=== PATIENT | male | born 1960 | race Caucasian/White ===

== ENCOUNTER 2020-06-12 10:28 | Emergency (ER) | payer OTHER, SELFPAY ==
--- NOTE | ~2020-06-12 | CT_ITS ---
EXAMINATION: CT ABDOMEN AND PELVIS WITH CONTRAST CLINICAL INFORMATION: Left lower quadrant abdominal pain. Evaluate for diverticulitis versus hernia. COMPARISON: None TECHNIQUE: Multidetector volumetric images were obtained from the superior aspect of the liver through the pubic symphysis following administration 75 mL of Omnipaque 350 intravenous contrast. Sagittal and coronal reformatted images were obtained on the technologist's workstation. Oral contrast: No This CT examination was performed using dose optimization techniques as appropriate, variously including the following: *Automated exposure control *Adjustment of mA and/or kV according to patient size (this includes techniques or standardized protocols for targeted exams where dose is matched to indication/reason for exam; i.e. extremities or head) *Use of iterative reconstruction technique DLP: 1265 mGy-cm FINDINGS: LUNG BASES: Platelike atelectasis within the middle lobe. LIVER, GALLBLADDER, AND BILIARY TREE: Liver normal in size, contour and morphology. Diffuse hepatic steatosis. No focal liver lesions. There is a 2.7 cm stone within the gallbladder neck. No pericholecystic fluid. PANCREAS: Unremarkable SPLEEN: Unremarkable. ADRENAL GLANDS: Unremarkable. KIDNEYS AND URETERS: The kidneys are normal in size, shape, and attenuation. There is a 3 mm nonobstructive calculus within the upper pole of the left kidney, a 2 mm calculus within the midpole of the left kidney, and a 2 mm calculus within the upper pole of the right kidney no ureteral calculi or hydronephrosis. There are a few bilateral subcentimeter renal cysts. No perinephric stranding. BLADDER: Unremarkable. GASTROINTESTINAL TRACT: The small and large bowel are unremarkable. The appendix is unremarkable. ABDOMINAL WALL: There is a fat-containing indirect inguinal hernia on the left without associated inflammation. Testicles and scrotum grossly unremarkable from a CT imaging standpoint. LYMPH NODES: Normal. VASCULAR: Aorta mildly atherosclerotic but normal caliber. Patent venous structures. PELVIC VISCERA: Unremarkable. OSSEOUS STRUCTURES: No acute or suspicious osseous abnormalities. CT/CT abdomen pelvis w con IMPRESSION: * There is a fat-containing indirect inguinal hernia on the left without associated inflammation. * No diverticular disease or evidence of diverticulitis. * Hepatic steatosis. * Cholelithiasis. * Bilateral small nonobstructive intrarenal calculi.
[2020-06-12 10:47] VITALS: BP 154/94; PULSE 102; RESP 16; O2SAT 98; BMI 35.2
[2020-06-12 10:51] VITALS: TEMP 36.8
--- NOTE | 2020-06-12 10:53 | ED_ITS ---
HPI - Abdominal Pain General Chief Complaint: Abdominal Pain Stated Complaint: PAIN L LOWER ABD Time Seen by Provider: 06/12/20 10:34 Source: patient Mode of arrival: ambulatory Limitations: no limitations History of Present Illness HPI narrative: 60-year-old male with a past medical history of asthma, BPH status post TURP, POORNIMA, migraines, hypertension, hyperlipidemia here with complaints of left lower abdominal pain x1 week with radiation to the left testicle. Associated with some urinary frequency. No dysuria or hematuria. No fevers or chills or diarrhea. The patient tells me he has had some hard stool b ut his last bowel movement was this morning. He has had some straining and noticed a lump while moving his bowels today at his rectum. No bright blood or black stools. MD elicited complaint: abdominal pain Related Data Allergies Allergy/AdvReac Type Severity Reaction Status Date / Time No Known Allergies Allergy Unverified 11/27/19 15:42 Review of Systems Review of Systems Yes all other systems are reviewed and are negative Constitutional: Reports no additional constitutional complaints, Denies body ache(s), Denies chills, Denies fever(s), Denies headache(s) and Denies weakness Eyes: Reports no additional eye complaints and Denies change in vision Reports system reviewed and no additional complaints, except as documented, Denies dizziness, Denies headache(s), Denies nasal congestion, Denies nasal discharge and Denies neck pain Cardiovascular: Reports no additional cardiovascular complaints, Denies chest pain, Denies leg edema and Denies dyspnea Respiratory: Reports no additional respiratory complaints, Denies cough and Den ies dyspnea Gastrointestinal: Reports no additional gastrointestinal complaints, Reports abdominal pain, Denies hematochezia, Reports constipation, Denies diarrhea, Denies nausea and Denies vomiting Genitourinary: Denies hematuria, Denies oliguria, Denies dysuria, Denies flank pain, Denies testicular mass, Reports testicular pain, Reports urinary frequency and Denies urinary incontinence Musculoskeletal: Reports no additional musculoskeletal complaints, Denies back pain, Denies arthralgias, Denies joint swelling, Denies neck pain, Denies numbness and Denies tingling Skin/Breast: Reports system reviewed and no additional complaints, except as docu and Denies rash Reports system reviewed and no additional complaints, except as documented, Denies Abnormal speech present, Denies dizziness, Denies headache(s), Denies numbness, Denies tingling and Denies weakness Physical Exam Vital Signs: Vital Signs: Last Vital Signs Temp 98.2 F 06/12/20 10:51 Pulse 73 06/12/20 13:25 Resp 18 06/12/20 13:25 BP 152/82 H 06/12/20 13:25 Pulse Ox 98 06/12/20 13:25 Body Mass Index 35.2 Const: General: cooperative, healthy appearing, comfortable and no acute distress Orientation/consciousness: patient oriented x3 Limitations: no limitations HENMT: Head: Yes normal to inspection Ears: hearing grossly normal bilaterally General nose exam: Normal external nose present Face and sinus: Yes normal facial exam Mouth: Normal oral and palatal mucosa present Throat: Yes posterior oropharynx normal Eyes: General: appearance normal, both eyes and all related structures Pupi ls: Equal, round and reactive pupils present Neck: Neck: Yes normal visual inspection Chest: Chest palpation & inspection: normal inspection of the chest Resp: Effort & Inspection: normal respiratory effort Auscultation: clear to auscultation bilaterally Cardio: Rate: regular rate Rhythm: regular rhythm Peripheral pulses: Peripheral pulses 2+ throughout GI: Inspection: Yes normal to inspection Palpation (GI): Soft to palpation, Tenderness to palpation present (GI) (mild llq), no guarding, No hepatosplenomegaly present and no hernias Auscultation: normal bowel sounds Rectal Exam - Male: Yes visual inspection normal, Yes normal sphincter tone and Yes Internal hemorrhoid(s) present (12 o clock-small, nontender ) : 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 General: Yes Bimanual renal exam normal bilaterally Male General Exam: Yes normal external exam Penis: normal penis and circumcised Meatus: meatus normal Scrotum: scrotum normal Testes: Testes normal, no testicular mass, no testicular swelling and no tracie ticular tenderness Back/Spine/Pelvis: Thoracic/Lumbar Spine: thoracic and lumbar spine normal to inspection Skin: General skin exam: no rashes or lesions noted Neuro: General: patient oriented x3, no focal motor deficits and normal sensat ion to monofilament Cranial nerves: Yes Equal, round and reactive pupils present Cognition (Neuro): normal cognition Speech: No Abnormal speech present Gait exam (Neuro): Normal gait present Motor exam (neuro): 5/5 mo tor strength present throughout Extrem: General: Yes normal to inspection Course Course Course Narrative: 60-year-old male here with complaints of left lower abdominal pain with radiation to the left testicle x1 week with associated urinary frequency and constipation. On exam the patient has mild tenderness in the left lower quadrant with no rebound or guarding. He has no testicular pain on exam. He tells me the pain radiates from the abdomen to the testicle. Rectal exam is normal with the exception of a small hemorrhoid noted on exam. Will need labs, UA, CTA/P 1350-labs are unremarkable. UA is negative for infection. CT is consistent with a left inguinal hernia with no evidence of incarceration or obstruction. Incidental findings of renal stones within the kidney and gallstones with no evidence of acute cholecystitis. Reviewed findings with the patient. We will refer him to surgery as follow-up. Reviewed worrisome signs and symptoms such as severe abdominal pain, 2 or more episodes of vomiting, fever and when to seek care in the emergency department. Comfortable discharge home. MDM - Abdominal Pain MDM Narrative Medical decision making narrative: UTI, pyelonephritis, BPH, prostatitis, inguinal hernia, renal colic, diverticulitis Medical Records Attestation: I reviewed the patient's medical records. Lab Data Attestation: I reviewed the patient's lab results. Result diagrams: 06/12/20 11:10 06/12/20 11:48 Labs: Lab Results 06/12/20 06/12/20 06/12/20 Range/Units 11:10 11:10 11:48 WBC 5.5 (4.8-10.8) X10*3/uL RBC 4.79 (4.60-5.80) X10*6/uL Hgb 15.1 (14.0-18.0) g/dl Hct 43.0 (42-52) % MCV 89.8 (80-98) fL MCH 31.5 (27.0-33.0) pg MCHC 35.1 (31.0-36.0) g/dl RDW 12.2 (11.0-16.0) % Plt Count 165 (160-400) X10*3/uL MPV 10.2 (9.4-12.4) fL Immature Gran % (Auto) 0.4 (0.0-0.4) % Neut % (Auto) 61.8 (45-73) % Lymph % (Auto) 27.0 (20-40) % [place] % (Auto) 9.1 (2-11) % Eos % (Auto) 1.3 (0-4) % Baso % (Auto) 0.4 (0-2) % Lymph # (Auto) 1.5 (1.2-4.9) X10*3/uL [place] # (Auto) 0.5 (0.1-1.2) X10*3/uL Eos # (Auto) 0.1 (0.0-0.4) X10*3/uL Baso # (Auto) 0.0 (0.0-0.2) X10*3/uL Abs Immat Gran (auto) 0.02 (0.00-0.03) X10*3/uL Absolute Neuts (auto) 3.4 (2.0-8.3) X10*3/uL Absolute Nucleated RBC 0.000 (0.0-0.012) X10*3/uL Nucleated RBC % (auto) 0.0 (0.0-0.2) /100WBC Hold Blue Top SEE NOTE Sodium 138 (135-145) mmol/L Potassium 3.8 (3.3-5.1) mmol/L Chloride 104 (96-108) mmol/L Carbon Dioxide 26 (22-29) mmol/L Anion Gap 12 (12-20) BUN 15 (9-16) mg/dL Creatinine 0.92 (0.5-1.4) mg/dL Estim Creat Clear Calc 110.3 Estimated GFR > 60 Random Glucose 105 (60-115) mg/dL Calcium 8.6 (8.4-10.2) mg/dL Total Bilirubin 0.9 (0.0-1.0) mg/dL Direct Bilirubin 0.3 (0.0-0.5) mg/dL AST 27 (5-37) U/L ALT 42 H (0-40) U/L Alkaline Phosphatase 45 (39-117) U/L Total Protein 7.0 (6.5-8.0) g/dL Albumin 4.3 (3.5-5.0) g/dL Urine Color Urine Appearance Urine pH (5.0-8.0) Ur Specific [place] (1.005-1.025) Urine Protein (NEG-TRACE) MG/DL Urine Glucose (UA) (NEG) MG/DL Urine Ketones (NEG) MG/DL Urine Blood (NEG) Urine Nitrite (NEG) Ur Leukocyte Esterase (NEG) 06/12/20 Range/Units 13:26 WBC (4.8-10.8) X10*3/uL RBC (4.60-5.80) X10*6/uL Hgb (14.0-18.0) g/dl Hct (42-52) % MCV (80-98) fL MCH (27.0-33.0) pg MCHC (31.0-36.0) g/dl RDW (11.0-16.0) % Plt Count (160-400) X10*3/uL MPV (9.4-12.4) fL Immature Gran % (Auto) (0.0-0.4) % Neut % (Auto) (45-73) % Lymph % (Auto) (20-40) % [place] % (Auto) (2-11) % Eos % (Auto) (0-4) % Baso % (Auto) (0-2) % Lymph # (Auto) (1.2-4.9) X10*3/uL [place] # (Auto) (0.1-1.2) X10*3/uL Eos # (Auto) (0.0-0.4) X10*3/uL Baso # (Auto) (0.0-0.2) X10*3/uL Abs Immat Gran (auto) (0.00-0.03) X10*3/uL Absolute Neuts (auto) (2.0-8.3) X10*3/uL Absolute Nucleated RBC (0.0-0.012) X10*3/uL Nucleated RBC % (auto) (0.0-0.2) /100WBC Hold Blue Top Sodium (135-145) mmol/L Potassium (3.3-5.1) mmol/L Chloride (96-108) mmol/L Carbon Dioxide (22-29) mmol/L Anion Gap (12-20) BUN (9-16) mg/dL Creatinine (0.5-1.4) mg/dL Estim Creat Clear Calc Estimated GFR Random Glucose (60-115) mg/dL Calcium (8.4-10.2) mg/dL Total Bilirubin (0.0-1.0) mg/dL Direct Bilirubin (0.0-0.5) mg/dL AST (5-37) U/L ALT (0-40) U/L Alkaline Phosphatase (39-117) U/L Total Protein (6.5-8.0) g/dL Albumin (3.5-5.0) g/dL Urine Color STRAW Urine Appearance CLEAR Urine pH 6.0 (5.0-8.0) Ur Specific [place] <= 1.005 (1.005-1.025) Urine Protein NEG (NEG-TRACE) MG/DL Urine Glucose (UA) NEG (NEG) MG/DL Urine Ketones NEG (NEG) MG/DL Urine Blood NEG (NEG) Urine Nitrite NEG (NEG) Ur Leukocyte Esterase NEG (NEG) Imaging Data CT scan - abdomen: Attestation: I personally reviewed and interpreted this imaging study as follows: Radiologist's impression: * There is a fat-containing indirect inguinal hernia on the left without associated inflammation. * No diverticular disease or evidence of diverticulitis. * Hepatic steatosis. * Cholelithiasis. * Bilateral small nonobstructive intrarenal calculi. Discharge Plan Discharge Clinical Impression: Inguinal hernia of left side without obstruction or gangrene Hemorrhoids Qualifiers: Hemorrhoid type: unspecified Qualified Code(s): K64.9 - Unspecified hemorrhoids Patient Disposition: Home, Self-Care Instructions: Hemorrhoids (ED), Inguinal Hernia (ED) Additional Instructions: Your CAT scan shows a left inguinal hernia. You have been referred to surgery for elective repair if desired. Avoid any heavy lifting or activities that increase her intra-abdominal pressure. Your CT scan also shows shows several kidney stones which are within the kidneys and are not causing the pain. You also have several gallstones in her gallbladder but no signs an inflamed or infected gallbladder. You do have a internal hemorrhoids. Avoid constipation. Increase fluids and fiber and diet. You can do MiraLax 17 g every day [id number] and a stool softener like Colace 1 pill twice a day. This is also [id number] Referrals: Lani Koroma MD [Physician] - 2 days Interventions: ED Discharge Assessment Last Done: 06/12/20 14:01 Discharge Date/Time: 06/12/20 14:04 [facility] Past Medical History Attestation statement: The following information was validated with the patient. Source: old records reviewed and nursing notes reviewed Medical History (Updated 06/12/20 @ 13:47 by Evelyn Li NP) Asthma BPH (benign prostatic hyperplasia) HLD (hyperlipidemia) HTN (hypertension) Migraines Social History Social History Alcohol intake: never Smoking Status: Never smoker Use of substances other than those prescribed or required for medical reasons: No Advance Directives: No Advance Directives Information Provided: Yes
[2020-06-12 11:17] LABS: MANUAL DIFF FLAG NO
[2020-06-12 11:19] LABS: Basophils Percent Auto 0.4 % (0-2); Eosinophils Absolute Auto 0.1 X10*3/uL (0.0-0.4); Eosinophils Percent Auto 1.3 % (0-4); Hemoglobin 15.1 g/dl (14.0-18.0); Imm Gran Abs Auto 0.02 X10*3/uL (0.00-0.03); Imm Gran Pct Auto 0.4 % (0.0-0.4); Lymphocytes Absolute Auto 1.5 X10*3/uL (1.2-4.9); Mean Corpuscular HGB Conc 35.1 g/dl (31.0-36.0); Mean Corpuscular Hemoglobin 31.5 pg (27.0-33.0); Mean Corpuscular Volume 89.8 fL (80-98); Mean Platelet Volume 10.2 fL (9.4-12.4); Monocytes Absolute Auto 0.5 X10*3/uL (0.1-1.2); Monocytes Percent Auto 9.1 % (2-11); Neutrophils Absolute Auto 3.4 X10*3/uL (2.0-8.3); Neutrophils Percent Auto 61.8 % (45-73); Platelet Count 165 X10*3/uL (160-400); Red Blood Count 4.79 X10*6/uL (4.60-5.80); Red Cell Distribution Width 12.2 % (11.0-16.0); White Blood Count 5.5 X10*3/uL (4.8-10.8)
[2020-06-12 12:28] LABS: Alanine Aminotransferase 42 U/L (0-40); Albumin Level 4.3 g/dL (3.5-5.0); Alkaline Phosphatase 45 U/L (39-117); Anion Gap 12 (12-20); Aspartate Amino Transferase 27 U/L (5-37); Bilirubin Direct 0.3 mg/dL (0.0-0.5); Bilirubin Total 0.9 mg/dL (0.0-1.0); Blood Urea Nitrogen 15 mg/dL (9-16); Calcium 8.6 mg/dL (8.4-10.2); Carbon Dioxide 26 mmol/L (22-29); Chloride 104 mmol/L (96-108); Creatinine Clr Calc Pharmacy 110.3; Estimated Glomerular Filt Rate > 60; Glucose Random 105 mg/dL (60-115); Potassium 3.8 mmol/L (3.3-5.1); Sodium 138 mmol/L (135-145)
[2020-06-12] MEDS: iohexoL 350 MG/ML 75 ML INFUS..BTL IV (13:08)
[2020-06-12 13:25] VITALS: BP 152/82; PULSE 73; RESP 18; O2SAT 98
[2020-06-12 13:31] LABS: Glucose Urine UA NEG (NEG); Leukocyte Esterase Urine NEG (NEG); Nitrite Urine NEG (NEG); Specific Gravity - Urine <= 1.005 (1.005-1.025); Urine Blood NEG (NEG); Urine Ketones NEG (NEG); Urine Protein NEG (NEG-TRACE)
[2020-06-12 13:32] LABS: Appearance Urine CLEAR; Color Urine STRAW
== END 2020-06-12 14:04 | disposition home or self-care (01) ==
PROVIDERS: Nurse Practitioner Family; Emergency Provider Emergency Medicine
DX: K40.90 Unilateral inguinal hernia, without obstruction or gangrene, not specified as recurrent (principal); K64.9 Unspecified hemorrhoids; R10.32 Left lower quadrant pain; J45.909 Unspecified asthma, uncomplicated; I10 Essential (primary) hypertension; E78.5 Hyperlipidemia, unspecified; R93.5 Abnormal findings on diagnostic imaging of other abdominal regions, including retroperitoneum; N20.0 Calculus of kidney; N28.1 Cyst of kidney, acquired; K80.80 Other cholelithiasis without obstruction; K76.0 Fatty (change of) liver, not elsewhere classified
CPT/HCPCS: 36415; 74177; 80048; 80076; 81003; 85025; 99284; Q9967

== ENCOUNTER → 2020-07-01 12:40 | Outpatient (BNVA) | payer OTHER, SELFPAY | PROVIDERS: PCP Family Medicine; Visit Provider Surgery | DX: K40.90 Unilateral inguinal hernia, without obstruction or gangrene, not specified as recurrent (principal); E78.5 Hyperlipidemia, unspecified; I10 Essential (primary) hypertension | CPT/HCPCS: 99202 ==

== ENCOUNTER 2020-07-21 09:20 | Day surgery (SDC) | payer OTHER, SELFPAY ==
[2020-07-16 11:54] VITALS: BMI 34.5
--- NOTE | 2020-07-20 07:48 | HO.ANESPROP2 ---
HPI - Anesthesia Eval Consult details Narrative: 60yo M for Left Inguinal Hernia Repair with mesh *s/p cervical spine surgery with plates PMFSH Active Problems Active Problems: All Active Problems (Updated 07/16/20 @ 11:53 by Ryann Jasso) Left inguinal hernia (Acute) Past Medical History Medical History Anxiety and depression Asthma BPH (benign prostatic hyperplasia) COVID-19 vaccine series completed GERD (gastroesophageal reflux disease) HLD (hyperlipidemia) HTN (hypertension) Hx of traumatic brain injury Low back pain Migraines Neck pain Sleep apnea Family History Family History Maternal Uncle Prostate cancer Surgical History Surgical History H/O neck surgery H/O right inguinal hernia repair Social History Social History Smoking Status: Never smoker Meds Allergies Allergy/AdvReac Type Severity Reaction Status Date / Time No Known Allergies Allergy Verified 07/21/20 09:47 Home Medications Medication Instructions Recorded Confirmed Last Taken Type albuterol sulfate 2 puff INHALATION Q4-6H PRN 07/16/20 07/16/20 Unknown History budesonide-formoterol [Symbicort] 2 puff INHALATION BID 07/16/20 07/16/20 Unknown History buspirone 10 mg PO BID 07/16/20 07/16/20 Unknown History citalopram 10 mg PO DAILY 07/16/20 07/16/20 Unknown History cyclobenzaprine 5 mg PO BID 07/16/20 07/16/20 Unknown History dextran 70-hypromellose 1 drp OPHTHALMIC (EYE) BEDTIME 07/16/20 07/16/20 Unknown History lidocaine 1 patch TOPICAL DAILY 07/16/20 07/16/20 Unknown History melatonin 1 mg PO BEDTIME PRN 07/16/20 07/16/20 Unknown History naproxen 250 mg PO BID PRN 07/16/20 07/16/20 Unknown History omeprazole 20 mg PO DAILY 07/16/20 07/16/20 Unknown History terazosin 1 mg PO BEDTIME 07/16/20 07/16/20 Unknown History Exam Exam Date and Time: July 20, 2020 0748 Height,Weight and Vital Signs: Height 6 ft Weight 115.666 kg Pertinent Lab Results Pertinent Lab Results: Laboratory Tests 06/12/20 06/12/20 11:10 11:48 WBC 5.5 Hgb 15.1 Hct 43.0 Plt Count 165 Sodium 138 Potassium 3.8 Chloride 104 Carbon Dioxide 26 BUN 15 Creatinine 0.92 Assessment and Plan Assessment Anesthesia Assessment: Chart Reviewed
[2020-07-21] VITALS (9 sets, daily range): BP systolic 92–166; BP diastolic 37–77; PULSE 68–90; RESP 16; TEMP 36.4–36.5; O2SAT 93–98
--- NOTE | 2020-07-21 07:26 | MHC.SHP ---
Pre-Procedural Eval Section A The patient is an INPATIENT: No Changes since office visit: No Cold of Flu in the past 2 weeks, No New Medical Problems and No Changes in Medication The History & Physical has been completed within 30 days and I have reviewed it.: Yes Section B Chief Complaint: Left Inguinal hernia Allergies: Allergies Allergy/AdvReac Type Severity Reaction Status Date / Time No Known Allergies Allergy Verified 07/16/20 11:49 Plan Diagnosis/Plan: Unchanged I have reviewed the history and physical and performed a pertinent physical examination on my patient. No changes have occurred unless specified.
--- NOTE | 2020-07-21 09:55 | P.CONAN_ITS ---
[facility] Active Problems Active Problems: All Active Problems (Updated 07/16/20 @ 11:53 by Ryann noe) Left inguinal hernia (Acute) Past Medical History Medical History Anxiety and depression Asthma BPH (benign prostatic hyperplasia) COVID-19 vaccine series completed GERD (gastroesophageal reflux disease) HLD (hyperlipidemia) HTN (hypertension) Hx of traumatic brain injury Low back pain Migraines Neck pain Sleep apnea Family History Family History Maternal Uncle Prostate cancer Surgical History Surgical History H/O neck surgery H/O right inguinal hernia repair Social History Social History Smoking Status: Never smoker Use of substances other than those prescribed or required for medical reasons: No Are you DNR?: No Advance Directives: No Advance Directives Information Provided: No Advance Directives on File: No Meds Allergies Allergy/AdvReac Type Severity Reaction Status Date / Time No Known Allergies Allergy Verified 07/21/20 09:47 Active Medications: Current Medications Generic Name Dose Route Start Last Admin Trade Name Freq PRN Reason Stop Dose Admin Albuterol Sulfate 2.5 mg 07/21/20 09:24 Albuterol Sulfate (0.083%) 2.5 Mg/3 Ml Vial.Neb INHALE ONCE PRN Shortness of Breath/Wheezing Lactated Ringer's 1,000 mls @ 100 mls/hr 07/21/20 09:30 Lr IVCONT .Q10H [facility] Home Medications Medication Instructions Recorded Confirmed Last Taken Type albuterol sulfate 2 puff INHALATION Q4-6H PRN 07/16/20 07/16/20 Unknown History budesonide-formoterol [Symbicort] 2 puff INHALATION BID 07/16/20 07/16/20 Unknown History buspirone 10 mg PO BID 07/16/20 07/16/20 Unknown History citalopram 10 mg PO DAILY 07/16/20 07/16/20 Unknown History cyclobenzaprine 5 mg PO BID 07/16/20 07/16/20 Unknown History dextran 70-hypromellose [Tears 1 drp OPHTHALMIC (EYE) BEDTIME 07/16/20 07/16/20 Unknown History Refreshed] lidocaine 1 patch TOPICAL DAILY 07/16/20 07/16/20 Unknown History melatonin 1 mg PO BEDTIME PRN 07/16/20 07/16/20 Unknown History naproxen 250 mg PO BID PRN 07/16/20 07/16/20 Unknown History omeprazole 20 mg PO DAILY 07/16/20 07/16/20 Unknown History terazosin 1 mg PO BEDTIME 07/16/20 07/16/20 Unknown History Exam Exam Date and Time: July 21, 2020 0955 Height,Weight and Vital Signs: Height 6 ft Weight 115.666 kg Airway Mallampati Class: III TM Dist: >3cm Neck ROM: Limited Heart: RRR Lungs: CTA
[2020-07-21] MEDS: Lactated Ringers 1,000 ML 100 ML IVCONT (10:03)
--- NOTE | 2020-07-21 12:27 | P.OP_ITS ---
Operative Note Operative Note Date of Service: 07/21/20 Narrative: Preoperative diagnosis: Left inguinal hernia Postoperative diagnosis: Same Procedure: Repair of left inguinal hernia Surgeon: Derik Lopez MD Director Housekeeping: JESSE Kumar Anesthesia: General LMA Indications for procedure: 60 year old male patient with a lump in the left groin which increases in size with Valsalva maneuvers. He has prior history of bilateral inguinal hernias as a child and a previous right inguinal hernia as an adult. On examination the patient has a palpable left inguinal hernia which is reducible and nontender. Operative findings:. Recurrent indirect left inguinal hernia with large preperitoneal lipoma. Specimen: None Estimated blood loss: 10 mL Complications: None Procedure details: Patient was brought to the OR and placed in a supine position. After administering general anesthesia the patient's abdomen was prepped with ChloraPrep and draped in a sterile fashion. A surgical time-out was called the consent confirmed. Patient received preoperative antibiotics and Venodyne boots were in place. Local anesthesia consisting of 0.5% Sensorcaine with epinephrine was infiltrated over the left inguinal ligament. Incision was then made in oblique fashion over the inguinal ligament. This carried out through subcutaneous tissue past Cayetano's fashion up to the external oblique aponeurosis. Additional local was infiltrated below the external oblique aponeurosis. This was then incised with a scalpel wide with the Metzenbaum scissors. Spermatic cord was then dissected free from the surrounding inguinal canal and retracted using a Susie drain. The floor of the inguinal canal was examined and no direct hernia was identified. Fibers of the cremasteric muscle were then and an indirect lipoma was identified. This was dissected down to the internal ring. The lipoma was then reduced into the abdominal cavity through the internal ring. A large extended PHS mesh was then obtained. The circular underlay was then placed through the internal ring into the preperitoneal space. The overlay was then secured to the pubic tubercle, conjoined tendon and shelving edge of the inguinal ligament using 0 Polysorb sutures. A slit was made in the mesh and the mesh wrapped around the spermatic cord at the internal ring. This was then secured to the shelving edge of the inguinal ligament using a 0 Polysorb suture. This was felt to be loose enough to allow the tip of an index finger to pass. Wounds were checked for hemostasis. Wounds were irrigated with saline solution and suctioned dry. External oblique aponeurosis was then closed using a running 2 0 Polysorb suture. Cayetano's fascia and dermis reapproximated using interrupted 3-0 Polysorb sutures. Skin was then closed using a running subcuticular 4-0 Polysorb suture. Steri-Strips 2 x 2 gauze and Tegaderm were then applied. The patient tolerated the procedure well. Sponge, instrument, needle counts reported as correct. Patient was transferred to PACU in stable condition.
[2020-07-21] MEDS: ondansetron HCL 4 MG/2 ML VIAL IVPUSH (12:49)
--- NOTE | 2020-07-21 13:44 | PC.NURSE ---
PATIENT STATES HE FEELS THE NEED TO URINATE. PT GIVEN URINAL AND UNABLE TO URINATE. PATIENT ASSISTED UP AND UNABLE TO URINATE. PT ASSISTED TO BATHROOM AND WAS ABLE TO URINATE.
== END 2020-07-21 14:30 | disposition home or self-care (01) ==
PROVIDERS: Visit Provider Surgery
PROC: (CPT 49520; principal; 2020-07-21 10:50)
DX: K40.91 Unilateral inguinal hernia, without obstruction or gangrene, recurrent (principal); D17.79 Benign lipomatous neoplasm of other sites; K21.9 Gastro-esophageal reflux disease without esophagitis; J45.909 Unspecified asthma, uncomplicated; I10 Essential (primary) hypertension; F32.9 Major depressive disorder, single episode, unspecified; Z79.899 Other long term (current) drug therapy; Z87.820 Personal history of traumatic brain injury
CPT/HCPCS: 49520; C1781; J0690; J1100; J1885; J2250; J2405; J3010

== ENCOUNTER → 2020-07-30 09:32 | Outpatient (BNVA) | payer OTHER, SELFPAY | PROVIDERS: Visit Provider Surgery | DX: K40.90 Unilateral inguinal hernia, without obstruction or gangrene, not specified as recurrent (principal) | CPT/HCPCS: 99212 ==

== ENCOUNTER → 2020-08-31 11:15 | Outpatient (BNVA) | payer OTHER, SELFPAY | PROVIDERS: PCP Family Medicine; Visit Provider Surgery | DX: Z48.815 Encounter for surgical aftercare following surgery on the digestive system (principal); Z87.19 Personal history of other diseases of the digestive system | CPT/HCPCS: 99212 ==

== ENCOUNTER 2023-11-29 09:30 | Outpatient (AMB) | payer MEDICARE, OTHER, SELFPAY ==
--- NOTE | 2023-11-29 09:42 | AM.OFFWIN_ITS ---
Intake Vital Signs 11/29/23 09:44 Weight 239 lb BP 110/80 Blood Pressure Location Rt brachial Position Sitting Pulse 80 Pulse Source Pulse Oximeter Pulse Oximetry (%) 98 Oxygen Delivery Method Room Air Intake Visit Reasons: EP Kidney pain Intake Note: Patient here for left lower back pain (kidney area) which has been present for about 2 weeks now. Patient Tobacco Use Status: Never used Tobacco Allergies No Known Allergies Allergy (Verified 11/29/23 09:45) Do you need a note to return to daycare/school/sports/work: No HPI HPI Comments History of Present Illness Details Patient is a 63-year-old male complaining of 2 weeks of left-sided low back pain that radiates around the side. He states he has a history of kidney stones and prostatitis. He states it does not feel exactly like his kidney stones felt when he had them last year any denies any fevers or blood in his urine. He does endorse a little bit of mild nausea but no vomiting. [facility] Medical History (Updated 11/29/23 @ 10:08 by Lani Prince PA-C) Neck pain Low back pain Hx of traumatic brain injury Sleep apnea Anxiety and depression GERD (gastroesophageal reflux disease) COVID-19 vaccine series completed Asthma BPH (benign prostatic hyperplasia) Migraines HLD (hyperlipidemia) HTN (hypertension) Surgical History H/O neck surgery H/O right inguinal hernia repair Family History Maternal Uncle Prostate cancer Social History Patient Tobacco Use Status: Never used Tobacco Physical Exam Vital Signs: Last Vital Signs Pulse 80 11/29/23 09:44 BP 110/80 11/29/23 09:44 Pulse Ox 98 11/29/23 09:44 Oxygen Delivery Method Room Air 11/29/23 09:44 Const General: cooperative, healthy appearing, comfortable, no acute distress and well developed Orientation/consciousness: patient oriented x3 Limitations: no limitations HEENT Head: Yes normal to inspection Eyes General: appearance normal, both eyes and all related structures Neck Neck: Yes normal visual inspection and Yes full ROM Resp Effort & Inspection: normal respiratory effort and able to speak in complete sentences General: Yes no CVA tenderness Back/Spine/Pelvis Back: no CVA tenderness Skin General skin exam: no rashes or lesions noted Neuro General: patient oriented x3 Extrem General: Yes normal to inspection Results AMB Urinalysis, Automated UA Leukoctes 15 Jaydon/uL Last Edit by Perfecto Varghese [facility] on 11/29/23 10:0 7 UA Nitrite Negative Last Edit by Perfecto Varghese [facility] on 11/29/23 10:07 UA Urobilinogen 0.2 mg/dL Last Edit by Perfecto Varghese [facility] on 11/29/23 10:07 UA Protein 15 mg/dL Last Edit by MadhuriLydia Varghese [facility] on 11/29/23 10:07 UA pH 5.5 Last Edit by MadhuriInder Varghese [facility] on 11/29/23 10:07 UA Blood 0 Kristian/uL Last Edit by MadhuriInder Varghese [facility] on 11/29/23 10:07 UA Specific [place] 1.030 Last Edit by Perfecto Varghese [facility] on 11/29/23 10:07 UA Ketone Negative Last Edit by MadhuriInder Varghese [facility] on 11/29/23 10:07 UA Bilirubin 1 mg/dL Last Edit by MadhuriInder Varghese [facility] on 11/29/23 10:07 UA Glucose 0 mg/dL Last Edit by MadhuriInder Varghese [facility] on 11/29/23 10:07 Assessment & Plan Assessment & Plan (1) UTI (urinary tract infection): Code(s): N39.0 - Urinary tract infection, site not specified Qualifiers: Urinary tract infection type: acute cystitis Hematuria presence: without hematuria Qualified Code(s): N30.00 - Acute cystitis without hematuria Plan: UA positive for leukocyte esterase, negative for nitrites, negative for blood. No CVA tenderness. We will treat for UTI but told patient it could be a kidney stone and to use a low threshold to go to the emergency department if his pain gets worse. Plan see above Orders: Orders AMB Urinalysis Automated Today Z13.9 - Encounter for screening, unspecified Coding Level of Care Code New Pt Level 3 (88796) Diagnoses Acute cystitis without hematuria N30.00 Urinary tract infection type: acute cystitis Hematuria presence: without hematuria
[2023-11-29 09:44] VITALS: BP 110/80; PULSE 80; O2SAT 98
== END 2023-11-29 10:52 | disposition home or self-care (01) ==
PROVIDERS: PCP Family Medicine; Visit Provider Physician Assistant
DX: N30.00 Acute cystitis without hematuria (principal); Z13.9 Encounter for screening, unspecified

== ENCOUNTER → 2023-11-29 09:30 | Outpatient (BNVA) | payer MEDICARE, OTHER, SELFPAY | PROVIDERS: PCP Family Medicine | DX: N30.00 Acute cystitis without hematuria (principal) | CPT/HCPCS: 81003; 99202 ==

== ENCOUNTER 2024-02-13 12:38 | Outpatient (AMB) | payer MEDICARE, OTHER, SELFPAY ==
--- NOTE | 2024-02-13 12:49 | MHC.PC.OV ---
Vital Signs 02/13/24 12:51 Height 6 ft Weight 245 lb BMI 33.2 BP 154/70 H Blood Pressure Location Lt brachial Position Sitting Pulse 78 Pulse Source Pulse Oximeter Pulse Oximetry (%) 98 Oxygen Delivery Method Room Air Intake Visit Reasons: HYDRAULIC BLOCKER request referral pulmonology Intake Note: Pt is here today as a New Patient to [facility] care/ request referral for pulmonary Allergies No Known Allergies Allergy (Verified 02/13/24 13:06) Medication List - Last Reconciled 02/13/24 by Millie Whitmore MD albuterol sulfate 90 mcg/actuation 2 puffs inhalation Q4-6H PRN citalopram 20 mg PO DAILY cyclobenzaprine 5 mg PO BID lidocaine 5% 1 patch topical DAILY omeprazole 20 mg PO DAILY Tobacco use date assessed: 02/13/24 Fall risk assessment: No Falls in past year Last assessed Fall Risk: 02/13/24 Dental Screening Dental Screen Date: 02/13/24 Did you have a dental visit in the last 12 months?: Yes Did you have a dental problem in the last 6 months where you did not have access to dental care?: Yes Was dental information given to patient?: Patient has dentist HPI HYDRAULIC BLOCKER request referral pulmonology HPI Details The 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 He is currently being seen at the [facility] . He reports a history of breathing difficulties since his deployment in [place], where he was exposed to burn pits. The [facility] diagnosed him with COPD and asthma following a pulmonary function test, although no data entry email processor referral was arranged previously. The patient uses WIlexa , and albuterol inhaler . He expresses dissatisfaction with the effectiveness of inhalers as they do not significantly alleviate symptoms during exacerbations. In addition to respiratory issues, the patient has chronic low back pain, aggravated recently without clear cause. He mentions a surgical history involving plate and screw placement in his neck, which has been stable; however, his back pain persists. Despite regular consultations with a maintenance helper, there's noted exacerbation in back pain. He is also dealing with TMJ, diagnosed a month ago, which has required several dental appointments for corrective procedures. [facility] Medical History (Updated 02/17/24 @ 18:29 by Millie Whitmore MD) Chronic low back pain COPD (chronic obstructive pulmonary disease) Neck pain Low back pain Hx of traumatic brain injury Sleep apnea Anxiety and depression GERD (gastroesophageal reflux disease) COVID-19 vaccine series completed Asthma BPH (benign prostatic hyperplasia) Migraines HLD (hyperlipidemia) HTN (hypertension) Surgical History H/O neck surgery H/O right inguinal hernia repair Family History Maternal Uncle Prostate cancer Social History Housing: House Patient Tobacco Use Status: Never used Tobacco e-Cigarette/Vaping Use: Never Used service: Yes Current occupational status: retired Cognitive needs: No Hearing needs: No Vision needs: Yes Questionnaire PHQ-9 Over the last 2 weeks, how often have you been bothered by any of the following problems? 1. Little interest or pleasure in doing things: more than half the days 2. Feeling down, depressed, or hopeless: several days 3. Trouble falling or staying asleep, or sleeping too much: more than half the days 4. Feeling tired or having little energy: more than half the days 5. Poor appetite or overeating: more than half the days 6. Feeling bad about yourself - or that you are a failure or have let yourself or your family down: several days 7. Trouble concentrating on things, such as reading the newspaper or watching television: more than half the days 8. Moving or speaking so slowly that other people could have noticed. Or the opposite - being so fidgety or restless that you have been moving around a lot more than usual: not at all 9. Thoughts that you would be better off or of hurting yourself in some way: not at all Total score: 12 Depression Screening Interpretation: Positive Depression Screening Follow-up: Existing condition, In treatment and Community Mental Health Worker F/U Depression Screening Done: Yes 58049 - PHQ-9 Billing: Yes Source: Developed by Drs. Aravind Busby, Klesi Hoang, Grupo Oleary and colleagues, with an educational kristen from [employer]. Thrive Questionnaire I am a: Patient What is your living situation today?: I have a steady place to live Within the past 12 months, did the food you bought not last and you didn't have the money to get more?: Never true Within the past 12 months, did you worry whether your food would run out before you got money to buy more?: Never true Do you have trouble paying for medicines?: No Do you have trouble getting transportation to medical appointments?: No Do you have trouble paying your heating and electricity bill?: No Do you have trouble taking care of your child, family member or friend?: No Do you have trouble with day-to-day activities such as bathing, preparing meals, shopping, managing finances, etc.?: Yes Are you currently unemployed and looking for a job?: No Are you interested in more education?: No Please select the resources that you would like help with: None Currently or been in a relationship where the following occur: No concerns reported THRIVE Score: 0 AUDIT C Alcohol Use Questionnaire (AUDIT-C) 1. How often do you have a drink containing alcohol?: Never Total Score: 0 CHARAN-7 AMB Questionnaire CHARAN-7 Feeling nervous, anxious, or on edge: 2 = More than half the days Not being able to stop or control worryin = Several days Worrying too much about different things: 1 = Several days Trouble relaxin = Several days Being so restless that it is hard to sit still: 1 = Several days Becoming easily annoyed or irritable: 0 = Not at all Feeling afraid as if something awful might happen: 0 = Not at all Total CHARAN-7 score (0-4 normal; 5-9 mild; 10-14 moderate; 15-21 severe): 6 Source: Developed by Drs. Aravind Busby, Kelsi Hoang, Grupo Oleary and colleagues, with an educational kristen from [employer]. CHARAN-7 Assessment Billing CHARAN-7 Assessment Tool: CHARAN-7 Assessment 26185 Review of Systems Const Denies chills, Denies fever(s), Denies headache(s) and Denies poor appetite ENT Denies dizziness and Denies headache(s) Card Denies chest pain, Denies rapid heart rate, Denies palpitations, Denies dyspnea and Denies dyspnea on exertion Resp Denies chest congestion, Denies cough, Denies pain on inspiration, Denies dyspnea, Denies dyspnea on exertion and Reports wheezing (occasional) GI Reports no additional complaints Reports no additional complaints Musc Reports as per HPI, Denies arthralgias, Denies joint swelling, Denies numbness and Reports stiffness Skin/Breast Denies rash Neuro Denies dizziness, Denies headache(s) and Denies numbness Psych Reports as per HPI Endo Denies palpitations Taran/Lymph Denies easy bleeding, Denies easy bruising and Denies lymphadenopathy Aller/Immun Reports wheezing (occasional) Physical exam (Primary Care) Vital Signs: Last Vital Signs Pulse 78 02/13/24 12:51 BP 154/70 H 02/13/24 12:51 Pulse Ox 98 02/13/24 12:51 Oxygen Delivery Method Room Air 02/13/24 12:51 BMI result Body Mass Index 33.2 Tobacco/Smoking Status: Tobacco use Status Tobacco use date assessed 02/13/24 02/13/24 12:54 Patient Tobacco Use Status Never used Tobacco 02/13/24 12:54 e-Cigarette/Vaping Use Never Used 02/13/24 12:57 PHQ-9: PHQ-9 Score PHQ-9: Total score 12 02/17/24 18:25 Depression Screening Interpretation: Positive Depression Screening Follow-up: Existing condition, In treatment and Community Mental Health Worker F/U Currently or been in a relationship where the following occur: No concerns reported Const General: no acute distress and alert Orientation/consciousness: patient oriented x3 HENMT Ears: external ears normal General nose exam: Normal external nose present and No nasal discharge present Mouth: Normal oral and palatal mucosa present, oropharynx normal and moist mucous membranes Eyes General: appearance normal, both eyes and all related structures Conjunctivae: conjunctivae normal Sclerae: sclerae normal Pupils: Equal, round and reactive pupils present EOM: EOMs intact bilaterally Neck Neck: Yes full ROM, Yes no lymphadenopathy and Yes supple Resp Effort & Inspection: normal respiratory effort and able to speak in complete sentences Auscultation: clear to auscultation bilaterally Cardio Rate: regular rate Rhythm: regular rhythm Heart sounds: S1 normal heart sound present and S2 normal heart sound present GI Palpation (GI): Soft to palpation, nontender and no masses Auscultation: normal bowel sounds Back/Spine/Pelvis Thoracic/Lumbar Spine: straight leg raise negative bilaterally and paraspinal muscle tenderness bilaterally in the lower lumbar Skin General skin exam: no rashes or lesions noted Neuro General: patient oriented x3, gait normal, tone normal, moves all extremities, Normal light touch and pain sensation and no focal motor deficits Cranial nerves: Yes CN's II-XII intact bilaterally and Yes Equal, round and reactive pupils present Cognition (Neuro): normal cognition Extrem General: Yes full ROM, Yes no joint enlargement, Yes no clubbing, cyanosis or edema and Yes no calf tenderness Psych Appearance: grossly normal and well kempt Mental Status: mental status grossly normal Speech and movement: Normal speech and movement present Affect: normal affect Attitude: cooperative Thought process: Normal thought process present Thought content: Normal thought content present Coding Level of Care Code New Pt Level 4 (95565) Diagnoses COPD (chronic obstructive pulmonary disease) J44.9 Chronic bilateral low back pain without sciatica M54.50; G89.29 Back pain laterality: bilateral Sciatica presence: without sciatica Additional Codes CHARAN-7 Assessment Billing - CHARAN-7 Assessment Tool: CHARAN-7 Assessment 46425 ([id number]) PHQ-9 - 09400 - PHQ-9 Billing: Yes ([id number]) Assessment & Plan Assessment & Plan (1) COPD (chronic obstructive pulmonary disease): Code(s): J44.9 - Chronic obstructive pulmonary disease, unspecified Category: Medical (2) Chronic low back pain: Code(s): M54.50 - Low back pain, unspecified; G89.29 - Other chronic pain Category: Medical Qualifiers: Back pain laterality: bilateral Sciatica presence: without sciatica Qualified Code(s): M54.50 - Low back pain, unspecified; G89.29 - Other chronic pain Plan During this visit, we discussed the patient's management of COPD, continued on present inhalers . As per patient request, a referral to Dr. Rosanne Brennan, a Pulmoary Specialist with [facility] in [facility] ordered, ensuring that all reports and updates from her will be communicated for cohesive care management. The patient also expressed the need for further evaluation of chronic back pain, for which a referral to Dr. Bishop was arranged. This will be a high-priority referral given the patient's increased pain and swelling in the lower back. We discussed the merit of sequential vaccination timing, advising the high-dose flu vaccine initially, followed by the COVID-19 booster for optimal safety. He was advised to get high-dose flu shot, and to get the COVID booster shortly after. Additionally, the patient was reminded to either provide or have sent any recent blood work results ahead of his physical exam appointment scheduled for March 28. - Attend your appointment with Dr. Rosanne Brennan for pulmonary evaluation. - Keep your appointment with Dr. Bishop on February 17 for back pain management. - Obtain a high-dose flu shot as soon as possible. - Schedule a COVID-19 booster shot after the flu vaccine. - Ensure that all your health providers send the necessary medical reports. - Await results of any recent labs done at the [facility] , to see if any labs need to be ordered prior to your March physical exam. - Report any worsening symptoms or new significant health issues. Patient was informed and verbally consented to the use of an ambient scribe for clinic note documentation during this visit. Orders: Referrals Pulmonology Referral J44.9 - Chronic obstructive pulmonary disease, unspecified Physiatry Referral G89.29 - Other chronic pain, M54.50 - Low back pain, unspecified
[2024-02-13 12:51] VITALS: BP 154/70; PULSE 78; O2SAT 98; BMI 33.2
--- OUTSIDE RECORDS SUMMARY | 2024-02-19 19:00 | XMS_ITS ---
Author Name [facility] [place] [facility] [place] Address [address] [place] [address] Care Team Providers Care Business Process Engineer Name Role Phone MARILIN KAPLAN Primary Care Provide r Unavailable Insurance Providers: All historical and current Section Date Range: From patient's date of to the date document was created. This section includes the names of all active insurance providers for the patient. Insurance Provider Type of Coverage Plan Name Start of Policy Coverage End of Policy Coverage Group Number Member ID Insurance Provider's Telephone Number Policy Valentine's Name Patient's Relationship to Policy Valentine NELIA PRESCRIPT ION [id number] Mar 12, 2019 [id number] [phone] Dina WOODSNIS PATIENT [facility] Jan 23, 2014 [id number] CREAMERDinaNIS PATIENT MEDICARE (WNR) MEDICARE (M) PART A Nov 10, 2014 PART A [id number] CREAMER,Dina KATY PATIENT MEDICARE (WNR) MEDICARE (M) PART B Nov 10, 2014 PART B [id number] [phone] CREAMERDina PATIENT MEDICARE (WNR) MEDICARE (M) PART A Nov 10, 2014 PART A [id number] [phone] CREAMER,D KATY PATIENT MEDICARE (WNR) MEDICARE (M) PART B Nov 10, 2014 PART B [id number] CREAMER,D KATY PATIENT MEDICARE (WNR) MEDICARE (M) PART A Nov 10, 2014 PART A [id number] CREAMER,D KATY PATIENT MEDICARE (WNR) MEDICARE (M) PART B Nov 10, 2014 PART B [id number] [phone] CREAMER,D KATY PATIENT MEDICARE (WNR) MEDICARE (M) PART B Nov 10, 2014 PART B CREAMER,D KATY PATIENT MEDICARE PART D (WNR) MEDICARE (M) PART D Nov 10, 2017 PART D [id number] CREAMER,D KTAY PATIENT MEDICARE PART D (WNR) MEDICARE (M) PART D Nov 10, 2017 PART D [id number] CREAMER,D KATY PATIENT [facility]* Mar 12, 2023 [id number] CREAMER,D KATY PATIENT [facility] H Mar 12, 2021 [id number] [phone] CREAMER,D KATY PATIENT [facility] E Mar 12, 2019 [id number] CREAMER,D KATY [facility]IENT [facility] Mar 12, 2019 [facility] [id number] CREAMER,D KATY PATIENT Selected Encounter This section includes the information on record at [place] for the Encounter. Date/Time Encounter Type Encounter Description Reason Pro vider Source Mar 07, 2023 08:27 AM Outpatient Encounter DENTAL IHE Encounter Template Text not used by [place] Plan of Treatment: Future Appointments (+ 6 months) and Future Tests (+/- 45 days) The Plan of Treatment section includes future care activities for the patient from all [facility] treatmentfacilities. This section includes future appointments and future orders which are active, pending or scheduled. Future Appointments This section includes appointments that were scheduled to occur 6 months from the date of the Encounter, up to a maximum of 20 appointments. The data comes from all [place] treatment facilities. Appointment Date/Time Appointment Type Appointme nt Facility Name Mar 08, 2023 07:15 AM AMBULATORY [facility] NONE [facility] [place] [facility] Apr 10, 2023 02:30 PM AMBULATORY - PSYCHIATRY [facility] Jun 26, 2023 02:30 PM AMBULATORY - PSYCHIATRY [facility] July 16, 2023 10:40 AM [facility] July 24, 2023 02:30 PM AMBULATORY - PSYCHIATRY [facility] Aug 20, 2023 02:00 PM AMBULATORY - MEDICINE [facility] Sep 04, 2023 02:30 PM AMBULATORY - PSYCHIATRY [facility] Social History: Smoking Status (Most current) and Tobacco Use (All prior to encounter date) This section includes the most current, and the historical, smoking and tobacco- related health factors from the [place] facility where the Encounter took place. Current Smoking Status This section includes the most current smoking, or tobacco-related health factor, from the [facility] facility where the Encounter took place. Date/Time Current Smoking Status Comment Facil ity Nov 10, 2022 01:30 PM [facility] Tobacco Use History This section includes a history of the smoking, or tobacco-related health factors, that were collected on or before the date of the Encounter. The data comes from the [place] facility where the Encounter took place. Date/Time Smoking Status/Tobacco Use Comment F acility Oct 14, 2021 10:18 AM VA-TOBACCO NEVER USED [facility] [place] [facility] Feb 11, 2020 04:16 PM VA-TOBACCO NEVER USED [facility] [place] [facility] Jan 15, 2018 02:24 PM LIFETIME NON-SMOKER [place] [facility] Advance Directives: All historical and current Section Date Range: From patient's date of to the date document was created. This section includes ALL of a patient's completed or amended VA Advance and Rescinded Directives. The entries below indicate that a directive exists for the patient, but an actual copy is not included with this document. The data comes from all [place] facilities. Date Advance Directives Provider Source Dec 14, 2020 ADVANCE DIRECTIVE [facility] Encounter Notes: All associated encounter notes This section contains the clinical notes associated to the Encounter. Date/Time Encounter Note(s) Provider Source Mar 07, 2023 08:28 AM TELEHEALTH NOTE: LOCAL TITLE: TELEPHONE NOTE/DENTAL STANDARD TITLE: TELEHEALTH NOTE DATE OF NOTE: MAR 07, 2023@08:28 ENTRY DATE: MAR 07, 2023@08:28:05 AUTHOR: PIERRE MENDEZ EXP COSIGNER: URGENCY: STATUS: COMPLETED Spoke with pt to confirm dental appointment on 03/08/2023 at 7:15 am. /ho/ PIERRE MENDEZ ADVANCED MANAGER STERILE PROCESSING Signed: 03/07/2023 08:28 [facility]EN[facility]Z [facility]
--- OUTSIDE RECORDS SUMMARY | 2024-02-19 19:00 | XMS_ITS | Encounter Summary ---
Author Name [facility] [place] [facility] [place] Address [address] [place] [address] Care Team Providers Care Digital Performance Analyst Name Role Phone MARILIN KAPLAN Primary Care [...] PRESCRIPT ION [id number] 1 Mar 12, 2019 [id number] [phone] Dina WOODSNIS PATIENT [facility] Jan 23, 2014 [id number] [phone] CREAMERDinaNIS PATIENT MEDICARE (WNR) MEDICARE (M) PART A Nov 10, 2014 PART A [id number] CREAMER,Dina KATY PATIENT MEDICARE (WNR) MEDICARE (M) PART B Nov 10, 2014 PART B [id number] CREAMERDina PATIENT MEDICARE (WNR) MEDICARE (M) PART A Nov 10, 2014 PART A [id number] [phone] CREAMER,D KATY PATIENT MEDICARE (WNR) MEDICARE (M) PART B Nov 10, 2014 PART B [id number] CREAMER,D KATY PATIENT MEDICARE (WNR) MEDICARE (M) PART A Nov 10, 2014 PART A [id number] [phone] CREAMER,D KATY PATIENT MEDICARE (WNR) MEDICARE (M) PART B Nov 10, 2014 PART B CREAMER,D KATY PATIENT MEDICARE (WNR) MEDICARE (M) PART B Nov 10, 2014 PART B [id number] [id number] CREAMER,D KATY PATIENT MEDICARE PART D (WNR) MEDICARE (M) PART D Nov 10, 2017 PART D [id number] CREAMER,D KATY PATIENT MEDICARE PART D (WNR) MEDICARE (M) PART D Nov 10, 2017 PART D [id number] [phone] CREAMER,D KATY PATIENT FOR LIFE TFL* Mar 12, 2023 [id number] CREAMER,D KATY PATIENT [facility] POINT OF SERVICE US FAMIL Y HEALT H Mar 12, 2021 [id number] [phone] CREAMER,D KATY PATIENT [facility] RADHA REYES E Mar 12, 2019 [id number] CREAMER,D KATY PATIENT [facility] Mar 12, 2019 [facility] [id number] CREAMER,D KATY PATIENT Selected Encounter This section includes the information on record at [place] for the Encounter. Date/Time Encounter Type Encounter Description Reason Pro vider Source Feb 27, 2023 11:25 AM Outpatient Encounter DENTAL IHE Encounter Template Text not used by [facility] Plan of Treatment: Future Appointments (+ 6 [...] 20 appointments. The data comes from all [place] treatment facilities. Appointment Date/Time Appointment Type Appointme nt Facility Name Mar 08, 2023 07:15 AM AMBULATORY - NONE [place] [facility] [place] [facility] Apr 10, 2023 02:30 PM AMBULATORY - PSYCHIATRY [facility] Jun 26, 2023 02:30 PM AMBULATORY - PSYCHIATRY [facility] July 16, 2023 10:40 AM [place] [place] [place] [facility] July 24, 2023 02:30 PM AMBULATORY - PSYCHIATRY [facility] Aug 20, 2023 02:00 PM AMBULATORY - MEDICINE [facility] Social History: Smoking Status (Most current) and Tobacco Use (All prior to encounter date) This section includes the most current, and the historical, smoking and tobacco- related health factors from the [place] facility where the Encounter took place. Current Smoking Status This section includes the most current smoking, or tobacco-related health factor, from the [place] facility where the Encounter took place. Date/Time Current Smoking Status Comment Laury ity Nov 10, 2022 01:30 PM [facility] Tobacco Use History This section includes a history of the smoking, or tobacco-related health factors, that were collected on or before the date of the Encounter. The data comes from the [place] facility where the Encounter took place. Date/Time Smoking Status/Tobacco Use Comment F acility Oct 14, 2021 10:18 AM VA-TOBACCO [facility] [place] [facility] Feb 11, 2020 04:16 PM VA-TOBACCO NEVER USED [facility] Jan 15, 2018 02:24 PM LIFETIME NON-SMOKER [place] [facility] Advance Directives: All historical and current Section Date Range: From patient's date of to the date document was created. This section includes ALL of a patient's completed or amended [place] Advance and Rescinded Directives. The entries below indicate that a directive exists for the patient, but an actual copy is not included with this document. The data comes from all [place] facilities. Date Advance Directives Provider Source Dec 14, 2020 ADVANCE DIRECTIVE MARISOL [facility] Encounter Notes: All associated encounter notes This section contains the clinical notes associated to the Encounter. Date/Time Encounter Note(s) Provider Source Feb 27, 2023 11:25 AM TELEHEALTH NOTE: LOCAL TITLE: TELEPHONE NOTE/DENTAL STANDARD TITLE: TELEHEALTH NOTE DATE OF NOTE: FEB 27, 2023@11:25 ENTRY DATE: FEB 27, 2023@11:25:58 AUTHOR: PIERRE MENDEZ EXP COSIGNER: URGENCY: STATUS: COMPLETED Called and spoke with pt, appointment with dental on 03/02/2023 has been cancelled and rescheduled to 03/08/2023 /ho/ PIERRE MENDEZ [employer]VANCED [employer] GARAGE ATTENDANT Signed: 02/27/2023 11:26 PIERRE MENDEZ [facility]
--- OUTSIDE RECORDS SUMMARY | 2024-02-19 19:00 | XMS_ITS | Encounter Summary ---
Author Name [facility] [place] [facility] [place] [facility] [place] Address [address] [place] [address] Care Team Providers Care Screen Printing Cloth Spreader Name Role Phone MARILIN KAPLAN Primary Care [...] PRESCRIPT ION [id number] 1 Mar 12, 2019 [id number] [phone] CREAMDina KOHLER PATIENT [facility] Jan 23, 2014 [id number] [phone] CREAMER,Dina KATY PATIENT MEDICARE (WNR) MEDICARE () PART A Nov 10, 2014 PART A [id number] CREAMER,D KATY PATIENT MEDICARE (WNR) MEDICARE () PART B Nov 10, 2014 PART B [id number] CREAMER,Dina KATY PATIENT MEDICARE (WNR) MEDICARE () PART A Nov 10, 2014 PART A [id number] CREAMER,D KATY PATIENT MEDICARE (WNR) MEDICARE (M) PART B Nov 10, 2014 PART B [id number] CREAMER,D KATY PATIENT MEDICARE (WNR) MEDICARE (M) PART A Nov 10, 2014 PART A [id number] CREAMER,D KATY PATIENT MEDICARE (WNR) MEDICARE (M) PART B Nov 10, 2014 PART B [id number] CREAMER,D KATY PATIENT MEDICARE (WNR) MEDICARE (M) PART B Nov 10, 2014 PART B [id number] CREAMER,D KATY PATIENT MEDICARE PART D (WNR) MEDICARE (M) PART D Nov 10, 2017 PART D [id number] [phone] CREAMER,D KATY PATIENT MEDICARE PART D (WNR) MEDICARE (M) PART D Nov 10, 2017 PART D [id number] CREAMER,D KATY PATIENT FOR LIFE TFL* Mar 12, 2023 [id number] CREAMER,D KATY PATIENT [facility] POINT OF SERVICE US FAMIL Y HEALT H Mar 12, 2021 [id number] [phone] CREAMER,D KATY PATIENT [facility] BRARIELLE REYES E Mar 12, 2019 [id number] CREAMER,D KATY PATIENT [facility] Mar 12, 2019 [facility] [id number] [phone] CREAMER,D KATY PATIENT Selected Encounter This section includes the information on record at [place] for the Encounter. Date/Time Encounter Type Encounter Description Reason Pro vider Source Feb 19, 2023 01:20 PM Outpatient Encounter ADMIN PAT ACTIVTIES (MASNONCT) IHE Encounter Template Text not used by [...] 20 appointments. The data comes from all [place] treatment facilities. Appointment Date/Time Appointment Type Appointme nt Facility Name Feb 27, 2023 02:30 PM AMBULATORY - PS[facility]CH[facility]ATRY [facility] Mar 08, 2023 07:15 AM AM[place]ULATORY - NONE [place] [facility] [place] [facility] Apr 10, 2023 02:30 PM AMBULATORY - PSYCHIATRY [facility] Jun 26, 2023 02:30 PM AMBULATORY - PSYCHIATRY [facility] July 16, 2023 10:40 AM [place]ORY - [place]IC[place] [facility] [place] [place] [facility] July 24, 2023 02:30 PM AMBULATORY - PS[facility]CHIATRY [facility] Aug 20, 2023 02:00 PM AMBULATORY - MEDICINE [facility] Social History: Smoking Status (Most current) and Tobacco Use (All prior to encounter date) This section includes the most current, and the historical, smoking and tobacco- related health factors from the [place] facility where the Encounter took place. Current Smoking Status This section includes the most current smoking, or tobacco-related health factor, from the [place] facility where the Encounter took place. Date/Time Current Smoking Status Comment Facil ity Nov 10, 2022 01:30 PM [facility]CO [facility] Tobacco Use History This section includes a history of the smoking, or tobacco-related health factors, that were collected on or before the date of the Encounter. The data comes from the [place] facility where the Encounter took place. Date/Time Smoking Status/Tobacco Use Comment F acility Oct 14, 2021 10:18 AM VA-TOBACCO NEVER USED [place] [facility] [place] [facility] Feb 11, 2020 04:16 PM VA-TOBACCO NEVER USED [place] [facility] [place] [facility] Jan 15, 2018 02:24 PM LIFETIME NON-SMOKER [facility] Advance Directives: All historical and current Section Date Range: From patient's date of to the date document was created. This section includes ALL of a patient's completed or amended [place] Advance and Rescinded Directives. The entries below indicate that a directive exists for the patient, but an actual copy is not included with this document. The data comes from all [place] facilities. Date Advance Directives Provider Source Dec 14, 2020 ADVANCE DIRECTIVE MARISOL [facility] Encounter Notes: All associated encounter notes This section contains the clinical notes associated to the Encounter. Date/Time Encounter Note(s) Provider Source Feb 19, 2023 01:20 PM PHARMACY NOTE: LOCAL TITLE: V1 PHARMACY CUSTOMER CARE MEDICATION RENEWAL STANDARD TITLE: PHARMACY NOTE DATE OF NOTE: FEB 19, 2023@13:20 ENTRY DATE: FEB 19, 2023@13:20:55 AUTHOR: HARI LEO EXP COSIGNER: URGENCY: STATUS: COMPLETED Date: Feb Division: [facility] referred by Pharmacy Call Center for medication renewal: Non-controlled/maintenanc e medication Medications requested: [id number] LIDOCAINE 5% PATCH Defer to primary care provider To be mailed . Please review and renew if appropriate. *This note was generated by [facility] [facility] Customer [facility]. If you have any questions or need assistance, do not contact this author. Please refer all questions to your local, on-site pharmacy departments. /ho/ HARI LEO CPhT Flight Engineer Performance Qualified, [place]/Pharmacy Customer Care Signed: 02/19/2023 13:21 Receipt Acknowledged By: 02/20/2023 15:52 /ho/ Mable Cuevas M.D. STAFF PHYSICIAN 02/21/2023 13:38 /ho/ LAWANDA FUNES, RN REGISTERED NURSE HARI LEO [facility]
--- OUTSIDE RECORDS SUMMARY | 2024-02-19 19:00 | XMS_ITS | Encounter Summary ---
Author Name [facility] [place] [facility] [place] Address [address] [place] [id number] Care Team Providers Care Will Call Clerk Name Role Phone MARILIN KAPLAN Primary Care [...] Valentine's Name Patient's Relationship to Policy Valentine CAREKIKA PRESCRIPT ION [id number] 1 Mar 12, 2019 [id number] [phone] CREAMDina KOHLERNIS PATIENT [facility] STATE [facility]ENC Y Jan 23, 2014 [id number] [phone] CREAMERDina KATY PATIENT MEDICARE (WNR) MEDICARE (M) PART A Nov 10, 2014 PART A [id number] CREAMER,Dina KATY PATIENT MEDICARE (WNR) MEDICARE (M) PART B Nov 10, 2014 PART B [id number] CREAMER,Dina KATY PATIENT MEDICARE (WNR) MEDICARE (M) PART A Nov 10, 2014 PART A [id number] CREAMER,D KATY PATIENT MEDICARE (WNR) MEDICARE (M) PART B Nov 10, 2014 PART B [id number] [phone] CREAMER,D KATY PATIENT MEDICARE (WNR) MEDICARE (M) PART A Nov 10, 2014 PART A [id number] CREAMER,D KATY PATIENT MEDICARE (WNR) MEDICARE (M) PART B Nov 10, 2014 PART B [id number] CREAMER,D KATY PATIENT MEDICARE (WNR) MEDICARE (M) PART B Nov 10, 2014 PART B CREAMER,D KATY PATIENT MEDICARE PART D (WNR) MEDICARE (M) PART D Nov 10, 2017 PART D [id number] CREAMER,D KATY PATIENT MEDICARE PART D (WNR) MEDICARE (M) PART D Nov 10, 2017 PART D [id number] [phone] CREAMER,D KATY PATIENT FOR LIFE TFL* Mar 12, 2023 [id number] CREAMER,D KAYT PATIENT [facility] Mar 12, 2021 [id number] [phone] CREAMER,D KATY PATIENT [facility] RADHA REYES E Mar 12, 2019 [id number] CREAMER,D KATY PATIENT [facility] Mar 12, 2019 [facility] [id number] CREAMER,D KATY PATIENT Selected Encounter This section includes the information on record at [place] for the Encounter. Date/Time Encounter Type Encounter Description Reason Provider Source Feb 27, 2023 02:30 PM OFFICE O/P EST MOD 30-39 MIN [facility] - IND ICD-10-CM F32.9 Major depressive disorder, single episode, unspecified LANA CELAYA Encounter Template Text not used by [facility] Assessments - Encounter Diagnoses This section includes the primary and secondary diagnoses documented for the Encounter. Date/Time Primary/Secondary Diagnosis Diagnosis Name Provider Source Feb 28, 2023 08:19 PM PRIMARY Major depressive disorder, single episode, unspecified RADHA WEBBER Feb 28, 2023 08:19 PM SECONDARY Generalized anxiety disorder RADHA WEBBER Plan of Treatment: Future Appointments (+ 6 months) and Future Tests (+/- 45 days) The Plan of Treatment section includes future care activities for the [facility] [place] [facility] This section includes future appointments and future orders which are active, pending or scheduled. Future Appointments This section includes appointments that were scheduled to occur 6 months from the date of the Encounter, up to a maximum of 20 appointments. The data comes from all [place] treatment facilities. Appointment Date/Time Appointment Type Appointme nt Facility Name Mar 08, 2023 07:15 AM AMBULATORY - NONE [facility] Apr 10, 2023 02:30 PM AMBULATORY - PSYCHIATRY [facility] Jun 26, 2023 02:30 PM AMBULATORY - PSYCHIATRY [facility] July 16, 2023 10:40 AM [facility] July 24, 2023 02:30 PM AMBULATORY - PSYCHIATRY [facility] Aug 20, 2023 02:00 PM AMBULATORY - MEDICINE [facility] Social History: Smoking Status (Most current) and Tobacco Use (All prior to encounter date) This section includes the most current, and the historical, smoking and tobacco- related health factors from the [place] facility where the Encounter took place. Current Smoking Status This section includes the most current smoking, or tobacco-related health factor, from the [place] facility where the Encounter took place. Date/Time Current Smoking Status Comment Laury viveros Dec 20, 2018 08:14 AM [place]-TOBACCO NEVER USED [facility] Tobacco Use History This section includes a history of the smoking, or tobacco-related health factors, that were collected on or before the date of the Encounter. The data comes from the [place] facility where the Encounter took place. Date/Time Smoking Status/Tobacco Use Comment Kerline lama Jan 18, 2018 02:01 PM [place]-TOBACCO NEVER USED [facility] Apr 10, 2016 10:51 AM LIFETIME NON-TOBACCO USER [facility] May 23, 2004 10:12 AM LIFETIME NON-SMOKER [facility] May 23, 2004 10:12 AM LIFETIME NON-TOBACCO USER [facility] Advance Directives: All historical and current Section Date Range: From patient's date of to the date document was created. This section includes ALL of a patient's completed or amended [place] Advance and Rescinded Directives. The entries below indicate that a directive exists for the patient, but an actual copy is not included with this document. The data comes from all [place] facilities. Date Advance Directives Provider Source Dec 14, 2020 ADVANCE DIRECTIVE MARISOL HAMPTON [place] [facility] Encounter Notes: All associated encounter notes This section contains the clinical notes associated to the Encounter. Date/Time Encounter Note(s) Provider Source Feb 28, 2023 08:12 PM PSYCHIATRY NOTE: LOCAL TITLE: PSYCHIATRY NOTE STANDARD TITLE: PSYCHIATRY NOTE DATE OF NOTE: FEB 28, 2023@20:12 ENTRY DATE: FEB 28, 2023@20:12:56 AUTHOR: RADHA WEBBER COSIGNER: ANA CRISTINA CELAYA URGENCY: STATUS: COMPLETED PSYCHIATRY NOTE Has ADDENDA Last seen 01/23/2023 Time spent: 21-30 minutes The presents today for follow-up. IDENTIFYING INFORMATION: Epifanio Woods is a 62-year-old male with a history of MDD, CHARAN, gambling disorder in remission, multiple TBIs, past episode of ischemic colitis, HLD, ED, POORNIMA not on CPAP, COPD,and multiple other medical conditions, who presents for psychopharmacologic follow-up. . Last seen Jul 25 2022 HISTORY OF PRESENT ILLNESS (patient report): Has CT scan tomorrow. 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 This week has been stressful as he met his daughter's fiancee's parents. That went alright, but is concerned about whether they liked him. Denies any worries of depression or anxiety. Has been trying to walk more after eating. Had some cravings to return to gambling, but regained perspective after talking to his daughter. Denies increase in depression with lower dose of Buspar. Leaves for [place] Mar 21 until July 03. Mental Status Exam: male who appears his stated age. Concentration and memory grossly intact. Speech is clear and spontaneous. Mood is euthymic. Affect is mood congruent. Thought process is linear and goal directed. Thought content is devoid of SI/HI/hallucinations. Inisght and judgement are fair to good. SUICIDE RISK ASSESSMENT: SUICIDE INQUIRY: IDEATION: Denies ideation. Do you currently have any homicidal ideation? No SUBSTANCE USE: Working on cutting down on highly processed foods. Alcohol use: denies excessive use Marijuana: tried it for medical purposes, did not like it and is not using it. Denies all other substance use PSYCH MEDICATION HISTORY: SOCIAL HISTORY: SERVICE CONNECTED % - 88 w/2children a/w. his is from the [facility] [employer]. he retired from [employer] 05/23. lifelong nonsmoker. 1drink alcohol per month. Deployed in [place]. Had neck surgery and was med evac'ed for his injuries. Suffered 3+ concussions and has had cognitive deficits since. PATIENT ACTIVE PROBLEM LIST: Active problems - Computerized Problem List is the source for the followin. Urolithiasis 2. Chronic neck pain 3. Indirect inguinal hernia 4. Generalized anxiety disorder 5. Essential hypertension 6. Colonoscopy normal 7. Ischemic colitis 8. Long-term current use of cannabis 9. Asthma 10. Shoulder region pain 11. Magnetic resonance imaging scan abnormal 12. Hyperlipidemia 13. Erectile dysfunction (SNOMED CT [id number]) 14. Neck pain 15. Elevated blood pressure reading without diagnosis of hypertension 16. Colorectal Cancer Screening Results Documented and Reviewed (PV) 17. Anisocoria * 18. Anisometropia 19. Concussion 20. Brief Loss of Consciousness with Loss of Consciousness less than 30 Minutes 21. Corneal scar 22. 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 Major depressive disorder 25. Dermatitis or Eczema 26. Hemorrhoid (SNOMED CT [id number]) 27. Cervical radiculopathy 28. Pain in joint involving shoulder region 29. Migraine, unspecified, without mention of Intractable Migraine 30. Low back pain 31. Hypercholesterolemia 32. Elevated Liver Function Tests 33. Impaired FASTING Glucose 34. Hemorrhoids 35. 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 Benign prostatic hypertrophy with outflow obstruction 38. HEARING LOSS 39. OBESITY ACTIVE OUTPATIENT MEDICATIONS (including Supplies): Active Outpatient Medications (including Supplies): ACYCLOVIR 5% OINT APPLY THIN LAYER TOPICALLY TWICE DAILY ACTIVE NEEDED FOR INFECTION ALBUTEROL 100/IPRATRO 20MCG 120D PO INHL INHALE 1 PUFF BY ACTIVE MOUTH FOUR TIMES A DAY AMLODIPINE BESYLATE 5MG TAB TAKE ONE TABLET BY MOUTH ONCE ACTIVE DAILY FOR BLOOD PRESSURE/HEART, DO NOT TAKE WITH GRAPEFRUIT JUICE BUSPIRONE HCL 10MG TAB TAKE ONE TABLET BY MOUTH TWICE ACTIVE DAILY CARBOXYMETHYLCELLULOSE NA 0.5% OPH SOLN INSTILL 1 DROP ACTIVE INTO EACH EYE FOUR TIMES A DAY CETIRIZINE HCL 10MG TAB TAKE ONE TABLET BY MOUTH ONCE ACTIVE DAILY NEEDED FOR ALLERGIES CITALOPRAM HYDROBROMIDE 10MG TAB TAKE ONE TABLET BY MOUTH ACTIVE AT BEDTIME FOR MAJOR DEPRESSIVE DISORDER FOR DEPRESSION AND ANXIETY CYCLOBENZAPRINE HCL 5MG TAB TAKE 1 TO 2 TABLETS BY MOUTH ACTIVE TWICE DAILY NEEDED [MUSCLE RELAXANT] DOCUSATE NA 100MG CAP TAKE ONE CAPSULE BY MOUTH ONCE DAILY ACTIVE FOR CONSTIPATION TO SOFTEN STOOL EZETIMIBE 10MG TAB TAKE ONE TABLET BY MOUTH ONCE DAILY TO ACTIVE LOWER CHOLESTEROL FLUTICAS 250/SALMETEROL 50 INHL DISK 60 INHALE 1 PUFF BY ACTIVE MOUTH TWICE DAILY - RINSE MOUTH AFTER USE HEMORRHOIDAL RTL OINT APPLY SMALL AMOUNT TO TOPICALLY ACTIVE NEEDED FOR HEMORRHOIDS LIDOCAINE 5% PATCH APPLY 3 PATCHES 5% TOPICALLY ONCE DAILY ACTIVE (LEAVE PATCH ON FOR 12 HOURS, THEN REMOVE PATCH) OMEPRAZOLE 20MG EC CAP TAKE TWO CAPSULES BY MOUTH ONCE PENDING DAILY ONDANSETRON 4MG ORAL DISINTEGRATING TAB PLACE ONE TABLET ACTIVE ON THE TONGUE EVERY 8 HOURS NEEDED FOR NAUSEA AND VOMITING (ALLOW TABLET TO DISSOLVE ON TONGUE, AND SWALLOW WITH SALIVA) SILDENAFIL CITRATE 100MG TAB TAKE ONE TABLET BY MOUTH ONCE ACTIVE DAILY NEEDED TAKE 1 HOUR PRIOR TO SEXUAL ACTIVITY TAMSULOSIN HCL 0.4MG CAP TAKE ONE CAPSULE BY MOUTH AT ACTIVE BEDTIME FOR ENLARGED PROSTATE Non-VA OTHER CAP/TAB MEDICAL MARIJUANA BY MOUTH ACTIVE ALLERGIES: DUST FORMULATION:Epifanio Woods is a 61-year-old male with a history of MDD, CHARAN, gambling disorder in remission, multiple TBIs, past episode of ischemic colitis, HLD, ED, POORNIMA not on CPAP, COPD,and multiple other medical conditions, who presents for psychopharmacologic follow-up. continues to present psychiatrically stable with no acute symptoms of depression, anxiety, psychosis, or acute safety issues. His anxiety is manageable despite having not been able to take Buspar for 5 days. He has been able to maintain euthymia on citalopram 10 mg daily. Reports of occasional episodes resembling anxiety attacks seem attributable to decreased frustration tolerance in setting of TBI and he does not find these to be disruptive or problematic. He has been diagnosed with Baret's Esophagitis and is undergoing further imaging since our last visit, but the anxiety related to these has been proportional and not detrimental to level of function. Mr. Woods does have a lot of medical issues and is on many medications. Since he has been stable for many years on his current medication regimen, we will try to gradually decrease medication dosages. IMPRESSION (DSM-5): MDD, mild, recurrent CHARAN gamling disorder in sustained remission PLAN: - Continue citalopram 10 mg PO daily for MDD and anxiety - Continue buspirone 5mg BID for anxiety. Decrease to 5mg daily after 2 weeks if comfortable, or wait until our next appointment - Continue melatonin to 3 mg PO qHS for insomnia - Continue therapy at [facility] I discussed the findings and plan with the patient. I educated the patient about their mental health condition. Montezuma repeated back the plan and education. The patient denied suicidal and violent ideation, but the suicide prevention information and hotline were reviewed with the patient. The patient also understands to call 911 or to go to ER in the event of an emergency. I completed a thorough risk assessment today, taking into consideration both the patient's risk factors and protective factors. After careful consideration, it is my clinical opinion that the is probably at low- risk for harm to self and others. The rationale for the psychiatric medications and the alternatives to treatment were discussed with the patient. The side effect profile of the psychiatric medications was reviewed with the patient. This also included discussion of potential drug interactions with the psychiatric medication. Patient demonstrated reasonable understanding of the medication side effects and the above issues. The benefits of psychiatric medications outweigh risks for this patient. I asked the patient to call the clinic or to come to open access if the patient does not like the effect of psychiatric medication or if has side effects with psychiatric medication. Follow-up with PCP for regular health maintenance. The patient's primary care physician follows blood pressure, weights, lipids, glucose. FOLLOW-UP:Return to clinic in ~6 weeks /ho/ RADHA WEBBER MD LASER OPERATOR Signed: 02/28/2023 20:20 /ho/ ANA CRISTINA CELAYA MD STAFF PSYCHIATRIST Cosigned: 03/02/2023 00:30 Receipt Acknowledged By: 03/02/2023 07:24 /ho/ Lorna Dodge ADVANCED RAILWAY TRACTION LINE WORKER 03/06/2023 09:52 /es/ LIV PRINGLE ADVANCED RAILWAY TRACTION LINE WORKER 03/02/2023 ADDENDUM STATUS: COMPLETED case discussed w Dr Webber, and I interviewed pt for part of Dr Webber's session w pt; agree w assessment and plan /ho/ ANA CRISTINA CELAYA MD STAFF PSYCHIATRIST Signed: 03/02/2023 00:32 RADHA WEBBER
--- OUTSIDE RECORDS SUMMARY | 2024-02-19 19:01 | XMS_ITS | Encounter Summary ---
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 Name Role Phone MARILIN KAPLAN Primary Care [...] PRESCRIPT ION [id number] 1 Mar 12, 2019 [id number] [phone] CREAMDina KOHLER PATIENT [facility] STATE [facility]ENC Y Jan 23, 2014 [id number] [phone] CREAMER,Dina KATY PATIENT MEDICARE (WNR) MEDICARE () PART A Nov 10, 2014 PART A [id number] CREAMER,D KATY PATIENT MEDICARE (WNR) MEDICARE () PART B Nov 10, 2014 PART B [id number] CREAMER,Dina KATY PATIENT MEDICARE (WNR) MEDICARE () PART A Nov 10, 2014 PART A [id number] CREAMER,D KATY PATIENT MEDICARE (WNR) MEDICARE (M) PART B Nov 10, 2014 PART B [id number] [phone] CREAMER,D KATY PATIENT MEDICARE (WNR) MEDICARE (M) PART A Nov 10, 2014 PART A [id number] CREAMER,D KATY PATIENT MEDICARE (WNR) MEDICARE (M) PART B Nov 10, 2014 PART B CREAMER,D KATY PATIENT MEDICARE (WNR) MEDICARE (M) PART B Nov 10, 2014 PART B [id number] CREAMER,D KATY PATIENT MEDICARE PART D (WNR) MEDICARE (M) PART D Nov 10, 2017 PART D [id number] CREAMER,D KATY PATIENT MEDICARE PART D (WNR) MEDICARE (M) PART D Nov 10, 2017 PART D [id number] CREAMER,D KATY PATIENT FOR LIFE TFL* Mar 12, 2023 [id number] CREAMER,D KATY PATIENT [facility] POINT OF SERVICE US [facility] HEALT H Mar 12, 2021 [id number] [phone] CREAMER,D KATY PATIENT [facility] BRARIELLE REYES E Mar 12, 2019 [id number] CREAMER,D KATY PATIENT [facility] Mar 12, 2019 [facility] [id number] CREAMER,D KATY PATIENT Selected Encounter This section includes the information on record at [place] for the Encounter. Date/Time Encounter Type Encounter Description Reason Pro vider Source May 11, 2023 02:14 PM Outpatient Encounter ADMIN PAT ACTIVTIES (MASNONCT) [...] 20 appointments. The data comes from all [place] treatment facilities. Appointment Date/Time Appointment Type Appointme nt Facility Name Jun 26, 2023 02:30 PM AMBULATORY - PSYCHIATRY [facility] July 16, 2023 10:40 AM [facility] July 24, 2023 02:30 PM AMBULATORY - PSYCHIATRY [facility] Aug 20, 2023 02:00 PM [facility] Sep 04, 2023 02:30 PM AMBULATORY - PSYCHIATRY [facility] Sep 07, 2023 07:15 AM AMBULATORY - NONE [facility] Oct 19, 2023 08:00 AM [place] [facility] Social History: Smoking Status (Most current) and Tobacco Use (All prior to encounter date) This section includes the most current, and the historical, smoking and tobacco- related health factors from the [place] facility where the Encounter took place. Current Smoking Status This section includes the most current smoking, or tobacco-related health factor, from the [place] facility where the Encounter took place. Date/Time Current Smoking Status Comment Facil ity Nov 10, 2022 01:30 PM VA-TOBACCO NEVER USED [place] [facility] Tobacco Use History This section includes a history of the smoking, or tobacco-related health factors, that were collected on or before the date of the Encounter. The data comes from the [place] facility where the Encounter took place. Date/Time Smoking Status/Tobacco Use Comment F acility Oct 14, 2021 10:18 AM VA-TOBACCO NEVER USED [facility] Feb 11, 2020 04:16 PM VA-TOBACCO NEVER USED [facility] [place] Jan 15, 2018 02:24 PM LIFETIME NON-SMOKER [facility] Advance Directives: All historical and current Section Date Range: From patient's date of to the date document was created. This section includes ALL of a patient's completed or amended [place] Advance and Rescinded Directives. The entries below indicate that a directive exists for the patient, but an actual copy is not included with this document. The data comes from all [place] facilities. Date Advance Directives Provider Source Dec 14, 2020 ADVANCE DIRECTIVE MARISOL [place]PTON [place] [facility] Encounter Notes: All associated encounter notes This section contains the clinical notes associated to the Encounter. Date/Time Encounter Note(s) Provider Source May 11, 2023 02:14 PM ADMINISTRATIVE NOT E: LOCAL TITLE: CCC: SCHEDULING ADMINISTRATION STANDARD TITLE: ADMINISTRATIVE NOTE DATE OF NOTE: MAY 11, 2023@14:14:14 ENTRY DATE: MAY 11, 2023@14:14:14 AUTHOR: MADALYN OBRIEN EXP COSIGNER: URGENCY: STATUS: COMPLETED CCC: SCHEDULING ADMINISTRATION Has ADDENDA Patient Demographics Patient Name: EPIFANIO WOODS Patient Primary Phone: [phone] Patient Primary Address: [address] [place] [address] Patient : 1960 Patient Age: 63 Caller/Recipient Relation to Patient: Self Administrative Administrative Note Reason: Other Administrative Note Comments: Patient called and stated he had a heart attack while in [place]. The patient stated he will be back in June and will need a cardiology consult placed. Patient stated he has his surgery at [place]. Please assist /es/ MADALYN OBRIEN Signed: 05/11/2023 14:14 Receipt Acknowledged By: 05/11/2023 14:46 /es/ KATEY AKBAR LPN LICENSED PRACTICAL NURSE 05/21/2023 09:19 /es/ CHINA CANDELARIA RN REGISTERED NURSE for LAWANDA FUNES 05/11/2023 ADDENDUM STATUS: COMPLETED Records can be found in [facility]: Service Request Patient: Epifanio Woods Code: Referral Request 2.0 Occurrence: May 10, 2023 1:26 P.M. TECHNICAL COMMUNICATOR Priority: Routine Reason: NSTEMI (non-ST elevated myocardial infarction) Patient mated to [facility] for NSTEMI. Post hospital follow-up. Status: Completed Intent: Order Requester: MYA PHAM DO Order Detail: 05/10/2023 09:26:00 HST, Medical Service Cardiology, Patient mated to [facility] for NSTEMI. Post hospital follow-up., Evaluate and Treat, NSTEMI (non-ST elevated myocardial infarction) /es/ KATEY AKBAR LPN LICENSED PRACTICAL NURSE Signed: 05/11/2023 14:47 05/21/2023 ADDENDUM STATUS: COMPLETED Consult placed and held for provider signature. /ho/ CHINA CANDELARIA RN REGISTERED NURSE Signed: 05/21/2023 09:20 MADALYN OBRIEN [facility]
--- OUTSIDE RECORDS SUMMARY | 2024-02-19 19:01 | XMS_ITS | Encounter Summary ---
Author Name [facility] [place] [facility] [place] Address [address] [place] [address] Care Team Providers Care Cabinet And Trim Installer Name Role Phone MARILIN KAPLAN Primary Care [...] PRESCRIPT ION [id number] 1 Mar 12, 2019 [id number] [phone] CREAMDina KOHLER PATIENT [facility] Jan 23, 2014 [id number] [phone] CREAMER,Dina KATY PATIENT MEDICARE (WNR) MEDICARE () PART A Nov 10, 2014 PART A [id number] CREAMER,D KATY PATIENT MEDICARE (WNR) MEDICARE () PART B Nov 10, 2014 PART B [id number] CREAMER,Dina KATY PATIENT MEDICARE (WNR) MEDICARE () PART A Nov 10, 2014 PART A [id number] [phone] CREAMER,D KATY PATIENT MEDICARE (WNR) MEDICARE (M) PART B Nov 10, 2014 PART B [id number] CREAMER,D KATY PATIENT MEDICARE (WNR) MEDICARE (M) PART A Nov 10, 2014 PART A [id number] CREAMER,D KATY PATIENT MEDICARE (WNR) MEDICARE (M) PART B Nov 10, 2014 PART B [id number] CREAMER,D KATY PATIENT MEDICARE (WNR) MEDICARE (M) PART B Nov 10, 2014 PART B CREAMER,D KATY PATIENT MEDICARE PART D (WNR) MEDICARE (M) PART D Nov 10, 2017 PART D [id number] CREAMER,D KATY PATIENT MEDICARE PART D (WNR) MEDICARE (M) PART D Nov 10, 2017 PART D [id number] [phone] CREAMER,D KATY PATIENT FOR LIFE TFL* Mar 12, 2023 [id number] CREAMER,D KATY PATIENT [facility] POINT OF SERVICE US FAMIL Y HEALT H Mar 12, 2021 [id number] [phone] CREAMER,D KATY PATIENT [facility] BRARIELLE REYES E Mar 12, 2019 [id number] CREAMER,D KATY PATIENT [facility] Mar [facility], 2019 [facility] [id number] CREAMER,D KATY PATIENT Selected Encounter This section includes the information on record at [place] for the Encounter. Date/Time Encounter Type Encounter Description Reason Pro vider Source Apr 23, 2023 09:06 PM Outpatient Encounter ADMIN PAT ACTIVTIES (MASNONCT) [...] - MEDICINE [place] [facility] [place] [facility] July 24, 2023 02:30 PM AMBULATORY - PSYCHIATRY [facility] Aug 20, 2023 02:00 PM [facility] Sep 04, 2023 02:30 PM AMBULATORY - PS[facility]CHIATRY [facility] Sep 07, 2023 07:15 AM AMBULATORY - NONE [facility] [place] [facility] Oct 19, 2023 08:00 AM AMBULATORY - MEDICINE [place] [facility] [place] [facility] Social History: Smoking Status (Most current) and Tobacco Use (All prior to encounter date) This section includes the most current, and the historical, smoking and tobacco- related health factors from the [place] facility where the Encounter took place. Current Smoking Status This section includes the most current smoking, or tobacco-related health factor, from the [place] facility where the Encounter took place. Date/Time Current Smoking Status Comment Facil ity Nov 10, 2022 01:30 PM VA-TOBACCO NEVER USED [place] [facility] [place] [facility] Tobacco Use History This section includes a history of the smoking, or tobacco-related health factors, that were collected on or before the date of the Encounter. The data comes from the [place] facility where the Encounter took place. Date/Time Smoking Status/Tobacco Use Comment F acility Oct 14, 2021 10:18 AM VA-TOBACCO NEVER USED [place] [facility] [place] [facility] Feb 11, 2020 04:16 PM VA-TOBACCO NEVER USED [place] [facility] [place] [facility] Jan 15, 2018 02:24 PM LIFETIME NON-SMOKER [place] [facility] [place] [facility] Advance Directives: All historical and current [...] Dec 14, 2020 ADVANCE DIRECTIVE MARISOL HAMPTON [facility] Encounter Notes: All associated encounter notes This section contains the clinical notes associated to the Encounter. Date/Time Encounter Note(s) Provider Source Apr 23, 2023 09:06 PM PHARMACY NOTE: LOCAL TITLE: PHARMACY CUSTOMER CARE MEDICATION RENEWAL STANDARD TITLE: PHARMACY NOTE DATE OF NOTE: APR 23, 2023@21:06 ENTRY DATE: APR 23, 2023@21:06:25 AUTHOR: HARI LEO EXP COSIGNER: URGENCY: STATUS: COMPLETED Date: Apr Division: [facility] referred by Pharmacy Call Center for medication renewal: Non-controlled/maintenanc e medication Medications requested: [id number] ACYCLOVIR 5% OINT Defer to primary care provider To be mailed . Please review and renew if appropriate. *This note was generated by [facility]/[place] Pharmacy Customer Care. If you have any questions or need assistance, do not contact this author. Please refer all questions to your local, on-site pharmacy departments. /ho/ HARI LEO CPhT Cutter Operator [employer], [place]/Pharmacy Customer Care Signed: 04/23/2023 21:06 Receipt Acknowledged By: 04/24/2023 19:10 /ho/ Mable Cuevas M.D. STAFF PHYSICIAN 04/23/2023 21:18 /es/ REINA RANKINN RN-BC REGISTERED NURSE for HARI ALBERTS [facility]
--- OUTSIDE RECORDS SUMMARY | 2024-02-19 19:01 | XMS_ITS ---
Author Name [facility] [place] [facility] [place] [facility] [place] Address [address] [place] [id number] Care Team Providers Care 2Nd Pressman Name Role Phone MARILIN KAPLAN Primary Care [...] Valentine's Name Patient's Relationship to Policy Valentine KARISSAKIKA PORRAST ION [id number] 1 Mar 12, 2019 [id number] [phone] Dina WOODS PATIENT [facility] Jan 23, 2014 [id number] [phone] CREAMERDina PATIENT MEDICARE (WNR) MEDICARE (M) PART A Nov 10, 2014 PART A [id number] CREAMER,Dina KATY PATIENT MEDICARE (WNR) MEDICARE (M) PART B Nov 10, 2014 PART B [id number] CREAMDina KOHLER PATIENT MEDICARE (WNR) MEDICARE (M) PART A Nov 10, 2014 PART A [id number] CREAMER,D KATY PATIENT MEDICARE (WNR) MEDICARE (M) PART B Nov 10, 2014 PART B [id number] CREAMER,D KATY PATIENT MEDICARE (WNR) MEDICARE (M) PART B Nov 10, 2014 PART B CREAMER,D KATY PATIENT MEDICARE (WNR) MEDICARE (M) PART A Nov 10, 2014 PART A [id number] CREAMER,D KATY PATIENT MEDICARE (WNR) MEDICARE (M) PART B Nov 10, 2014 PART B [id number] CREAMER,D KATY PATIENT MEDICARE PART D (WNR) MEDICARE (M) PART D Nov 10, 2017 PART D [id number] [phone] CREAMER,D KATY PATIENT MEDICARE PART D (WNR) MEDICARE (M) PART D Nov 10, 2017 PART D [id number] CREAMER,D KATY PATIENT FOR LIFE TFL* Mar 12, 2023 [id number] [id number] CREAMER,D KATY PATIENT [facility] POINT OF SERVICE US FAMIL Y HEALT H Mar 12, 2021 [id number] [phone] CREAMER,D KATY PATIENT [facility] RADHA REYES E Mar 12, 2019 [id number] CREAMER,D KATY PATIENT [facility] Mar 12, 2019 [facility] [id number] [phone] CREAMER,D KATY PATIENT Selected Encounter This section includes the information on record at [place] for the Encounter. Date/Time Encounter Type Encounter Description Reason Provider Source Mar 08, 2023 07:15 AM CASE MGMT-ORAL HEALTH LIT DENTAL ICD-10-CM K03.6 Deposits [accretions] on teeth MADALYN WILLIS IHMouna Encounter Template Text not used by [facility] Assessments - Encounter Diagnoses This section includes the primary and secondary diagnoses documented for the Encounter. Date/Time Primary/Secondary Diagnosis Diagnosis Name Provider Source Mar 08, 2023 08:12 AM PRIMARY Deposits [accretions] on teeth MADALYN WILLIS [place] [facility] [place] [facility] Plan of Treatment: Future Appointments (+ 6 months) and Future Tests (+/- 45 days) The Plan of Treatment section includes future care activities for the patient from [facility] [place] [facility]. This section includes future appointments and future orders which are active, pending or scheduled. Future Appointments This section includes appointments that were scheduled to occur 6 months from the date of the Encounter, up to a maximum of 20 appointments. The data comes from all [place] treatment facilities. Appointment Date/Time Appointment Type Appointme nt Facility Name Apr 10, 2023 02:30 PM AMBULATORY - PSYCHIATRY [facility] Jun 26, 2023 02:30 PM AMBULATORY - PSYCHIATRY [facility] July 16, 2023 10:40 AM [facility] July 24, 2023 02:30 PM AMBULATORY - PSYCHIATRY [facility] Aug 20, 2023 02:00 PM AMBULATORY - MEDICINE [facility] Sep 04, 2023 02:30 PM AMBULATORY - PSYCHIATRY [facility] Sep 07, 2023 07:15 AM [facility] Social History: Smoking Status (Most current) and Tobacco Use (All prior to encounter date) This section includes the most current, and the historical, smoking and tobacco- related health factors from the [place] facility where the Encounter took place. Current Smoking Status This section includes the most current smoking, or tobacco-related health factor, from the [place] facility where the Encounter took place. Date/Time Current Smoking Status Comment Laury viveros Nov 10, 2022 01:30 PM VA-TOBACCO [facility] Tobacco Use History This section includes a history of the smoking, or tobacco-related health factors, that were collected on or before the date of the Encounter. The data comes from the [place] facility where the Encounter took place. Date/Time Smoking Status/Tobacco Use Comment Kerline acberonica Oct 14, 2021 10:18 AM VA-TOBACCO NEVER USED [place] [facility] [place] [facility] Feb 11, 2020 04:16 PM VA-TOBACCO NEVER USED [place] [facility] [facility] Jan 15, 2018 02:24 PM LIFETIME NON-SMOKER [facility] Advance Directives: All historical and current Section Date Range: From patient's date of to the date document was created. This section includes ALL of a patient's completed or amended [place] Advance and Rescinded Directives. The entries below indicate that a directive exists for the patient, but an actual copy is not included with this document. The data comes from all [place] facilities. Date Advance Directives Provider Source Dec 14, 2020 ADVANCE DIRECTIVE MARISOL HAMPTON [facility] Encounter Notes: All associated encounter notes This section contains the clinical notes associated to the Encounter. Date/Time Encounter Note(s) Provider Source Mar 08, 2023 08:06 AM DENTISTRY NOTE: LOCAL TITLE: DENTAL NOTE STANDARD TITLE: DENTISTRY NOTE DATE OF NOTE: MAR 08, 2023@08:06 ENTRY DATE: MAR 08, 2023@08:12:31 AUTHOR: MADALYN WILLIS COSIGNER: URGENCY: STATUS: COMPLETED Patient Name: YESENIA WOODS, : 1960, Age: 62 Visit: S: Mar 08, 2023@07:15 CWM/NO/DENTAL/RDH1 AM. Primary PCE Diagnosis: K03.6 (Deposits [accretions] on teeth). Dental Category: 15-OPC, Class IV. Treatment Status: Maintenance. Completed Care: (D1110) DENTAL PROPHYLAXIS ADULT. DX: K03.6 Deposits [Accretions] on Teeth (D1206) TOPICAL FLUORIDE VARNISH. DX: K03.6 Deposits [Accretions] on Teeth (D1330) ORAL HYGIENE INSTRUCTION. DX: K03.6 Deposits [Accretions] on Teeth (D9994) CASE MGMT-ORAL HEALTH LIT. DX: K03.6 Deposits [Accretions] on Teeth Oral Health Assessment Findings: Plaque Index: 1 - Slight Xerostomia: 0 - None Caries Risk: 1 - Low ??-- SRINIVAS Oral Hygiene: 1 - Good - - - - - - - - - - - - - - - - - - - - - - - - - - - - - - TIME OUT/Safety goals were verified immediately prior to the procedure. (Correct patient, procedure, site, position) Full name and date used. STERILIZATION MONITOR IN INSTRUMENT PACK CHECKED AND CONFIRMED CC: no concerns PREMEDICATION: Not indicated PAST MEDICAL HISTORY: Reviewed, no contraindications for treatment. LAST RADIOGRAPHS: BWX: 10/27/22 PANO: 01/16/20 NEW RADIOGRAPHS: Not due SOFT TISSUE SCREENING: no abnormalities noted EXAMINATION: Not due ORAL HYGIENE ASSESSMENT: generalized light plaque generalized light stain PERIODONTAL ASSESSMENT: localized light calculus on mandibular anteriors no inflammation localized light bleeding generalized recession REVIEWED ORAL HEALTH REPORT: CARIES RISK: low GUM DISEASE: high ORAL CANCER RISK: n/a DENTAL TREATMENT PROVIDED: PROPHYLAXIS - hand scaling, piezo, bahamian, floss TOPICAL FLUORIDE APPLICATION - Varnish PRE-RINSE WITH CREST RINSE ORAL HYGIENE INSTRUCTIONS GIVEN TO PATIENT: Patient uses a manual toothbrush 2 or more times a day. Discussed brushing 2 times a day for 2 minutes each and flossing daily. Discussed angling bristles into gumlines to remove plaque and bacteria. DISPOSITION: 6 MONTHS RECARE, patient goes to [place] for 6 months so next appt is scheduled a little earlier to fit 2 in 1 year. Daughter is getting . NEXT VISIT: paige /ho/ MADALYN WILLIS [facility], DENTAL SERVICE Signed: 03/08/2023 08:12 MADALYN WILLIS [place] [facility] [place] [facility]
--- OUTSIDE RECORDS SUMMARY | 2024-02-19 19:01 | XMS_ITS | Encounter Summary ---
Author Name [facility] [place] Address [address] [place] [id number] Care Team Providers Care Mill Dresser Name Role Phone MARILIN KAPLAN Primary Care [...] Valentine's Name Patient's Relationship to Policy Valentine CAREMARK PRESCRIPT ION [id number] 1 Mar 12, 2019 [id number] CREAMERDina KATY PATIENT [facility] Jan 23, 2014 [id number] [id number] CREAMER,D KATY PATIENT MEDICARE (WNR) MEDICARE (M) PART A Nov 10, 2014 PART A [id number] CREAMER,D KATY PATIENT MEDICARE (WNR) MEDICARE (M) PART B Nov 10, 2014 PART B [id number] CREAMER,D KATY PATIENT MEDICARE (WNR) MEDICARE (M) PART A Nov 10, 2014 PART A [id number] CREAMER,D KATY PATIENT MEDICARE (WNR) MEDICARE (M) PART B Nov 10, 2014 PART B [id number] CREAMER,D KATY PATIENT MEDICARE (WNR) MEDICARE (M) PART A Nov 10, 2014 PART A [id number] CREAMER,D KATY PATIENT MEDICARE (WNR) MEDICARE (M) PART B Nov 10, 2014 PART B [id number] CREAMER,D KATY PATIENT MEDICARE (WNR) MEDICARE (M) PART B Nov 10, 2014 PART B CREAMER,D KATY PATIENT MEDICARE PART D (WNR) MEDICARE (M) PART D Nov 10, 2017 PART D [id number] CREAMER,D KATY PATIENT MEDICARE PART D (WNR) MEDICARE (M) PART D Nov 10, 2017 PART D [id number] CREAMER,D KATY PATIENT FOR LIFE TFL* Mar 12, 2023 [id number] CREAMER,D KATY PATIENT [facility] POINT OF SERVICE US [facility]ALT H Mar 12, 2021 [id number] [phone] CREAMER,D KATY PATIENT [facility] RADHA REYES E Mar 12, 2019 [id number] CREAMER,D KATY PATIENT [facility] Mar 12, 2019 [facility] [id number] CREAMER,D KATY PATIENT Selected Encounter This section includes the information on record at [place] for the Encounter. Date/Time Encounter Type Encounter Description Reason Provider Source Jun 26, 2023 02:30 PM OFFICE O/P EST MOD 30 MIN [facility] - IND ICD-10-CM F32.9 Major depressive disorder, single episode, unspecified LANA CELAYA IHMouna Encounter Template Text not used by [facility] Assessments - Encounter Diagnoses This section includes the primary and secondary diagnoses documented for the Encounter. Date/Time Primary/Secondary Diagnosis Diagnosis Name Provider Source Jun 28, 2023 05:14 PM PRIMARY Major depressive disorder, single episode, unspecified RADHA WEBBER Jun 28, 2023 05:14 PM SECONDARY Generalized anxiety disorder RADHA WEBBER Plan of Treatment: Future Appointments (+ 6 months) and Future Tests (+/- 45 days) The Plan of Treatment section includes [facility] [place] [facility] This section includes future appointments and future orders which are active, pending or scheduled. Future Appointments This section includes appointments that were scheduled to occur 6 months from the date of the Encounter, up to a maximum of 20 appointments. The data comes from all [place] treatment facilities. Appointment Date/Time Appointment Type Appointme nt Facility Name July 16, 2023 10:40 AM AM[place]ULATORY [place] [facility] [place] [facility] July 24, 2023 02:30 PM AMBULATORY - PSYCHIATRY [facility] Aug 20, 2023 02:00 PM AMBULATORY - MEDICINE [facility] Sep 04, 2023 02:30 PM AMBULATORY - PSYCHIATRY [facility] Sep 07, 2023 07:15 AM AMBUL[place]ORY - NONE [place] [facility] [place] [facility] Oct 19, 2023 08:00 AM [place] [facility] [place] [facility] Dec 04, 2023 02:30 PM [place] [facility] [place] [facility] Dec 18, 2023 01:30 PM AMBULATORY - PSYCHIATRY [facility] Dec 19, 2023 11:30 AM [place] [facility] [place] [facility] Social History: Smoking Status (Most current) and Tobacco Use (All prior to encounter date) This section includes the most current, and the historical, smoking and tobacco- related health factors from the [place] facility where the Encounter took place. Current Smoking Status This section includes the most current smoking, or tobacco-related health factor, from the [place] facility where the Encounter took place. Date/Time Current Smoking Status Comment Laury viveros Dec 20, 2018 08:14 AM [place]-TOBACCO NEVER USED [place] Tobacco Use History This section includes a history of the smoking, or tobacco-related health factors, that were collected on or before the date of the Encounter. The data comes from the [place] facility where the Encounter took place. Date/Time Smoking Status/Tobacco Use Comment Kerline lama Jan 18, 2018 02:01 PM [place]-TOBACCO NEVER USED [place] Apr 10, 2016 10:51 AM LIFETIME NON-TOBACCO USER [facility] May 23, 2004 10:12 AM LIFETIME NON-SMOKER [facility] May 23, 2004 10:12 AM LIFETIME NON-TOBACCO USER [facility] Advance Directives: All historical and current Section Date Range: From patient's date of to the date document was created. This section includes ALL of a patient's completed or amended [place] Advance and Rescinded Directives. The entries below indicate that a directive exists for the patient, but an actual copy is not included with this document. The data comes from all [place] facilities. Date Advance Directives Provider Source Dec 14, 2020 ADVANCE DIRECTIVE EVGENYMARQUISEOTONIELCARLOSEvangelinaSPENCER [place] [facility] Encounter Notes: All associated encounter notes This section contains the clinical notes associated to the Encounter. Date/Time Encounter Note(s) Provider Source Jun 26, 2023 12:07 PM PSYCHIATRY NOTE: LOCAL TITLE: PSYCHIATRY NOTE STANDARD TITLE: PSYCHIATRY NOTE DATE OF NOTE: JUN 26, 2023@12:07 ENTRY DATE: JUN 26, 2023@12:07:18 AUTHOR: RADHA WEBBER COSIGNER: ANA CRISTINA CELAYA URGENCY: STATUS: COMPLETED PSYCHIATRY NOTE Has ADDENDA Time spent: 21-30 minutes The presents today for follow-up. IDENTIFYING INFORMATION: Epifanio Woods is a 62-year-old male with a history of MDD, CHARAN, gambling disorder in remission, multiple TBIs, past episode of ischemic colitis, HLD, ED, POORNIMA not on CPAP, COPD,and multiple other medical conditions, who presents for psychopharmacologic follow-up. . Last seen Apr 10 2023 HISTORY OF PRESENT ILLNESS (patient report): Had a heart attack while in [place]. He was getting chest pain that he initially attributed to GERD. When his jaw started hurting, he saught medical help and was found to have an NSTEMI roughly 1mo ago. He had cardiac catherization and stenting a few days later (the heart attack was initially missed due to normal EKG done by ambulance). He has been told to walk around the house for exercise, which he has been doing. He will be establishing care with a hide dyer soon. Anxiety has been better. Has been feeling somewhat more depressed and fatigued since the heart attack. Sleep has improved. Reports being able to experience jyothi still. Poorer appetite in the setting of being treated for NSTEMI (was not allowed to eat in the hospital). When increasing the dose of citalopram from 10mg to 20mg, he had some nausea and vomiting for 1 day, which has since resolved. He does feel that the increase in dose has been helping somewhat, which was noted by his also. Mental Status Exam: male who appears his [...] 88 w/2children a/w. his is from the [facility]. 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 lifelong nonsmoker. 1drink alcohol per [...] 12. Hyperlipidemia 13. Erectile dysfunction (SNOMED CT [id number]) 14. Neck pain 15. Elevated blood pressure reading without diagnosis of hypertension 16. Colorectal Cancer Screening Results Documented and Reviewed (PV) 17. Anisocoria * 18. Anisometropia 19. Concussion 20. Brief Loss of Consciousness with Loss of Consciousness less than 30 Minutes 21. Corneal scar 22. 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 Major depressive disorder 25. Dermatitis or Eczema 26. Hemorrhoid (SNOMED CT [id number]) 27. Cervical radiculopathy 28. Pain in joint involving shoulder region 29. Migraine, unspecified, without mention of Intractable Migraine 30. Low back pain 31. Hypercholesterolemia 32. Elevated Liver Function Tests 33. Impaired FASTING Glucose 34. Hemorrhoids 35. 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 Benign prostatic hypertrophy with outflow obstruction 38. HEARING LOSS 39. OBESITY Active Outpatient Medications (including Supplies): ACYCLOVIR 5% OINT APPLY THIN LAYER TOPICALLY TWICE DAILY ACTIVE NEEDED FOR INFECTION ALBUTEROL 100/IPRATRO 20MCG 120D PO INHL INHALE 1 PUFF BY ACTIVE MOUTH FOUR TIMES A DAY AMLODIPINE BESYLATE 5MG TAB TAKE ONE TABLET BY MOUTH ONCE ACTIVE DAILY FOR BLOOD PRESSURE/HEART, DO NOT TAKE WITH GRAPEFRUIT JUICE CARBOXYMETHYLCELLULOSE NA 0.5% OPH SOLN INSTILL 1 DROP ACTIVE INTO EACH EYE FOUR TIMES A DAY CITALOPRAM HYDROBROMIDE 20MG TAB TAKE ONE TABLET BY MOUTH ACTIVE AT BEDTIME FOR DEPRESSION AND ANXIETY CYCLOBENZAPRINE HCL 5MG TAB TAKE 1 TO 2 TABLETS BY MOUTH ACTIVE TWICE DAILY NEEDED [MUSCLE RELAXANT] EZETIMIBE 10MG TAB TAKE ONE TABLET BY MOUTH ONCE DAILY TO ACTIVE LOWER CHOLESTEROL FLUTICAS 250/SALMETEROL 50 INHL DISK 60 INHALE 1 PUFF BY ACTIVE MOUTH TWICE DAILY - RINSE MOUTH AFTER USE HEMORRHOIDAL RTL OINT APPLY SMALL AMOUNT TO TOPICALLY ACTIVE NEEDED FOR HEMORRHOIDS LIDOCAINE 5% PATCH APPLY 3 PATCHES 5% TOPICALLY ONCE DAILY ACTIVE FOR NERVE PAIN (LEAVE PATCH ON FOR 12 HOURS, THEN REMOVE PATCH) OMEPRAZOLE 20MG EC CAP TAKE TWO CAPSULES BY MOUTH ONCE ACTIVE DAILY ONDANSETRON 4MG ORAL DISINTEGRATING TAB PLACE ONE TABLET ACTIVE ON THE TONGUE EVERY 8 HOURS NEEDED FOR NAUSEA AND VOMITING (ALLOW TABLET TO DISSOLVE ON TONGUE, AND SWALLOW WITH SALIVA) POLYETHYLENE GLYCOL 3350 ORAL PWDR TAKE 17 GRAMS(FILL CAP ACTIVE TO 17GM LINE) BY MOUTH ONCE DAILY FOR CONSTIPATION [MIX WITH 4 TO 8OZ. OF BEVERAGE] SILDENAFIL CITRATE 100MG TAB TAKE ONE TABLET BY MOUTH ONCE ACTIVE DAILY NEEDED TAKE 1 HOUR PRIOR TO SEXUAL ACTIVITY TAMSULOSIN HCL 0.4MG CAP TAKE ONE CAPSULE BY MOUTH AT ACTIVE BEDTIME FOR ENLARGED PROSTATE Non-VA ASPIRIN 81MG CHEW TAB 81MG BY MOUTH ACTIVE Non-VA METOPROLOL TARTRATE 25MG TAB 25MG BY MOUTH TWICE ACTIVE DAILY Non-VA OTHER CAP/TAB MEDICAL MARIJUANA BY MOUTH ACTIVE Non-VA ROSUVASTATIN CA 40MG TAB 40MG BY MOUTH ONCE DAILY ACTIVE Non-VA TICAGRELOR 90MG TAB 90MG BY MOUTH TWICE DAILY ACTIVE ALLERGIES: DUST FORMULATION:Epifanio Woods is a 63-year-old male with a history of MDD, CHARAN, gambling disorder in remission, multiple TBIs, past episode of ischemic colitis, HLD, ED, POORNIMA not on CPAP, COPD,NSTEMI s/p stent, and multiple other medical conditions, who presents for psychopharmacologic follow-up. continues to present psychiatrically stable with no acute symptoms of depression, anxiety, psychosis, or acute safety issues. Mr. Woods suffered an NSTEMI since we last spoke and has started new medications including blood thinners which I have updated in his chart. His anxiety was high while undergoing treatment, but this appears to have been proportional to the acute stressors. His generalized anxiety has not been significantly worse since discontinuing Buspar and the increase in citalopram appears to have improved depressive symptoms somewhat. We will follow up in 3-4 weeks to reassess symptoms given the recent heart attack and medication changes. IMPRESSION (DSM-5):PTSD MDD, mild, recurrent CHARAN gamling disorder in sustained remission PLAN: - Continue citalopram 20mg PO daily for MDD and PTSD - Continue melatonin to 3 mg PO qHS for insomnia - Continue therapy at [facility] - has successfully discontinued Buspar I discussed the findings and plan with the patient. I educated the patient about their mental health condition. [place] repeated back the plan and education. The [...] weights, lipids, glucose. FOLLOW-UP:Return to clinic in 3-4 weeks Medication Reconciliation: Outpatient: Has the patient been taking medications as documented in the EMLR? YES: The patient has been taking medications as documented in the EMLR. Essential Medication List for Review used to complete this medication reconciliation. INCLUDED IN THIS LIST: Alphabetical list of active outpatient prescriptions dispensed from this VA (local) and dispensed from another [facility] or [facility] facility (remote) as well as inpatient orders (local, pending and active), local clinic medications, locally documented non-VA medications, and local prescriptions that have or been discontinued in the past 90 days. - All changes in medications, including all non-VA/Herbal/OTC medications were entered into CPRS. - If there were any medications the patient should no longer take, they were discontinued. - The patient/caregiver was instructed to update this list, discard old lists, and take this list to the next appointment, whether with a VA or non-VA provider. /ho/ RADHA WEBBER MD IDENTIFICATION TECHNICIAN Signed: 06/28/2023 17:14 /ho/ ANA CRISTINA CELAYA MD STAFF PSYCHIATRIST Cosigned: 06/28/2023 19:10 06/28/2023 ADDENDUM STATUS: COMPLETED case discussed w Dr Webber, and I interviewed pt for part of Dr Webber's session w pt on 06/25; agree w assessment and plan /ho/ ANA CRISTINA CELAYA MD STAFF PSYCHIATRIST Signed: 06/28/2023 19:11 RADHA WEBBER
--- OUTSIDE RECORDS SUMMARY | 2024-02-19 19:02 | XMS_ITS | Encounter Summary ---
Author Name [facility] [place] Address [address] [place] [id number] Care Team Providers Care Customer Quality Engineer Name Role Phone MARILIN KAPLAN Primary [...] Name Patient's Relationship to Policy Valentine NELIA PORRAST ION [id number] 1 Mar 12, 2019 [id number] Dina WOODS PATIENT [facility] Jan 23, 2014 [id number] CREAMERDina PATIENT MEDICARE (WNR) MEDICARE (M) PART A Nov 10, 2014 PART A [id number] CREAMER,Dina KATY PATIENT MEDICARE (WNR) MEDICARE (M) PART B Nov 10, 2014 PART B [id number] [phone] CREAMDina KOHLER PATIENT MEDICARE (WNR) MEDICARE (M) PART A Nov 10, 2014 PART A [id number] CREAMER,D KATY PATIENT MEDICARE (WNR) MEDICARE (M) PART B Nov 10, 2014 PART B [id number] CREAMER,D KATY PATIENT MEDICARE (WNR) MEDICARE (M) PART B Nov 10, 2014 PART B CREAMER,D KATY PATIENT MEDICARE (WNR) MEDICARE (M) PART A Nov 10, 2014 PART A [id number] CREAMER,D KATY PATIENT MEDICARE (WNR) MEDICARE (M) PART B Nov 10, 2014 PART B [id number] CREAMER,D KATY PATIENT MEDICARE PART D (WNR) MEDICARE (M) PART D Nov 10, 2017 PART D [id number] CREAMER,D KATY PATIENT MEDICARE PART D (WNR) MEDICARE (M) PART D Nov 10, 2017 PART D [id number] CREAMER,D KATY PATIENT FOR LIFE TFL* Mar 12, 2023 [id number] CREAMER,D KATY PATIENT [facility] POINT OF SERVICE US FAMIL Y HEALT H Mar 12, 2021 [id number] [phone] CREAMER,D KATY PATIENT [facility] RADHA ARTUR TEJEDAN E Mar 12, 2019 [id number] CREAMERD KATY PATIENT [facility] Mar 12, 2019 [facility] [id number] CREAMER,D KATY PATIENT Selected Encounter This section includes the information on [place] at [place] for the Encounter. Date/Time Encounter Type Encounter Description Reason Pro vider Source Jul 03, 2023 03:14 PM Outpatient Encounter PRIMARY CARE/MEDICINE IHE Encounter Template Text not used by [place] Plan of Treatment: Future Appointments (+ 6 [...] 20 appointments. The data comes from all [place] treatment facilities. Appointment Date/Time Appointment Type Appointme nt Facility Name July 16, 2023 10:40 AM [place]ATORY [place] [facility] [place] [place] [facility] July 24, 2023 02:30 PM AMBULATORY - PS[facility]CHIATRY [facility] Aug 20, 2023 02:00 PM AMBULATORY - MEDICINE [facility] Sep 04, 2023 02:30 PM AMBULATORY - PS[facility]CHIATRY [facility] Sep 07, 2023 07:15 AM AMBULATORY - NONE [place] [facility] [place] [facility] Oct 19, 2023 08:00 AM AMBULATORY - MEDICINE [place] [facility] [place] [facility] Dec 04, 2023 02:30 PM AMBULATORY - MEDICINE [place] [facility] [place] [facility] Dec 18, 2023 01:30 PM AMBULATORY - PSYCHIATRY [facility] Dec 19, 2023 11:30 AM [place] [facility] [place] [place] [facility] Social History: Smoking Status (Most current) and Tobacco Use (All prior to encounter date) This section includes the most current, and the historical, smoking and tobacco- related health factors from the [place] facility where the Encounter took place. Current Smoking Status This section includes the most current smoking, or tobacco-related health factor, from the [place] facility where the Encounter took place. Date/Time Current Smoking Status Comment Facil ity Nov 10, 2022 01:30 PM [place]-TOBACCO NEVER USED [facility] Tobacco Use History This section includes a history of the smoking, or tobacco-related health factors, that were collected on or before the date of the Encounter. The data comes from the [place] facility where the Encounter took place. Date/Time Smoking Status/Tobacco Use Comment F acility Oct 14, 2021 10:18 AM VA-TOBACCO NEVER USED [place] [facility] [facility] Feb 11, 2020 04:16 PM VA-TOBACCO NEVER USED [facility] [place] [facility] Jan 15, 2018 02:24 PM LIFETIME NON-SMOKER [facility] [place] [facility] Advance Directives: All historical and current Section Date Range: From patient's date of to the date document was created. This section includes ALL of a patient's completed or amended [place] Advance and Rescinded Directives. The entries below indicate that a directive exists for the patient, but an actual copy is not included with this document. The data comes from all [place] facilities. Date Advance Directives Provider Source Dec 14, 2020 ADVANCE DIRECTIVE MARISOL HAMPTON [place] [facility] Encounter Notes: All associated encounter notes This section contains the clinical notes associated to the Encounter. Date/Time Encounter Note(s) Provider Source Jul 03, 2023 03:14 PM MEDICATION MGT NOT E: LOCAL TITLE: OUTPATIENT MEDICATION REQUEST STANDARD TITLE: MEDICATION MGT NOTE DATE OF NOTE: JUL 03, 2023@15:14 ENTRY DATE: JUL 03, 2023@15:14:12 AUTHOR: FIOR CHAUDHRY COSIGNER: URGENCY: STATUS: COMPLETED Medication Request Date of Request: Jun TAMSULOSIN (1ST LINE ALPHA KAVEH) CAP,ORAL 0.4MG TAKE 1 CAPSULE BY MOUTH AT BEDTIME Quantity: 90 Refills: 2 Indication: FOR ENLARGED PROSTATE Requests for MAIL /oh/ FIOR CHAUDHRY RN REGISTERED NURSE Signed: 07/03/2023 15:14 Receipt Acknowledged By: 07/04/2023 16:11 /es/ MARILIN KAPLAN MD PHYSICIAN FIOR CHAUDHRY
--- OUTSIDE RECORDS SUMMARY | 2024-02-19 19:02 | XMS_ITS | Encounter Summary ---
Author Name [facility] [place] [facility] [place] Address [address] [place] [address] Care Team Providers Care Quality Process Engineer Name Role Phone MARILIN KAPLAN [...] PRESCRIPT ION [id number] 1 Mar 12, 2019 [id number] CREAMDina KOHLER PATIENT [facility] Jan 23, 2014 [id number] [phone] CREAMER,Dina KATY PATIENT MEDICARE (WNR) MEDICARE () PART A Nov 10, 2014 PART A [id number] CREAMER,D KATY PATIENT MEDICARE (WNR) MEDICARE () PART B Nov 10, 2014 PART B [id number] CREAMER,Dina KATY PATIENT MEDICARE (WNR) MEDICARE () PART A Nov 10, 2014 PART A [id number] CREAMER,D KATY PATIENT MEDICARE (WNR) MEDICARE (M) PART B Nov 10, 2014 PART B [id number] CREAMER,D KATY PATIENT MEDICARE (WNR) MEDICARE (M) PART A Nov 10, 2014 PART A [id number] CREAMER,D KATY PATIENT MEDICARE (WNR) MEDICARE (M) PART B Nov 10, 2014 PART B CREAMER,D KATY PATIENT MEDICARE (WNR) MEDICARE (M) PART B Nov 10, 2014 PART B [id number] CREAMER,D KATY PATIENT MEDICARE PART D (WNR) MEDICARE (M) PART D Nov 10, 2017 PART D [id number] [phone] CREAMER,D KATY PATIENT MEDICARE PART D (WNR) MEDICARE (M) PART D Nov 10, 2017 PART D [id number] CREAMER,D KATY PATIENT FOR LIFE TFL* Mar 12, 2023 [id number] [phone] CREAMER,D KATY PATIENT [facility] POINT OF SERVICE US FAMIL Y HEALT H Mar 12, 2021 [id number] [phone] CREAMER,D KATY PATIENT [facility] BRARIELLE REYES E Mar 12, 2019 [id number] CREAMER,D KATY PATIENT [facility] Mar 12, 2019 [facility] [id number] CREAMER,D KATY PATIENT Selected Encounter This section includes the information on record at [place] for the Encounter. Date/Time Encounter Type Encounter Description Reason Pro vider Source Jul 03, 2023 02:16 PM Outpatient Encounter ADMIN PAT ACTIVTIES (MASNONCT) [...] 20 appointments. The data comes from all [place] treatment facilities. Appointment Date/Time Appointment Type Appointme nt Facility Name July 16, 2023 10:40 AM AMBULATORY - MEDICINE [place] [facility] [facility] July 24, 2023 02:30 PM AMBULATORY - PSYCHIATRY [facility] Aug 20, 2023 02:00 PM AMBULATORY - MEDICINE [facility] Sep 04, 2023 02:30 PM AMBULATORY - PSYCHIATRY [facility] Sep 07, 2023 07:15 AM AMBULATORY - NONE [facility] [place] [facility] Oct 19, 2023 08:00 AM AMBULATORY - MEDICINE [place] [facility] [place] [facility] Dec 04, 2023 02:30 PM AMBULATORY - MEDICINE [facility] [facility] Dec 18, 2023 01:30 PM AMBULATORY - PSYCHIATRY [facility] Dec 19, 2023 11:30 AM AM[place]ULATORY [place]ICINE [place] [facility] Social History: Smoking Status (Most current) and Tobacco Use (All prior to encounter date) This section includes the most current, and the historical, smoking and tobacco- related health factors from the [place] facility where the Encounter took place. Current Smoking Status This section includes the most current smoking, or tobacco-related health factor, from the [place] facility where the Encounter took place. Date/Time Current Smoking Status Comment Facil ity Nov 10, 2022 01:30 PM VA-TOBACCO [facility] [place] [facility] Tobacco Use History This section includes a history of the smoking, or tobacco-related health factors, that were collected on or before the date of the Encounter. The data comes from the [place] facility where the Encounter took place. Date/Time Smoking Status/Tobacco Use Comment F acility Oct 14, 2021 10:18 AM VA-TOBACCO NEVER USED [facility] [facility] Feb 11, 2020 04:16 PM VA-TOBACCO NEVER USED [facility] [facility] Jan 15, 2018 02:24 PM LIFETIME NON-SMOKER [facility] [facility] Advance Directives: All historical and current Section Date Range: From patient's date of to the date document was created. This section includes ALL of a patient's completed or amended [place] Advance and Rescinded Directives. The entries below indicate that a directive exists for the patient, but an actual copy is not included with this document. The data comes from all [place] facilities. Date Advance Directives Provider Source Dec 14, 2020 ADVANCE DIRECTIVE MARISOL HAMPTON [facility] Encounter Notes: All associated encounter notes This section contains the clinical notes associated to the Encounter. Date/Time Encounter Note(s) Provider Source Jul 03, 2023 02:16 PM PHARMACY NOTE: LOCAL TITLE: PHARMACY CUSTOMER CARE MEDICATION RENEWAL STANDARD TITLE: PHARMACY NOTE DATE OF NOTE: JUL 03, 2023@14:16 ENTRY DATE: JUL 03, 2023@14:16:31 AUTHOR: CATIE JETT EXP COSIGNER: URGENCY: STATUS: COMPLETED Date: Jun Division: [facility] referred by Pharmacy Call Center for medication renewal: Non-controlled/maintenanc e medication Medications requested: [id number] TAMSULOSIN HCL 0.4MG CAP Defer to primary care provider. To be mailed . Please review and renew if appropriate. *This note was generated by [facility] [facility] Customer [facility]. If you have any questions or need assistance, do not contact this author. Please refer all questions to your local, on-site pharmacy departments. /ho/ CATIE JETT [place], [place]/Pharmacy Customer Care Signed: 07/03/2023 14:17 Receipt Acknowledged By: 07/03/2023 15:14 /ho/ FIOR CHAUDHRY RN REGISTERED NURSE 07/04/2023 16:11 /es/ MARILIN KAPLAN MD PHYSICIAN CATIE JETT [facility]
--- OUTSIDE RECORDS SUMMARY | 2024-02-19 19:02 | XMS_ITS | Encounter Summary ---
Author Name [facility] [place] [facility] [place] Address [address] [place] [address] Care Team Providers Care Hat Conditioner Name Role Phone MARILIN KAPLAN Primary Care [...] PRESCRIPT ION [id number] 1 Mar 12, 2019 [id number] CREAMDina KOHLER PATIENT [facility] Jan 23, 2014 [id number] [phone] CREAMER,Dina KATY PATIENT MEDICARE (WNR) MEDICARE () PART A Nov 10, 2014 PART A [id number] CREAMER,D KATY PATIENT MEDICARE (WNR) MEDICARE () PART B Nov 10, 2014 PART B [id number] CREAMER,Dina KATY PATIENT MEDICARE (WNR) MEDICARE () PART A Nov 10, 2014 PART A [id number] [phone] CREAMER,D KATY PATIENT MEDICARE (WNR) MEDICARE (M) PART B Nov 10, 2014 PART B [id number] CREAMER,D KATY PATIENT MEDICARE (WNR) MEDICARE (M) PART A Nov 10, 2014 PART A [id number] CREAMER,D KATY PATIENT MEDICARE (WNR) MEDICARE (M) PART B Nov 10, 2014 PART B [id number] [phone] CREAMER,D KATY PATIENT MEDICARE (WNR) MEDICARE (M) PART B Nov 10, 2014 PART B [id number] CREAMER,D KATY PATIENT MEDICARE PART D (WNR) MEDICARE (M) PART D Nov 10, 2017 PART D [id number] CREAMER,D KATY PATIENT MEDICARE PART D (WNR) MEDICARE (M) PART D Nov 10, 2017 PART D [id number] [phone] CREAMER,D KATY PATIENT FOR LIFE TFL* Mar 12, 2023 [id number] CREAMER,D KATY PATIENT [facility] POINT OF SERVICE US FAMIL Y HEALT H Mar 12, 2021 [id number] [phone] CREAMER,D KATY PATIENT [facility] BRARIELLE REYES E Mar 12, 2019 [id number] CREAMER,D KATY PATIENT [facility] Mar 12, 2019 [facility] [id number] CREAMER,D KATY PATIENT Selected Encounter This section includes the information on record at [place] for the Encounter. Date/Time Encounter Type Encounter Description Reason Pro vider Source Jun 26, 2023 03:18 PM Outpatient Encounter ADMIN PAT ACTIVTIES (MASNONCT) [...] 20 appointments. The data comes from all [place] treatment facilities. Appointment Date/Time Appointment Type Appointme nt Facility Name July 16, 2023 10:40 AM AMBULATORY - MEDICINE [facility] [place] [facility] July 24, 2023 02:30 PM AMBULATORY - PSYCHIATRY [facility] Aug 20, 2023 02:00 PM AMBULATORY - MEDICINE [facility] Sep 04, 2023 02:30 PM AMBULATORY - PSYCHIATRY [facility] Sep 07, 2023 07:15 AM AMBULATORY - NONE [facility] [place] [facility] Oct 19, 2023 08:00 AM AMBULATORY - MEDICINE [place] [facility] [place] [facility] Dec 04, 2023 02:30 PM AMBULATORY - MEDICINE [facility] [place] [place] [facility] Dec 18, 2023 01:30 PM AMBULATORY - PSYCHIATRY [facility] Dec 19, 2023 11:30 AM AMBULATORY - MEDICINE [place] [facility] [place] [facility] Social History: Smoking Status (Most current) and Tobacco Use (All prior to encounter date) This section includes the most current, and the historical, smoking and tobacco- related health factors from the [place] facility where the Encounter took place. Current Smoking Status This section includes the most current smoking, or tobacco-related health factor, from the [place] facility where the Encounter took place. Date/Time Current Smoking Status Comment Facil ity Nov 10, 2022 01:30 PM [facility]CO [facility] Tobacco Use History This section includes a history of the smoking, or tobacco-related health factors, that were collected on or before the date of the Encounter. The data comes from the [place] facility where the Encounter took place. Date/Time Smoking Status/Tobacco Use Comment F acility Oct 14, 2021 10:18 AM VA-TOBACCO NEVER USED [facility] [place] [facility] Feb 11, 2020 04:16 PM VA-TOBACCO NEVER USED [facility] [place] [facility] Jan 15, 2018 02:24 PM LIFETIME NON-SMOKER [facility] [place] [facility] Advance Directives: All historical and current Section Date Range: From patient's date of to the date document was created. This section includes ALL of a patient's completed or amended [place] Advance and Rescinded Directives. The entries below indicate that a directive exists for the patient, but an actual copy is not included with this document. The data comes from all [place] facilities. Date Advance Directives Provider Source Dec 14, 2020 ADVANCE DIRECTIVE MARISOL HAMPTON [facility] Encounter Notes: All associated encounter notes This section contains the clinical notes associated to the Encounter. Date/Time Encounter Note(s) Provider Source July 18, 2023 10:32 AM ADDENDUM: LOCAL TITLE: Addendum STANDARD TITLE: ADDENDUM DATE OF NOTE: JULY 18, 2023@10:32:54 ENTRY DATE: JULY 18, 2023@10:32:54 AUTHOR: MALOU WRIGHT COSIGNER: URGENCY: STATUS: COMPLETED Sharepoint Architect spoke with to confirm appointment in August with new PCP. saw gamer yesterday Dr Morocho. [facility] states they will send information for new scripts. asked to have them filled and mailed when we get the information from the gamer. /ho/ MALOU HARO Signed: 07/18/2023 10:35 Receipt Acknowledged By: 07/18/2023 10:46 /es/ Sydnee Corrales RN Registered Nurse (RN) for FIOR CHAUDHRY 07/18/2023 14:19 /es/ ALEXEI GUTIERREZ LPN LPN === --- Original Document --- 06/26/23 CCC: SCHEDULING ADMINISTRATION: Patient Demographics Patient Name: YESENIA WOODS Patient Primary Phone: [phone] Patient Primary Address: [address] [place] [id number] Patient : 1960 Patient Age: 63 Caller/Recipient Relation to Patient: Self Scheduling Cannot Complete Scheduling Action Reason: No Appointment Available Requested Service(s): Primary Care Patient Expects Callback: Yes Scheduling Note Reason: Cannot Complete Appointment Request Scheduling Note Comments: called to schedule an appointment with his provider due to a heart attack he had about a month ago. This ad writer could not find any soon openings. He states he was not currently having any symptoms. He can be reached at the number on file. Open Request: None of the above /ho/ STEVIE CHENKELBilly SAMANIEGO [facility] Signed: 06/26/2023 15:18 Receipt Acknowledged By: 06/28/2023 11:13 /gunnar CHAUDHRY RN REGISTERED NURSE 06/29/2023 10:53 /gunnar GUTIERREZ LPN LPN 06/28/2023 ADDENDUM STATUS: COMPLETED Forwarding to [facility]- Please attempt to contact to assist with scheduling PCP follow-up. /gunnar CHAUDHRY RN REGISTERED NURSE Signed: 06/28/2023 11:13 Receipt Acknowledged By: 06/29/2023 09:43 /gunnar HARO 06/29/2023 ADDENDUM STATUS: COMPLETED Sharepoint Architect spoke with vetera to make appointment with new PCP. Mckenna has heart surgery done in [facility] in Apr 2023 stayed May 07- at [facility]. [facility] are [facility] and records should be available in the system. Mckenna has a carololigist in [place]. /gunnar HARO Signed: 06/29/2023 09:47 Receipt Acknowledged By: 06/29/2023 16:02 /gunnar CHAUDHRY RN REGISTERED NURSE 06/29/2023 10:53 /gunnar GUTIERREZ LPN LPN 07/18/2023 ADDENDUM STATUS: COMPLETED [facility] has active Cardiology Consult on file, any prescriptions that are needed can be sent directly to the [place] Pharmacy. /ho/ Sydnee Corrales RN Registered Nurse (RN) Signed: 07/18/2023 10:48 MALOU WRIGHT [facility] [place] [facility] Jun 29, 2023 09:44 AM ADDENDUM: LOCAL TITLE: Addendum STANDARD TITLE: ADDENDUM DATE OF NOTE: JUN 29, 2023@09:44:56 ENTRY DATE: JUN 29, 2023@09:44:56 AUTHOR: MALOU WRIGHT EXP COSIGNER: URGENCY: STATUS: COMPLETED Sharepoint Architect spoke with vetera to make appointment with new PCP. has heart surgery done in [facility] in Apr 2023 stayed May 07 at [facility]. [facility] are together and records should be available in the system. Mckenna has a carololigist in [place]. /gunnar HARO Signed: 06/29/2023 09:47 Receipt Acknowledged By: 06/29/2023 16:02 /gunnar CHAUDHRY RN REGISTERED NURSE 06/29/2023 10:53 /ho/ ALEXEI GUTIERREZ LPN LPN === --- Original Document --- 06/26/23 CCC: SCHEDULING ADMINISTRATION: Patient Demographics Patient Name: YESENIA WOODS Patient Primary Phone: [phone] Patient Primary Address: [address] [place] [address] Patient : 1960 Patient Age: 63 Caller/Recipient Relation to Patient: Self Scheduling Cannot Complete Scheduling Action Reason: No Appointment Available Requested Service(s): Primary Care Patient Expects Callback: Yes Scheduling Note Reason: Cannot Complete Appointment Request Scheduling Note Comments: [facility] called to schedule an appointment with his provider due to a heart attack he had about a month ago. This ad writer could not find any soon openings. He states he was not currently having any symptoms. He can be reached at the number on file. Open Request: None of the above /ho/ STEVIE OTOOLEN1 JESSE HARO Signed: 06/26/2023 15:18 Receipt Acknowledged By: 06/28/2023 11:13 /gunnar CHAUDHRY RN REGISTERED NURSE 06/29/2023 10:53 /gunnar GUTIERREZ LPN LPN 06/28/2023 ADDENDUM STATUS: COMPLETED Forwarding to [facility]- Please attempt to contact to assist with scheduling PCP follow-up. /ho/ FIOR CHAUDHRY RN REGISTERED NURSE Signed: 06/28/2023 11:13 Receipt Acknowledged By: 06/29/2023 09:43 /ho/ MALOU SOLIS [facility] Jun 28, 2023 11:12 AM ADDENDUM: LOCAL TITLE: Addendum STANDARD TITLE: ADDENDUM DATE OF NOTE: JUN 28, 2023@11:12:57 ENTRY DATE: JUN 28, 2023@11:12:57 AUTHOR: FIOR CHAUDHRY COSIGNER: URGENCY: STATUS: COMPLETED Forwarding to [facility]- Please attempt to contact to assist with scheduling PCP follow-up. /ho/ FIOR CHAUDHRY RN REGISTERED NURSE Signed: 06/28/2023 11:13 Receipt Acknowledged By: 06/29/2023 09:43 /ho/ MALOU HARO === --- Original Document --- 06/26/23 CCC: SCHEDULING ADMINISTRATION: Patient Demographics Patient Name: YESENIA WOODS Patient Primary Phone: [phone] Patient Primary Address: [address] [place], [place] [id number] Patient : 1960 Patient Age: 63 Caller/Recipient Relation to Patient: Self Scheduling Cannot Complete Scheduling Action Reason: No Appointment Available Requested Service(s): Primary Care Patient Expects Callback: Yes Scheduling Note Reason: Cannot Complete Appointment Request Scheduling Note Comments: [facility] called to schedule an appointment with his provider due to a heart attack he had about a month ago. This ad writer could not find any soon openings. He states he was not currently having any symptoms. He can be reached at the number on file. Open Request: None of the above /ho/ STEVIE SAMANIEGO [facility] Signed: 06/26/2023 15:18 Receipt Acknowledged By: 06/28/2023 11:13 /gunnar CHAUDHRY RN REGISTERED NURSE * AWAITING SIGNATURE * ALEXEI GUTIERREZ [facility] Jun 26, 2023 03:18 PM ADMINISTRATIVE NOT E: LOCAL TITLE: CCC: SCHEDULING ADMINISTRATION STANDARD TITLE: ADMINISTRATIVE NOTE DATE OF NOTE: JUN 26, 2023@15:18:09 ENTRY DATE: JUN 26, 2023@15:18:09 AUTHOR: STEVIE RUIZ COSIGNER: URGENCY: STATUS: COMPLETED CCC: SCHEDULING ADMINISTRATION Has ADDENDA Patient Demographics Patient Name: YESENIA WOODS Patient Primary Phone: [phone] Patient Primary Address: [address] [place] [address] Patient : 1960 Patient Age: 63 Caller/Recipient Relation to Patient: Self Scheduling Cannot Complete Scheduling Action Reason: No Appointment Available Requested Service(s): Primary Care Patient Expects Callback: Yes Scheduling Note Reason: Cannot Complete Appointment Request Scheduling Note Comments: called to schedule an appointment with his provider due to a heart attack he had about a month ago. This ad writer could not find any soon openings. He states he was not currently having any symptoms. He can be reached at the number on file. Open Request: None of the above /ho/ STEVIE RUIZ VISN1 [facility] Signed: 06/26/2023 15:18 Receipt Acknowledged By: 06/28/2023 11:13 /ho/ FIOR CHAUDHRY RN REGISTERED NURSE 06/29/2023 10:53 /es/ ALEXEI GUTIERREZ LPN LPN 06/28/2023 ADDENDUM STATUS: COMPLETED Forwarding to [facility]- Please attempt to contact to assist with scheduling PCP follow-up. /gunnar CHAUDHRY RN REGISTERED NURSE Signed: 06/28/2023 11:13 Receipt Acknowledged By: 06/29/2023 09:43 /ho/ MALOU HARO 06/29/2023 ADDENDUM STATUS: COMPLETED Sharepoint Architect spoke with vetera to make appointment with new PCP. has heart surgery done in [facility] in Apr 2023 stayed May 07- at [facility]. [facility] are [facility] and records should be available in the system. Mckenna has a carololigist in [place]. /ho/ MALOU HARO Signed: 06/29/2023 09:47 Receipt Acknowledged By: 06/29/2023 16:02 /gunnar CHAUDHRY RN REGISTERED NURSE 06/29/2023 10:53 /es/ ALEXEI GUTIERREZ LPN LPN 07/18/2023 ADDENDUM STATUS: COMPLETED Sharepoint Architect spoke with to confirm appointment in August with new PCP. [facility] saw gamer yesterday Dr Morocho. [facility] states they will send information for new scripts. asked to have them filled and mailed when we get the information from the gamer. /es/ MALOU HARO Signed: 07/18/2023 10:35 Receipt Acknowledged By: 07/18/2023 10:46 /es/ Sydnee Corrales RN Registered Nurse (RN) for FIOR CHAUDHRY * AWAITING SIGNATURE * ALEXEI GUTIERREZ 07/18/2023 ADDENDUM STATUS: COMPLETED [facility] has active Cardiology Consult on file, any prescriptions that are needed can be sent directly to the [place] Pharmacy. /ho/ Sydnee Corrales RN Registered Nurse (RN) Signed: 07/18/2023 10:48 [facility]
--- OUTSIDE RECORDS SUMMARY | 2024-02-19 19:03 | XMS_ITS | Encounter Summary ---
Author Name [facility] [facility] [place] [facility] [place] Address [address] [place] [id number] Care Team Providers Care Hand Riveter Name Role Phone MARILIN KAPLAN Primary Care [...] PRESCRIPT ION [id number] Mar 12, 2019 [id number] [phone] CREAMERDina KATY PATIENT [facility] Jan 23, 2014 [id number] [id number] CREAMER,D KATY PATIENT MEDICARE (WNR) MEDICARE (M) PART A Nov 10, 2014 PART A [id number] CREAMER,D KATY PATIENT MEDICARE (WNR) MEDICARE (M) PART B Nov 10, 2014 PART B [id number] CREAMER,D KATY PATIENT MEDICARE (WNR) MEDICARE (M) PART A Nov 10, 2014 PART A [id number] CREAMER,D KATY PATIENT MEDICARE (WNR) MEDICARE (M) PART B Nov 10, 2014 PART B [id number] [phone] CREAMER,D KATY PATIENT MEDICARE (WNR) MEDICARE (M) PART B Nov 10, 2014 PART B CREAMER,D KATY PATIENT MEDICARE (WNR) MEDICARE (M) PART A Nov 10, 2014 PART A [id number] CREAMER,D KATY PATIENT MEDICARE (WNR) MEDICARE (M) PART B Nov 10, 2014 PART B [id number] CREAMER,D KATY PATIENT MEDICARE PART D (WNR) MEDICARE (M) PART D Nov 10, 2017 PART D [id number] CREAMER,D KATY PATIENT MEDICARE PART D (WNR) MEDICARE (M) PART D Nov 10, 2017 PART D [id number] CREAMER,D KATY PATIENT FOR LIFE TFL* Mar 12, 2023 [id number] CREAMER,D KATY PATIENT [facility] POINT OF SERVICE US FAM[facility] Y HEALT H Mar 12, 2021 [id number] [phone] CREAMER,D KATY PATIENT [facility] RADHA TEJEDAN E Mar 12, 2019 [id number] CREAMER,D KATY PATIENT [facility] Mar [facility], 2019 [facility] [id number] CREAMER,D KATY PATIENT Selected Encounter This section includes the information on record at [place] for the Encounter. Date/Time Encounter Type Encounter Description Reason Provider Source July 24, 2023 02:30 PM OFFICE O/P EST LOW 20 [facility] - IND ICD-10-CM F32.9 Major depressive disorder, single episode, unspecified JARED GARNICA Encounter Template Text not used by [facility] Assessments - Encounter Diagnoses This section includes the primary and secondary diagnoses documented for the Encounter. Date/Time Primary/Secondary Diagnosis Diagnosis Name Provider Source July 25, 2023 05:45 PM PRIMARY Major depressive disorder, single episode, unspecified CATHERINE WEBBERN GUME July 25, 2023 05:45 PM SECONDARY Generalized anxiety disorder CATHERINE WEBBERN GUME Plan of Treatment: Future Appointments (+ 6 months) and Future Tests (+/- 45 days) The Plan of Treatment section includes future care activities for the patient [facility] [place] [facility] This section includes future appointments and future orders which are active, pending or scheduled. Future Appointments This section includes appointments that were scheduled to occur 6 months from the date of the Encounter, up to a maximum of 20 appointments. The data comes from all [place] treatment facilities. Appointment Date/Time Appointment Type Appointme nt Facility Name Aug 20, 2023 02:00 PM AMBULATORY - MEDICINE [facility] Sep 04, 2023 02:30 PM AMBULATORY - PSYCHIATRY [facility] Sep 07, 2023 07:15 AM AMBULATORY - NONE [place] [facility] [place] [facility] Oct 19, 2023 08:00 AM AMBULATORY [place] MEDICINE [place] [facility] [place] [facility] Dec 04, 2023 02:30 PM AMBULATORY [place]ICINE [place] [facility] [place] [facility] Dec 18, 2023 01:30 PM AMBULATORY - PSYCHIATRY [facility] Dec 19, 2023 11:30 AM AMBULATORY [place]ICINE [place] [facility] [place] [facility] Jan 14, 2024 09:30 AM AMBULATORY [place]ICINE [place] [facility] [place] [facility] Lab Results: +/- 30 days of the encounter This section includes the Chemistry and Hematology Lab Results on record with [place] for the patient. Radiology Reports and Pathology Reports are provided separately, in subsequent sections. Lab Results This section contains the Chemistry/Hematology Results that were resulted 30 days before or 30 daysafter the date of the Encounter. Date/Time Source Result Type Result - Unit Interpretation Reference Range Comment August 10, 2023 09:14 AM [facility] HEMOGLOBIN A1C PANEL Specimen Type: BLOOD Comment: Values obtained from A1C measurements can vary. For atypical A1C assays, a reported value of 7.0 could actually be between 6.72 and 7.28 if measured by a reference method. A reported value of 9.0 could actually be between 8.73 and 9.27. Ref: http://www.ngs p.org/CAPdata. asp Ordering Provider: MARILIN APONTE M Report Released Date/Time: August 10, 2023 08:57 AM Reporting Lab: [facility] [address] [address] Performing Lab: [place] [facility] [address] [address] HEMOGLOBIN A1C 5.3 4.0-5.6 August 10, 2023 09:14 AM [facility] LIPID PANEL FASTING Specimen Type: SERUM No comment entered. Ordering Provider: MARILIN APONTE Report Released Date/Time: August 10, 2023 08:57 AM Reporting Lab: [facility] [address] Performing Lab: [facility]ITALN [facility]USE[address] [address] CHOLESTEROL 96 mg/dL TRIGLYCERIDE 129 mg/dL 0-150 LDL calculated 37 mg/dL 0-129 CHOL/HDL 2.9 HDL CHOLESTEROL 33 mg/dL L 40-60 August 10, 2023 09:14 AM [facility] TSH Specimen Type: SERUM No comment entered. Ordering Provider: MARILIN APONTE Report Released Date/Time: August 10, 2023 08:57 AM Reporting Lab: [facility] [address] [address] Performing Lab: [facility] [address] [address] TSH 1.24 u[IU]/mL 0.35-5.00 August 10, 2023 09:14 AM [facility] LIVER FUNCTION Specimen Type: SERUM No comment entered. Ordering Provider: MARILIN APONTE Report Released Date/Time: August 10, 2023 08:57 AM Reporting Lab: [facility] [address] [address] Performing Lab: [place] [facility] [address] PROTEIN,TOTAL 7.1 g/dL 6.0-8.3 ALBUMIN 4.2 g/dL 3.5-5.0 ALKALINE PHOSPHATASE 44 U/L 40-150 AST 34 U/L 5-34 ALT 37 U/L BILIRUBIN, TOTAL 1.0 mg/dL 0.2-1.2 August 10, 2023 09:14 AM [facility] BASIC METABOLIC PANEL (fasting) Specime n Type: SERUM No comment entered. Ordering Provider: MARILIN APONTE Report Released Date/Time: August 10, 2023 08:57 AM Reporting Lab: [address] [address] Performing Lab: [address] [address] UREA NITROGEN 10 mg/dL 7-25 GLUCOSE 109 mg/dL H 65-100 SODIUM 137 mmol/L 135-145 POTASSIUM 4.4 mmol/L 3.5-5.0 CHLORIDE 105 mmol/L 100-110 CO2 24 meq/L 20-30 CREATININE, Serum 0.87 mg/dL 0.50-1.40 eGFR(CKD-EPI 2020) >90 mL/min >60 August 10, 2023 09:14 AM [facility] PSA Specimen Type: SERUM No comment entered. Ordering Provider: MARILIN APONTE Report Released Date/Time: August 10, 2023 08:57 AM Reporting Lab: [address] [address] Performing Lab: [address] [address] PSA 1.00 ng/mL 0.00-4.00 August 10, 2023 09:14 AM [facility] MICROSCOPIC AUTOMATED, URINE Specimen T ype: URINE Comment: If Glucose = >500 and Ketones are positive, please alert the Physician. Ordering Provider: MARILIN APONTE Report Released Date/Time: August 10, 2023 08:57 AM Reporting Lab: [address] [address] Performing Lab: [address] [address] UA WBC 0-5 /[HPF] 0-5 UA MUCUS FEW /[LPF] Trace UA RBC 0-2 /[HPF] 0-3 August 10, 2023 09:14 AM [facility] URINALYSIS Specimen Type: URINE Comment: If Glucose = >500 and Ketones are positive, please alert the Physician. Ordering Provider: MARILIN APONTE Report Released Date/Time: August 10, 2023 08:57 AM Reporting Lab: [address] [address] Performing Lab: [address] [address] UA COLOR Yellow Yellow UA APPEARANCE Turbid Clear UA GLUCOSE NEGATIVE mg/dL Negative UA KETONES NEGATIVE mg/dL Negative UA BLOOD NEGATIVE mg/dL Negative UA PROTEIN 20 mg/dL Negative UA NITRITE NEGATIVE mg/dL Negative UA BILIRUBIN NEGATIVE mg/dL Negative UA SPECIFIC GRAVITY 1.025 H 1.016-1.022 UA pH 5.5 5.0-9.0 UA UROBILINOGEN <2.0 mg/dL <2.0 UA LEUKOCYTE NEGATIVE Negative August 10, 2023 09:14 AM [facility] CBC AND DIFF (AUTO) Specimen Type: BLOOD No comment entered. Ordering Provider: MARILIN APONTE Report Released Date/Time: August 10, 2023 08:57 AM Reporting Lab: [address] [address] Performing Lab: [address] [address] WBC 5.62 10*3/uL 4.50-11.00 RBC 4.69 10*6/uL 4.23-5.66 HGB 14.7 g/dL 12.8-17 HCT 43.0 39.2-50.4 MCV 91.7 fL 82-99 MCHC 34.2 g/dL 30.8-35.1 PLT 168 10*3/uL 140-360 RDW-CV 13.0 12.0-16.0 [place], Abs 0.58 10*3/uL 0.30-1.10 MCH 31.3 pg 26.2-32.6 Neut % 67.2 43.7-75.8 Lymph % 20.3 14.0-42.3 [place] % 10.3 5.1-13.7 Eos % 1.4 0.4-6.8 Baso % 0.4 0.1-2.0 Neut, Abs 3.78 10*3/uL 2.20-7.60 Lymph, Abs 1.14 10*3/uL 1.00-3.20 Eos, Abs 0.08 10*3/uL 0.03-0.44 Baso, Abs 0.02 10*3/uL 0.01-0.13 Immature Gran % 0.4 0.0-0.7 Immature Gran, Abs 0.02 10*3/uL 0.00-0.06 Social History: Smoking Status (Most current) and Tobacco Use (All prior to encounter date) This section includes the most current, and the historical, smoking and tobacco- related health factors from the [place] facility where the Encounter took place. Current Smoking Status This section includes the most current smoking, or tobacco-related health factor, from the [place] facility where the Encounter took place. Date/Time Current Smoking Status Comment Laury viveros Dec 20, 2018 08:14 AM [place]-TOBACCO NEVER USED [facility] Tobacco Use History This section includes a history of the smoking, or tobacco-related health factors, that were collected on or before the date of the Encounter. The data comes from the [place] facility where the Encounter took place. Date/Time Smoking Status/Tobacco Use Comment Kerline lama Jan 18, 2018 02:01 PM [place]-TOBACCO NEVER USED [facility] Apr 10, 2016 10:51 AM LIFETIME NON-TOBACCO USER [facility] May 23, 2004 10:12 AM LIFETIME NON-SMOKER [facility] May 23, 2004 10:12 AM LIFETIME NON-TOBACCO USER [facility] Advance Directives: All historical and current Section Date Range: From patient's date of to the date document was created. This section includes ALL of a patient's completed or amended [place] Advance and Rescinded Directives. The entries below indicate that a directive exists for the patient, but an actual copy is not included with this document. The data comes from all [place] facilities. Date Advance Directives Provider Source Dec 14, 2020 ADVANCE DIRECTIVE MARISOL H[place]ON [place] [facility] Radiology Reports: +/- 30 days of the encounter Radiology Reports For cases when an order for radiology services may have been completed prior to the date of the Encounter, the report list includes the Radiology Reports that were completed up to 30 days before dateof the Encounter. For cases when an order for radiology services may have been completed after the date of the Encounter, the report list also includes the Radiology Reports that were completed up to30 days after date of the Encounter. The data comes from all [place] treatment facilities. 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 Comparison: None. Findings: The bony mineralization is normal. There are mild to moderate degenerative osteoarthritic changes present to the right hip joint space. The right proximal femur appears intact and unremarkable. The pelvic bones appear intact. No acute bony abnormality is seen. Impression: Mild to moderate degenerative osteoarthritic changes present to the right hip joint space. Primary Diagnostic Code: No immediate attention required Primary Interpreting Staff: BRITTANY LEDESMA JR, Radiologist ([employer]) /BRITTANY GONZALES JR [facility] Encounter Notes: All associated encounter notes This section contains the clinical notes associated to the Encounter. Date/Time Encounter Note(s) Provider Source July 24, 2023 12:00 PM PSYCHIATRY NOTE: LOCAL TITLE: PSYCHIATRY NOTE STANDARD TITLE: PSYCHIATRY NOTE DATE OF NOTE: JULY 24, 2023@12:00 ENTRY DATE: JULY 24, 2023@12:00:52 AUTHOR: RADHA WEBBER EXP COSIGNER: JARED GARNICA URGENCY: STATUS: COMPLETED PSYCHIATRY NOTE Has ADDENDA Time spent: 21-30 minutes The presents today for follow-up. IDENTIFYING INFORMATION: Epifanio Woods is a 62-year-old male with a history of MDD, CHARAN, gambling disorder in remission, multiple TBIs, past episode of ischemic colitis, HLD, ED, POORNIMA not on CPAP, COPD,and multiple other medical conditions, who presents for psychopharmacologic follow-up. HISTORY OF PRESENT ILLNESS (patient report): Back and neck have been bothering him. Mood has been not bad. Daughter just got this past week in [place]. His valdemar proactively offered him a ride. Sleeping has been stable, maybe getting a little better. Appetite still feels a bit. Continues to be experience jyothi. Focus has been stable. Denies anxiety. Walks in the hosue for 10 minutes after each meal for exercise. This makes him feel more confident. Going outside at the encouragment of his . Feels like depression is at 4-5/10 intensity. Still feels nervous about future heart attacks. It's not always on his mind, but it does make him nervous. Denies any gambling behaviors. Needs to see ENT; hopes to be able to use CPAP after that. Mental Status Exam: male who appears his stated age. Concentration and memory grossly intact. Speech is clear and spontaneous. Mood is euthymic. Affect is mood congruent, full range, appropriately reactive. Thought process is linear and goal directed. Thought content is devoid of SI/HI/hallucinations. Inisght and judgement are fair to good. SUICIDE RISK ASSESSMENT: SUICIDE INQUIRY: IDEATION: Denies ideation. Do you currently have any homicidal ideation? No SUBSTANCE USE: Working on cutting down on highly processed foods. Alcohol use: <1 drink weekly Marijuana: tried it for medical purposes, did not like it and is not using it. Denies all other substance use PSYCH MEDICATION HISTORY: Buspar 10mg BID-> successfully tapered off of it in 2023. 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 his is from the [facility]. he retired from [employer] 05/23. lifelong nonsmoker. 1drink alcohol per [...] 12. Hyperlipidemia 13. Erectile dysfunction (SNOMED CT 392583543) 14. Neck pain 15. Elevated blood pressure reading without diagnosis of hypertension 16. Colorectal Cancer Screening Results Documented and Reviewed (PV) 17. Anisocoria * 18. Anisometropia 19. Concussion 20. Brief Loss of Consciousness with Loss of Consciousness less than 30 Minutes 21. Corneal scar 22. 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 Major depressive disorder 25. Dermatitis or Eczema 26. Hemorrhoid (SNOMED CT [id number]) 27. Cervical radiculopathy 28. Pain in joint [...] TAB TAKE ONE TABLET BY MOUTH ACTIVE (S) AT BEDTIME FOR DEPRESSION AND ANXIETY CYCLOBENZAPRINE [...] ON FOR 12 HOURS, THEN REMOVE PATCH) METOPROLOL SUCCINATE 25MG SA TAB TAKE ONE TABLET BY MOUTH ACTIVE ONCE DAILY FOR BLOOD PRESSURE/HEART OMEPRAZOLE 20MG EC CAP TAKE TWO CAPSULES [...] TAB 90MG BY MOUTH TWICE DAILY ACTIVE FORMULATION:Epifanio Woods is a 63-year-old male with a history of MDD, CHARAN, gambling disorder in remission, multiple TBIs, past episode of ischemic colitis, HLD, ED, POORNIMA not on CPAP, COPD, NSTEMI s/p stent, and multiple other medical conditions, who presents for psychopharmacologic follow-up. Mr. Woods reports some fatigue and anxiety related to his recent NSTEMI, but notes that things are gradually improving. We discussed the potential cardiac risks of citalopram and offered to transition to another agenet (e.g. sertraline) in the future should like to do so. We would expect further improvement in anxiety the more time passess since his heart attack and as his doctor appointments start to slow down. IMPRESSION (DSM-5):PTSD MDD, mild, recurrent CHARAN gamling disorder in sustained remission PLAN: - Continue citalopram 20mg PO daily for MDD and PTSD - Continue melatonin to 3 mg PO qHS for insomnia - Continue therapy at [facility] - has successfully discontinued Buspar I discussed the findings and plan with the patient. I educated the patient about their mental health condition. Canby repeated back the plan and education. The [...] weights, lipids, glucose. FOLLOW-UP:Return to clinic in 6-7 weeks Medication Reconciliation: Outpatient: Has the patient been taking medications as documented in the EMLR? YES: The patient has been taking medications as documented in the EMLR. Essential Medication List for Review used to complete this medication reconciliation. INCLUDED IN THIS LIST: Alphabetical list of active outpatient prescriptions dispensed from this [facility] (local) and dispensed from another [place] or [facility] facility (remote) as well as inpatient orders [...] whether with a VA or non-VA provider. /gunnar WEBBER MD HOME RESTORATION SERVICE CLEANER Signed: 07/25/2023 17:45 /ho/ JARED GARNICA DO Psychiatrist Cosigned: 07/26/2023 16:33 07/26/2023 ADDENDUM STATUS: COMPLETED Case discussed with resident and I was present for a portion of the interview. I reviewed the note and agree with the findings, assessment, and plan as documented above. As noted by Dr. Webber, we explained potential risks of citalopram, including risk of prolonged QTc interval. We offered to switch to another antidepressant. very strongly feels that citalopram is of benefit, and he is opposed at this time to changing medication. He demonstrates capacity to make medical decisions. In his opnion, the benefits of medication outweigh the risks. /ho/ JARED GARNICA DO Psychiatrist Signed: 07/26/2023 16:35 RADHA WEBBER
--- OUTSIDE RECORDS SUMMARY | 2024-02-19 19:03 | XMS_ITS | Encounter Summary ---
Author Name [facility] [facility] [place] [facility] [facility] [place] Address [address] [place] [id number] Care Team Providers Care Electronic Specialist Name Role Phone MARILIN KAPLAN Primary Care [...] PRESCRIPT ION [id number] Mar 12, 2019 [id number] [phone] Dina WOODS PATIENT [facility] STATE AGENC Y Jan 23, 2014 [id number] [phone] Dina WOODS PATIENT MEDICARE (WNR) MEDICARE (M) PART A Nov 10, 2014 PART A [id number] CREAMDina KOHLER PATIENT MEDICARE (WNR) MEDICARE (M) PART B Nov 10, 2014 PART B [id number] Dina WOODS PATIENT MEDICARE (WNR) MEDICARE (M) PART A Nov 10, 2014 PART A [id number] CREAMER,D KATY PATIENT MEDICARE (WNR) MEDICARE (M) PART B Nov 10, 2014 PART B [id number] CREAMER,D KATY PATIENT MEDICARE (WNR) MEDICARE (M) PART B Nov 10, 2014 PART B CREAMER,D KATY PATIENT MEDICARE (WNR) MEDICARE (M) PART A Nov 10, 2014 PART A [id number] CREAMER,D KATY PATIENT MEDICARE (WNR) MEDICARE (M) PART B Nov 10, 2014 PART B [id number] CREAMER,D KATY PATIENT MEDICARE PART D (WNR) MEDICARE (M) PART D Nov 10, 2017 PART D [id number] CREAMER,D KATY PATIENT MEDICARE PART D (WNR) MEDICARE (M) PART D Nov 10, 2017 PART D [id number] CREAMER,D KATY PATIENT FOR LIFE TFL* Mar 12, 2023 [id number] CREAMER,D KATY PATIENT [facility] POINT OF SERVICE US FAMIL Y HEALT H Mar 12, 2021 [id number] [phone] CREAMER,D KATY PATIENT [facility] REYES E Mar 12, 2019 [id number] CREAMER,D KATY PATIENT [facility] Mar 12, 2019 [facility] [id number] CREAMER,D KATY PATIENT Selected Encounter This section includes the information on record at [place] for the Encounter. Date/Time Encounter Type Encounter Description Reason Provider Source July 25, 2023 02:34 PM QNHP OL DIG ASSMT&MGMT 5-10 CLINICAL PHARMACY ICD-10-CM Z51.81 Encounter for therapeutic drug level monitoring MARLO GUILLEN [facility] Encounter Template Text not used by [facility] Assessments - Encounter Diagnoses This section includes the primary and secondary diagnoses documented for the Encounter. Date/Time Primary/Secondary Diagnosis Diagnosis Name Provider Source July 25, 2023 03:04 PM PRIMARY Encounter for therapeutic drug level monitoring MARLO GUILLEN [facility] Plan of Treatment: Future Appointments (+ 6 months) and Future Tests (+/- 45 days) The Plan of Treatment section includes future care activities for the patient from [facility] [place] [facility] This section includes future appointments and future orders which are active, pending or scheduled. Future Appointments This section includes appointments that were scheduled to occur 6 months from the date of the Encounter, up to a maximum of 20 appointments. The data comes from all [place] treatment [facility]. Appointment Date/Time Appointment Type Appointme nt Facility Name Aug 20, 2023 02:00 PM AMBULATORY - MEDICINE [facility] Sep 04, 2023 02:30 PM AMBULATORY - PSYCHIATRY [facility] Sep 07, 2023 07:15 AM AMBULATORY - [facility] Oct 19, 2023 08:00 AM [facility] Dec 04, 2023 02:30 PM [facility] Dec 18, 2023 01:30 PM AMBULATORY - PSYCHIATRY [facility] Dec 19, 2023 11:30 AM [facility] Jan 14, 2024 09:30 AM AMBULATORY - MEDICINE [facility] Lab Results: +/- 30 days of the encounter This section includes the Chemistry and Hematology Lab Results on record with [place] for the patient. Radiology Reports and Pathology Reports are provided separately, in subsequent sections. Lab Results This section contains the Chemistry/Hematology Results that were resulted 30 days before or 30 daysafter the date of the Encounter. Date/Time Source Result Type Result - Unit Interpretation Reference Range Comment August 10, 2023 09:14 AM [facility] HEMOGLOBIN A1C PANEL Specimen Type: BLOOD Comment: Values obtained from A1C measurements can vary. For atypical A1C assays, a reported value of 7.0 could actually be between 6.72 and 7.28 if measured by a reference method. A reported value of 9.0 could actually be between 8.73 and 9.27. Ref: http://www.ngs p.org/CAPdata. asp Ordering Provider: MARILIN APONTE Report Released Date/Time: August 10, 2023 08:57 AM Reporting [facility] [address] [address] Performing Lab: [place] [facility] [address] [address] HEMOGLOBIN A1C 5.3 4.0-5.6 August 10, 2023 09:14 AM [facility] LIPID PANEL FASTING Specimen Type: SERUM No comment entered. Ordering Provider: MARILIN APONTE Report Released Date/Time: August 10, 2023 08:57 AM Reporting [facility]: [facility] [address] [address] Performing Lab: [facility] [address] [address] CHOLESTEROL 96 mg/dL TRIGLYCERIDE 129 mg/dL 0-150 LDL calculated 37 mg/dL 0-129 CHOL/HDL 2.9 HDL CHOLESTEROL 33 mg/dL L 40-60 August 10, 2023 09:14 AM [facility] TSH Specimen Type: SERUM No comment entered. Ordering Provider: MARILIN APONTE Report Released Date/Time: August 10, 2023 08:57 AM Reporting [facility]: [facility] [address] [address] Performing [facility]: [facility] [address] [address] TSH 1.24 u[IU]/mL 0.35-5.00 August 10, 2023 09:14 AM [facility] LIVER FUNCTION Specimen Type: SERUM No comment entered. Ordering Provider: MARILIN APONTE Report Released Date/Time: August 10, 2023 08:57 AM Reporting [facility]: [facility] [address] [address] Performing Lab: [place] [facility] [address] PROTEIN,TOTAL 7.1 g/dL 6.0-8.3 ALBUMIN 4.2 g/dL 3.5-5.0 ALKALINE PHOSPHATASE 44 U/L 40-150 AST 34 U/L 5-34 ALT 37 U/L BILIRUBIN, TOTAL 1.0 mg/dL 0.2-1.2 August 10, 2023 09:14 AM [facility] BASIC METABOLIC PANEL (fasting) Specime n Type: SERUM No comment entered. Ordering Provider: MARILIN APONTE Report Released Date/Time: August 10, 2023 08:57 AM Reporting Lab: [address] [address] Performing Lab: [address] [address] UREA NITROGEN 10 mg/dL 7-25 GLUCOSE 109 mg/dL H 65-100 SODIUM 137 mmol/L 135-145 POTASSIUM 4.4 mmol/L 3.5-5.0 CHLORIDE 105 mmol/L 100-110 CO2 24 meq/L 20-30 CREATININE, Serum 0.87 mg/dL 0.50-1.40 eGFR(CKD-EPI 2020) >90 mL/min >60 August 10, 2023 09:14 AM [facility] PSA Specimen Type: SERUM No comment entered. Ordering Provider: MARILIN APONTE Report Released Date/Time: August 10, 2023 08:57 AM Reporting Lab: [address] [address] Performing Lab: [address] [address] PSA 1.00 ng/mL 0.00-4.00 August 10, 2023 09:14 AM [facility] MICROSCOPIC AUTOMATED, URINE Specimen T ype: URINE Comment: If Glucose = >500 and Ketones are positive, please alert the Physician. Ordering Provider: MARILIN APONTE Report Released Date/Time: August 10, 2023 08:57 AM Reporting Lab: [address] [address] Performing Lab: [address] [address] UA WBC 0-5 /[HPF] 0-5 UA MUCUS FEW /[LPF] Trace UA RBC 0-2 /[HPF] 0-3 August 10, 2023 09:14 AM [facility] URINALYSIS Specimen Type: URINE Comment: If Glucose = >500 and Ketones are positive, please alert the Physician. Ordering Provider: MARILIN APONTE Report Released Date/Time: August 10, 2023 08:57 AM Reporting Lab: [address] [address] Performing Lab: [address] [address] UA COLOR Yellow Yellow UA APPEARANCE Turbid Clear UA GLUCOSE NEGATIVE mg/dL Negative UA KETONES NEGATIVE mg/dL Negative UA BLOOD NEGATIVE mg/dL Negative UA PROTEIN 20 mg/dL Negative UA NITRITE NEGATIVE mg/dL Negative UA BILIRUBIN NEGATIVE mg/dL Negative UA SPECIFIC GRAVITY 1.025 H 1.016-1.022 UA pH 5.5 5.0-9.0 UA UROBILINOGEN <2.0 mg/dL <2.0 UA LEUKOCYTE NEGATIVE Negative August 10, 2023 09:14 AM [facility] CBC AND DIFF (AUTO) Specimen Type: BLOOD No comment entered. Ordering Provider: MARILIN APONTE Report Released Date/Time: August 10, 2023 08:57 AM Reporting Lab: [address] [address] Performing Lab: [address] [address] WBC 5.62 10*3/uL 4.50-11.00 RBC 4.69 10*6/uL 4.23-5.66 HGB 14.7 g/dL 12.8-17 HCT 43.0 39.2-50.4 MCV 91.7 fL 82-99 MCHC 34.2 g/dL 30.8-35.1 PLT 168 10*3/uL 140-360 RDW-CV 13.0 12.0-16.0 Hawkins, Abs 0.58 10*3/uL 0.30-1.10 MCH 31.3 pg 26.2-32.6 Neut % 67.2 43.7-75.8 Lymph % 20.3 14.0-42.3 Hawkins % 10.3 5.1-13.7 Eos % 1.4 0.4-6.8 [...] and tobacco- related health factors from the [place] facility where the Encounter took place. Current Smoking Status This section includes the most current smoking, or tobacco-related health factor, from the [place] facility where the Encounter took place. Date/Time Current Smoking Status Comment Facil ity Nov 10, 2022 01:30 PM VA-TOBACCO NEVER USED [facility] Tobacco Use History This section includes a history of the smoking, or tobacco-related health factors, that were collected on or before the date of the Encounter. The data comes from the [place] facility where the Encounter took place. Date/Time Smoking Status/Tobacco Use Comment F acility Oct 14, 2021 10:18 AM VA-TOBACCO NEVER USED [facility] Feb 11, 2020 04:16 PM VA-TOBACCO NEVER USED [facility] Jan 15, 2018 02:24 PM LIFETIME NON-SMOKER [facility] Advance Directives: All historical and current Section Date Range: From patient's date of to the date document was created. This section includes ALL of a patient's completed or amended [place] Advance and Rescinded Directives. The entries below indicate that a directive exists for the patient, but an actual copy is not included with this document. The data comes from all [place] facilities. Date Advance Directives Provider Source Dec 14, 2020 ADVANCE DIRECTIVE MARISOL HAMPTON [facility] Radiology Reports: +/- 30 days of [...] the Encounter. The data comes from all [place] treatment facilities. 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 Date/Time Encounter Note(s) Provider Source July 25, 2023 02:35 PM PHARMACY OUTPATIENT NOTE: LOCAL TITLE: PHARMACY CLINIC NOTE STANDARD TITLE: PHARMACY OUTPATIENT NOTE DATE OF NOTE: JULY 25, 2023@14:35 ENTRY DATE: JULY 25, 2023@14:36:30 AUTHOR: NISHA GUILLEN COSIGNER: URGENCY: STATUS: COMPLETED Chirag Godfrey is approved for community care [facility] Clinically Indicated Date: Jun Received prescription for the following: TICAGRELOR 90 MG BID FROM [facility] DR[facility] COLVIN Medical history relevant to this request: CCRX received from [facility] dr. Dalila Ye MD office Per Ticagrelor (Brilinta ) CFU Pt does not meet any of the exclusion criteria; Pt meets one of the inclusion criteria: Inclusion Criteria The answer to one of the following must be fulfilled in order to meet criteria. [ ] ST-elevation myocardial infarction acute coonary syndrome (STEMI-ACS) undergoing percutaneous coronary intervention(PCI)2 or receiving no reperfusion [x ] Non-ST elevation acute coronary syndrome (NSTE-ACS) with at least 2 of the following: ST-segment changes on electrocardiogram indicating ischemia, positive cardiac biomarkers, and/or other high risk feature2,3 [ ] Definite or probable acute stent thrombosis ([employer] definition) in patients compliant with aspirin and clopidogrel [ ] Extended duration dual antiplatelet therapy (DAPT=aspirin plus P2Y12 inhibitor) beyond 12 months following an ACS event as per Cardiology re- evaluation; reduce dose to 60 mg twice daily [ ] Reduced clopidogrel response (e.g., any documented [id number] intermediate or poor metabolizer phenotypes or high ontreatment platelet reactivity by P2Y12 reaction units [PRU] testing) and continued indication for P2Y12 inhibitor therapy [ ] Confirmed coronary artery disease (CAD) and type 2 diabetes without prior myocardial infarction (AR), at particularly high ischemic risk AND low bleed risk given neutral net clinical benefit ? restricted to Cardiology [ ] Non-cardioembolic acute ischemic stroke (NIH Stroke Scale score =5) or high-risk transient ischemic attack when no other recommended antiplatelet agents are appropriate for use ? restricted to Neurology4 [ ] xUndergoing percutaneous coronary intervention (PCI) with or without ACS in patients with clopidogrel or true aspirin allergy Per pharmacy review, non-formulary/prior authorization is: [ x ] Approved [ ] Denied Comments: Pt meets the inclusion criteral /ho/ NISHA GUILLEN CLINICAL BRONZER Signed: 07/25/2023 15:04 Receipt Acknowledged By: 07/30/2023 13:16 /ho/ CHANTAL HAGER Aircrewman N[facility]HA GUI[facility]EN [facility]
--- OUTSIDE RECORDS SUMMARY | 2024-02-19 19:03 | XMS_ITS | Encounter Summary ---
Author Name [facility] [place] Address [address] [place] [address] Care Team Providers Care Designer And Patternmaker Name Role Phone MARILIN KAPLAN Primary Care [...] PRESCRIPT ION [id number] 1 Mar 12, 2019 [id number] CREAMDina KOHLER PATIENT [facility] STATE AGENC Y Jan 23, 2014 [id number] [id number] CREAMER,Dina KATY PATIENT MEDICARE (WNR) MEDICARE () PART A Nov 10, 2014 PART A [id number] CREAMER,D KATY PATIENT MEDICARE (WNR) MEDICARE () PART B Nov 10, 2014 PART B [id number] CREAMER,Dina KATY PATIENT MEDICARE (WNR) MEDICARE () PART A Nov 10, 2014 PART A [id number] CREAMER,D KATY PATIENT MEDICARE (WNR) MEDICARE (M) PART B Nov 10, 2014 PART B [id number] CREAMER,D KATY PATIENT MEDICARE (WNR) MEDICARE (M) PART A Nov 10, 2014 PART A [id number] CREAMER,D KATY PATIENT MEDICARE (WNR) MEDICARE (M) PART B Nov 10, 2014 PART B CREAMER,D KATY PATIENT MEDICARE (WNR) MEDICARE (M) PART B Nov 10, 2014 PART B [id number] CREAMER,D KATY PATIENT MEDICARE PART D (WNR) MEDICARE (M) PART D Nov 10, 2017 PART D [id number] CREAMER,D KATY PATIENT MEDICARE PART D (WNR) MEDICARE (M) PART D Nov 10, 2017 PART D [id number] CREAMER,D KATY PATIENT FOR LIFE TFL* Mar 12, 2023 [id number] CREAMER,D KATY PATIENT [facility] POINT OF SERVICE US FAMIL Y HEALT H Mar 12, 2021 [id number] [phone] CREAMER,D KATY PATIENT [facility] BRARI[facility]LE REYES E Mar 12, 2019 [id number] CREAMER,D KATY PATIENT [facility] Mar 12, 2019 [facility] [id number] [phone] CREAMER,D KATY PATIENT Selected Encounter This section includes the information on record at [place] for the Encounter. Date/Time Encounter Type Encounter Description Reason Pro vider Source Aug 11, 2023 12:13 PM Outpatient Encounter ADMIN PAT ACTIVTIES (MASNONCT) [...] 20 appointments. The data comes from all [place] treatment facilities. Appointment Date/Time Appointment Type Appointme nt Facility Name Aug 20, 2023 02:00 PM AMBULATORY - MEDICINE [facility] Sep 04, 2023 02:30 PM AMBULATORY - PSYCHIATRY [facility] Sep 07, 2023 07:15 AM AMBULATORY - NONE [facility] [place] [facility] Oct 19, 2023 08:00 AM AMBULATORY - MEDICINE [place] [facility] [place] [facility] Dec 04, 2023 02:30 PM AMBULATORY - MEDICINE [place] [facility] [place] [facility] Dec 18, 2023 01:30 PM AMBULATORY - PSYCHIATRY [facility] Dec 19, 2023 11:30 AM AMBULATORY - MEDICINE [place] [facility] [place] [facility] Jan 14, 2024 09:30 AM AMBULATORY - MEDICINE [place] [facility] [place] [facility] Lab Results: +/- 30 days of the encounter This section includes the Chemistry and Hematology Lab Results on record with [place] for the patient. Radiology Reports and Pathology Reports are provided separately, in subsequent sections. Lab Results This section contains the Chemistry/Hematology Results that were resulted 30 days before or 30 daysafter the date of the Encounter. Date/Time Source Result Type Result - Unit Interpretation Reference Range Comment August 10, 2023 09:14 AM [place] HEMOGLOBIN A1C PANEL Specimen Type: BLOOD Comment: [...] August 10, 2023 08:57 AM Reporting Lab: [facility] [address] [facility] [address] Performing Lab: [address] [address] HEMOGLOBIN A1C 5.3 4.0-5.6 August 10, 2023 09:14 AM [place] LIPID PANEL FASTING Specimen Type: SERUM No comment entered. Ordering Provider: MARILIN APONTE Report Released Date/Time: August 10, 2023 08:57 AM Reporting Lab: [facility] [address] [facility] [facility] [address] Performing Lab: [address] [address] CHOLESTEROL 96 mg/dL TRIGLYCERIDE 129 mg/dL 0-150 LDL calculated 37 mg/dL 0-129 CHOL/HDL 2.9 HDL CHOLESTEROL 33 mg/dL L 40-60 August 10, 2023 09:14 AM [place] LIVER FUNCTION Specimen Type: SERUM No comment entered. Ordering Provider: MARILIN APONTE Report Released Date/Time: August 10, 2023 08:57 AM Reporting Lab: [address] [address] Performing Lab: [address] [address] PROTEIN,TOTAL 7.1 g/dL 6.0-8.3 ALBUMIN 4.2 g/dL 3.5-5.0 ALKALINE PHOSPHATASE 44 U/L 40-150 AST 34 U/L 5-34 ALT 37 U/L BILIRUBIN, TOTAL 1.0 mg/dL 0.2-1.2 August 10, 2023 09:14 AM [place] TSH Specimen Type: SERUM No comment entered. Ordering Provider: MARILIN APONTE Report Released Date/Time: August 10, 2023 08:57 AM Reporting Lab: [address] [address] Performing Lab: [address] [address] TSH 1.24 u[IU]/mL 0.35-5.00 August 10, 2023 09:14 AM [place] BASIC METABOLIC PANEL (fasting) Specime n Type: SERUM No comment entered. Ordering Provider: MARILIN APONTE Report Released Date/Time: August 10, 2023 08:57 AM Reporting Lab: [address] [address] Performing Lab: [place] [address] UREA NITROGEN 10 mg/dL 7-25 GLUCOSE 109 mg/dL H 65-100 SODIUM 137 mmol/L 135-145 POTASSIUM 4.4 mmol/L 3.5-5.0 CHLORIDE 105 mmol/L 100-110 CO2 24 meq/L 20-30 CREATININE, Serum 0.87 mg/dL 0.50-1.40 eGFR(CKD-EPI 2020) >90 mL/min >60 August 10, 2023 09:14 AM [place] PSA Specimen Type: SERUM No comment entered. Ordering Provider: MARILIN APONTE Report Released Date/Time: August 10, 2023 08:57 AM Reporting Lab: [address] [address] Performing Lab: [address] [address] PSA 1.00 ng/mL 0.00-4.00 August 10, 2023 09:14 AM [place] MICROSCOPIC AUTOMATED, URINE Specimen T ype: URINE Comment: If Glucose = >500 and Ketones are positive, please alert the Physician. Ordering Provider: MARILIN APONTE Report Released Date/Time: August 10, 2023 08:57 AM Reporting Lab: [address] [address] Performing Lab: [address] [address] UA WBC 0-5 /[HPF] 0-5 UA MUCUS FEW /[LPF] Trace UA RBC 0-2 /[HPF] 0-3 August 10, 2023 09:14 AM [place] URINALYSIS Specimen Type: URINE Comment: If Glucose = >500 and Ketones are positive, please alert the Physician. Ordering Provider: MARILIN APONTE Report Released Date/Time: August 10, 2023 08:57 AM Reporting Lab: [facility] [address] [address] Performing Lab: [address] [address] UA COLOR Yellow Yellow UA APPEARANCE Turbid Clear UA GLUCOSE NEGATIVE mg/dL Negative UA KETONES NEGATIVE mg/dL Negative UA BLOOD NEGATIVE mg/dL Negative UA PROTEIN 20 mg/dL Negative UA NITRITE NEGATIVE mg/dL Negative UA BILIRUBIN NEGATIVE mg/dL Negative UA SPECIFIC GRAVITY 1.025 H 1.016-1.022 UA pH 5.5 5.0-9.0 UA UROBILINOGEN <2.0 mg/dL <2.0 UA LEUKOCYTE NEGATIVE Negative August 10, 2023 09:14 AM [place] CBC AND DIFF (AUTO) Specimen Type: BLOOD No comment entered. Ordering Provider: MARILIN APONTE Report Released Date/Time: August 10, 2023 08:57 AM Reporting Lab: [address] [address] Performing Lab: [address] [address] WBC 5.62 10*3/uL 4.50-11.00 RBC 4.69 10*6/uL 4.23-5.66 HGB 14.7 g/dL 12.8-17 HCT 43.0 39.2-50.4 MCV 91.7 fL 82-99 MCHC 34.2 g/dL 30.8-35.1 PLT 168 10*3/uL 140-360 RDW-CV 13.0 12.0-16.0 [place], Abs 0.58 10*3/uL 0.30-1.10 MCH 31.3 pg 26.2-32.6 Neut % 67.2 43.7-75.8 Lymph % 20.3 14.0-42.3 [place] % 10.3 5.1-13.7 Eos % 1.4 0.4-6.8 [...] and tobacco- related health factors from the [place] facility where the Encounter took place. Current Smoking Status This section includes the most current smoking, or tobacco-related health factor, from the [place] facility where the Encounter took place. Date/Time Current Smoking Status Comment Facil ity Nov 10, 2022 01:30 PM VA-TOBACCO [facility] USED [facility] Tobacco Use History This section includes a history of the smoking, or tobacco-related health factors, that were collected on or before the date of the Encounter. The data comes from the [place] facility where the Encounter took place. Date/Time Smoking Status/Tobacco Use Comment F acility Oct 14, 2021 10:18 AM [place] Feb 11, 2020 04:16 PM [facility]ACCO [facility] Jan 15, 2018 02:24 PM LIFETIME NON-SMOKER [facility] Advance Directives: All historical and current Section Date Range: From patient's date of to the date document was created. This section includes ALL of a patient's completed or amended [place] Advance and Rescinded Directives. The entries below indicate that a directive exists for the patient, but an actual copy is not included with this document. The data comes from all [place] facilities. Date Advance Directives Provider Source Dec 14, 2020 ADVANCE DIRECTIVE MARISOL HAMPTON [facility] Radiology Reports: +/- 30 days of [...] the Encounter. The data comes from all [place] treatment facilities. 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 Date/Time Encounter Note(s) Provider Source Aug 11, 2023 12:13 PM ADMINISTRATIVE NOT E: LOCAL TITLE: CCC: SCHEDULING ADMINISTRATION STANDARD TITLE: ADMINISTRATIVE NOTE DATE OF NOTE: AUG 11, 2023@12:13 ENTRY DATE: AUG 11, 2023@12:13:50 AUTHOR: LORIN SANTOS COSIGNER: URGENCY: STATUS: COMPLETED Verify Patient Demographics Successfully verified patient demographics warm transferred to [address] Pharmacy call center Jomar. /es/ LORIN REYNOSO 2 [facility] Signed: 08/11/2023 12:14 LORIN SANTOS [facility]
--- OUTSIDE RECORDS SUMMARY | 2024-02-19 19:04 | XMS_ITS | Encounter Summary ---
Author Name [place] Address [address] [place] [address] Care Team Providers Care Power Digger Operator Name Role Phone MARILIN KAPLAN Primary Care [...] PRESCRIPT ION [id number] 1 Mar 12, 2019 [id number] [phone] CREAMDina KOHLER PATIENT [facility] STATE AGENC Y Jan 23, 2014 [id number] [id number] CREAMER,Dina KATY PATIENT MEDICARE (WNR) MEDICARE () PART A Nov 10, 2014 PART A [id number] CREAMER,D KATY PATIENT MEDICARE (WNR) MEDICARE () PART B Nov 10, 2014 PART B [id number] CREAMER,Dina KATY PATIENT MEDICARE (WNR) MEDICARE () PART A Nov 10, 2014 PART A [id number] CREAMER,D KATY PATIENT MEDICARE (WNR) MEDICARE (M) PART B Nov 10, 2014 PART B [id number] CREAMER,D KATY PATIENT MEDICARE (WNR) MEDICARE (M) PART B Nov 10, 2014 PART B CREAMER,D KATY PATIENT MEDICARE (WNR) MEDICARE (M) PART A Nov 10, 2014 PART A [id number] CREAMER,D KATY PATIENT MEDICARE (WNR) MEDICARE (M) PART B Nov 10, 2014 PART B [id number] CREAMER,D KATY PATIENT MEDICARE PART D (WNR) MEDICARE (M) PART D Nov 10, 2017 PART D [id number] CREAMER,D KATY PATIENT MEDICARE PART D (WNR) MEDICARE (M) PART D Nov 10, 2017 PART D [id number] CREAMER,D KATY PATIENT FOR LIFE TFL* Mar 12, 2023 [id number] CREAMER,D KATY PATIENT [facility] POINT OF SERVICE US FAMIL Y HEALT H Mar 12, 2021 [id number] [phone] CREAMER,D KATY PATIENT [facility] BRARIELLE REYES E Mar 12, 2019 [id number] CREAMER,D KATY PATIENT [facility] Mar 12, 2019 [facility] [id number] CREAMER,D KATY PATIENT Selected Encounter This section includes the information on record at [place] for the Encounter. Date/Time Encounter Type Encounter Description Reason Pro vider Source Aug 24, 2023 04:04 PM Outpatient Encounter ADMIN PAT ACTIVTIES (MASNONCT) [...] 20 appointments. The data comes from all [place] treatment facilities. Appointment Date/Time Appointment Type Appointme nt Facility Name Sep 04, 2023 02:30 PM AMBULATORY - PSYCHIATRY [facility] Sep 07, 2023 07:15 AM AMBULATORY - NONE [place] [facility] [place] [facility] Oct 19, 2023 08:00 AM AMBULATORY - MEDICINE [place] [facility] [place] [facility] Dec 04, 2023 02:30 PM AMBULATORY - MEDICINE [place] [facility] [place] [facility] Dec 18, 2023 01:30 PM AMBULATORY - PSYCHIATRY [facility] Dec 19, 2023 11:30 AM AMBULATORY - MEDICINE [place] [facility] [place] [facility] Jan 14, 2024 09:30 AM AMBULATORY - MEDICINE [place] [facility] [place] [facility] Feb 12, 2024 01:00 PM AMBULATORY - PSYCHIATRY [facility] Lab Results: +/- 30 days of the encounter This section includes the Chemistry and Hematology Lab Results on record with [place] for the patient. Radiology Reports and Pathology Reports are provided separately, in subsequent sections. Lab Results This section contains the Chemistry/Hematology Results that were resulted 30 days before or 30 daysafter the date of the Encounter. Date/Time Source Result Type Result - Unit Interpretation Reference Range Comment August 10, 2023 09:14 AM [place] HEMOGLOBIN A1C PANEL Specimen Type: BLOOD Comment: [...] August 10, 2023 08:57 AM Reporting Lab: [facility] [address] [facility] [address] Performing Lab: [address] [address] HEMOGLOBIN A1C 5.3 4.0-5.6 August 10, 2023 09:14 AM [place] LIPID PANEL FASTING Specimen Type: SERUM No comment entered. Ordering Provider: MARILIN APONTE Report Released Date/Time: August 10, 2023 08:57 AM Reporting Lab: [address] [address] Performing Lab: [address] [address] CHOLESTEROL 96 mg/dL TRIGLYCERIDE 129 mg/dL 0-150 LDL calculated 37 mg/dL 0-129 CHOL/HDL 2.9 HDL CHOLESTEROL 33 mg/dL L 40-60 August 10, 2023 09:14 AM [place] TSH Specimen Type: SERUM No comment entered. Ordering Provider: MARILIN APONTE Report Released Date/Time: August 10, 2023 08:57 AM Reporting Lab: [address] [address] Performing Lab: [address] [address] TSH 1.24 u[IU]/mL 0.35-5.00 August 10, 2023 09:14 AM [place] LIVER FUNCTION Specimen Type: SERUM No comment entered. Ordering Provider: MARILIN APONTE Report Released Date/Time: August 10, 2023 08:57 AM Reporting Lab: [address] [address] Performing Lab: [address] [address] PROTEIN,TOTAL 7.1 g/dL 6.0-8.3 ALBUMIN 4.2 g/dL 3.5-5.0 ALKALINE PHOSPHATASE 44 U/L 40-150 AST 34 U/L 5-34 ALT 37 U/L BILIRUBIN, TOTAL 1.0 mg/dL 0.2-1.2 August 10, 2023 09:14 AM [place] BASIC METABOLIC PANEL (fasting) Specime n Type: SERUM No comment entered. Ordering Provider: MARILIN APONTE Report Released Date/Time: August 10, 2023 08:57 AM Reporting Lab: [address] [address] Performing Lab: [address] [address] UREA NITROGEN 10 mg/dL 7-25 GLUCOSE 109 mg/dL H 65-100 SODIUM 137 mmol/L 135-145 POTASSIUM 4.4 mmol/L 3.5-5.0 CHLORIDE 105 mmol/L 100-110 CO2 24 meq/L 20-30 CREATININE, Serum 0.87 mg/dL 0.50-1.40 eGFR(CKD-EPI 2020) >90 mL/min >60 August 10, 2023 09:14 AM [place] PSA Specimen Type: SERUM No comment entered. Ordering Provider: MARILIN APONTE Report Released Date/Time: August 10, 2023 08:57 AM Reporting Lab: [address] [address] Performing Lab: [address] [address] PSA 1.00 ng/mL 0.00-4.00 August 10, 2023 09:14 AM [place] MICROSCOPIC AUTOMATED, URINE Specimen T ype: URINE Comment: If Glucose = >500 and Ketones are positive, please alert the Physician. Ordering Provider: MARILIN APONTE Report Released Date/Time: August 10, 2023 08:57 AM Reporting Lab: [address] [address] Performing Lab: [address] [address] UA WBC 0-5 /[HPF] 0-5 UA MUCUS FEW /[LPF] Trace UA RBC 0-2 /[HPF] 0-3 August 10, 2023 09:14 AM [place] URINALYSIS Specimen Type: URINE Comment: If Glucose = >500 and Ketones are positive, please alert the Physician. Ordering Provider: MARILIN APONTE Report Released Date/Time: August 10, 2023 08:57 AM Reporting Lab: [facility] [address] [address] Performing Lab: [address] [address] UA COLOR Yellow Yellow UA APPEARANCE Turbid Clear UA GLUCOSE NEGATIVE mg/dL Negative UA KETONES NEGATIVE mg/dL Negative UA BLOOD NEGATIVE mg/dL Negative UA PROTEIN 20 mg/dL Negative UA NITRITE NEGATIVE mg/dL Negative UA BILIRUBIN NEGATIVE mg/dL Negative UA SPECIFIC GRAVITY 1.025 H 1.016-1.022 UA pH 5.5 5.0-9.0 UA UROBILINOGEN <2.0 mg/dL <2.0 UA LEUKOCYTE NEGATIVE Negative August 10, 2023 09:14 AM [place] CBC AND DIFF (AUTO) Specimen Type: BLOOD No comment entered. Ordering Provider: MARILIN APONTE Report Released Date/Time: August 10, 2023 08:57 AM Reporting Lab: [address] [address] Performing Lab: [address] [address] WBC 5.62 10*3/uL 4.50-11.00 RBC 4.69 10*6/uL 4.23-5.66 HGB 14.7 g/dL 12.8-17 HCT 43.0 39.2-50.4 MCV 91.7 fL 82-99 MCHC 34.2 g/dL 30.8-35.1 PLT 168 10*3/uL 140-360 RDW-CV 13.0 12.0-16.0 [place], Abs 0.58 10*3/uL 0.30-1.10 MCH 31.3 pg 26.2-32.6 Neut % 67.2 43.7-75.8 Lymph % 20.3 14.0-42.3 [place] % 10.3 5.1-13.7 Eos % 1.4 0.4-6.8 [...] and tobacco- related health factors from the [place] facility where the Encounter took place. Current Smoking Status This section includes the most current smoking, or tobacco-related health factor, from the [place] facility where the Encounter took place. Date/Time Current Smoking Status Comment Facil ity Nov 10, 2022 01:30 PM [facility]TOBACCO [facility] Tobacco Use History This section includes a history of the smoking, or tobacco-related health factors, that were collected on or before the date of the Encounter. The data comes from the [place] facility where the Encounter took place. Date/Time Smoking Status/Tobacco Use Comment F acility Oct 14, 2021 10:18 AM [facility]ACCO [facility] Feb 11, 2020 04:16 PM [facility]ACCO [facility] [place] [facility] Jan 15, 2018 02:24 PM LIFETIME NON-SMOKER [facility] Advance Directives: All historical and current Section Date Range: From patient's date of to the date document was created. This section includes ALL of a patient's completed or amended [place] Advance and Rescinded Directives. The entries below indicate that a directive exists for the patient, but an actual copy is not included with this document. The data comes from all [place] facilities. Date Advance Directives Provider Source Dec 14, 2020 ADVANCE DIRECTIVE MARISOL HAMPTON [facility] [place] [facility] Radiology Reports: +/- 30 days of [...] the Encounter. The data comes from all [place] treatment facilities. 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 Date/Time Encounter Note(s) Provider Source Aug 24, 2023 04:04 PM PHARMACY NOTE: LOCAL TITLE: V1 PHARMACY CUSTOMER CARE MEDICATION RENEWAL STANDARD TITLE: PHARMACY NOTE DATE OF NOTE: AUG 24, 2023@16:04 ENTRY DATE: AUG 24, 2023@16:04:58 AUTHOR: DONELL DELVALLE COSIGNER: URGENCY: STATUS: COMPLETED Date: Aug Division: [facility] referred by Pharmacy Call Center for medication renewal: Non-controlled/maintenanc e medication Medications requested: [id number] CETIRIZINE HCL 10MG TAB Defer to primary care provider To be mailed . Please review and renew if appropriate. *This note was generated by [facility] Pharmacy Customer Care. If you have any questions or need assistance, do not contact this author. Please refer all questions to your local, on-site pharmacy departments. /ho/ DONELL DELVALLE Signed: 08/24/2023 16:05 Receipt Acknowledged By: 08/24/2023 16:24 /es/ MARILIN KAPLAN MD PHYSICIAN 08/28/2023 13:14 /ho/ GAURANG VILLALBA RN REGISTERED NURSE DONELL DELVALLE [place] [facility]
--- OUTSIDE RECORDS SUMMARY | 2024-02-19 19:05 | XMS_ITS ---
Author Name [facility] [place] Address [address] [place] [id number] Care Team Providers Care Lung Splitter Name Role Phone MARILIN KAPLAN Primary Care [...] PORRAST ION [id number] 1 Mar 12, 2019 [id number] [id number] Dina WOODS PATIENT [facility] Jan 23, 2014 [id number] [phone] CREAMERDina PATIENT MEDICARE (WNR) MEDICARE (M) PART A Nov 10, 2014 PART A [id number] CREAMER,Dina KATY PATIENT MEDICARE (WNR) MEDICARE (M) PART B Nov 10, 2014 PART B [id number] CREAMDina KOHLER PATIENT MEDICARE (WNR) MEDICARE (M) PART A Nov 10, 2014 PART A [id number] CREAMER,D KATY PATIENT MEDICARE (WNR) MEDICARE (M) PART B Nov 10, 2014 PART B [id number] CREAMER,D KATY PATIENT MEDICARE (WNR) MEDICARE (M) PART B Nov 10, 2014 PART B CREAMER,D KATY PATIENT MEDICARE (WNR) MEDICARE (M) PART A Nov 10, 2014 PART A [id number] CREAMER,D KATY PATIENT MEDICARE (WNR) MEDICARE (M) PART B Nov 10, 2014 PART B [id number] CREAMER,D KATY PATIENT MEDICARE PART D (WNR) MEDICARE (M) PART D Nov 10, 2017 PART D [id number] [phone] CREAMER,D KATY PATIENT MEDICARE PART D (WNR) MEDICARE (M) PART D Nov 10, 2017 PART D [id number] [phone] CREAMER,D KATY PATIENT FOR LIFE TFL* Mar 12, 2023 [id number] CREAMER,D KATY PATIENT [facility] POINT OF SERVICE US FAMIL Y HEALT H Mar 12, 2021 [id number] [phone] CREAMER,D KATY PATIENT [facility] RADHA REYES E Mar 12, 2019 [id number] CREAMER,D KATY PATIENT [facility] Mar 12, 2019 [facility] [id number] CREAMER,D KATY PATIENT Selected Encounter This section includes the information on record at NH for the Encounter. Date/Time Encounter Type Encounter Description Reason Provider Source Sep 07, 2023 07:15 AM CASE MGMT-ORAL HEALTH LIT DENTAL ICD-10-CM K03.6 Deposits [accretions] on teeth ASTON STEPHENSON IHMouna Encounter Template Text not used by [facility] Assessments - Encounter Diagnoses This section includes the primary and secondary diagnoses documented for the Encounter. Date/Time Primary/Secondary Diagnosis Diagnosis Name Provider Source Sep 07, 2023 07:34 AM PRIMARY Deposits [accretions] on teeth ASTON STEPHENSON [facility] Plan of Treatment: Future Appointments (+ 6 months) and Future Tests (+/- 45 days) The Plan of Treatment section includes future care activities for the patient from all [place] treatmentfacilities. This section includes future appointments and future orders which are active, pending or scheduled. Future Appointments This section includes appointments that were scheduled to occur 6 months from the date of the Encounter, up to a maximum of 20 appointments. The data comes from all [place] treatment facilities. Appointment Date/Time Appointment Type Appointme nt Facility Name Oct 19, 2023 08:00 AM AMBULATORY - MEDICINE [facility] Dec 04, 2023 02:30 PM AMBULATORY [facility] Dec 18, 2023 01:30 PM AMBULATORY [facility]RY [facility] Dec 19, 2023 11:30 AM AMBULATORY MEDICINE [facility] Jan 14, 2024 09:30 AM AMBULATORY MEDICINE [facility] Feb 12, 2024 01:00 PM AMBULATORY - PS[facility]CHIATRY [facility] Lab Results: +/- 30 days of the encounter This section includes the Chemistry and Hematology Lab Results on record with NH for the patient. Radiology Reports and Pathology Reports are provided separately, in subsequent sections. Lab Results This section contains the Chemistry/Hematology Results that were resulted 30 days before or 30 daysafter the date of the Encounter. Date/Time Source Result Type Result - Unit Interpretation Reference Range Comment August 10, 2023 09:14 AM [place] HEMOGLOBIN A1C PANEL Specimen Type: BLOOD Comment: [...] August 10, 2023 08:57 AM Reporting Lab: [facility] [address] [facility] [address] Performing Lab: [facility] [address] [facility] [address] HEMOGLOBIN A1C 5.3 4.0-5.6 August 10, 2023 09:14 AM [place] LIPID PANEL FASTING Specimen Type: SERUM No comment entered. Ordering Provider: MARILIN APONTE Report Released Date/Time: August 10, 2023 08:57 AM Reporting Lab: [facility] [address] [facility] [address] Performing Lab: [facility]ITAL[facility] [address] CHOLESTEROL 96 mg/dL TRIGLYCERIDE 129 mg/dL 0-150 LDL calculated 37 mg/dL 0-129 CHOL/HDL 2.9 HDL CHOLESTEROL 33 mg/dL L 40-60 August 10, 2023 09:14 AM [place] LIVER FUNCTION Specimen Type: SERUM No comment entered. Ordering Provider: MARILIN APONTE Report Released Date/Time: August 10, 2023 08:57 AM Reporting Lab: [facility] [address] Performing Lab: [facility] [address] PROTEIN,TOTAL 7.1 g/dL 6.0-8.3 ALBUMIN 4.2 g/dL 3.5-5.0 ALKALINE PHOSPHATASE 44 U/L 40-150 AST 34 U/L 5-34 ALT 37 U/L BILIRUBIN, TOTAL 1.0 mg/dL 0.2-1.2 August 10, 2023 09:14 AM [place] TSH Specimen Type: SERUM No comment entered. Ordering Provider: MARILIN APONTE Report Released Date/Time: August 10, 2023 08:57 AM Reporting Lab: [facility] [address] Performing Lab: [facility] [address] [address] TSH 1.24 u[IU]/mL 0.35-5.00 August 10, 2023 09:14 AM [place] BASIC METABOLIC PANEL (fasting) Specime n Type: SERUM No comment entered. Ordering Provider: MARILIN APONTE Report Released Date/Time: August 10, 2023 08:57 AM Reporting Lab: [address] [address] Performing Lab: [address] [address] UREA NITROGEN 10 mg/dL 7-25 GLUCOSE 109 mg/dL H 65-100 SODIUM 137 mmol/L 135-145 POTASSIUM 4.4 mmol/L 3.5-5.0 CHLORIDE 105 mmol/L 100-110 CO2 24 meq/L 20-30 CREATININE, Serum 0.87 mg/dL 0.50-1.40 eGFR(CKD-EPI 2020) >90 mL/min >60 August 10, 2023 09:14 AM [place] PSA Specimen Type: SERUM No comment entered. Ordering Provider: MARILIN APONTE Report Released Date/Time: August 10, 2023 08:57 AM Reporting Lab: [address] [address] Performing Lab: [address] [address] PSA 1.00 ng/mL 0.00-4.00 August 10, 2023 09:14 AM [place] MICROSCOPIC AUTOMATED, URINE Specimen T ype: URINE Comment: If Glucose = >500 and Ketones are positive, please alert the Physician. Ordering Provider: MARILIN APONTE Report Released Date/Time: August 10, 2023 08:57 AM Reporting Lab: [address] [address] Performing Lab: [address] [address] UA WBC 0-5 /[HPF] 0-5 UA MUCUS FEW /[LPF] Trace UA RBC 0-2 /[HPF] 0-3 August 10, 2023 09:14 AM [place] URINALYSIS Specimen Type: URINE Comment: If Glucose = >500 and Ketones are positive, please alert the Physician. Ordering Provider: MARILIN APONTE Report Released Date/Time: August 10, 2023 08:57 AM Reporting Lab: [address] [address] Performing Lab: [address] [address] UA COLOR Yellow Yellow UA APPEARANCE Turbid Clear UA GLUCOSE NEGATIVE mg/dL Negative UA KETONES NEGATIVE mg/dL Negative UA BLOOD NEGATIVE mg/dL Negative UA PROTEIN 20 mg/dL Negative UA NITRITE NEGATIVE mg/dL Negative UA BILIRUBIN NEGATIVE mg/dL Negative UA SPECIFIC GRAVITY 1.025 H 1.016-1.022 UA pH 5.5 5.0-9.0 UA UROBILINOGEN <2.0 mg/dL <2.0 UA LEUKOCYTE NEGATIVE Negative August 10, 2023 09:14 AM [place] CBC AND DIFF (AUTO) Specimen Type: BLOOD No comment entered. Ordering Provider: MARILIN APONTE Report Released Date/Time: August 10, 2023 08:57 AM Reporting Lab: [address] [address] Performing Lab: [address] [address] WBC 5.62 10*3/uL 4.50-11.00 RBC 4.69 10*6/uL 4.23-5.66 HGB 14.7 g/dL 12.8-17 HCT 43.0 39.2-50.4 MCV 91.7 fL 82-99 MCHC 34.2 g/dL 30.8-35.1 PLT 168 10*3/uL 140-360 RDW-CV 13.0 12.0-16.0 [place], Abs 0.58 10*3/uL 0.30-1.10 MCH 31.3 pg 26.2-32.6 Neut % 67.2 43.7-75.8 Lymph % 20.3 14.0-42.3 [place] % 10.3 5.1-13.7 Eos % 1.4 0.4-6.8 [...] and tobacco- related health factors from the NH facility where the Encounter took place. Current Smoking Status This section includes the most current smoking, or tobacco-related health factor, from the NH facility where the Encounter took place. Date/Time Current Smoking Status Comment Facil ity Nov 10, 2022 01:30 PM NH-TOBACCO NEVER USED [facility] Tobacco Use History This section includes a history of the smoking, or tobacco-related health factors, that were collected on or before the date of the Encounter. The data comes from the NH facility where the Encounter took place. Date/Time Smoking Status/Tobacco Use Comment F acility Oct 14, 2021 10:18 AM NH-TOBACCO NEVER USED [facility] Feb 11, 2020 04:16 PM VA-TOBACCO NEVER USED [facility] Jan 15, 2018 02:24 PM LIFETIME NON-SMOKER [facility] Advance Directives: All historical and current Section Date Range: From patient's date of to the date document was created. This section includes ALL of a patient's completed or amended [place] Advance and Rescinded Directives. The entries below indicate that a directive exists for the patient, but an actual copy is not included with this document. The data comes from all NH facilities. Date Advance Directives Provider Source Dec 14, 2020 ADVANCE DIRECTIVE MARISOL HAMPTON [facility] Radiology Reports: +/- 30 days of the [...] the Encounter. The data comes from all [place] treatment facilities. 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 Date/Time Encounter Note(s) Provider Source Sep 07, 2023 07:30 AM DENTISTRY NOTE: LOCAL TITLE: DENTAL NOTE STANDARD TITLE: DENTISTRY NOTE DATE OF NOTE: SEP 07, 2023@07:30 ENTRY DATE: SEP 07, 2023@07:34:21 AUTHOR: JOSE RAUL STEPHENSON EXP COSIGNER: URGENCY: STATUS: COMPLETED Patient Name: YESENIA WOODS, : 1960, Age: 63 Visit: S: Sep 07, 2023@07:15 [facility] DENTAL [address] 2 AM. Primary PCE Diagnosis: K03.6 (Deposits [accretions] on teeth). Dental Category: 15-OPC, Class IV. Treatment Status: Maintenance. Completed Care: (D1206) TOPICAL FLUORIDE VARNISH. DX: K03.6 Deposits [Accretions] on Teeth (D1330) ORAL HYGIENE INSTRUCTION. DX: K03.6 Deposits [Accretions] on Teeth (D9994) CASE MGMT-ORAL HEALTH LIT. DX: K03.6 Deposits [Accretions] on Teeth Periodontal Screening/Recording (PSR): 3-2-3 - - - 3-2-3 Dental Alerts: pt had heart attack at 2023 Oral Health Assessment Findings: Plaque Index: 1 - Slight Xerostomia: 0 - None Caries Risk: 3 - High Oral Hygiene: 3 - Poor - - - - - - - [...] concerns PREMEDICATION: Not indicated PAST MEDICAL HISTORY: pt had heart attack at 2023 LAST RADIOGRAPHS: BWX: 10/27/22 PANO: 11/01 NEW RADIOGRAPHS: Not due SOFT TISSUE SCREENING: no abnormalities noted EXAMINATION: Not due ORAL HYGIENE ASSESSMENT: generalized light plaque generalized light stain REVIEWED ORAL HEALTH REPORT: CARIES RISK: low GUM DISEASE: high ORAL CANCER RISK: n/a DENTAL TREATMENT PROVIDED: reschedule prophy due to heart attack at 2023 TOPICAL FLUORIDE APPLICATION - Varnish PRE-RINSE WITH CREST RINSE ORAL HYGIENE INSTRUCTIONS GIVEN TO PATIENT: Patient uses a manual toothbrush 2 or more times a day. Discussed brushing 2 times a day for 2 minutes each and flossing daily. Discussed angling bristles into gumlines to remove plaque and bacteria. DISPOSITION:prophy NEXT VISIT: paige /ho/ JOSE RAUL STEPHENSON RD RD, DENTAL SERVICE Signed: 09/07/2023 07:34 JOSE RAUL STEPHENSON [facility]
--- OUTSIDE RECORDS SUMMARY | 2024-02-19 19:05 | XMS_ITS | Encounter Summary ---
Author Name [place] Address [address] [place] [address] Care Team Providers Care Console Assembler Name Role Phone MARILIN KAPLAN Primary Care [...] PRESCRIPT ION [id number] 1 Mar 12, 2019 [id number] CREAMDina KOHLER PATIENT [facility] Jan 23, 2014 [id number] [phone] CREAMER,Dina KATY PATIENT MEDICARE (WNR) MEDICARE () PART A Nov 10, 2014 PART A [id number] CREAMER,D KATY PATIENT MEDICARE (WNR) MEDICARE () PART B Nov 10, 2014 PART B [id number] CREAMER,Dina KATY PATIENT MEDICARE (WNR) MEDICARE () PART A Nov 10, 2014 PART A [id number] CREAMER,D KATY PATIENT MEDICARE (WNR) MEDICARE (M) PART B Nov 10, 2014 PART B [id number] CREAMER,D KATY PATIENT MEDICARE (WNR) MEDICARE (M) PART B Nov 10, 2014 PART B CREAMER,D KATY PATIENT MEDICARE (WNR) MEDICARE (M) PART A Nov 10, 2014 PART A [id number] CREAMER,D KATY PATIENT MEDICARE (WNR) MEDICARE (M) PART B Nov 10, 2014 PART B [id number] CREAMER,D KATY PATIENT MEDICARE PART D (WNR) MEDICARE (M) PART D Nov 10, 2017 PART D [id number] CREAMER,D KATY PATIENT MEDICARE PART D (WNR) MEDICARE (M) PART D Nov 10, 2017 PART D [id number] CREAMER,D KATY PATIENT FOR LIFE TFL* Mar 12, 2023 [id number] CREAMER,D KATY PATIENT [facility] POINT OF SERVICE US FAMIL Y HEALT H Mar 12, 2021 [id number] [phone] CREAMER,D KATY PATIENT [facility] BRARIELLE REYES E Mar 12, 2019 [id number] CREAMER,D KATY PATIENT [facility] Mar 12, 2019 [facility] [id number] [phone] CREAMER,D KATY PATIENT Selected Encounter This section includes the information on record at [place] for the Encounter. Date/Time Encounter Type Encounter Description Reason Pro vider Source Oct 09, 2023 11:59 AM Outpatient Encounter ADMIN PAT ACTIVTIES (MASNONCT) IHE [...] 20 appointments. The data comes from all [facility]. Appointment Date/Time Appointment Type Appointme nt Facility Name Oct 19, 2023 08:00 AM AMBULATORY - MEDICINE [facility] NTRL [facility] Dec 04, 2023 02:30 PM AMBULATORY - MEDICINE [facility] NTR [facility] Dec 18, 2023 01:30 PM AMBULATORY - PSYCHIATRY [facility] Dec 19, 2023 11:30 AM AMBULATORY - MEDICINE [facility] Jan 14, 2024 09:30 AM [facility]UL[facility] Feb 12, 2024 01:00 PM AMBULATORY - PSYCHIATRY [facility] Mar 11, 2024 08:00 AM [facility] Active, Pending, and Scheduled Orders This section includes a listing of several types of active, pending, and scheduled orders, including clinic medications orders, diagnostic test orders, procedure orders and consult orders; where the start date of the order is 45 days before the date of the Encounter or 45 days after the date of theEncounter. The data comes from all [facility]. Test Date/Time Test Type Test Details Facility Name Nov 11, 2023 12:00 AM Laboratory - Chemi stry Order LIPID PANEL FASTING BLOOD (SST-SERUM) [facility] Nov 19, 2023 09:45 AM Consult Order COMMUNITY CARE-CARDIOLOGY Cons Physical Science Technician's Choice [place] Social History: Smoking Status (Most current) and Tobacco Use (All prior to encounter date) This section includes the most current, and the historical, smoking and tobacco- related health factors from the [place] facility where the Encounter took place. Current Smoking Status This section includes the most current smoking, or tobacco-related health factor, from the [place] facility where the Encounter took place. Date/Time Current Smoking Status Comment Laury viveros Nov 10, 2022 01:30 PM VA-TOBACCO NEVER USED [facility] Tobacco Use History This section includes a history of the smoking, or tobacco-related health factors, that were collected on or before the date of the Encounter. The data comes from the [place] facility where the Encounter took place. Date/Time Smoking Status/Tobacco Use Comment F acility Oct 14, 2021 10:18 AM VA-TOBACCO NEVER USED [place] [facility] [place] [facility] Feb 11, 2020 04:16 PM VA-TOBACCO NEVER USED [place] [facility] [place] [facility] Jan 15, 2018 02:24 PM LIFETIME NON-SMOKER [place] [facility] Advance Directives: All historical and current Section Date Range: From patient's date of to the date document was created. This section includes ALL of a patient's completed or amended [place] Advance and Rescinded Directives. The entries below indicate that a directive exists for the patient, but an actual copy is not included with this document. The data comes from all [place] facilities. Date Advance Directives Provider Source Dec 14, 2020 ADVANCE DIRECTIVE [facility]ISOL HAMPTON [facility] Encounter Notes: All associated encounter notes This section contains the clinical notes associated to the Encounter. Date/Time Encounter Note(s) Provider Source Oct 09, 2023 01:49 PM ADDENDUM: LOCAL TITLE: Addendum STANDARD TITLE: ADDENDUM DATE OF NOTE: OCT 09, 2023@13:49:03 ENTRY DATE: OCT 09, 2023@13:49:04 AUTHOR: GUY ENGLISH COSIGNER: URGENCY: STATUS: COMPLETED Order entered for pill splitter- Held for signature /ho/ GUY ENGLISH Registered Nurse Signed: 10/09/2023 13:49 Receipt Acknowledged By: 10/10/2023 12:43 /ho/ ANA CRISTINA CELAYA MD STAFF PSYCHIATRIST ====== --- Original Document --- 10/09/23 V1 PHARMACY CUSTOMER CARE MEDICATION RENEWAL: Date: Sep Division: [facility] referred by Pharmacy Call Center for medication request: Medications requested: [facility] is requesting a tablet splitter, is having issues cutting medication as directed. Defer to specialty clinic To be mailed. Please review and order if appropriate. *This note was generated by [facility]/ME Pharmacy Customer Care. If you have any questions or need assistance, do not contact this author. Please refer all questions to your local, on-site pharmacy departments. /gunnar Byrne CPhT Heat Treat Operator, [place]/Pharmacy Customer Care Signed: 10/09/2023 12:01 Receipt Acknowledged By: 10/09/2023 13:50 /gunnar ENGLISH Registered Nurse for GUY GIFFORD [facility] Oct 09, 2023 11:59 AM PHARMACY NOTE: LOCAL TITLE: V1 PHARMACY CUSTOMER CARE MEDICATION RENEWAL STANDARD TITLE: PHARMACY NOTE DATE OF NOTE: OCT 09, 2023@11:59 ENTRY DATE: OCT 09, 2023@11:59:41 AUTHOR: AKBAR BYRNE EXP COSIGNER: URGENCY: STATUS: COMPLETED V1 PHARMACY CUSTOMER CARE MEDICATION RENEWAL Has ADDENDA Date: Sep Division: [facility] referred by Pharmacy Call Center for medication request: Medications requested: [facility] is requesting a tablet splitter, is having issues cutting medication as directed. Defer to specialty clinic To be mailed. Please review and order if appropriate. *This note was generated by [facility] Pharmacy Customer Care. If you have any questions or need assistance, do not contact this author. Please refer all questions to your local, on-site pharmacy departments. /gunnar Byrne CPhT Heat Treat Operator, [place]/Pharmacy Customer Care Signed: 10/09/2023 12:01 Receipt Acknowledged By: 10/09/2023 13:50 /gunnar ENGLISH Registered Nurse for ANA CRISTINA CELAYA 10/09/2023 ADDENDUM STATUS: COMPLETED Order entered for pill splitter- Held for signature /gunnar ENGLISH Registered Nurse Signed: 10/09/2023 13:49 Receipt Acknowledged By: * AWAITING SIGNATURE * ANA CRISTINA CELAYA LINDSEY M [facility]
--- OUTSIDE RECORDS SUMMARY | 2024-02-19 19:05 | XMS_ITS | Encounter Summary ---
Author Name [facility] [place] Address [address] [place] [id number] Care Team Providers Care Associate Director Qa Name Role Phone MARILIN KAPLAN Primary Care [...] PRESCRIPT ION [id number] 1 Mar 12, 2019 [id number] CREAMERDina KATY PATIENT [facility] Jan 23, 2014 [id number] [phone] CREAMER,D KATY PATIENT MEDICARE (WNR) MEDICARE (M) PART A Nov 10, 2014 PART A [id number] CREAMER,D KATY PATIENT MEDICARE (WNR) MEDICARE (M) PART B Nov 10, 2014 PART B [id number] CREAMER,D KATY PATIENT MEDICARE (WNR) MEDICARE (M) PART A Nov 10, 2014 PART A [id number] CREAMER,D KATY PATIENT MEDICARE (WNR) MEDICARE (M) PART B Nov 10, 2014 PART B [id number] CREAMER,D KATY PATIENT MEDICARE (WNR) MEDICARE (M) PART B Nov 10, 2014 PART B CREAMER,D KATY PATIENT MEDICARE (WNR) MEDICARE (M) PART A Nov 10, 2014 PART A [id number] CREAMER,D KATY PATIENT MEDICARE (WNR) MEDICARE (M) PART B Nov 10, 2014 PART B [id number] [phone] CREAMER,D KATY PATIENT MEDICARE PART D (WNR) MEDICARE (M) PART D Nov 10, 2017 PART D [id number] CREAMER,D KATY PATIENT MEDICARE PART D (WNR) MEDICARE (M) PART D Nov 10, 2017 PART D [id number] CREAMER,D KATY PATIENT [facility] T[facility]* Mar 12, 2023 [id number] CREAMER,D KATY PATIENT [facility] POINT OF SERVICE US FAMIL Y HEALT H Mar 12, 2021 [id number] [phone] CREAMER,D KATY PATIENT [facility] RADHA REYES E Mar 12, 2019 [id number] CREAMER,D KATY PATIENT [facility] Mar 12, 2019 [facility] [id number] CREAMER,D KATY PATIENT Selected Encounter This section includes the information on record at [place] for the Encounter. Date/Time Encounter Type Encounter Description Reason Provider Source Sep 04, 2023 02:30 PM OFFICE O/P EST MOD 30 MIN [facility] - IND ICD-10-CM F32.A Depression, unspecified LANA CELAYA IHMouna Encounter Template Text not used by [facility] Assessments - Encounter Diagnoses This section includes the primary and secondary diagnoses documented for the Encounter. Date/Time Primary/Secondary Diagnosis Diagnosis Name Provider Source Sep 06, 2023 03:15 PM PRIMARY Depression, unspecified RADHA WEBBER GUME Sep 06, 2023 03:15 PM SECONDARY Generalized anxiety disorder RADHA WEBBER [place] Plan of Treatment: Future Appointments (+ 6 months) and Future Tests (+/- 45 days) The Plan of Treatment section includes future care activities for the patient [facility] [place] [facility] This section includes future appointments and future orders which are active, pending or scheduled. Future Appointments This section includes appointments that were scheduled to occur 6 months from the date of the Encounter, up to a maximum of 20 appointments. The data comes from all [place] treatment facilities. Appointment Date/Time Appointment Type Appointme nt Facility Name Sep 07, 2023 07:15 AM AMBULATORY - NONE [place] [facility] [place] [facility] Oct 19, 2023 08:00 AM AMBULATORY [place]ICINE [place] [facility] [facility] [facility] Dec 04, 2023 02:30 PM [facility] [place] [facility] [place] [facility] Dec 18, 2023 01:30 PM AMBULATORY PSYCHIATRY [facility] Dec 19, 2023 11:30 AM AMBULATORY - MEDICINE [place] [facility] [facility] Jan 14, 2024 09:30 AM AM[place]ULATORY [place]ICINE [place] [facility] Feb 12, 2024 01:00 PM AMBULATORY PSYCHIATRY [facility] Lab Results: +/- 30 days of the encounter This section includes the Chemistry and Hematology Lab Results on record with [place] for the patient. Radiology Reports and Pathology Reports are provided separately, in subsequent sections. Lab Results This section contains the Chemistry/Hematology Results that were resulted 30 days before or 30 daysafter the date of the Encounter. Date/Time Source Result Type Result - Unit Interpretation Reference Range Comment August 10, 2023 09:14 AM [place] HEMOGLOBIN A1C PANEL Specimen Type: BLOOD Comment: [...] August 10, 2023 08:57 AM Reporting Lab[facility] [address] [facility] [address] Performing Lab: [facility] [address] [address] HEMOGLOBIN A1C 5.3 4.0-5.6 August 10, 2023 09:14 AM [place] LIPID PANEL FASTING Specimen Type: SERUM No comment entered. Ordering Provider: MARILIN APONTE Report Released Date/Time: August 10, 2023 08:57 AM Reporting Lab: [facility] [address] [facility] [address] Performing Lab: [facility] [address] CHOLESTEROL 96 mg/dL TRIGLYCERIDE 129 mg/dL 0-150 LDL calculated 37 mg/dL 0-129 CHOL/HDL 2.9 HDL CHOLESTEROL 33 mg/dL L 40-60 August 10, 2023 09:14 AM [place] TSH Specimen Type: SERUM No comment entered. Ordering Provider: MARILIN APONTE Report Released Date/Time: August 10, 2023 08:57 AM Reporting Lab: [facility] [address] [address] Performing Lab: [facility] [address] [address] TSH 1.24 u[IU]/mL 0.35-5.00 August 10, 2023 09:14 AM [place] LIVER FUNCTION Specimen Type: SERUM No comment entered. Ordering Provider: MARILIN APONTE Report Released Date/Time: August 10, 2023 08:57 AM Reporting Lab: [facility] [address] [facility] [address] Performing Lab: [facility] [address] PROTEIN,TOTAL 7.1 g/dL 6.0-8.3 ALBUMIN 4.2 g/dL 3.5-5.0 ALKALINE PHOSPHATASE 44 U/L 40-150 AST 34 U/L 5-34 ALT 37 U/L BILIRUBIN, TOTAL 1.0 mg/dL 0.2-1.2 August 10, 2023 09:14 AM [place] BASIC METABOLIC PANEL (fasting) Specime n Type: SERUM No comment entered. Ordering Provider: MARILIN APONTE Report Released Date/Time: August 10, 2023 08:57 AM Reporting Lab: [address] [address] Performing Lab: [address] [address] UREA NITROGEN 10 mg/dL 7-25 GLUCOSE 109 mg/dL H 65-100 SODIUM 137 mmol/L 135-145 POTASSIUM 4.4 mmol/L 3.5-5.0 CHLORIDE 105 mmol/L 100-110 CO2 24 meq/L 20-30 CREATININE, Serum 0.87 mg/dL 0.50-1.40 eGFR(CKD-EPI 2020) >90 mL/min >60 August 10, 2023 09:14 AM [place] PSA Specimen Type: SERUM No comment entered. Ordering Provider: MARILIN APONTE Report Released Date/Time: August 10, 2023 08:57 AM Reporting Lab: [address] [address] Performing Lab: [address] [address] PSA 1.00 ng/mL 0.00-4.00 August 10, 2023 09:14 AM [place] MICROSCOPIC AUTOMATED, URINE Specimen T ype: URINE Comment: If Glucose = >500 and Ketones are positive, please alert the Physician. Ordering Provider: MARILIN APONTE Report Released Date/Time: August 10, 2023 08:57 AM Reporting Lab: [address] [address] Performing Lab: [address] [address] UA WBC 0-5 /[HPF] 0-5 UA MUCUS FEW /[LPF] Trace UA RBC 0-2 /[HPF] 0-3 August 10, 2023 09:14 AM [place] URINALYSIS Specimen Type: URINE Comment: If Glucose = >500 and Ketones are positive, please alert the Physician. Ordering Provider: MARILIN APONTE Report Released Date/Time: August 10, 2023 08:57 AM Reporting Lab: [address] [address] Performing Lab: [address] [address] UA COLOR Yellow Yellow UA APPEARANCE Turbid Clear UA GLUCOSE NEGATIVE mg/dL Negative UA KETONES NEGATIVE mg/dL Negative UA BLOOD NEGATIVE mg/dL Negative UA PROTEIN 20 mg/dL Negative UA NITRITE NEGATIVE mg/dL Negative UA BILIRUBIN NEGATIVE mg/dL Negative UA SPECIFIC GRAVITY 1.025 H 1.016-1.022 UA pH 5.5 5.0-9.0 UA UROBILINOGEN <2.0 mg/dL <2.0 UA LEUKOCYTE NEGATIVE Negative August 10, 2023 09:14 AM [place] CBC AND DIFF (AUTO) Specimen Type: BLOOD No comment entered. Ordering Provider: MARILIN APONTE Report Released Date/Time: August 10, 2023 08:57 AM Reporting Lab: [address] [address] Performing Lab: [address] [address] WBC 5.62 10*3/uL 4.50-11.00 RBC 4.69 10*6/uL 4.23-5.66 HGB 14.7 g/dL 12.8-17 HCT 43.0 39.2-50.4 MCV 91.7 fL 82-99 MCHC 34.2 g/dL 30.8-35.1 PLT 168 10*3/uL 140-360 RDW-CV 13.0 12.0-16.0 [place], Abs 0.58 10*3/uL 0.30-1.10 MCH 31.3 pg 26.2-32.6 Neut % 67.2 43.7-75.8 Lymph % 20.3 14.0-42.3 [place] % 10.3 5.1-13.7 Eos % 1.4 0.4-6.8 [...] and tobacco- related health factors from the [place] facility where the Encounter took place. Current Smoking Status This section includes the most current smoking, or tobacco-related health factor, from the [place] facility where the Encounter took place. Date/Time Current Smoking Status Comment Laury ity Dec 20, 2018 08:14 AM [place]-TOBAC[place] NEVER USED [facility] Tobacco Use History This section includes a history of the smoking, or tobacco-related health factors, that were collected on or before the date of the Encounter. The data comes from the [place] facility where the Encounter took place. Date/Time Smoking Status/Tobacco Use Comment F acility Jan 18, 2018 02:01 PM [place]-TOBACCO [place] USED [place] [facility] Apr 10, 2016 10:51 AM LIFETIME NON-TOBACCO USER [place] [facility] May 23, 2004 10:12 AM LIFETIME NON-SMOKER [place] [facility] May 23, 2004 10:12 AM LIFETIME NON-TOBACCO USER [facility] Advance Directives: All historical and current Section Date Range: From patient's date of to the date document was created. This section includes ALL of a patient's completed or amended [place] Advance and Rescinded Directives. The entries below indicate that a directive exists for the patient, but an actual copy is not included with this document. The data comes from all [place] facilities. Date Advance Directives Provider Source Dec 14, 2020 ADVANCE DIRECTIVE MARISOL HAMPTON [place] CNTRB[place] [facility] [place] [facility] Radiology Reports: +/- 30 days [...] the Encounter. The data comes from all [place] treatment facilities. Date/Time Radiology Report Provider Source Aug 22, 2023 02:44 PM HIP 2-3 VIEWS (RIG HT) WITH OR WITHOUT PELVIS: EPIFANIO WOODS [id number] -[id number] M Exm Date: AUG 22, 2023@14:44 Req Phys: CHERISE KAPLAN Pat Loc: CWM/SO/PACT 5 (Req'g Loc) Img Loc: [facility]/BUILDING 1 Service: Unknown [facility] , (Case [id number] COMPLETE) HIP 2-3 VIEWS (RIGHT) WITH OR WIT(RAD Detailed) CPT:25696 Proc Modifiers : RIGHT CPT Modifiers : RT RIGHT SIDE Reason for Study: R hip ant pain - chronic Clinical History: Covering resident, fellow, ENROLLMENT MANAGER or attending: [place] Pager: [phone] Backup pager: History: R hip ant pain Report Status: Verified Date Reported: AUG 22, 2023 Date Verified: AUG 22, 2023 Ict Development Manager E-Sig:/ES/BRITTANY LEDESMA JR Report: Study: AP [...] Primary Interpreting Staff: BRITTANY LEDESMA JR, Radiologist (Ict Development Manager) /BRITTANY GONZALES JR [facility] Encounter Notes: All associated encounter notes This section contains the clinical notes associated to the Encounter. Date/Time Encounter Note(s) Provider Source Sep 04, 2023 02:32 PM PSYCHIATRY NOTE: LOCAL TITLE: PSYCHIATRY NOTE STANDARD TITLE: PSYCHIATRY NOTE DATE OF NOTE: SEP 04, 2023@14:32 ENTRY DATE: SEP 04, 2023@14:32:40 AUTHOR: RADHA WEBBERER: ANA CRISTINA CELAYA URGENCY: STATUS: COMPLETED PSYCHIATRY [...] follow-up. HISTORY OF PRESENT ILLNESS (patient report): Has been feeling lousy due to back and neck pain. Still having a hard time breathing someimtes, but feeling like he can handle it. ~30min at most, brings on anxiety, but dissipates quickly thereafter. Energy is maybe a little better. Continues to walk every day to prevent havng another heart attack. His worry of having another AL is slowly subsiding. Does notice some sexual dysfunction with the citalopram, but has learned that if he skips a couple of doses, he is able to be sexually active. Denies any gambling behaviors. Needs to see ENT; hopes to be able to use CPAP after that. He is less likely to undergo a procedure currently given the need for blood thinners. Mental Status Exam: male who appears his [...] 88 w/2children a/w. his is from the [employer]. he retired from [employer] [...] 12. Hyperlipidemia 13. Erectile dysfunction (SNOMED CT 915778663) 14. Neck pain 15. Elevated blood pressure reading without diagnosis of hypertension 16. Colorectal Cancer Screening Results Documented and Reviewed (PV) 17. Anisocoria * 18. Anisometropia 19. Concussion 20. Brief Loss of Consciousness with Loss of Consciousness less than 30 Minutes 21. Corneal scar 22. 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 Major depressive disorder 25. Dermatitis or Eczema 26. Hemorrhoid (SNOMED CT 66758819) 27. Cervical radiculopathy 28. Pain in joint [...] PRESSURE/HEART, DO NOT TAKE WITH GRAPEFRUIT JUICE ASPIRIN 81MG EC TAB TAKE ONE TABLET BY MOUTH ONCE DAILY TO ACTIVE PREVENT STROKE/HEART ATTACK CARBOXYMETHYLCELLULOSE NA 0.5% OPH SOLN INSTILL 1 DROP ACTIVE INTO EACH EYE FOUR TIMES A DAY CETIRIZINE HCL 10MG TAB TAKE ONE TABLET BY MOUTH ONCE ACTIVE DAILY NEEDED FOR ALLERGIES CITALOPRAM HYDROBROMIDE 40MG TAB TAKE ONE-HALF TABLET BY ACTIVE MOUTH AT BEDTIME FOR DEPRESSION AND ANXIETY CYCLOBENZAPRINE [...] [MIX WITH 4 TO 8OZ. OF BEVERAGE] ROSUVASTATIN CA 40MG TAB TAKE ONE TABLET BY MOUTH ONCE ACTIVE DAILY FOR CHOLESTEROL SILDENAFIL CITRATE 100MG TAB TAKE ONE TABLET BY MOUTH ONCE ACTIVE DAILY NEEDED TAKE 1 HOUR PRIOR TO SEXUAL ACTIVITY TAMSULOSIN HCL 0.4MG CAP TAKE ONE CAPSULE BY MOUTH AT ACTIVE BEDTIME FOR ENLARGED PROSTATE TICAGRELOR 90MG TAB TAKE ONE TABLET BY MOUTH TWICE DAILY ACTIVE Non-VA ASPIRIN 81MG CHEW TAB 81MG BY MOUTH ACTIVE Non-VA METOPROLOL TARTRATE 25MG TAB 25MG BY MOUTH TWICE ACTIVE DAILY Non-VA OTHER CAP/TAB MEDICAL MARIJUANA BY MOUTH ACTIVE Non-VA ROSUVASTATIN CA 40MG TAB 40MG BY MOUTH ONCE DAILY ACTIVE Non-VA TICAGRELOR 90MG TAB 90MG BY MOUTH TWICE DAILY ACTIVE FORMULATION: Epifanio Woods is a 63-year-old male with a history of MDD, CHARAN, gambling disorder in remission, multiple TBIs, past episode of ischemic colitis, HLD, ED, POORNIMA not on CPAP, COPD, NSTEMI s/p stent, and multiple other medical conditions, who presents for psychopharmacologic follow-up. Mr. Woods's depression is currently under good control. His anxiety slowly continues to improve also as time passess since his heart attack in March 2023. He denies any acute concerns at this time. No medication changes today. 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 I educated the patient about their mental health condition. [place] repeated back the plan and eduction. The patient denied suicidal and violent ideation, [...] glucose. FOLLOW-UP:Return to clinic in 6-7 weeks /ho/ RADHA WEBBER MD SET AND EXHIBIT DESIGNER Signed: 09/06/2023 15:17 /ho/ ANA CRISTINA CELAYA MD STAFF PSYCHIATRIST Cosigned: 09/06/2023 17:39 09/06/2023 ADDENDUM STATUS: COMPLETED case discussed w Dr Webber, and I interviewed pt for part of Dr Webber's session w pt; agree w assessment and plan /ho/ ANA CRISTINA CELAYA MD STAFF PSYCHIATRIST Signed: 09/06/2023 17:40 RADHA WEBBER
--- OUTSIDE RECORDS SUMMARY | 2024-02-19 19:05 | XMS_ITS | Encounter Summary ---
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 Phone MARILIN KAPLAN Primary Care [...] PRESCRIPT ION [id number] 1 Mar 12, 2019 [id number] [phone] CREAMDina KOHLER PATIENT [facility] Jan 23, 2014 [id number] [phone] CREAMER,Dina KATY PATIENT MEDICARE (WNR) MEDICARE () PART A Nov 10, 2014 PART A [id number] CREAMER,D KATY PATIENT MEDICARE (WNR) MEDICARE () PART B Nov 10, 2014 PART B [id number] CREAMER,Dina KATY PATIENT MEDICARE (WNR) MEDICARE () PART A Nov 10, 2014 PART A [id number] CREAMER,D KATY PATIENT MEDICARE (WNR) MEDICARE (M) PART B Nov 10, 2014 PART B [id number] CREAMER,D KATY PATIENT MEDICARE (WNR) MEDICARE (M) PART A Nov 10, 2014 PART A [id number] CREAMER,D KATY PATIENT MEDICARE (WNR) MEDICARE (M) PART B Nov 10, 2014 PART B [id number] CREAMER,D KATY PATIENT MEDICARE (WNR) MEDICARE (M) PART B Nov 10, 2014 PART B CREAMER,D KATY PATIENT MEDICARE PART D (WNR) MEDICARE (M) PART D Nov 10, 2017 PART D [id number] CREAMER,D KATY PATIENT MEDICARE PART D (WNR) MEDICARE (M) PART D Nov 10, 2017 PART D [id number] CREAMER,D KATY PATIENT [facility] TFL* Mar 12, 2023 [id number] CREAMER,D KATY PATIENT [facility] POINT OF SERVICE US FAMIL Y HEALT H Mar 12, 2021 [id number] [phone] CREAMER,D KATY PATIENT [facility] RE[facility] E Mar 12, 2019 [id number] CREAMER,D KATY [facility]IENT [facility] Mar 12, 2019 [facility] [id number] [phone] CREAMER,D KATY PATIENT Selected Encounter This section includes the information on record at [place] for the Encounter. Date/Time Encounter Type Encounter Description Reason Pro vider Source Oct 04, 2023 05:11 PM Outpatient Encounter ADMIN PAT ACTIVTIES (MASNONCT) [...] 20 appointments. The data comes from all [facility]. Appointment Date/Time Appointment Type Appointme nt Facility Name Oct 19, 2023 08:00 AM AMBULATORY - MEDICINE [facility] N[facility] Dec 04, 2023 02:30 PM AMBULATORY - MEDICINE [facility] Dec 18, 2023 01:30 PM AMBULATORY - PSYCHIATRY [facility] Dec 19, 2023 11:30 AM AMBULATORY - MEDICINE [facility] N[facility] Jan 14, 2024 09:30 AM [facility] Feb 12, 2024 01:00 PM AMBULATORY - PSYCHIATRY [facility] Mar 11, 2024 08:00 AM AMBULATORY - MEDICINE [facility] Active, Pending, and Scheduled Orders This section includes a listing of several types of active, pending, and scheduled orders, including clinic medications orders, diagnostic test orders, procedure orders and consult orders; where the start date of the order is 45 days before the date of the Encounter or 45 days after the date of theEncounter. The data comes from all [facility]. Test Date/Time Test Type Test Details Facility Name Nov 11, 2023 12:00 AM Laboratory - Chemi stry Order LIPID PANEL FASTING BLOOD (SST-SERUM) [facility] Social History: Smoking Status (Most current) and Tobacco Use (All prior to encounter date) This section includes the most current, and the historical, smoking and tobacco- related health factors from the [place] facility where the Encounter took place. Current Smoking Status This section includes the most current smoking, or tobacco-related health factor, from the [place] facility where the Encounter took place. Date/Time Current Smoking Status Comment Facil ity Nov 10, 2022 01:30 PM [place]-TOBACCO NEVER USED [facility] Tobacco Use History This section includes a history of the smoking, or tobacco-related health factors, that were collected on or before the date of the Encounter. The data comes from the [place] facility where the Encounter took place. Date/Time Smoking Status/Tobacco Use Comment F acility Oct 14, 2021 10:18 AM [place] [facility] Feb 11, 2020 04:16 PM VA-TOBACCO NEVER USED [facility] Jan 15, 2018 02:24 PM LIFETIME NON-SMOKER [facility] Advance Directives: All historical and current Section Date Range: From patient's date of to the date document was created. This section includes ALL of a patient's completed or amended [place] Advance and Rescinded Directives. The entries below indicate that a directive exists for the patient, but an actual copy is not included with this document. The data comes from all [place] facilities. Date Advance Directives Provider Source Dec 14, 2020 ADVANCE DIRECTIVE MARISOL HAMPTON [facility] Encounter Notes: All associated encounter notes This section contains the clinical notes associated to the Encounter. Date/Time Encounter Note(s) Provider Source Oct 04, 2023 05:11 PM PHARMACY NOTE: LOCAL TITLE: PHARMACY CUSTOMER CARE MEDICATION RENEWAL STANDARD TITLE: PHARMACY NOTE DATE OF NOTE: OCT 04, 2023@17:11 ENTRY DATE: OCT 04, 2023@17:11:12 AUTHOR: KATEY MONTEMAYOR EXP COSIGNER: URGENCY: STATUS: COMPLETED Date: Sep Division: [facility] referred by Pharmacy Call Center for medication renewal: Medications requested: [id number] LIDOCAINE 5% PATCH To be mailed . Please review and renew if appropriate. *This note was generated by [facility]/[place] Pharmacy Customer Care. If you have any questions or need assistance, do not contact this author. Please refer all questions to your local, on-site pharmacy departments. /ho/ Rachel MONTEMAYOR CPhT Food Safety Coordinator, [place]/Pharmacy Customer Care Signed: 10/04/2023 17:12 Receipt Acknowledged By: 10/05/2023 14:57 /es/ MARILIN KAPLAN MD PHYSICIAN 10/06/2023 19:56 /es/ Becki Dixon, RN Registered Nurse for KATEY BUSTOS [facility]
--- OUTSIDE RECORDS SUMMARY | 2024-02-19 19:05 | XMS_ITS ---
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 Phone MARILIN KAPLAN Primary Care [...] Name Patient's Relationship to Policy Valentine NELIA PORRASIjeoma ION [id number] 1 Mar 12, 2019 [id number] Dina WOODS PATIENT [facility] STATE AGENC Y Jan 23, 2014 [id number] [phone] CREAMDina KOHLER PATIENT MEDICARE (WNR) MEDICARE (M) PART A Nov 10, 2014 PART A [id number] CREAMJOSE F,Dina KATY PATIENT MEDICARE (WNR) MEDICARE (M) PART B Nov 10, 2014 PART B [id number] CREAMDina KOHLER PATIENT MEDICARE (WNR) MEDICARE (M) PART A Nov 10, 2014 PART A [id number] CREAMER,D KATY PATIENT MEDICARE (WNR) MEDICARE (M) PART B Nov 10, 2014 PART B [id number] [phone] CREAMER,D KATY PATIENT MEDICARE (WNR) MEDICARE (M) PART A Nov 10, 2014 PART A [id number] CREAMER,D KATY PATIENT MEDICARE (WNR) MEDICARE (M) PART B Nov 10, 2014 PART B [id number] CREAMER,D KATY PATIENT MEDICARE (WNR) MEDICARE (M) PART B Nov 10, 2014 PART B [id number] CREAMER,D KATY PATIENT MEDICARE PART D (WNR) MEDICARE (M) PART D Nov 10, 2017 PART D [id number] CREAMER,D KATY PATIENT MEDICARE PART D (WNR) MEDICARE (M) PART D Nov 10, 2017 PART D [id number] [phone] CREAMER,D KATY PATIENT FOR LIFE TFL* Mar 12, 2023 [id number] CREAMER,D KATY PATIENT [facility] OF SERVICE US FAMIL Y HEALT H Mar 12, 2021 [id number] [phone] CREAMER,D KATY [facility]IENT [facility] E Mar 12, 2019 [id number] CREAMER,D KAT[facility] Mar 12, 2019 [facility] [id number] CREAMER,D KATY PATIENT Selected Encounter This section includes the information on record at [place] for the Encounter. Date/Time Encounter Type Encounter Description Reason Pro vider Source July 16, 2023 12:00 PM Outpatient Encounter COMMUNITY CARE CONSULT IHE Encounter Template Text not used by [...] 20 appointments. The data comes from all [place] treatment facilities. Appointment Date/Time Appointment Type Appointme nt Facility Name July 24, 2023 02:30 PM AMBULATORY - PSYCHIATRY [facility] Aug 20, 2023 02:00 PM AMBULATORY - MEDICINE [facility] Sep 04, 2023 02:30 PM AMBULATORY - PSYCHIATRY [facility] Sep 07, 2023 07:15 AM AMBULATORY - NONE [facility] [place] [facility] Oct 19, 2023 08:00 AM AM[place]UL[place]ORY [place]ICINE [place] [facility] [place] [facility] Dec 04, 2023 02:30 PM [place] [facility] [place] [facility] Dec 18, 2023 01:30 PM AMBULATORY - PSYCHIATRY [facility] Dec 19, 2023 11:30 AM AM[place]UL[place]ORY [place]IC[place] [facility] [place] [facility] Jan 14, 2024 09:30 AM AM[place]UL[place]ORY - [place]ICINE [place] [facility] [place] [facility] Lab Results: +/- 30 days of the encounter This section includes the Chemistry and Hematology Lab Results on record with [place] for the patient. Radiology Reports and Pathology Reports are provided separately, in subsequent sections. Lab Results This section contains the Chemistry/Hematology Results that were resulted 30 days before or 30 daysafter the date of the Encounter. Date/Time Source Result Type Result - Unit Interpretation Reference Range Comment August 10, 2023 09:14 AM [place] HEMOGLOBIN A1C PANEL Specimen Type: BLOOD Comment: [...] August 10, 2023 08:57 AM Reporting Lab: [facility] [address] [address] Performing Lab: [address] [address] HEMOGLOBIN A1C 5.3 4.0-5.6 August 10, 2023 09:14 AM [place] LIPID PANEL FASTING Specimen Type: SERUM No comment entered. Ordering Provider: MARILIN APONTE Report Released Date/Time: August 10, 2023 08:57 AM Reporting Lab: [facility] [address] [facility] [address] Performing Lab: [address] [address] CHOLESTEROL 96 mg/dL TRIGLYCERIDE 129 mg/dL 0-150 LDL calculated 37 mg/dL 0-129 CHOL/HDL 2.9 HDL CHOLESTEROL 33 mg/dL L 40-60 August 10, 2023 09:14 AM [place] TSH Specimen Type: SERUM No comment entered. Ordering Provider: MARILIN APONTE Report Released Date/Time: August 10, 2023 08:57 AM Reporting Lab: [address] [address] Performing Lab: [facility] [address] [address] TSH 1.24 u[IU]/mL 0.35-5.00 August 10, 2023 09:14 AM [place] LIVER FUNCTION Specimen Type: SERUM No comment entered. Ordering Provider: MARILIN APONTE Report Released Date/Time: August 10, 2023 08:57 AM Reporting Lab: [address] [address] Performing Lab: [address] [address] PROTEIN,TOTAL 7.1 g/dL 6.0-8.3 ALBUMIN 4.2 g/dL 3.5-5.0 ALKALINE PHOSPHATASE 44 U/L 40-150 AST 34 U/L 5-34 ALT 37 U/L BILIRUBIN, TOTAL 1.0 mg/dL 0.2-1.2 August 10, 2023 09:14 AM [place] BASIC METABOLIC PANEL (fasting) Specime n Type: SERUM No comment entered. Ordering Provider: MARILIN APONTE Report Released Date/Time: August 10, 2023 08:57 AM Reporting Lab: [address] [address] Performing Lab: [address] [address] UREA NITROGEN 10 mg/dL 7-25 GLUCOSE 109 mg/dL H 65-100 SODIUM 137 mmol/L 135-145 POTASSIUM 4.4 mmol/L 3.5-5.0 CHLORIDE 105 mmol/L 100-110 CO2 24 meq/L 20-30 CREATININE, Serum 0.87 mg/dL 0.50-1.40 eGFR(CKD-EPI 2020) >90 mL/min >60 August 10, 2023 09:14 AM [place] PSA Specimen Type: SERUM No comment entered. Ordering Provider: MARILIN APONTE Report Released Date/Time: August 10, 2023 08:57 AM Reporting Lab: [address] [address] Performing Lab: [address] [address] PSA 1.00 ng/mL 0.00-4.00 August 10, 2023 09:14 AM [place] MICROSCOPIC AUTOMATED, URINE Specimen T ype: URINE Comment: If Glucose = >500 and Ketones are positive, please alert the Physician. Ordering Provider: MARILIN APONTE Report Released Date/Time: August 10, 2023 08:57 AM Reporting Lab: [address] [address] Performing Lab: [address] [address] UA WBC 0-5 /[HPF] 0-5 UA MUCUS FEW /[LPF] Trace UA RBC 0-2 /[HPF] 0-3 August 10, 2023 09:14 AM [place] URINALYSIS Specimen Type: URINE Comment: If Glucose = >500 and Ketones are positive, please alert the Physician. Ordering Provider: MARILIN APONTE Report Released Date/Time: August 10, 2023 08:57 AM Reporting Lab: [address] [address] Performing Lab: [address] [address] UA COLOR Yellow Yellow UA APPEARANCE Turbid Clear UA GLUCOSE NEGATIVE mg/dL Negative UA KETONES NEGATIVE mg/dL Negative UA BLOOD NEGATIVE mg/dL Negative UA PROTEIN 20 mg/dL Negative UA NITRITE NEGATIVE mg/dL Negative UA BILIRUBIN NEGATIVE mg/dL Negative UA SPECIFIC GRAVITY 1.025 H 1.016-1.022 UA pH 5.5 5.0-9.0 UA UROBILINOGEN <2.0 mg/dL <2.0 UA LEUKOCYTE NEGATIVE Negative August 10, 2023 09:14 AM [place] CBC AND DIFF (AUTO) Specimen Type: BLOOD No comment entered. Ordering Provider: MARILIN APONTE Report Released Date/Time: August 10, 2023 08:57 AM Reporting Lab: [address] [address] Performing Lab: [address] [address] WBC 5.62 10*3/uL 4.50-11.00 RBC 4.69 10*6/uL 4.23-5.66 HGB 14.7 g/dL 12.8-17 HCT 43.0 39.2-50.4 MCV 91.7 fL 82-99 MCHC 34.2 g/dL 30.8-35.1 PLT 168 10*3/uL 140-360 RDW-CV 13.0 12.0-16.0 [place], Abs 0.58 10*3/uL 0.30-1.10 MCH 31.3 pg 26.2-32.6 Neut % 67.2 43.7-75.8 Lymph % 20.3 14.0-42.3 Spencer % 10.3 5.1-13.7 Eos % 1.4 0.4-6.8 [...] and tobacco- related health factors from the [place] facility where the Encounter took place. Current Smoking Status This section includes the most current smoking, or tobacco-related health factor, from the [place] facility where the Encounter took place. Date/Time Current Smoking Status Comment Facil ity Nov 10, 2022 01:30 PM [place]-TOBACCO NEVER USED [facility] Tobacco Use History This section includes a history of the smoking, or tobacco-related health factors, that were collected on or before the date of the Encounter. The data comes from the [place] facility where the Encounter took place. Date/Time Smoking Status/Tobacco Use Comment F acility Oct 14, 2021 10:18 AM [place] [facility] Feb 11, 2020 04:16 PM [place] [facility] Jan 15, 2018 02:24 PM LIFETIME NON-SMOKER [facility] Advance Directives: All historical and current Section Date Range: From patient's date of to the date document was created. This section includes ALL of a patient's completed or amended [place] Advance and Rescinded Directives. The entries below indicate that a directive exists for the patient, but an actual copy is not included with this document. The data comes from all [place] facilities. Date Advance Directives Provider Source Dec 14, 2020 ADVANCE DIRECTIVE [facility]HEMISPENCER [facility] Encounter Notes: All associated encounter notes This section contains the clinical notes associated to the Encounter. Date/Time Encounter Note(s) Provider Source July 16, 2023 12:00 PM NONVA CONSULT: LOCAL TITLE: COMMUNITY CARE-CONSULT RESULT NOTE STANDARD TITLE: NONVA CONSULT DATE OF NOTE: JULY 16, 2023@12:00 ENTRY DATE: SEP 07, 2023@08:37:44 AUTHOR: CLOUKEY,ELSY A EXP COSIGNER: URGENCY: STATUS: COMPLETED VistA Imaging - Scanned Document SCANNED DOCUMENT SIGNATURE NOT REQUIRED Electronically Filed: 09/07/2023 by: ELSY SZYMANSKI [facility]
--- OUTSIDE RECORDS SUMMARY | 2024-02-19 19:05 | XMS_ITS | Encounter Summary ---
Author Name [facility] [place] Address [address] [place] [address] Care Team Providers Care Field Assembly Supervisor Name Role Phone MARILIN KAPLAN Primary Care [...] PRESCRIPT ION [id number] Mar 12, 2019 [id number] [phone] Dina WOODSNIS PATIENT [facility] STATE AGENC Y Jan 23, 2014 [id number] [id number] CREAMERDinaNIS PATIENT MEDICARE (WNR) MEDICARE (M) PART A Nov 10, 2014 PART A [id number] [phone] CREAMER,Dina KATY PATIENT MEDICARE (WNR) MEDICARE (M) PART B Nov 10, 2014 PART B [id number] CREAMERDina PATIENT MEDICARE (WNR) MEDICARE (M) PART A Nov 10, 2014 PART A [id number] CREAMER,D KATY PATIENT MEDICARE (WNR) MEDICARE (M) PART B Nov 10, 2014 PART B [id number] [phone] CREAMER,D KATY PATIENT MEDICARE (WNR) MEDICARE (M) PART A Nov 10, 2014 PART A [id number] [phone] CREAMER,D KATY PATIENT MEDICARE (WNR) MEDICARE (M) PART B Nov 10, 2014 PART B [id number] CREAMER,D KATY PATIENT MEDICARE (WNR) MEDICARE (M) PART B Nov 10, 2014 PART B CREAMER,D KATY PATIENT MEDICARE PART D (WNR) MEDICARE (M) PART D Nov 10, 2017 PART D [id number] CREAMER,D KATY PATIENT MEDICARE PART D (WNR) MEDICARE (M) PART D Nov 10, 2017 PART D [id number] CREAMER,D KATY PATIENT FOR LIFE TFL* Mar 12, 2023 [id number] CREAMER,D KATY PATIENT [facility] POINT OF SERVICE US FAMIL Y HEALT H Mar 12, 2021 [id number] [phone] CREAMER,D KATY PATIENT [facility] RADHA REYES E Mar 12, 2019 [id number] CREAMER,D KATY PATIENT [facility] Mar 12, 2019 [facility] [id number] CREAMER,D KATY PATIENT Selected Encounter This section includes the information on record at [place] for the Encounter. Date/Time Encounter Type Encounter Description Reason Pro vider Source Sep 07, 2023 10:01 AM Outpatient Encounter DENTAL IHE Encounter Template [...] 20 appointments. The data comes from all [place] treatment facilities. Appointment Date/Time Appointment Type Appointme nt Facility Name Oct 19, 2023 08:00 AM AM[place]ULATORY [place]ICINE [place] [facility] [place] [facility] Dec 04, 2023 02:30 PM AMBULATORY [place]ICINE [place] [facility] [place] [facility] Dec 18, 2023 01:30 PM AMBULATORY - PSYCHIATRY [facility] Dec 19, 2023 11:30 AM [place] [facility] [place] [facility] Jan 14, 2024 09:30 AM AMBULATORY - MEDICINE [place] [facility] [place] [facility] Feb 12, 2024 01:00 PM AMBULATORY - PSYCHIATRY [facility] Lab Results: +/- 30 days of the encounter This section includes the Chemistry and Hematology Lab Results on record with [place] for the patient. Radiology Reports and Pathology Reports are provided separately, in subsequent sections. Lab Results This section contains the Chemistry/Hematology Results that were resulted 30 days before or 30 daysafter the date of the Encounter. Date/Time Source Result Type Result - Unit Interpretation Reference Range Comment August 10, 2023 09:14 AM [facility] HEMOGLOBIN A1C PANEL Specimen Type: BLOOD Comment: [...] August 10, 2023 08:57 AM Reporting Lab: [address] [address] Performing Lab: [address] [address] HEMOGLOBIN A1C 5.3 4.0-5.6 August 10, 2023 09:14 AM [place] LIPID PANEL FASTING Specimen Type: SERUM No comment entered. Ordering Provider: MARILIN APONTE Report Released Date/Time: August 10, 2023 08:57 AM Reporting Lab: [facility] [address] Performing Lab: [facility] [address] CHOLESTEROL 96 mg/dL TRIGLYCERIDE 129 mg/dL 0-150 LDL calculated 37 mg/dL 0-129 CHOL/HDL 2.9 HDL CHOLESTEROL 33 mg/dL L 40-60 August 10, 2023 09:14 AM [place] TSH Specimen Type: SERUM No comment entered. Ordering Provider: MARILIN AOPNTE Report Released Date/Time: August 10, 2023 08:57 AM Reporting Lab: [facility] [address] [address] Performing Lab: [facility] [address] [address] TSH 1.24 u[IU]/mL 0.35-5.00 August 10, 2023 09:14 AM [place] LIVER FUNCTION Specimen Type: SERUM No comment entered. Ordering Provider: MARILIN APONTE Report Released Date/Time: August 10, 2023 08:57 AM Reporting Lab: [facility] [address] [address] Performing Lab: [facility] [address] [address] PROTEIN,TOTAL 7.1 g/dL 6.0-8.3 ALBUMIN 4.2 g/dL 3.5-5.0 ALKALINE PHOSPHATASE 44 U/L 40-150 AST 34 U/L 5-34 ALT 37 U/L BILIRUBIN, TOTAL 1.0 mg/dL 0.2-1.2 August 10, 2023 09:14 AM [place] BASIC METABOLIC PANEL (fasting) Specime n Type: SERUM No comment entered. Ordering Provider: MARILIN APONTE Report Released Date/Time: August 10, 2023 08:57 AM Reporting Lab: [facility] [address] [address] Performing Lab: [facility] [address] [address] UREA NITROGEN 10 mg/dL 7-25 GLUCOSE 109 mg/dL H 65-100 SODIUM 137 mmol/L 135-145 POTASSIUM 4.4 mmol/L 3.5-5.0 CHLORIDE 105 mmol/L 100-110 CO2 24 meq/L 20-30 CREATININE, Serum 0.87 mg/dL 0.50-1.40 eGFR(CKD-EPI 2020) >90 mL/min >60 August 10, 2023 09:14 AM [place] PSA Specimen Type: SERUM No comment entered. Ordering Provider: MARILIN APONTE Report Released Date/Time: August 10, 2023 08:57 AM Reporting Lab: [address] [address] Performing Lab: [address] PSA 1.00 ng/mL 0.00-4.00 August 10, 2023 09:14 AM [place] MICROSCOPIC AUTOMATED, URINE Specimen T ype: URINE Comment: If Glucose = >500 and Ketones are positive, please alert the Physician. Ordering Provider: MARILIN APONTE Report Released Date/Time: August 10, 2023 08:57 AM Reporting Lab: [address] [address] Performing Lab: [address] [address] UA WBC 0-5 /[HPF] 0-5 UA MUCUS FEW /[LPF] Trace UA RBC 0-2 /[HPF] 0-3 August 10, 2023 09:14 AM [facility] URINALYSIS Specimen Type: URINE Comment: If Glucose = >500 and Ketones are positive, please alert the Physician. Ordering Provider: MARILIN APONTE Report Released Date/Time: August 10, 2023 08:57 AM Reporting Lab: [address] [address] Performing Lab: [address] [address] UA COLOR Yellow Yellow UA APPEARANCE Turbid Clear UA GLUCOSE NEGATIVE mg/dL Negative UA KETONES NEGATIVE mg/dL Negative UA BLOOD NEGATIVE mg/dL Negative UA PROTEIN 20 mg/dL Negative UA NITRITE NEGATIVE mg/dL Negative UA BILIRUBIN NEGATIVE mg/dL Negative UA SPECIFIC GRAVITY 1.025 H 1.016-1.022 UA pH 5.5 5.0-9.0 UA UROBILINOGEN <2.0 mg/dL <2.0 UA LEUKOCYTE NEGATIVE Negative August 10, 2023 09:14 AM [facility] CBC AND DIFF (AUTO) Specimen Type: BLOOD No comment entered. Ordering Provider: MARILIN APONTE Report Released Date/Time: August 10, 2023 08:57 AM Reporting Lab: [facility] [address] [facility] [address] Performing Lab: [address] [address] WBC 5.62 10*3/uL 4.50-11.00 RBC 4.69 10*6/uL 4.23-5.66 HGB 14.7 g/dL 12.8-17 HCT 43.0 39.2-50.4 MCV 91.7 fL 82-99 MCHC 34.2 g/dL 30.8-35.1 PLT 168 10*3/uL 140-360 RDW-CV 13.0 12.0-16.0 [place], Abs 0.58 10*3/uL 0.30-1.10 MCH 31.3 pg 26.2-32.6 Neut % 67.2 43.7-75.8 Lymph % 20.3 14.0-42.3 [place] % 10.3 5.1-13.7 Eos % 1.4 0.4-6.8 [...] and tobacco- related health factors from the [place] facility where the Encounter took place. Current Smoking Status This section includes the most current smoking, or tobacco-related health factor, from the [place] facility where the Encounter took place. Date/Time Current Smoking Status Comment Facil ity Nov 10, 2022 01:30 PM [place]-TOBACCO NEVER USED [facility] Tobacco Use History This section includes a history of the smoking, or tobacco-related health factors, that were collected on or before the date of the Encounter. The data comes from the [place] facility where the Encounter took place. Date/Time Smoking Status/Tobacco Use Comment F acility Oct 14, 2021 10:18 AM [place]-TOBACCO NEVER USED [facility] Feb 11, 2020 04:16 PM [place]-TOBACCO NEVER USED [facility] Jan 15, 2018 02:24 PM LIFETIME NON-SMOKER [facility] Advance Directives: All historical and current Section Date Range: From patient's date of to the date document was created. This section includes ALL of a patient's completed or amended [place] Advance and Rescinded Directives. The entries below indicate that a directive exists for the patient, but an actual copy is not included with this document. The data comes from all [place] facilities. Date Advance Directives Provider Source Dec 14, 2020 ADVANCE DIRECTIVE MARISOL HAMPTON [facility] Radiology Reports: +/- 30 days of [...] the Encounter. The data comes from all [place] treatment facilities. Date/Time Radiology Report Provider Source Aug 22, 2023 02:44 PM HIP 2-3 VIEWS (RIG HT) WITH OR WITHOUT PELVIS: YESENIA WOODS [id number] [id number] M Exm Date: AUG 22, 2023@14:44 Req Phys: CHERISE KAPLAN Pat Loc: CWM/SO/PACT 5 (Req'g Loc) Img Loc: NHM/BUILDING 1 Service: Unknown [facility] , (Case [id number] COMPLETE) HIP 2-3 VIEWS (RIGHT) WITH OR WIT(RAD Detailed) CPT:71338 Proc Modifiers : RIGHT CPT Modifiers : RT RIGHT SIDE Reason for Study: R hip ant pain - chronic Clinical History: Covering resident, fellow, CHANGE ATTENDANT or attending: piper [place] Pager: [phone] Backup pager: History: R hip ant pain Report Status: Verified Date Reported: AUG 22, 2023 Date Verified: AUG 22, 2023 Grain Unloader E-Sig:/ES/BRITTANY LEDESMA JR Report: Study: AP view [...] Primary Interpreting Staff: BRITTANY LEDESMA JR, Radiologist (Grain Unloader) /BRITTANY GONZALES JR [facility] Encounter Notes: All associated encounter notes This section contains the clinical notes associated to the Encounter. Date/Time Encounter Note(s) Provider Source Sep 07, 2023 10:01 AM DENTISTRY TELEPHON E ENCOUNTER NOTE: LOCAL TITLE: TELEPHONE NOTE/DENTAL STANDARD TITLE: DENTISTRY TELEPHONE ENCOUNTER NOTE DATE OF NOTE: SEP 07, 2023@10:01 ENTRY DATE: SEP 07, 2023@10:01:14 AUTHOR: PIERRE MENDEZ EXP COSIGNER: URGENCY: STATUS: COMPLETED TELEPHONE NOTE/DENTAL Has ADDENDA [facility] Toll Free Number Primary Care Telephone Assistance can be reached at ext. [phone] option 2 [facility] scheduling can be reached at ext. [phone] option 2 [facility] scheduling can be reached at ext. [phone] option 3 SEP 07, 2023 YESENIA WOODS [address], [place] [address] Dear YESENIA WOODS We have been attempting to contact you by phone to schedule a dental appointment that was requested for you. If you are interested in scheduling this appointment, please call us back at [phone] or Toll Free and follow the prompts for our Telephone Call Center. Our clinic hours are Sunday through Sunday 8:00 am to 4:30 pm. Sincerely, Your Dental Care Team [facility] [address] [place] [address] /ho/ PIERRE MENDEZ ADVANCED HEMATOLOGY SPECIALIST Signed: 09/07/2023 10:01 09/07/2023 ADDENDUM STATUS: COMPLETED ADMINISTRATIVE CONTACT HAS orders: [facility] Able to contact patient: Spoke to Patient/Patient patient account representative per policy utilizing HIPAA Guidelines. Attempts to contact: 1st attempt: Left voicemail 2nd attempt: Letter mailed 3rd attempt: 4th attempt: /ho/ PIERRE MENDEZ ADVANCED HEMATOLOGY SPECIALIST Signed: 09/07/2023 10:01 PIERRE MENDEZ [place] [facility]
--- OUTSIDE RECORDS SUMMARY | 2024-02-19 19:05 | XMS_ITS | Encounter Summary ---
Author Name [place] Address [address] [place] [address] Care Team Providers Care Math Tutor Name Role Phone MARILIN KAPLAN Primary Care [...] PRESCRIPT ION [id number] 1 Mar 12, 2019 [id number] iDna WOODSNIS PATIENT [facility] Jan 23, 2014 [id number] CREAMERDina KATY PATIENT MEDICARE (WNR) MEDICARE (M) PART A Nov 10, 2014 PART A [id number] CREAMER,Dina KATY PATIENT MEDICARE (WNR) MEDICARE (M) PART B Nov 10, 2014 PART B [id number] CREAMERDina PATIENT MEDICARE (WNR) MEDICARE (M) PART B Nov 10, 2014 PART B [id number] CREAMER,D KATY PATIENT MEDICARE (WNR) MEDICARE (M) PART A Nov 10, 2014 PART A [id number] [phone] CREAMER,D KATY PATIENT MEDICARE (WNR) MEDICARE (M) PART B Nov 10, 2014 PART B [id number] CREAMER,D KATY PATIENT MEDICARE (WNR) MEDICARE (M) PART A Nov 10, 2014 PART A [id number] CREAMER,D KATY PATIENT MEDICARE (WNR) MEDICARE (M) PART B Nov 10, 2014 PART B CREAMER,D KATY PATIENT MEDICARE PART D (WNR) MEDICARE (M) PART D Nov 10, 2017 PART D [id number] CREAMER,D KATY PATIENT MEDICARE PART D (WNR) MEDICARE (M) PART D Nov 10, 2017 PART D [id number] CREAMER,D KATY PATIENT FOR LIFE TFL* Mar 12, 2023 [id number] CREAMER,D KATY PATIENT [facility] POINT OF SERVICE US FAMIL Y HEALT H Mar 12, 2021 [id number] [phone] CREAMER,D KATY PATIENT [facility] RADHA REYES E Mar 12, 2019 [id number] CREAMER,D KATY PATIENT [facility] Mar 12, 2019 [facility] [id number] CREAMER,D KATY PATIENT Selected Encounter This section includes the information on record at [place] for the Encounter. Date/Time Encounter Type Encounter Description Reason Pro vider Source Sep 06, 2023 08:09 AM Outpatient Encounter DENTAL IHE Encounter Template [...] 20 appointments. The data comes from all [place] treatment facilities. Appointment Date/Time Appointment Type Appointme nt Facility Name Sep 07, 2023 07:15 AM AMBULATORY - NONE [place] [facility] [facility] Oct 19, 2023 08:00 AM AMBUL[facility]IC[facility] Dec 04, 2023 02:30 PM AMBULATORY - MEDICINE [place] [facility] Dec 18, 2023 01:30 PM AMBULATORY - PSYCHIATRY [facility] Dec 19, 2023 11:30 AM AMBULATORY - MEDICINE [place] C [place] [place] [facility] Jan 14, 2024 09:30 AM AMBULATORY - MEDICINE [place] C [place] [place] [facility] Feb 12, 2024 01:00 PM AMBULATORY - PSYCHIATRY [facility] Lab Results: +/- 30 days of the encounter This section includes the Chemistry and Hematology Lab Results on record with [place] for the patient. Radiology Reports and Pathology Reports are provided separately, in subsequent sections. Lab Results This section contains the Chemistry/Hematology Results that were resulted 30 days before or 30 daysafter the date of the Encounter. Date/Time Source Result Type Result - Unit Interpretation Reference Range Comment August 10, 2023 09:14 AM [facility] HEMOGLOBIN A1C PANEL Specimen Type: BLOOD Comment: [...] August 10, 2023 08:57 AM Reporting Lab: [facility] [address] [facility] [address] Performing Lab: [facility] [address] [address] HEMOGLOBIN A1C 5.3 4.0-5.6 August 10, 2023 09:14 AM [facility] LIPID PANEL FASTING Specimen Type: SERUM No comment entered. Ordering Provider: NADMARILIN WRIGHT Report Released Date/Time: August 10, 2023 08:57 AM Reporting Lab: [facility] [address] [address] Performing Lab: [facility] [address] [address] CHOLESTEROL 96 mg/dL TRIGLYCERIDE 129 mg/dL 0-150 LDL calculated 37 mg/dL 0-129 CHOL/HDL 2.9 HDL CHOLESTEROL 33 mg/dL L 40-60 August 10, 2023 09:14 AM [facility] TSH Specimen Type: SERUM No comment entered. Ordering Provider: MARILIN APONTE Report Released Date/Time: August 10, 2023 08:57 AM Reporting Lab: [facility] [address] [address] Performing Lab: [facility] [address] [address] TSH 1.24 u[IU]/mL 0.35-5.00 August 10, 2023 09:14 AM [facility] LIVER FUNCTION Specimen Type: SERUM No comment entered. Ordering Provider: MARILIN APONTE Report Released Date/Time: August 10, 2023 08:57 AM Reporting Lab: [facility] [address] [address] Performing Lab: [address] [address] PROTEIN,TOTAL 7.1 g/dL 6.0-8.3 ALBUMIN 4.2 g/dL 3.5-5.0 ALKALINE PHOSPHATASE 44 U/L 40-150 AST 34 U/L 5-34 ALT 37 U/L BILIRUBIN, TOTAL 1.0 mg/dL 0.2-1.2 August 10, 2023 09:14 AM [facility] BASIC METABOLIC PANEL (fasting) Specime n Type: SERUM No comment entered. Ordering Provider: MARILIN APONTE Report Released Date/Time: August 10, 2023 08:57 AM Reporting Lab: [facility] [address] [address] Performing Lab: [address] [address] UREA NITROGEN 10 mg/dL 7-25 GLUCOSE 109 mg/dL H 65-100 SODIUM 137 mmol/L 135-145 POTASSIUM 4.4 mmol/L 3.5-5.0 CHLORIDE 105 mmol/L 100-110 CO2 24 meq/L 20-30 CREATININE, Serum 0.87 mg/dL 0.50-1.40 eGFR(CKD-EPI 2020) >90 mL/min >60 August 10, 2023 09:14 AM [facility] PSA Specimen Type: SERUM No comment entered. Ordering Provider: MARILIN APONTE Report Released Date/Time: August 10, 2023 08:57 AM Reporting Lab: [address] [address] Performing Lab: [address] [address] PSA 1.00 ng/mL 0.00-4.00 August 10, 2023 09:14 AM [facility] MICROSCOPIC AUTOMATED, URINE Specimen T ype: URINE Comment: If Glucose = >500 and Ketones are positive, please alert the Physician. Ordering Provider: MARILIN APONTE Report Released Date/Time: August 10, 2023 08:57 AM Reporting Lab: [address] [address] Performing Lab: [address] [address] UA WBC 0-5 /[HPF] 0-5 UA MUCUS FEW /[LPF] Trace UA RBC 0-2 /[HPF] 0-3 August 10, 2023 09:14 AM [facility] URINALYSIS Specimen Type: URINE Comment: If Glucose = >500 and Ketones are positive, please alert the Physician. Ordering Provider: MARILIN APONTE Report Released Date/Time: August 10, 2023 08:57 AM Reporting Lab: [address] [address] Performing Lab: [address] [place] [address] UA COLOR Yellow Yellow UA APPEARANCE Turbid Clear UA GLUCOSE NEGATIVE mg/dL Negative UA KETONES NEGATIVE mg/dL Negative UA BLOOD NEGATIVE mg/dL Negative UA PROTEIN 20 mg/dL Negative UA NITRITE NEGATIVE mg/dL Negative UA BILIRUBIN NEGATIVE mg/dL Negative UA SPECIFIC GRAVITY 1.025 H 1.016-1.022 UA pH 5.5 5.0-9.0 UA UROBILINOGEN <2.0 mg/dL <2.0 UA LEUKOCYTE NEGATIVE Negative August 10, 2023 09:14 AM [facility] CBC AND DIFF (AUTO) Specimen Type: BLOOD No comment entered. Ordering Provider: MARILIN APONTE Report Released Date/Time: August 10, 2023 08:57 AM Reporting Lab: [address] [address] Performing Lab: [address] [address] WBC 5.62 10*3/uL 4.50-11.00 RBC 4.69 10*6/uL 4.23-5.66 HGB 14.7 g/dL 12.8-17 HCT 43.0 39.2-50.4 MCV 91.7 fL 82-99 MCHC 34.2 g/dL 30.8-35.1 PLT 168 10*3/uL 140-360 RDW-CV 13.0 12.0-16.0 [place], Abs 0.58 10*3/uL 0.30-1.10 MCH 31.3 pg 26.2-32.6 Neut % 67.2 43.7-75.8 Lymph % 20.3 14.0-42.3 [place] % 10.3 5.1-13.7 Eos % 1.4 0.4-6.8 [...] and tobacco- related health factors from the [place] facility where the Encounter took place. Current Smoking Status This section includes the most current smoking, or tobacco-related health factor, from the [place] facility where the Encounter took place. Date/Time Current Smoking Status Comment Facil ity Nov 10, 2022 01:30 PM VA-TOBACCO NEVER USED [facility] Tobacco Use History This section includes a history of the smoking, or tobacco-related health factors, that were collected on or before the date of the Encounter. The data comes from the [place] facility where the Encounter took place. Date/Time Smoking Status/Tobacco Use Comment F acility Oct 14, 2021 10:18 AM [place]-TOBACCO NEVER USED [facility] Feb 11, 2020 04:16 PM VA-TOBACCO NEVER USED [facility] Jan 15, 2018 02:24 PM LIFETIME NON-SMOKER [facility] Advance Directives: All historical and current Section Date Range: From patient's date of to the date document was created. This section includes ALL of a patient's completed or amended [place] Advance and Rescinded Directives. The entries below indicate that a directive exists for the patient, but an actual copy is not included with this document. The data comes from all [place] facilities. Date Advance Directives Provider Source Dec 14, 2020 ADVANCE DIRECTIVE MARISOL HAMPTON [facility] Radiology Reports: +/- 30 days [...] the Encounter. The data comes from all [place] treatment facilities. Date/Time Radiology Report Provider Source Aug 22, 2023 02:44 PM HIP 2-3 VIEWS (RIG HT) WITH OR WITHOUT PELVIS: YESENIA WOODS [id number] -1960 M Exm Date: AUG 22, 2023@14:44 Req Phys: CHERISE KAPLAN Pat Loc: CWM/SO/PACT 5 (Req'g Loc) Img Loc: [facility]/BUILDING 1 Service: Unknown [facility] , (Case [id number] COMPLETE) HIP 2-3 VIEWS (RIGHT) WITH OR WIT(RAD Detailed) CPT:70157 Proc Modifiers : RIGHT CPT Modifiers : RT RIGHT SIDE Reason for Study: R hip ant pain - chronic Clinical History: Covering resident, fellow, BURLAP ROLL COVERER or attending: piper YEBOAH Pager: [phone] Backup pager: History: R hip ant pain Report Status: Verified Date Reported: AUG 22, 2023 Date Verified: AUG 22, 2023 Research Programmer E-Sig:/ES/BRITTANY LEDESMA JR Report: Study: AP view [...] Primary Interpreting Staff: BRITTANY LEDESMA JR, Radiologist (Research Programmer) /BRITTANY GONZALES JR [facility] Encounter Notes: All associated encounter notes This section contains the clinical notes associated to the Encounter. Date/Time Encounter Note(s) Provider Source Sep 06, 2023 08:09 AM DENTISTRY TELEPHON E ENCOUNTER NOTE: LOCAL TITLE: TELEPHONE NOTE/DENTAL STANDARD TITLE: DENTISTRY TELEPHONE ENCOUNTER NOTE DATE OF NOTE: SEP 06, 2023@08:09 ENTRY DATE: SEP 06, 2023@08:09:38 AUTHOR: PIERRE MENDEZ EXP COSIGNER: URGENCY: STATUS: COMPLETED Called pt and LM to confirm dental appointment on 09/07/2023 at 7:15 am /ho/ PIERRE MENDEZ ADVANCED GULLET SLITTER Signed: 09/06/2023 08:10 PIERRE MENDEZ [facility]
--- OUTSIDE RECORDS SUMMARY | 2024-02-19 19:06 | XMS_ITS | Encounter Summary ---
Author Name [place] Address [address] [place] [address] Care Team Providers Care Corporate Planner Name Role Phone MARILIN KAPLAN Primary Care [...] PRESCRIPT ION [id number] 1 Mar 12, 2019 [id number] [phone] CREAMDina KOHLER PATIENT [facility] STATE AGENC Y Jan 23, 2014 [id number] CREAMER,Dina KATY PATIENT MEDICARE (WNR) MEDICARE () PART A Nov 10, 2014 PART A [id number] CREAMER,D KATY PATIENT MEDICARE (WNR) MEDICARE () PART B Nov 10, 2014 PART B [id number] CREAMER,Dina KATY PATIENT MEDICARE (WNR) MEDICARE () PART A Nov 10, 2014 PART A [id number] [phone] CREAMER,D KATY PATIENT MEDICARE (WNR) MEDICARE (M) PART B Nov 10, 2014 PART B [id number] CREAMER,D KATY PATIENT MEDICARE (WNR) MEDICARE (M) PART A Nov 10, 2014 PART A [id number] CREAMER,D KATY PATIENT MEDICARE (WNR) MEDICARE (M) PART B Nov 10, 2014 PART B [id number] [phone] CREAMER,D KATY PATIENT MEDICARE (WNR) MEDICARE (M) PART B Nov 10, 2014 PART B CREAMER,D KATY PATIENT MEDICARE PART D (WNR) MEDICARE (M) PART D Nov 10, 2017 PART D [id number] CREAMER,D KATY PATIENT MEDICARE PART D (WNR) MEDICARE (M) PART D Nov 10, 2017 PART D [id number] CREAMER,D KATY PATIENT FOR LIFE TFL* Mar 12, 2023 [id number] CREAMER,D KATY PATIENT [facility] POINT OF SERVICE US FAMIL Y HEALT H Mar 12, 2021 [id number] [phone] CREAMER,D KATY PATIENT [facility] BRARIELLE REYES E Mar 12, 2019 [id number] CREAMER,D KATY PATIENT [facility] Mar [facility], 2019 [facility] [id number] CREAMER,D KATY PATIENT Selected Encounter This section includes the information on record at [place] for the Encounter. Date/Time Encounter Type Encounter Description Reason Pro vider Source Oct 19, 2023 11:45 AM Outpatient Encounter ADMIN PAT ACTIVTIES (MASNONCT) [...] 20 appointments. The data comes from all [facility] Appointment Date/Time Appointment Type Appointme nt Facility Name Dec 04, 2023 02:30 PM AMBULATORY - MEDICINE [facility] N[facility] Dec 18, 2023 01:30 PM AMBULATORY - PSYCHIATRY [facility] Dec 19, 2023 11:30 AM AMBULATORY - MEDICINE [facility] Jan 14, 2024 09:30 AM AM[facility]ULAT[facility] Feb 12, 2024 01:00 PM AMBULATORY - PSYCHIATRY [facility] Mar 11, 2024 08:00 AM AMBULATORY - MEDICINE [facility] Active, Pending, and Scheduled Orders This section includes a listing of several types of active, pending, and scheduled orders, including clinic medications orders, diagnostic test orders, procedure orders and consult orders; where the start date of the order is 45 days before the date of the Encounter or 45 days after the date of theEncounter. The data comes from all [facility] Test Date/Time Test Type Test Details Facility Name Nov 11, 2023 12:00 AM Laboratory - Chemi stry Order LIPID PANEL FASTING BLOOD (SST-SERUM) [facility] Nov 19, 2023 09:45 AM Consult Order COMMUNITY CARE-CARDIOLOGY Cons Slitter Processed [facility] [place] Social History: Smoking Status (Most current) and [...] 10, 2022 01:30 PM VA-TOBACCO NEVER USED [facility] Tobacco Use History This section includes a history of the smoking, or tobacco-related health factors, that were collected on or before the date of the Encounter. The data comes from the [place] facility where the Encounter took place. Date/Time Smoking Status/Tobacco Use Comment F acility Oct 14, 2021 10:18 AM VA-TOBACCO NEVER USED [place] [facility] Feb 11, 2020 04:16 PM VA-TOBACCO NEVER USED [place] [facility] Jan 15, 2018 02:24 PM LIFET[facility]MOKER [facility] Advance Directives: All historical and current [...] Dec 14, 2020 ADVANCE DIRECTIVE [facility]ISOL HAMPTON [facility] Encounter Notes: All associated encounter notes This section contains the clinical notes associated to the Encounter. Date/Time Encounter Note(s) Provider Source Oct 19, 2023 04:22 PM ADDENDUM: LOCAL TITLE: Addendum STANDARD TITLE: ADDENDUM DATE OF NOTE: OCT 19, 2023@16:22 ENTRY DATE: OCT 19, 2023@16:22 AUTHOR: GAURANG VILLALBA EXP COSIGNER: URGENCY: STATUS: COMPLETED AMSA -- Please assist with this. thank you. /ho/ GAURANG IVLLALBA RN REGISTERED NURSE Signed: 10/19/2023 16:22 Receipt Acknowledged By: 10/22/2023 09:21 /ho/ MALOU WRIGHT AMSA === --- Original Document --- 10/19/23 CCC: SCHEDULING ADMINISTRATION: Patient Demographics Patient Name: YESENIA WOODS Patient Primary Phone: [phone] Patient Primary Address: [address] [place] [address] Patient : 1960 Patient Age: 63 Call Back Number: Caller/Recipient Relation to Patient: Self Administrative Administrative Note Reason: Paperwork Request Administrative Note Comments: [facility] is requesting for pact to send a copy of medical records to new doctor [place]. [place] [phone] /es/ ALEJO REYNOSO 1 [facility] AMSA Signed: 10/19/2023 11:45 Receipt Acknowledged By: * AWAITING SIGNATURE * ALEXEI GUTIERREZ 10/19/2023 16:22 /ho/ GAURANG VILLALBA RN REGISTERED NURSE GAURANG VILLALBA [place] [facility] Oct 19, 2023 11:45 AM ADMINISTRATIVE NOTE: LOCAL TITLE: CCC: SCHEDULING ADMINISTRATION STANDARD TITLE: ADMINISTRATIVE NOTE DATE OF NOTE: OCT 19, 2023@11:45:20 ENTRY DATE: OCT 19, 2023@11:45:20 AUTHOR: ALEJO HERMOSILLO EXP COSIGNER: URGENCY: STATUS: COMPLETED CCC: SCHEDULING ADMINISTRATION Has ADDENDA Patient Demographics Patient Name: YESENIA WOODS Patient Primary Phone: [phone] Patient Primary Address: [address] [place] [address] Patient : 1960 Patient Age: 63 Call Back Number: Caller/Recipient Relation to Patient: Self Administrative Administrative Note Reason: Paperwork Request Administrative Note Comments: is requesting for pact to send a copy of medical records to new doctor Dr. Millie Whitmore [facility] [address] [facility] 010 /es/ ALEJO REYNOSO 1 [facility] AMSA Signed: 10/19/2023 11:45 Receipt Acknowledged By: 10/22/2023 12:20 /es/ ALEXEI GUTIERREZ LPN LPN 10/19/2023 16:22 /ho/ GAURANG VILLALBA RN REGISTERED NURSE 10/19/2023 ADDENDUM STATUS: COMPLETED AMSA -- Please assist with this. thank you. /ho/ GAURANG VILLALBA RN REGISTERED NURSE Signed: 10/19/2023 16:22 Receipt Acknowledged By: 10/22/2023 09:21 /ho/ MALOU HARO 10/22/2023 ADDENDUM STATUS: COMPLETED Power And Recovery Supervisor spoke to to fill out a Records request paper to send records to outside PCP. Power And Recovery Supervisor mailed paper to . /ho/ MALOU HARO Signed: 10/22/2023 09:22 ALEJO HERMOSILLO [place] [facility]
--- OUTSIDE RECORDS SUMMARY | 2024-02-19 19:06 | XMS_ITS | Encounter Summary ---
Author Name [facility] [place] Address [address] [place] [address] Care Team Providers Care Manager Of Development Name Role Phone MARILIN KAPLAN Primary Care [...] PRESCRIPT ION [id number] 1 Mar 12, 2019 [id number] CREAMDina KOHLER PATIENT [facility] Y Jan 23, 2014 [id number] CREAMER,Dina KATY PATIENT MEDICARE (WNR) MEDICARE () PART A Nov 10, 2014 PART A [id number] CREAMER,D KATY PATIENT MEDICARE (WNR) MEDICARE () PART B Nov 10, 2014 PART B [id number] CREAMER,Dina KATY PATIENT MEDICARE (WNR) MEDICARE () PART B Nov 10, 2014 PART B [id number] CREAMER,D KATY PATIENT MEDICARE (WNR) MEDICARE (M) PART A Nov 10, 2014 PART A [id number] CREAMER,D KATY PATIENT MEDICARE (WNR) MEDICARE (M) PART B Nov 10, 2014 PART B [id number] [phone] CREAMER,D KATY PATIENT MEDICARE (WNR) MEDICARE (M) PART A Nov 10, 2014 PART A [id number] [phone] CREAMER,D KATY PATIENT MEDICARE (WNR) MEDICARE (M) PART B Nov 10, 2014 PART B CREAMER,D KATY PATIENT MEDICARE PART D (WNR) MEDICARE (M) PART D Nov 10, 2017 PART D [id number] CREAMER,D KATY PATIENT MEDICARE PART D (WNR) MEDICARE (M) PART D Nov 10, 2017 PART D [id number] [phone] CREAMER,D KATY PATIENT FOR LIFE TFL* Mar 12, 2023 [id number] [phone] CREAMER,D KATY PATIENT [facility] POINT OF SERVICE US FAMIL Y HEALT H Mar 12, 2021 [id number] [phone] CREAMER,D KATY PATIENT [facility] BRARIELLE REYES E Mar 12, 2019 [id number] CREAMER,D KATY PATIENT [facility] Mar 12, [address] [facility] [id number] CREAMER,D KATY PATIENT Selected Encounter This section includes the information on record at [place] for the Encounter. Date/Time Encounter Type Encounter Description Reason Pro vider Source Oct 18, 2023 04:26 PM Outpatient Encounter ADMIN PAT ACTIVTIES (MASNONCT) [...] 20 appointments. The data comes from all [facility]. Appointment Date/Time Appointment Type Appointme nt Facility Name Oct 19, 2023 08:00 AM AMBULATORY - MEDICINE [facility] NTRL W[facility]N [facility] Dec 04, 2023 02:30 PM AMBULATORY - MEDICINE [facility] NTR WSTRN [facility] Dec 18, 2023 01:30 PM AMBULATORY - PSYCHIATRY [facility] Dec 19, 2023 11:30 AM AMBULATORY - MEDICINE [facility] Jan 14, 2024 09:30 AM AMBULAT[facility] Feb 12, 2024 01:00 PM AMBULATORY - PSYCHIATRY [facility] Mar 11, 2024 08:00 AM [facility] Active, Pending, and Scheduled Orders This section includes a listing of several types of active, pending, and scheduled orders, including clinic medications orders, diagnostic test orders, procedure orders and consult orders; where the start date of the order is 45 days before the date of the Encounter or 45 days after the date of theEncounter. The data comes from all [facility]. Test Date/Time Test Type Test Details Facility Name Nov 11, 2023 12:00 AM Laboratory - Chemi stry Order LIPID PANEL FASTING BLOOD (SST-SERUM) [facility] Nov 19, 2023 09:45 AM Consult Order COMMUNITY CARE-CARDIOLOGY Cons Highway Painter Helper's Choice [place] Social History: Smoking Status (Most current) and [...] 10, 2022 01:30 PM VA-TOBACCO NEVER USED [facility] Tobacco Use History This section includes a history of the smoking, or tobacco-related health factors, that were collected on or before the date of the Encounter. The data comes from the [place] facility where the Encounter took place. Date/Time Smoking Status/Tobacco Use Comment F acility Oct 14, 2021 10:18 AM [facility] Feb 11, 2020 04:16 PM VA-TOBACCO NEVER USED [place] [facility] Jan 15, 2018 02:24 PM LIFETIME [facility]-SMOKER [facility] Advance Directives: All historical and [...] Dec 14, 2020 ADVANCE DIRECTIVE [facility]OL HAMPTON [facility] Encounter Notes: All associated encounter notes This section contains the clinical notes associated to the Encounter. Date/Time Encounter Note(s) Provider Source Oct 18, 2023 04:26 PM PHARMACY NOTE: LOCAL TITLE: PHARMACY CUSTOMER CARE MEDICATION RENEWAL STANDARD TITLE: PHARMACY NOTE DATE OF NOTE: OCT 18, 2023@16:26 ENTRY DATE: OCT 18, 2023@16:26:12 AUTHOR: KATEY MONTEMAYOR EXP COSIGNER: URGENCY: STATUS: COMPLETED Date: Oct Division: [facility] referred by Pharmacy Call Center for medication renewal: Non-controlled/maintenan ce medication Medications requested: [id number] CARBOXYMETHYLCELLULOSE NA 0.5% OPH SOLN To be mailed . Please review and renew if appropriate. *This note was generated by [facility] Pharmacy Customer Care. If you have any questions or need assistance, do not contact this author. Please refer all questions to your local, on-site pharmacy departments. /ho/ Rachel MONTEMAYOR CPhT Department Head, [place]/Pharmacy Customer Care Signed: 10/18/2023 16:26 Receipt Acknowledged By: 10/19/2023 08:03 /ho/ CAMILLE MUNOZ OD STAFF SOFTWARE TEAM LEADER KATEY MONTEMAYOR [facility]
--- OUTSIDE RECORDS SUMMARY | 2024-02-19 19:06 | XMS_ITS | Encounter Summary ---
Author Name [facility] [place] Address [address] [place] [id number] Care Team Providers Care Manager Employee Benefits Name Role Phone MARILIN KAPLAN Primary Care [...] PORRAST ION [id number] 1 Mar 12, 2019 [id number] Dina WOODS PATIENT [facility] AGENC Y Jan 23, 2014 [id number] [phone] CREAMERDina PATIENT MEDICARE (WNR) MEDICARE (M) PART A Nov 10, 2014 PART A [id number] CREAMER,Dina KATY PATIENT MEDICARE (WNR) MEDICARE (M) PART B Nov 10, 2014 PART B [id number] Dina WOODS PATIENT MEDICARE (WNR) MEDICARE (M) PART A Nov 10, 2014 PART A [id number] CREAMER,D KATY PATIENT MEDICARE (WNR) MEDICARE (M) PART B Nov 10, 2014 PART B [id number] [phone] CREAMER,D KATY PATIENT MEDICARE (WNR) MEDICARE (M) PART A Nov 10, 2014 PART A [id number] [phone] CREAMER,D KATY PATIENT MEDICARE (WNR) MEDICARE (M) PART B Nov 10, 2014 PART B [id number] [phone] CREAMER,D KATY PATIENT MEDICARE (WNR) MEDICARE (M) PART B Nov 10, 2014 PART B [id number] CREAMER,D KATY PATIENT MEDICARE PART D (WNR) MEDICARE (M) PART D Nov 10, 2017 PART D [id number] [phone] CREAMER,D KATY PATIENT MEDICARE PART D (WNR) MEDICARE (M) PART D Nov 10, 2017 PART D [id number] CREAMER,D KATY PATIENT FOR LIFE TFL* Mar 12, 2023 [id number] CREAMER,D KATY PATIENT [facility] POINT OF SERVICE US FAMIL Y HEALT H Mar 12, 2021 [id number] [phone] CREAMER,D KATY PATIENT [facility] RADHA REYES E Mar 12, 2019 [id number] CREAMER,D KATY PATIENT [facility] Mar 12, 2019 [facility] [id number] CREAMER,D KATY PATIENT Selected Encounter This section includes the information on record at [place] for the Encounter. Date/Time Encounter Type Encounter Description Reason Provider Source Oct 19, 2023 09:03 AM FIT SPECTACLES MONOFOCAL OPTOMETRY ICD-10-CM Z46.0 Encounter for fit/adjst of spectacles and contact lenses CAMILLE MUNOZ Encounter Template Text not used by [facility] Assessments - Encounter Diagnoses This section includes the primary and secondary diagnoses documented for the Encounter. Date/Time Primary/Secondary Diagnosis Diagnosis Name Provider Source Oct 19, 2023 09:03 AM PRIMARY Encounter for fit/adjst of spectacles and contact lenses [facility] of Treatment: Future Appointments (+ 6 months) and Future Tests (+/- 45 days) The Plan of Treatment section includes future care activities for the patient from all [place] [facility]. This section includes future appointments and future orders which are active, pending or scheduled. Future Appointments This section includes appointments that were scheduled to occur 6 months from the date of the Encounter, up to a maximum of 20 appointments. The data comes from all [facility]. Appointment Date/Time Appointment Type Appointme nt Facility Name Dec 04, 2023 02:30 PM AMBULATORY - MEDICINE [facility] Dec 18, 2023 01:30 PM AMBULATORY - PSYCHIATRY [facility] Dec 19, 2023 11:30 AM AMBULATORY MEDICINE [facility] Jan 14, 2024 09:30 AM AMBULATORY MEDICINE [facility] Feb 12, 2024 01:00 PM AMBULATORY - PSYCHIATRY [facility] Mar 11, 2024 08:00 AM AMBULATORY MEDICINE [facility] Active, Pending, and Scheduled Orders This section includes a listing of several types of active, pending, and scheduled orders, including clinic medications orders, diagnostic test orders, procedure orders and consult orders; where the start date of the order is 45 days before the date of the Encounter or 45 days after the date of theEncounter. The data comes from all [facility]. Test Date/Time Test Type Test Details Facility Name Nov 11, 2023 12:00 AM Laboratory - Chemi stry Order LIPID PANEL FASTING BLOOD (SST-SERUM) [facility] Nov 19, 2023 09:45 AM Consult Order COMMUNITY CARE-CARDIOLOGY Cons Production Machine Tender's Choice ELIZABETH Social History: Smoking Status (Most current) and [...] 10, 2022 01:30 PM VA-TOBACCO NEVER USED [facility] Tobacco Use History This section includes a history of the smoking, or tobacco-related health factors, that were collected on or before the date of the Encounter. The data comes from the [place] facility where the Encounter took place. Date/Time Smoking Status/Tobacco Use Comment Kerline acberonica Oct 14, 2021 10:18 AM [facility] Feb 11, 2020 04:16 PM VA-TOBACCO [facility] Jan 15, 2018 02:24 PM LIFETIME NON-SMOKER [facility] Advance Directives: All historical and current [...] Dec 14, 2020 ADVANCE DIRECTIVE [facility] Encounter Notes: All associated encounter notes This section contains the clinical notes associated to the Encounter. Date/Time Encounter Note(s) Provider Source Oct 19, 2023 09:03 AM OPTOMETRY NOTE: LOCAL TITLE: OPTOMETRY NOTE STANDARD TITLE: OPTOMETRY NOTE DATE OF NOTE: OCT 19, 2023@09:03 ENTRY DATE: OCT 19, 2023@09:03:45 AUTHOR: SYD SAGE COSIGNER: URGENCY: STATUS: COMPLETED OPTOMETRY NOTE Has ADDENDA The quote provided below is for informational purposes only. Please verify prior to the creation of a purchase order. YESENIA Aguilera PEGGY [id number] RX INFORMATION OD -4.50 -0.75 X90 Add:0.00 Pzm:0.00 Dir: Prz2:0.00 Dir2: OS +2.75 -2.00 X69 Add:0.00 Pzm:0.00 Dir: Prz2:0.00 Dir2: FITTING INFORMATION FPD: NPD: [place]:R:30 L:31.0 SEG HT:R: L: Tint:CHOI Shade:3 VA Billable Items FRAME: PRAKASH BORGES 54-17-145 Right Lens: 1.67 SINGLE VISION 1.67 HIGH INDEX Left Lens: 1.67 SINGLE VISION 1.67 HIGH INDEX KLEAR ANTI-REFLECTIVE COATING SOLID TINT The quote provided below is for informational purposes only. Please verify prior to the creation of a purchase order. YESENIA WOODS 9573 RX INFORMATION OD -4.50 -0.75 X90 Add:0.00 Pzm:0.00 Dir: Prz2:0.00 Dir2: OS +2.75 -2.00 X69 Add:0.00 Pzm:0.00 Dir: Prz2:0.00 Dir2: FITTING INFORMATION FPD: NPD: [place]:R:30 L:31.0 SEG HT:R: L: Tint:None Shade:None VA Billable Items FRAME: PRAKASH SWEET 54-17-145 Right Lens: 1.67 SINGLE VISION 1.67 HIGH INDEX Left Lens: 1.67 SINGLE VISION 1.67 HIGH INDEX KLEAR ANTI-REFLECTIVE COATING /ho/ SYD SAGE COIL ASSEMBLER Signed: 10/19/2023 09:04 Receipt Acknowledged By: 10/19/2023 09:39 /ho/ ANANT RIZZO OPTOMETRY TECH 10/19/2023 ADDENDUM STATUS: COMPLETED PDS Taker Out fit patient with 2 pair(s) of SV eyeglasses on 10/19/2023. OPT HT entered consult(s) as requested for provider signature. /ho/ ANANT RIZZO OPTOMETRY TECH Signed: 10/19/2023 09:42 SYD SAGE [facility]
--- OUTSIDE RECORDS SUMMARY | 2024-02-19 19:06 | XMS_ITS ---
Author Name [facility] [place] [facility] [place] Address [address] [place] [address] Care Team Providers Care Regional Engineer Name Role Phone MARILIN KAPLAN Primary [...] PRESCRIPT ION [id number] 1 Mar 12, 2019 [id number] [id number] Dina WOODS PATIENT [facility] STATE AGENC Y Jan 23, 2014 [id number] [phone] CREAMERDinaNIS PATIENT MEDICARE (WNR) MEDICARE (M) PART A Nov 10, 2014 PART A [id number] CREAMER,Dina KATY PATIENT MEDICARE (WNR) MEDICARE (M) PART B Nov 10, 2014 PART B [id number] CREAMDina KOHLER PATIENT MEDICARE (WNR) MEDICARE (M) PART A Nov 10, 2014 PART A [id number] CREAMER,D KATY PATIENT MEDICARE (WNR) MEDICARE (M) PART B Nov 10, 2014 PART B [id number] CREAMER,D KATY PATIENT MEDICARE (WNR) MEDICARE (M) PART A Nov 10, 2014 PART A [id number] CREAMER,D KATY PATIENT MEDICARE (WNR) MEDICARE (M) PART B Nov 10, 2014 PART B [id number] CREAMER,D KATY PATIENT MEDICARE (WNR) MEDICARE (M) PART B Nov 10, 2014 PART B CREAMER,D KATY PATIENT MEDICARE PART D (WNR) MEDICARE (M) PART D Nov 10, 2017 PART D [id number] CREAMER,D KATY PATIENT MEDICARE PART D (WNR) MEDICARE (M) PART D Nov 10, 2017 PART D [id number] CREAMER,D KATY PATIENT FOR LIFE TFL* Mar 12, 2023 [id number] CREAMER,D KATY PATIENT [facility] [place] POINT OF SERVICE US FAMIL Y HEALT H Mar 12, 2021 [id number] [phone] CREAMER,D KATY PATIENT [facility] RADHA REYES E Mar 12, 2019 [id number] CREAMER,D KATY PATIENT [facility] Mar 12, 2019 [facility] [id number] CREAMER,D KATY PATIENT Selected Encounter This section includes the information on record at [place] for the Encounter. Date/Time Encounter Type Encounter Description Reason Provider Source Oct 19, 2023 08:00 AM INTRM OPH EXAM EST PATIENT OPTOMETRY ICD-10-CM H04.123 Dry eye syndrome of bilateral lacrimal glands CAMILLE MUNOZ Encounter Template Text not used by VA Assessments - Encounter Diagnoses This section includes the primary and secondary diagnoses documented for the Encounter. Date/Time Primary/Secondary Diagnosis Diagnosis Name Provider Source Oct 19, 2023 08:37 AM PRIMARY Dry eye syndrome of bilateral lacrimal glands CAMILLE MUNOZ [facility] Oct 19, 2023 08:37 AM SECONDARY Glare sensitivity [facility] Oct 19, 2023 08:37 AM SECONDARY Unspecified disorder of refraction CAMILLE MUNOZ [facility] Plan of Treatment: Future Appointments (+ 6 months) and Future Tests (+/- 45 days) The Plan of Treatment section includes future care activities for the patient from all [place] [facility]. This section includes future appointments and future orders which are active, pending or scheduled. Future Appointments This section includes appointments that were scheduled to occur 6 months from the date of the Encounter, up to a maximum of 20 appointments. The data comes from all [facility]. Appointment Date/Time Appointment Type Appointme nt Facility Name Dec 04, 2023 02:30 PM [facility] Dec 18, 2023 01:30 PM AMBULATORY - PSYCHIATRY [facility] Dec 19, 2023 11:30 AM [facility] N[facility]L [facility] Jan 14, 2024 09:30 AM [facility]UL[facility]ORY [facility]IC[facility] Feb 12, 2024 01:00 PM AMBULATORY - PSYCHIATRY [facility] Mar 11, 2024 08:00 AM [facility] Active, Pending, and Scheduled Orders This section includes a listing of several types of active, pending, and scheduled orders, including clinic medications orders, diagnostic test orders, procedure orders and consult orders; where the start date of the order is 45 days before the date of the Encounter or 45 days after the date of theEncounter. The data comes from all [facility]. Test Date/Time Test Type Test Details Facility Name Nov 11, 2023 12:00 AM Laboratory - Chemi stry Order LIPID PANEL FASTING BLOOD (SST-SERUM) [facility] Nov 19, 2023 09:45 AM Consult Order COMMUNITY CARE-CARDIOLOGY Cons [place] Line Attendant's Choice REEDLEY Social History: Smoking Status (Most current) and Tobacco Use (All prior to encounter date) This section includes the most current, and the historical, smoking and tobacco- related health factors from the [place] facility where the Encounter took place. Current Smoking Status This section includes the most current smoking, or tobacco-related health factor, from the [place] facility where the Encounter took place. Date/Time Current Smoking Status Comment Laury ity Nov 10, 2022 01:30 PM VA-TOBACCO NEVER USED [facility] Tobacco Use History This section includes a history of the smoking, or tobacco-related health factors, that were collected on or before the date of the Encounter. The data comes from the [place] facility where the Encounter took place. Date/Time Smoking Status/Tobacco Use Comment F acility Oct 14, 2021 10:18 AM VA-TOBACCO NEVER USED [facility] Feb 11, 2020 04:16 PM VA-TOBACCO NEVER USED [facility] Jan 15, 2018 02:24 PM LIFETIME NON-SMOKER [facility] Advance Directives: All historical and current Section Date Range: From patient's date of to the date document was created. This section includes ALL of a patient's completed or amended [place] Advance and Rescinded Directives. The entries below indicate that a directive exists for the patient, but an actual copy is not included with this document. The data comes from all [place] facilities. Date Advance Directives Provider Source Dec 14, 2020 ADVANCE DIRECTIVE MARISOL [facility] Encounter Notes: All associated encounter notes This section contains the clinical notes associated to the Encounter. Date/Time Encounter Note(s) Provider Source Oct 19, 2023 08:04 AM OPTOMETRY NOTE: LOCAL TITLE: OPTOMETRY NOTE(T) STANDARD TITLE: OPTOMETRY NOTE DATE OF NOTE: OCT 19, 2023@08:04 ENTRY DATE: OCT 19, 2023@08:04:33 AUTHOR: CAMILLE MUNOZ COSIGNER: URGENCY: STATUS: COMPLETED I saw this patient in conjunction with the student and agree to the stated findings and plan after reviewing both history and repeating cunningham elements of physical exam. Patient presents for comprehensive exam well-known to me with history of MDD HI was rosacea and recurrent conjunctivitis OU. He also is status post RK OS with a history of photophobia. He wears single vision formal chromic lenses and sunglasses for glare sensitivity with above history. Otherwise no other acute ocular disease was seen. Ordered sunglasses today the patient will return in 12 months or sooner if any problems arise. /ho/ CAMILLE MUNOZ OD STAFF LEAD JAVA J2EE DEVELOPER Signed: 10/19/2023 08:37 CAMILLE MUNOZ [place] [facility] Oct 19, 2023 07:34 AM OPTOMETRY NOTE: LOCAL TITLE: OPTOMETRY NOTE STANDARD TITLE: OPTOMETRY NOTE DATE OF NOTE: OCT 19, 2023@07:34 ENTRY DATE: OCT 19, 2023@07:34:45 AUTHOR: THERESA AMES JR EXP COSIGNER: CAMILLE MUNOZ URGENCY: STATUS: COMPLETED Active problems - Computerized Problem List is the source for the followin. Obesity ([facility] [id number]) 2. CAD - Coronary Artery Disease ([facility] [id number]) 3. COPD - Chronic Obstructive Pulmonary Disease ([facility] [id number]) 4. Chronic constipation 5. Pain in right hip joint 6. GERD - Gastro-Esophageal Reflux Disease ([facility] [id number]) 7. Obstructive Sleep Apnea of Adult ([facility] [id number]) 8. Anxiety ([facility] [id number]) 9. Depression ([facility] [id number]) 10. Erosive oesophagitis 11. Polyp of colon 12. Urolithiasis 13. Chronic neck pain 14. Indirect inguinal hernia 15. Generalized anxiety disorder 16. Essential hypertension 17. Colonoscopy normal 18. Ischemic colitis 19. Long-term current use of cannabis 20. Asthma 21. Shoulder region pain 22. Magnetic resonance imaging scan abnormal 23. Hyperlipidemia 24. Erectile dysfunction (SNOMED CT [id number]) 25. Neck pain 26. Elevated blood pressure reading without diagnosis of hypertension 27. Colorectal Cancer Screening Results Documented and Reviewed (PV) 28. Anisocoria * 29. Anisometropia 30. Concussion 31. Brief Loss of Consciousness with Loss of Consciousness less than 30 Minutes 32. Corneal scar 33. Sleep Apnea 34. Pathological gambling 35. Major depressive disorder 36. Dermatitis or Eczema 37. Hemorrhoid (SNOMED CT [id number]) 38. Cervical radiculopathy 39. Pain in joint involving shoulder region 40. Migraine, unspecified, without mention of Intractable Migraine 41. Low back pain 42. Hypercholesterolemia 43. Elevated Liver Function Tests 44. Impaired FASTING Glucose 45. Hemorrhoids 46. 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 Benign prostatic hypertrophy with outflow obstruction 49. HEARING LOSS 50. OBESITY Active Outpatient Medications (including Supplies): Active Outpatient Medications Status 1) ACYCLOVIR 5% OINT APPLY THIN LAYER TOPICALLY TWICE ACTIVE DAILY NEEDED FOR INFECTION 2) ALBUTEROL 100/IPRATRO 20MCG 120D PO INHL INHALE 1 ACTIVE PUFF BY MOUTH FOUR TIMES A DAY 3) AMLODIPINE BESYLATE 5MG TAB TAKE ONE TABLET BY MOUTH ACTIVE ONCE DAILY FOR BLOOD PRESSURE/HEART, DO NOT TAKE WITH GRAPEFRUIT JUICE 4) ASPIRIN 81MG EC TAB TAKE ONE TABLET BY MOUTH ONCE ACTIVE DAILY TO PREVENT STROKE/HEART ATTACK 5) CARBOXYMETHYLCELLULOSE NA 0.5% OPH SOLN INSTILL 1 ACTIVE DROP INTO EACH EYE FOUR TIMES A DAY 6) CETIRIZINE HCL 10MG TAB TAKE ONE TABLET BY MOUTH ONCE ACTIVE DAILY NEEDED FOR ALLERGIES 7) CITALOPRAM HYDROBROMIDE 40MG TAB TAKE ONE-HALF TABLET ACTIVE BY MOUTH AT BEDTIME FOR DEPRESSION AND ANXIETY 8) EZETIMIBE 10MG TAB TAKE ONE TABLET BY MOUTH ONCE ACTIVE DAILY TO LOWER CHOLESTEROL 9) FLUTICAS 250/SALMETEROL 50 INHL DISK 60 INHALE 1 PUFF ACTIVE BY MOUTH TWICE DAILY - RINSE MOUTH AFTER USE 10) HEMORRHOIDAL RTL OINT APPLY SMALL AMOUNT TO TOPICALLY ACTIVE NEEDED FOR HEMORRHOIDS 11) LIDOCAINE 5% PATCH APPLY 3 PATCHES TOPICALLY ONCE ACTIVE DAILY FOR NERVE PAIN (LEAVE PATCH ON FOR 12 HOURS, THEN REMOVE PATCH) 12) METOPROLOL SUCCINATE 25MG SA TAB TAKE ONE TABLET BY ACTIVE MOUTH ONCE DAILY FOR BLOOD PRESSURE/HEART 13) OMEPRAZOLE 20MG EC CAP TAKE TWO CAPSULES BY MOUTH ACTIVE ONCE DAILY 14) POLYETHYLENE GLYCOL 3350 ORAL PWDR TAKE 17 GRAMS(FILL ACTIVE CAP TO 17GM LINE) BY MOUTH ONCE DAILY FOR CONSTIPATION [MIX WITH 4 TO 8OZ. OF BEVERAGE] 15) ROSUVASTATIN CA 40MG TAB TAKE ONE TABLET BY MOUTH ACTIVE ONCE DAILY FOR CHOLESTEROL 16) SILDENAFIL CITRATE 100MG TAB TAKE ONE TABLET BY MOUTH ACTIVE ONCE DAILY NEEDED TAKE 1 HOUR PRIOR TO SEXUAL ACTIVITY 17) TABLET CUTTER (PILL SPLITTER) USE CUTTER DIRECTED ACTIVE BY PROVIDER TO SPLIT TABLETS 18) TAMSULOSIN HCL 0.4MG CAP TAKE ONE CAPSULE BY MOUTH AT ACTIVE BEDTIME FOR ENLARGED PROSTATE 19) TICAGRELOR 90MG TAB TAKE ONE TABLET BY MOUTH TWICE ACTIVE DAILY Active Non-VA Medications Status 1) Non-VA ASPIRIN 81MG CHEW TAB 81MG BY MOUTH ACTIVE 2) Non-VA METOPROLOL TARTRATE 25MG TAB 25MG BY MOUTH ACTIVE TWICE DAILY 3) Non-VA OTHER CAP/TAB MEDICAL MARIJUANA BY MOUTH ACTIVE 4) Non-VA ROSUVASTATIN CA 40MG TAB 40MG BY MOUTH ONCE ACTIVE DAILY 5) Non-VA TICAGRELOR 90MG TAB 90MG BY MOUTH TWICE DAILY ACTIVE 24 Total Medications Allergies: DUST All medications including those prescribed by outside VA's, community providers, and all OTC meds were reviewed and reconciled with patient to the best of their abilities. This 63 year old MALE is seen today for MERA WALESKA:10/2022 Chief Complaint: Pt. states that vision may be slightly more blurry OU @ D & N through glasses but he is unsure. Still gets episodes of conjunctivitis but uses drops and it resolves over time. Has not gotten more severe no other changes or complaints today OHx: - Combined cataracts OU - RE & presbyopia OU - H/o RK OS - Dry eyes OU 2' to ocular rosacea w/ h/o recurrent conjunctivitis Ocular Medications: - Artificial tears: uses several times a day every day; feels they help. Pt. 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 Pt. states that this has stayed pretty stable since it originally happened. Mostly at near, sometimes at distance. Pt. has tried prism in the past and does not appreciate it. States he does not like prism (-) Flashes: (-) Floaters: (-) Amaurosis Fugax/Tia's: (-) Eye Injury: (+) Eye Surgery: RK several years ago (~[address]) [address] Dr. Velasquez in [place] (+) TBI: [place] 2006 FOHx: (-) Glaucoma/ARMD/Blindness VITALS (most recent, as listed in the electronic record): B/P: 129/73 (08/20/2023 14:28) Pulse: 80 (08/20/2023 14:28) Temperature: 98.5 F [36.9 C] (08/20/2023 14:28) Weight: 235.8 lb [106.96 kg] (08/20/2023 14:28) Height: 72 in [182.9 cm] (03/08/2022 08:12) BMI: BMI: 32.0 PERTINENT LABS: HEMOGLOBIN A1C TREND Collection DT Spec HGBA1c 08/10/2023 09:14 BLOOD 5.3 10/27/2022 09:27 BLOOD 5.3 09/27/2021 08:19 BLOOD 5.3 02/02/2020 08:00 BLOOD 5.2 02/14/2019 10:48 BLOOD 5.4 (-) Smoker/Length of Time/PPD: Current Rx with last BCVA: OD: -4.50-0.08f895 20/20 OS: +2.75-2.85e625 20/20 DVA ( )sc ( x )cc - phoropter OD: 20/20 OS: 20/20 Pupils: PERRL (-)APD; Miotic pupils OU EOMs: SAFE OU, (-)Pain/Diplopia CVF (facial, peripheral): FTFC OU Subjective Refraction: OD: -4.50-0.94f064 20/20 OS: +2.75-2.82s298 20/20 Pt. takes DVO off to read All the above performed by student, reviewed by attending Anterior segment: Performed by student, repeated by attending Lids: mild MGD, lid telangiectasia, 1+ debris UL/LL OU Conj: Tr injection on bulbar OU Palpebral has few concretions inferiorly OU Cornea: OD: clear OS: 8 radial RK scars reduced TBUT and debris in tear film OU AC: D&Q OU Angles: 4x4 OU Iris: flat and clear OU Lens: 1-2+ NS seen through undilated miotic pupils OU Tonometry: Performed by student, reviewed by attending [x ] GAT [ ] iCare OD 12 mmHg OS 12 mmHg Time: 8:10 am Fundus exam: Non dilated: XX Pt. defers this time as he has a to attend after leaving here and doesn't want to worry about his vision Performed by student, repeated by attending *Views were limited and to extent seen through undilated pupils OU Vit: clear OU C/D: 0.20 OD, 0.20 OS, pink healthy & distinct OU Macula: flat and clear OU PPole: clear OU A/V: 2/3 Vessels: normal caliber OU Periph: Not viewed - undilated 90D performed Assessment/Plan: 1. Dry eyes OU - Secondary to ocular rosacea, with history of recurrent conjunctivitis OU - Pt. has been using artificial tears and feels they work. Would like refills of Refresh - Ordering refresh, ed. pt to continue using QID OU - Monitor 2. Status post radial keratotomy OS - Performed ~[address] Velasquez in [place] - Stable today - Monitor 3. 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 ed on findings - Is going look at new frames for 1x clear DVO & 1x Sun DVO. Pt is happy taking off DVO to read at this time - Monitor 4. History of concussion with photophobia OU - Stable today without new binocular vision issues or complaints - Pt. controling photophobia with UV protection - Monitor Return to Clinic 1 Year or earlier PRN [place] Education: After discussion and answering all 's questions, [place] demonstrated and verbalized understanding of diagnosis and treatment. Yes [x] No [ ] Medication Reconciliation: Outpatient: Has the patient been taking medications as documented in the EMLR? YES: The patient has been taking medications as documented in the EMLR. Essential Medication List for Review used to complete this medication reconciliation. INCLUDED IN THIS LIST: Alphabetical list of active outpatient prescriptions dispensed from this [facility] (local) and dispensed from another [place] or [place] facility (remote) as well as [...] with a VA or non-VA provider. /ho/ THERESA AMES JR OPTOMETRY STUDENT Signed: 10/19/2023 09:14 /ho/ CAMILLE MUNOZ OD STAFF LEAD JAVA J2EE DEVELOPER Cosigned: 10/19/2023 09:30 THERESA AMES JR [facility]
--- OUTSIDE RECORDS SUMMARY | 2024-02-19 19:06 | XMS_ITS | Encounter Summary ---
Author Name [place] Address [address] [place] [address] Care Team Providers Care Traffic Signal Supervisor Maintenance Name Role Phone MARILIN KAPLAN Primary Care [...] PRESCRIPT ION [id number] 1 Mar 12, 2019 [id number] [phone] CREAMDina KOHLER PATIENT [facility] Jan 23, 2014 [id number] [phone] CREAMER,Dina KATY PATIENT MEDICARE (WNR) MEDICARE () PART A Nov 10, 2014 PART A [id number] CREAMER,D KATY PATIENT MEDICARE (WNR) MEDICARE () PART B Nov 10, 2014 PART B [id number] CREAMER,Dina KATY PATIENT MEDICARE (WNR) MEDICARE () PART A Nov 10, 2014 PART A [id number] CREAMER,D KATY PATIENT MEDICARE (WNR) MEDICARE (M) PART B Nov 10, 2014 PART B [id number] CREAMER,D KATY PATIENT MEDICARE (WNR) MEDICARE (M) PART B Nov 10, 2014 PART B CREAMER,D KATY PATIENT MEDICARE (WNR) MEDICARE (M) PART A Nov 10, 2014 PART A [id number] CREAMER,D KATY PATIENT MEDICARE (WNR) MEDICARE (M) PART B Nov 10, 2014 PART B [id number] [id number] CREAMER,D KATY PATIENT MEDICARE PART D (WNR) MEDICARE (M) PART D Nov 10, 2017 PART D [id number] [phone] CREAMER,D KATY PATIENT MEDICARE PART D (WNR) MEDICARE (M) PART D Nov 10, 2017 PART D [id number] [phone] CREAMER,D KATY PATIENT FOR LIFE TFL* Mar 12, 2023 [id number] CREAMER,D KATY PATIENT [facility] POINT OF SERVICE US FAMIL Y HEALT H Mar 12, 2021 [id number] [phone] CREAMER,D KATY PATIENT [facility] BRARIELLE REYES E Mar 12, 2019 [id number] CREAMER,D KATY PATIENT [facility] Mar 12, 2019 [facility] [id number] [phone] CREAMER,D KATY PATIENT Selected Encounter This section includes the information on record at [place] for the Encounter. Date/Time Encounter Type Encounter Description Reason Pro vider Source Oct 17, 2023 02:23 PM Outpatient Encounter ADMIN PAT ACTIVTIES (MASNONCT) [...] 20 appointments. The data comes from all [facility]. Appointment Date/Time Appointment Type Appointme nt Facility Name Oct 19, 2023 08:00 AM AMBULATORY - MEDICINE [facility] Dec 04, 2023 02:30 PM AMBULATORY - MEDICINE [facility] NTR [facility] Dec 18, 2023 01:30 PM AMBULATORY - PSYCHIATRY [facility] Dec 19, 2023 11:30 AM AMBULATORY - MEDICINE [facility] Jan 14, 2024 09:30 AM AMBULAT[facility] Feb 12, 2024 01:00 PM AMBULATORY - PSYCHIATRY [facility] Mar 11, 2024 08:00 AM [facility] Active, Pending, and Scheduled Orders This section includes a listing of several types of active, pending, and scheduled orders, including clinic medications orders, diagnostic test orders, procedure orders and consult orders; where the start date of the order is 45 days before the date of the Encounter or 45 days after the date of theEncounter. The data comes from all [facility]. Test Date/Time Test Type Test Details Facility Name Nov 11, 2023 12:00 AM Laboratory - Chemi stry Order LIPID PANEL FASTING BLOOD (SST-SERUM) [facility] Nov 19, 2023 09:45 AM Consult Order COMMUNITY CARE-CARDIOLOGY Cons Scrap Worker's Choice [place] Social History: Smoking Status (Most current) and Tobacco Use (All prior to encounter date) This section includes the most current, and the historical, smoking and tobacco- related health factors from the [place] facility where the Encounter took place. Current Smoking Status This section includes the most current smoking, or tobacco-related health factor, from the [place] facility where the Encounter took place. Date/Time Current Smoking Status Comment Laury viveros Nov 10, 2022 01:30 PM [place]-TOBACCO NEVER USED [facility] Tobacco Use History This section includes a history of the smoking, or tobacco-related health factors, that were collected on or before the date of the Encounter. The data comes from the [place] facility where the Encounter took place. Date/Time Smoking Status/Tobacco Use Comment F acility Oct 14, 2021 10:18 AM VA-TOBACCO NEVER USED [place] [facility] [facility] Feb 11, 2020 04:16 PM VA-TOBACCO NEVER USED [place] [facility] [facility] Jan 15, 2018 02:24 PM LIFETIME NON-SMOKER [facility] Advance Directives: All historical and current Section Date Range: From patient's date of to the date document was created. This section includes ALL of a patient's completed or amended [place] Advance and Rescinded Directives. The entries below indicate that a directive exists for the patient, but an actual copy is not included with this document. The data comes from all [place] facilities. Date Advance Directives Provider Source Dec 14, 2020 ADVANCE DIRECTIVE MARISOL HAMPTON [facility] Encounter Notes: All associated encounter notes This section contains the clinical notes associated to the Encounter. Date/Time Encounter Note(s) Provider Source Oct 17, 2023 02:23 PM PHARMACY NOTE: LOCAL TITLE: PHARMACY CUSTOMER CARE MEDICATION RENEWAL STANDARD TITLE: PHARMACY NOTE DATE OF NOTE: OCT 17, 2023@14:23 ENTRY DATE: OCT 17, 2023@14:23:07 AUTHOR: CLARENCE MARLEY COSIGNER: URGENCY: STATUS: COMPLETED Date: Oct Division: [facility] referred by Pharmacy Call Center for medication renewal: Non-controlled/maintenanc e medication Medications requested: [id number] POLYETHYLENE GLYCOL 3350 ORAL PWDR Defer to primary care provider To be mailed . Please review and renew if appropriate. *This note was generated by [facility]/[place] Pharmacy Customer Care. If you have any questions or need assistance, do not contact this author. Please refer all questions to your local, on-site pharmacy departments. /ho/ Clarence Marley CPhT Biology Research Assistant, MS/Pharmacy Customer Care Signed: 10/17/2023 14:23 Receipt Acknowledged By: 10/23/2023 12:40 /ho/ Jo Quach MD INTERNAL MEDICINE and RHEUMATOLOGY for MARILIN Ramos EUSEBIO 10/17/2023 15:32 /ho/ GAURANG VILLALBA RN REGISTERED NURSE CLARENCE MARLEY I [facility]
--- OUTSIDE RECORDS SUMMARY | 2024-02-19 19:07 | XMS_ITS | Encounter Summary ---
Author Name [facility] [place] Address [address] [place] [id number] Care Team Providers Care Screwmaker Automatic Name Role Phone MARILIN KAPLAN Primary Care [...] Patient's Relationship to Policy Valentine NELIA PORRASIjeoma SUTTON [id number] Mar 12, 2019 [id number] [phone] CREAMER,Dina KATY PATIENT [facility] Jan 23, 2014 [id number] [phone] CREAMER,D KATY PATIENT MEDICARE (WNR) MEDICARE (M) PART A Nov 10, 2014 PART A [id number] CREAMER,D KATY PATIENT MEDICARE (WNR) MEDICARE () PART B Nov 10, 2014 PART B [id number] CREAMER,D KATY PATIENT MEDICARE (WNR) MEDICARE (M) PART A Nov 10, 2014 PART A [id number] CREAMER,D KATY PATIENT MEDICARE (WNR) MEDICARE (M) PART B Nov 10, 2014 PART B [id number] CREAMER,D KATY PATIENT MEDICARE (WNR) MEDICARE (M) PART A Nov 10, 2014 PART A [id number] CREAMER,D KATY PATIENT MEDICARE (WNR) MEDICARE (M) PART B Nov 10, 2014 PART B CREAMER,D KATY PATIENT MEDICARE (WNR) MEDICARE (M) PART B Nov 10, 2014 PART B [id number] CREAMER,D KATY PATIENT MEDICARE PART D (WNR) MEDICARE (M) PART D Nov 10, 2017 PART D [id number] CREAMER,D KATY PATIENT MEDICARE PART D (WNR) MEDICARE (M) PART D Nov 10, 2017 PART D [id number] CREAMER,D KATY PATIENT FOR LIFE TFL* Mar 12, 2023 [id number] CREAMER,D KATY PATIENT [facility] [place] POINT OF SERVICE US FAMIL Y HEALT H Mar 12, 2021 [id number] [phone] CREAMER,D KATY PATIENT [facility] RADHA SIDDIQUI REYES E Mar 12, 2019 [id number] CREAMER,D KATY PATIENT [facility] Mar 12, 2019 [facility] [id number] [phone] CREAMER,D KATY PATIENT Selected Encounter This section includes the information on record at [place] for the Encounter. Date/Time Encounter Type Encounter Description Reason Provider Source Nov 20, 2023 02:00 PM Outpatient Encounter TELEPHONE ICD-10-CM F41.9 Anxiety disorder, unspecified JARED GARNICA Mouna Encounter Template Text not used by [place] Assessments - Encounter Diagnoses This section includes the primary and secondary diagnoses documented for the Encounter. Date/Time Primary/Secondary Diagnosis Diagnosis Name Provider Source Nov 20, 2023 02:00 PM PRIMARY Anxiety disorder, unspecified JARED GARNICA Nov 20, 2023 02:00 PM SECONDARY Generalized anxiety disorder JARED GARNICA [place] Nov 20, 2023 02:00 PM SECONDARY Major depressive disorder, single episode, unspecified JARED GARNICA [place] Plan of Treatment: Future Appointments (+ 6 months) and Future Tests (+/- 45 days) The Plan of Treatment section includes future care activities for the patient from all [place] [facility] [place]. This section includes future appointments and future orders which are active, pending or scheduled. Future Appointments This section includes appointments that were scheduled to occur 6 months from the date of the Encounter, up to a maximum of 20 appointments. The data comes from all [facility]. Appointment Date/Time Appointment Type Appointme nt Facility Name Dec 04, 2023 02:30 PM AMBULATORY - MEDICINE [facility] Dec 18, 2023 01:30 PM AMBULATORY PSYCHIATRY [facility] Dec 19, 2023 11:30 AM AMBULATORY MEDICINE [facility] Jan 14, 2024 09:30 AM AMBULATORY MEDICINE [facility] [place] [facility] Feb 12, 2024 01:00 PM AMBULATORY - PSYCHIATRY [facility] Mar 11, 2024 08:00 AM AMBULATORY MEDICINE [facility] [place] [facility] Apr 22, 2024 01:00 PM AMBULATORY PSYCHIATRY [facility] Apr 29, 2024 11:30 AM AMBULATORY - MEDICINE [facility] Active, Pending, and Scheduled Orders This section includes a listing of several types of active, pending, and scheduled orders, including clinic medications orders, diagnostic test orders, procedure orders and consult orders; where the start date of the order is 45 days before the date of the Encounter or 45 days after the date of theEncounter. The data comes from all [facility]. Test Date/Time Test Type Test Details Facility Name Nov 11, 2023 12:00 AM Laboratory - Chemi stry Order LIPID PANEL FASTING BLOOD (SST-SERUM) [facility] Nov 19, 2023 09:45 AM Consult Order COMMUNITY CARE-CARDIOLOGY Cons [place] Ere[employer] Choice [place] Social History: Smoking Status (Most current) and Tobacco Use (All prior to encounter date) This section includes the most current, and the historical, smoking and tobacco- related health factors from the [place] facility where the Encounter took place. Current Smoking Status This section includes the most current smoking, or tobacco-related health factor, from the [place] facility where the Encounter took place. Date/Time Current Smoking Status Comment Laury viveros Dec 20, 2018 08:14 AM [place]-TOBACCO NEVER USED [place] Tobacco Use History This section includes a history of the smoking, or tobacco-related health factors, that were collected on or before the date of the Encounter. The data comes from the [place] facility where the Encounter took place. Date/Time Smoking Status/Tobacco Use Comment F acility Jan 18, 2018 02:01 PM [place]-TOBACCO NEVER USED [place] Apr 10, 2016 10:51 AM LIFETIME NON-TOBACCO USER [place] May 23, 2004 10:12 AM LIFETIME NON-SMOKER [place] May 23, 2004 10:12 AM LIFETIME NON-TOBACCO USER [place] Advance Directives: All historical and current Section Date Range: From patient's date of to the date document was created. This section includes ALL of a patient's completed or amended [place] Advance and Rescinded Directives. The entries below indicate that a directive exists for the patient, but an actual copy is not included with this document. The data comes from all [place] facilities. Date Advance Directives Provider Source Dec 14, 2020 ADVANCE DIRECTIVE [facility] Encounter Notes: All associated encounter notes This section contains the clinical notes associated to the Encounter. Date/Time Encounter Note(s) Provider Source Nov 20, 2023 02:27 PM MENTAL HEALTH TELE PHONE ENCOUNTER NOTE: LOCAL TITLE: TELEPHONE NOTE/MENTAL HEALTH STANDARD TITLE: MENTAL HEALTH TELEPHONE ENCOUNTER NOTE DATE OF NOTE: NOV 20, 2023@14:27 ENTRY DATE: NOV 20, 2023@14:29:13 AUTHOR: PILLO AGARWAL EXP COSIGNER: JARED GARNICA URGENCY: STATUS: COMPLETED TELEPHONE NOTE/MENTAL HEALTH Has ADDENDA Time spent: 30 minutes The presents today for follow-up and transfer of care to new resident provider. IDENTIFYING INFORMATION: Epifanio Woods is a 63-year-old male with a history of MDD, CHARAN, gambling disorder in remission, multiple TBIs, past episode of ischemic colitis, HLD, ED, POORNIMA not on CPAP, COPD,and multiple other medical conditions, who presents for psychopharmacologic follow-up. HISTORY OF PRESENT ILLNESS (patient report): - Of note, today was to be this check writer salesperson's first meeting with the patient. - Apologized that patient accidentally was booked for a 30 minute appt. rather than a 60 minute transfer of care appt. He expressed understanding. - [facility] connection did not work, so appt. took place solely by telephone. - Epifanio reports he is concerned he might have a kidney stone. - He states he has already contacted nephrology and is waiting to hear back from them. - Reports everyone has been dying around me, including a brother in law, a cousin, and an aunt. - He hasn't had time to feel depressed and take it all in. - His pain has also been contributing to low mood. - He denied safety concerns, including SI/HI/AVH. - He confirms he has been taking citalopram 20mg daily as prescribed - He has discontinued taking melatonin. Mental Status Exam: Unable to assess appearance, eye contact, or affect due to appt. taking place by telephone. Concentration and memory grossly intact. Speech is clear and spontaneous. Tone was calm, understanding, and friendly. Mood is I haven't had time to feel depressed. Thought process is linear and goal directed. Thought content is devoid of SI/HI/AVH. Insight and judgement are fair to good. SUICIDE [...] 88 w/2children a/w. his is from the [facility]. he retired from [employer] 05/23. lifelong nonsmoker. 1drink alcohol per month. Deployed in [place]. Had neck surgery and was med evac'ed for his injuries. Suffered 3+ concussions and has had cognitive deficits since. PATIENT ACTIVE PROBLEM LIST: Active problems - Computerized Problem List is the source for the followin. Obesity ([facility] [id number]) 2. CAD - Coronary Artery Disease ([facility] [id number]) 3. COPD - Chronic Obstructive Pulmonary Disease ([facility] [id number]) 4. Chronic constipation 5. Pain in right hip joint 6. GERD - Gastro-Esophageal Reflux Disease ([facility] [id number]) 7. Obstructive Sleep Apnea of Adult ([facility] [id number]) 8. Anxiety ([facility] [id number]) 9. Depression ([facility] [id number]) 10. Erosive esophagitis 11. Polyp of colon 12. Urolithiasis 13. Chronic neck pain 14. Indirect inguinal hernia 15. Generalized anxiety disorder 16. Essential hypertension 17. Colonoscopy normal 18. Ischemic colitis 19. Long-term current use of cannabis 20. Asthma 21. Shoulder region pain 22. Magnetic resonance imaging scan abnormal 23. Hyperlipidemia 24. Erectile dysfunction (SNOMED CT [id number]) 25. Neck pain 26. Elevated blood pressure reading without diagnosis of hypertension 27. Colorectal Cancer Screening Results Documented and Reviewed (PV) 28. Anisocoria * 29. Anisometropia 30. Concussion 31. Brief Loss of Consciousness with Loss of Consciousness less than 30 Minutes 32. Corneal scar 33. Sleep Apnea 34. Pathological gambling 35. Major depressive disorder 36. Dermatitis or Eczema 37. Hemorrhoid (SNOMED CT [id number]) 38. Cervical radiculopathy 39. Pain in joint involving shoulder region 40. Migraine, unspecified, without mention of Intractable Migraine 41. Low back pain 42. Hypercholesterolemia 43. Elevated Liver Function Tests 44. Impaired FASTING Glucose 45. Hemorrhoids 46. 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 Benign prostatic hypertrophy with outflow obstruction 49. HEARING LOSS 50. OBESITY ACTIVE OUTPATIENT MEDICATIONS (including Supplies): ACYCLOVIR 5% OINT APPLY THIN LAYER TOPICALLY TWICE DAILY ACTIVE NEEDED FOR INFECTION AMLODIPINE BESYLATE 5MG TAB TAKE ONE TABLET [...] MOUTH AT BEDTIME FOR DEPRESSION AND ANXIETY EZETIMIBE 10MG TAB TAKE ONE TABLET BY MOUTH ONCE DAILY TO ACTIVE (S) LOWER CHOLESTEROL LIDOCAINE 5% PATCH APPLY 3 PATCHES TOPICALLY ONCE DAILY ACTIVE FOR NERVE PAIN (LEAVE PATCH ON FOR 12 HOURS, THEN REMOVE PATCH) METOPROLOL SUCCINATE 25MG SA TAB TAKE ONE TABLET BY MOUTH ACTIVE ONCE DAILY FOR BLOOD PRESSURE/HEART OMEPRAZOLE 20MG EC CAP TAKE TWO CAPSULES BY MOUTH ONCE ACTIVE DAILY POLYETHYLENE GLYCOL 3350 ORAL PWDR TAKE 17 GRAMS(FILL CAP ACTIVE TO 17GM LINE) BY MOUTH ONCE DAILY FOR CONSTIPATION [MIX WITH 4 TO 8OZ. OF BEVERAGE] ROSUVASTATIN CA 40MG TAB TAKE ONE TABLET BY MOUTH ONCE ACTIVE DAILY FOR CHOLESTEROL TABLET CUTTER (PILL SPLITTER) USE CUTTER DIRECTED BY ACTIVE PROVIDER TO SPLIT TABLETS TAMSULOSIN HCL 0.4MG CAP TAKE ONE CAPSULE [...] BY MOUTH TWICE DAILY ACTIVE ALLERGIES: DUST I discussed the findings and plan with the patient. I educated the patient about their mental health condition. repeated back the plan and education. FORMULATION: Epifanio Woods is a 63-year-old male with a history of MDD, CHARAN, gambling disorder in remission, multiple TBIs, past episode of ischemic colitis, HLD, ED, POORNIMA not on CPAP, COPD, NSTEMI s/p stent, and multiple other medical conditions, who presents for psychopharmacologic follow-up. Per chart review, Mr. Woods's depression has been under good control. He suffered a heart attack in March 2023, and since then his anxiety has continued to slowly improve. Today (11/20/23), Epifanio reports numerous recent deaths in his family, which he feels he has not yet fully processed. His mood has remained stable, and he denies acute concerns at this time (no SI, HI, or AVH). We will not be making medication changes today. We discussed meeting again in the near future for a full 60-minute transfer of care appt. since we mistakenly booked him for a shorter appt. and additionally had video telehealth connection difficulties. [place] expressed understanding. IMPRESSION (DSM-5):PTSD MDD, mild, recurrent CHARAN Gambling disorder in sustained remission PLAN: - Continue citalopram 20mg PO daily for MDD and PTSD - Continue therapy at [facility] The patient denied suicidal and violent ideation, [...] clinical opinion that the is probably at low-risk for harm to self and others. The [...] physician follows blood pressure, weights, lipids, glucose. FOLLOW-UP: Scheduled for 12/18/23 REMINDERS: Medication Reconciliation: Outpatient: Has the patient been taking medications as documented in the EMLR? No: Discrepancies were identified. See below. Essential Medication List for Review used to complete this medication reconciliation. INCLUDED IN THIS LIST: Alphabetical list of active outpatient prescriptions dispensed from this [facility] (local) and dispensed from another [place] or [place] facility (remote) as well as inpatient orders (local, pending and active), local clinic medications, locally documented non-VA medications, and local prescriptions that have or been discontinued in the past 90 days. - Discrepancies were identified, addressed, and discussed with the patient/caregiver at this encounter. - All changes in medications, including all non-VA/Herbal/OTC medications were entered into CPRS. - If there were any medications the patient should no longer take, they were discontinued. D/C'd meds: Melatonin - The patient/caregiver was instructed to update this list, discard old lists, and take this list to the next appointment, whether with a VA or non-VA provider. /ho/ PILLO AGARWAL MD Chef Teacher Signed: 11/22/2023 21:57 /ho/ JARED GARNICA DO Psychiatrist Cosigned: 11/23/2023 08:10 11/23/2023 ADDENDUM STATUS: COMPLETED Case discussed with resident and I was present for a portion of the telephone niterview. I reviewed the note and agree with the findings, assessment, and plan as documented above. /ho/ JARED GARNICA DO Psychiatrist Signed: 11/23/2023 08:11 PILLO AGARWAL
--- OUTSIDE RECORDS SUMMARY | 2024-02-19 19:07 | XMS_ITS | Encounter Summary ---
Author Name [facility] [place] [facility] [place] [facility] [place] [facility] [place] Address [address] [place] [id number] Care Team Providers Care Commanding Officer Garage Name Role Phone MARILIN KAPLAN Primary Care [...] Name Patient's Relationship to Policy Valentine NELIA SUTTON [id number] Mar 12, 2019 [id number] CREAMDina KOHLER PATIENT [facility] Jan 23, 2014 [id number] CREAMER,Dina KATY PATIENT MEDICARE (WNR) MEDICARE (M) PART A Nov 10, 2014 PART A [id number] CREAMER,D KATY PATIENT MEDICARE (WNR) MEDICARE () PART B Nov 10, 2014 PART B [id number] CREAMER,Dina KATY PATIENT MEDICARE (WNR) MEDICARE (M) PART A Nov 10, 2014 PART A [id number] CREAMER,D KATY PATIENT MEDICARE (WNR) MEDICARE (M) PART B Nov 10, 2014 PART B [id number] CREAMER,D KATY PATIENT MEDICARE (WNR) MEDICARE (M) PART B Nov 10, 2014 PART B CREAMER,D KATY PATIENT MEDICARE (WNR) MEDICARE (M) PART A Nov 10, 2014 PART A [id number] CREAMER,D KATY PATIENT MEDICARE (WNR) MEDICARE (M) PART B Nov 10, 2014 PART B [id number] CREAMER,D KATY PATIENT MEDICARE PART D (WNR) MEDICARE (M) PART D Nov 10, 2017 PART D [id number] CREAMER,D KATY PATIENT MEDICARE PART D (WNR) MEDICARE (M) PART D Nov 10, 2017 PART D [id number] CREAMER,D KATY PATIENT FOR LIFE TFL* Mar 12, 2023 [id number] CREAMER,D KATY PATIENT [facility] POINT OF SERVICE US FAMIL Y HEALT H Mar 12, 2021 [id number] [phone] CREAMER,D KATY PATIENT [facility] RADHA REYES E Mar 12, 2019 [id number] CREAMER,D KATY PATIENT [facility] Mar 12, 2019 [facility] [id number] [phone] CREAMER,D KATY PATIENT Selected Encounter This section includes the information on record at [place] for the Encounter. Date/Time Encounter Type Encounter Description Reason Provider Source Dec 04, 2023 02:30 PM OFFICE O/P EST MOD 30 MIN DERMATOLOGY ICD-10-CM L82.0 Inflamed seborrheic keratosis NOAH OLIVEROS IHMouna Encounter Template Text not used by VA Assessments - Encounter Diagnoses This section includes the primary and secondary diagnoses documented for the Encounter. Date/Time Primary/Secondary Diagnosis Diagnosis Name Provider Source Dec 04, 2023 03:02 PM PRIMARY Inflamed seborrheic keratosis JONATHNA OLIVEROS [facility] [place] [facility] Dec 04, 2023 03:02 PM SECONDARY Dermatitis, unspecified JONATHAN OLIVEROS [facility] [place] [facility] Dec 04, 2023 03:02 PM SECONDARY Hemangioma of skin and subcutaneous tissue JONATHAN OLIVEROS [facility] [place] [facility] Dec 04, 2023 03:02 PM SECONDARY Nevus, non-neoplastic JONATHAN OLIVEROS [facility] [place] [facility] Dec 04, 2023 03:02 PM SECONDARY Other hypertrophic disorders of the skin JONATHAN OLIVEROS [facility] [place] [facility] Dec 04, 2023 03:02 PM SECONDARY Other seborrheic dermatitis JONATHAN OLIVEROS [facility] [place] [facility] Dec 04, 2023 03:02 PM SECONDARY Other seborrheic keratosis JONATHAN OLIVEROS [facility] [place] [facility] Dec 04, 2023 03:02 PM SECONDARY Tinea corporis JONATHAN OLIVEROS [facility] [place] [facility] Plan of Treatment: Future Appointments (+ 6 months) and Future Tests (+/- 45 days) The Plan of Treatment section includes future care activities for the patient from all [place] [facility]. This section includes future appointments and future orders which are active, pending or scheduled. Future Appointments This section includes appointments that were scheduled to occur 6 months from the date of the Encounter, up to a maximum of 20 appointments. The data comes from all [place] treatment [facility]. Appointment Date/Time Appointment Type Appointme nt Facility Name Dec 18, 2023 01:30 PM AMBULATORY - PSYCHIATRY [facility] Dec 19, 2023 11:30 AM [place] [facility] [place] [facility] Jan 14, 2024 09:30 AM [place] [facility] [place] [facility] Feb 12, 2024 01:00 PM AMBULATORY - PSYCHIATRY [facility] Mar 11, 2024 08:00 AM AM[place]UL[place]ORY [place] [facility] [place] [facility] Apr 22, 2024 01:00 PM AMBULATORY - PSYCHIATRY [facility] Apr 29, 2024 11:30 AM AMBULATORY - MEDICINE [facility] Active, Pending, and Scheduled Orders This section includes a listing of several types of active, pending, and scheduled orders, including clinic medications orders, diagnostic test orders, procedure orders and consult orders; where the start date of the order is 45 days before the date of the Encounter or 45 days after the date of theEncounter. The data comes from all [place] treatment facilities. 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 Tobacco Use History This section includes a history of the smoking, or tobacco-related health factors, that were collected on or before the date of the Encounter. The data comes from the [place] facility where the Encounter took place. Date/Time Smoking Status/Tobacco Use Comment F acility Oct 14, 2021 10:18 AM [place] Feb 11, 2020 04:16 PM [facility] Jan 15, 2018 02:24 PM LIFETIME NON-SMOKER [facility] Advance Directives: All historical and [...] Dec 14, 2020 ADVANCE DIRECTIVE [facility] [place] [facility] Encounter Notes: All associated encounter notes This section contains the clinical notes associated to the Encounter. Date/Time Encounter Note(s) Provider Source Dec 04, 2023 02:18 PM DERMATOLOGY OUTPATIENT NOTE: LOCAL TITLE: DERMATOLOGY CLINIC NOTE STANDARD TITLE: DERMATOLOGY OUTPATIENT NOTE DATE OF NOTE: DEC 04, 2023@14:18 ENTRY DATE: DEC 04, 2023@14:18:53 AUTHOR: JOE OLIVEROS EXP COSIGNER: URGENCY: STATUS: COMPLETED DEC 04, 2023 YESENIA WOODS Mar 63 PATIENT PHONE - [phone] Patient here for FOLLOW UP CHIEF COMPLAINT: ISKs, skin tags HPI: Reviewed records from last Dermatology visit: 12/14/2022; ISKs and irritated skin tags s/p LN2. He reports to still have a few irritating lesions he would like treated. Also a chronic, intermittent itchy rash on back, wondering if triggered by shaving? Also L armpit with a red itchy rash. REVIEW OF SYSTEMS: Constitutional-neg Skin/Hair/Nails-see HPI DermHx: Denies h/o MM or NMSC Family Hx: Denies known fam h/o MM PastMedHx: Reviewed. History of Sun Exposure/Sunburns: +yes Active Outpatient Medications (including Supplies): Active Outpatient Medications Status 1) ACYCLOVIR 5% OINT APPLY THIN LAYER TOPICALLY TWICE ACTIVE DAILY NEEDED FOR INFECTION 2) ASPIRIN 81MG EC TAB TAKE ONE TABLET BY MOUTH ONCE ACTIVE DAILY TO PREVENT STROKE/HEART ATTACK 3) CARBOXYMETHYLCELLULOSE NA 0.5% OPH SOLN INSTILL 1 ACTIVE DROP INTO EACH EYE FOUR TIMES A DAY 4) CETIRIZINE HCL 10MG TAB TAKE ONE TABLET BY MOUTH ONCE ACTIVE DAILY NEEDED FOR ALLERGIES 5) CITALOPRAM HYDROBROMIDE 40MG TAB TAKE ONE-HALF TABLET ACTIVE BY MOUTH AT BEDTIME FOR DEPRESSION AND ANXIETY 6) EZETIMIBE 10MG TAB TAKE ONE TABLET BY MOUTH ONCE ACTIVE (S) DAILY TO LOWER CHOLESTEROL 7) LIDOCAINE 5% PATCH APPLY 3 PATCHES TOPICALLY ONCE ACTIVE DAILY FOR NERVE PAIN (LEAVE PATCH ON FOR 12 HOURS, THEN REMOVE PATCH) 8) METOPROLOL SUCCINATE 25MG SA TAB TAKE ONE TABLET BY ACTIVE MOUTH ONCE DAILY FOR BLOOD PRESSURE/HEART 9) OMEPRAZOLE 20MG EC CAP TAKE TWO CAPSULES BY MOUTH ACTIVE ONCE DAILY 10) POLYETHYLENE GLYCOL 3350 ORAL PWDR TAKE 17 GRAMS(FILL ACTIVE CAP TO 17GM LINE) BY MOUTH ONCE DAILY FOR CONSTIPATION [MIX WITH 4 TO 8OZ. OF BEVERAGE] 11) ROSUVASTATIN CA 40MG TAB TAKE ONE TABLET BY MOUTH ACTIVE ONCE DAILY FOR CHOLESTEROL 12) TABLET CUTTER (PILL SPLITTER) USE CUTTER DIRECTED ACTIVE BY PROVIDER TO SPLIT TABLETS 13) TAMSULOSIN HCL 0.4MG CAP TAKE ONE CAPSULE BY MOUTH AT ACTIVE BEDTIME FOR ENLARGED PROSTATE 14) TICAGRELOR 90MG TAB TAKE ONE TABLET BY [...] TAB 90MG BY MOUTH TWICE DAILY ACTIVE 19 Total Medications PHYSICAL EXAM: Ortiz Skintype II General-AxOx3, NAD, pleasant, breathing unlabored, speech clear Cutaneous examination, as permitted by the patient, including scalp, face, eyes, ears, neck, chest, back, abdomen, arms, hands, fingers, legs Pertinent findings per below: -Multiple scattered stuck-on appearing waxy cm and brown papules and plaques with noted milia-like cysts, comedo-like openings and fissures/ridges on dermoscopy. -Mutiple discrete, soft, fleshy, skin-tone pedunculated papules to L axilla, <5mm. -Scattered uniformly pigmented light cm and brown jagged macules in sun distributed areas. -Scattered mayen-red dome shaped papules on chest/back with noted lacunae and septae noted on dermoscopy -L axillary crease with an erythematous patch -mid back - upper and mid - with an erythematous eruption of macules and papules with a few pustules -biloat nasolabial folds R>L with erythema and thin scale Diagnosis/Plan: #Seborrheic Keratoses, Irritated -The was educated regarding the benign nature, but given irritation/pain, destructive treatment requested. -Liquid nitrogen cryotherapy performed as a destructive method. -Liquid nitrogen (2 cycles x 5-8sec) x #3 lesions performed. -Side effects including but not limited to redness, crusting, swelling, blistering, scarring, and hypopigmentation discussed. -Wound care discussed in length. #Skin Tags, Irritated -The was educated regarding the benign nature, but given irritation/pain, destructive treatment requested. -Liquid nitrogen cryotherapy performed as a destructive method. -Liquid nitrogen (2 cycles x 5-8sec) x #1 lesions performed. -Side effects including but not limited to redness, crusting, swelling, blistering, hypopigmentation and scarring discussed. #Solar Lentigines -The was educated regarding the benign nature and relation to chronic sun exposure, but to return with any growth, change or symptoms in area. -Photoprotection discussed. #Mayen Angiomas: -The was educated regarding the benign nature, but to return with any growth, change or symptoms in area. #Seborrheic Keratoses: -The [place] was educated regarding the benign nature, but to return with any growth, change or symptoms in area. #Nevi: -ABCDEs of melanotic lesions discussed, self examinations encouraged -No concerning lesions today on examination -A full body skin check is recommended yearly -Photoprotection discussed. #Tinea Corporis -Counseling provided regarding expectations that cure rates are excellent, can be managed with OTC topical antifungal creams, but the recurrence rate is high. Risk factors include pets, humid or warm climates and continual mositure in the affected areas. -Rx ordered: terbinafine HCl 1% topical cream, apply to affected areas BID for 3-4 weeks. #Dermatitis, Unspecified -Location: BACK -DDx: acne vs irritant contact dermatitis vs kevyn derm -START hibiclens wash -START topical triamcinolone 0.1% cream BID PRN. Max 14d/m #Kevyn Derm -Start ketoconazole 2% cream on face RTC 1yr, sooner PRN * [place] educated to RTC murtaza if any new, changing, symptomatic lesions. * Education on sun protection and avoidance strategies was provided. * Differential diagnosis, prescription options and risks/benefits were discussed with the patient, who consented to treatment plan. * [place] consented to photography for documentation if indicated. * A dermatoscope was used during the exam. * NUB = Neoplasm of Uncertain Behavior of Skin ------TIME ESTIMATION To include but not limied to: -Review of medical records -Time spent with patient including obtaining history, physical exam, shared decision making, procedures and counseling -Post visit documentation; HPI and physical exam findings, clinical researching, medical decision making, medication and lab ordering Total estimated time = 30 min -- Medication Reconciliation: Outpatient: Has the patient been taking medications as documented in the EMLR? YES: The patient has been taking medications as documented in the EMLR. Essential Medication List for Review used to complete this medication reconciliation. INCLUDED IN THIS LIST: Alphabetical list of active outpatient prescriptions dispensed from this [place] (local) and dispensed from another [place] or [...] whether with a VA or non-VA provider. JLV Link Data on this list may not be complete. Please check JLV. Allergies/ADRs (Tool #5) FACILITY ALLERGY/ADR -------- SHAYE RachelEna GUILLORY [facility] NO KNOWN ALLERGIES [place] [facility] NO KNOWN ALLERGIES Med Kobi Linn (Tool #1) INCLUDED IN THIS LIST: Alphabetical list of active outpatient prescriptions dispensed from this [place] (local) and dispensed from another [place] or [facility] facility (remote) as well as inpatient orders (local pending and active), local clinic medications, locally documented non-VA medications, and local prescriptions that have or been discontinued in the past 90 days. Non-VA Meds Last Documented On: Jun 26, 2023 NOTE The display of VA prescriptions dispensed from another [place] or [facility] facility (remote) is limited to active outpatient prescription entries matched to National Drug File at the originating site and may not include some items such as investigational drugs, compounds, etc. NOT INCLUDED IN THIS LIST: Medications self-entered by the patient into personal health records (i.e. [facility]k) are NOT included in this list. Non-VA medications documented outside this [place], remote inpatient orders (regardless of status) and remote clinic medications are NOT included in this list. The patient and provider must always discuss medications the patient is taking, regardless of where the medication was dispensed or obtained. OUTPT ACYCLOVIR 5% OINT (Status = Active) APPLY THIN LAYER TOPICALLY TWICE DAILY NEEDED FOR INFECTION Rx# [id number] Last Released: 10/10/23 Qty/Days Supply: Rx Expiration Date: 04/24/24 Refills Remainin OUTPT ALBUTEROL 100/IPRATRO 20MCG 120D PO INHL (Status = ) INHALE 1 PUFF BY MOUTH FOUR TIMES A DAY Rx# [id number] Last Released: 11/08/23 Qty/Days Supply: 04/10 Rx Expiration Date: 11/11/23 Refills Remainin OUTPT AMLODIPINE BESYLATE 5MG TAB (Status = ) TAKE ONE TABLET BY MOUTH ONCE DAILY FOR BLOOD PRESSURE/HEART, DO NOT TAKE WITH GRAPEFRUIT JUICE Rx# [id number] Last Released: 06/01/23 Qty/Days Supply: Rx Expiration Date: 12/01/23 Refills Remainin Indication: FOR HIGH BLOOD PRESSURE Non-VA ASPIRIN 81MG CHEW TAB CHEW ONE TABLET BY MOUTH Medication prescribed by Non-VA provider. Indication: FOR TREATMENT TO PREVENT A HEART ATTACK OUTPT ASPIRIN 81MG EC TAB (Status = Active) TAKE ONE TABLET BY MOUTH ONCE DAILY TO PREVENT STROKE/HEART ATTACK Rx# [id number] Last Released: 08/13/23 Qty/Days Supply: Rx Expiration Date: 08/03/24 Refills Remainin OUTPT CARBOXYMETHYLCELLULOSE NA 0.5% OPH SOLN (Status = Discontinued) INSTILL 1 DROP INTO EACH EYE FOUR TIMES A DAY Rx# [id number] Last Released: 07/13/23 Qty/Days Supply: Rx Expiration Date: 11/02/23 Refills Remainin OUTPT CARBOXYMETHYLCELLULOSE NA 0.5% OPH SOLN (Status = Active) INSTILL 1 DROP INTO EACH EYE FOUR TIMES A DAY Rx# [id number] Last Released: 10/24/23 Qty/Days Supply: Rx Expiration Date: 10/19/24 Refills Remainin OUTPT CETIRIZINE HCL 10MG TAB (Status = Active) TAKE ONE TABLET BY MOUTH ONCE DAILY NEEDED FOR ALLERGIES Rx# [id number] Last Released: 08/28/23 Qty/Days Supply: Rx Expiration Date: 08/24/24 Refills Remainin OUTPT CITALOPRAM HYDROBROMIDE 40MG TAB (Status = Discontinued) TAKE ONE-HALF TABLET BY MOUTH AT BEDTIME FOR DEPRESSION AND ANXIETY Rx# [id number] Last Released: 09/07/23 Qty/Days Supply: Rx Expiration Date: 09/04/24 Refills Remainin Indication: FOR MAJOR DEPRESSIVE DISORDER OUTPT CITALOPRAM HYDROBROMIDE 40MG TAB (Status = Active) TAKE ONE-HALF TABLET BY MOUTH AT BEDTIME FOR DEPRESSION AND ANXIETY Rx# [id number] Last Released: 11/26/23 Qty/Days Supply: 45 Rx Expiration Date: 11/22/24 Refills Remainin Indication: FOR MAJOR DEPRESSIVE DISORDER OUTPT CYCLOBENZAPRINE HCL 5MG TAB (Status = ) TAKE 1 TO 2 TABLETS BY MOUTH TWICE DAILY NEEDED [MUSCLE RELAXANT] Rx# [id number] Last Released: 07/23/23 Qty/Days Supply: Rx Expiration Date: 10/06/23 Refills Remainin Indication: FOR MUSCLE SPASM OUTPT EZETIMIBE 10MG TAB (Status = Discontinued) TAKE ONE TABLET BY MOUTH ONCE DAILY TO LOWER CHOLESTEROL Rx# [id number] Last Released: 10/19/23 Qty/Days Supply: Rx Expiration Date: 07/17/24 Refills Remainin OUTPT EZETIMIBE 10MG TAB (Status = Active/Suspended) TAKE ONE TABLET BY MOUTH ONCE DAILY TO LOWER CHOLESTEROL Rx# [id number] Last Released: Qty/Days Supply: Rx Expiration Date: 11/06/24 Refills Remainin OUTPT FLUTICAS 250/SALMETEROL 50 INHL DISK 60 (Status = ) INHALE 1 PUFF BY MOUTH TWICE DAILY - RINSE MOUTH AFTER USE Rx# [id number] Last Released: 11/08/23 Qty/Days Supply: 04/10 Rx Expiration Date: 11/11/23 Refills Remainin OUTPT HEMORRHOIDAL RTL OINT (Status = ) APPLY SMALL AMOUNT TO TOPICALLY NEEDED FOR HEMORRHOIDS Rx# [id number] Last Released: 11/15/22 Qty/Days Supply: Rx Expiration Date: 11/11/23 Refills Remainin Indication: FOR HEMORRHOIDS OUTPT LIDOCAINE 5% PATCH (Status = Discontinued) APPLY 3 PATCHES 5% TOPICALLY ONCE DAILY FOR NERVE PAIN (LEAVE PATCH ON FOR 12 HOURS, THEN REMOVE PATCH) Rx# [id number] Last Released: 08/25/23 Qty/Days Supply: Rx Expiration Date: 02/21/24 Refills Remainin Indication: FOR NERVE PAIN OUTPT LIDOCAINE 5% PATCH (Status = Discontinued) APPLY 3 PATCHES 5% TOPICALLY ONCE DAILY FOR NERVE PAIN (LEAVE PATCH ON FOR 12 HOURS, THEN REMOVE PATCH) Rx# [id number] Last Released: Qt Supply: Rx Expiration Date: 10/05/24 Refills Remainin Indication: FOR NERVE PAIN OUTPT LIDOCAINE 5% PATCH (Status = Active) APPLY 3 PATCHES TOPICALLY ONCE DAILY FOR NERVE PAIN (LEAVE PATCH ON FOR 12 HOURS, THEN REMOVE PATCH) Rx# [id number] Last Released: 11/08/23 Qty/Days Supply: Rx Expiration Date: 10/05/24 Refills Remainin Indication: FOR NERVE PAIN OUTPT METOPROLOL SUCCINATE 25MG SA TAB (Status = Discontinued) TAKE ONE TABLET BY MOUTH ONCE DAILY FOR BLOOD PRESSURE/HEART Rx# [id number] Last Released: 10/19/23 Qty/Days Supply: Rx Expiration Date: 07/17/24 Refills Remainin OUTPT METOPROLOL SUCCINATE 25MG SA TAB (Status = Active) TAKE ONE TABLET BY MOUTH ONCE DAILY FOR BLOOD PRESSURE/HEART Rx# [id number] Last Released: 11/08/23 Qty/Days Supply: Rx Expiration Date: 11/06/24 Refills Remainin Non-VA METOPROLOL TARTRATE 25MG TAB TAKE ONE TABLET BY MOUTH TWICE DAILY Medication prescribed by Non-VA provider. Indication: FOR HEART ATTACK OUTPT OMEPRAZOLE 20MG EC CAP (Status = Active) TAKE TWO CAPSULES BY MOUTH ONCE DAILY Rx# [id number] Last Released: 10/05/23 Qty/Days Supply: 180/ Rx Expiration Date: 01/23/24 Refills Remainin Indication: FOR EXCESSIVE PRODUCTION OF STOMACH ACID OUTPT ONDANSETRON 4MG ORAL DISINTEGRATING TAB (Status = ) PLACE ONE TABLET ON THE TONGUE EVERY 8 HOURS NEEDED FOR NAUSEA AND VOMITING (ALLOW TABLET TO DISSOLVE ON TONGUE, AND SWALLOW WITH SALIVA) Rx# [id number] Last Released: 10/04/22 Qty/Days Supply: 08/01 Rx Expiration Date: 10/01/23 Refills Remainin Indication: FOR NAUSEA AND VOMITING Non-VA OTHER CAP/TAB TAKE MEDICAL MARIJUANA BY MOUTH OUTPT POLYETHYLENE GLYCOL 3350 ORAL PWDR (Status = Discontinued) TAKE 17 GRAMS(FILL CAP TO 17GM LINE) BY MOUTH ONCE DAILY FOR CONSTIPATION [MIX WITH 4 TO 8OZ. OF BEVERAGE] Rx# [id number] Last Released: 08/27/23 Qty/Days Supply: Rx Expiration Date: 02/20/24 Refills Remainin Indication: FOR CONSTIPATION OUTPT POLYETHYLENE GLYCOL 3350 ORAL PWDR (Status = Active) TAKE 17 GRAMS(FILL CAP TO 17GM LINE) BY MOUTH ONCE DAILY FOR CONSTIPATION [MIX WITH 4 TO 8OZ. OF BEVERAGE] Rx# [id number] Last Released: 10/31/23 Qty/Days Supply: Rx Expiration Date: 10/23/24 Refills Remainin Indication: FOR CONSTIPATION Non-VA ROSUVASTATIN CA 40MG TAB TAKE ONE TABLET BY MOUTH ONCE DAILY OUTPT ROSUVASTATIN CA 40MG TAB (Status = Active) TAKE ONE TABLET BY MOUTH ONCE DAILY FOR CHOLESTEROL Rx# [id number] Last Released: 11/08/23 Qty/Days Supply: Rx Expiration Date: 08/03/24 Refills Remainin OUTPT SILDENAFIL CITRATE 100MG TAB (Status = ) TAKE ONE TABLET BY MOUTH ONCE DAILY NEEDED TAKE 1 HOUR PRIOR TO SEXUAL ACTIVITY Rx# [id number] Last Released: 11/08/23 Qty/Days Supply: 07/09 Rx Expiration Date: 11/11/23 Refills Remainin Indication: FOR ERECTILE DYSFUNCTION OUTPT TAMSULOSIN HCL 0.4MG CAP (Status = Discontinued) TAKE ONE CAPSULE BY MOUTH AT BEDTIME FOR ENLARGED PROSTATE Rx# [id number] Last Released: 07/05/23 Qty/Days Supply: Rx Expiration Date: 07/04/24 Refills Remainin Indication: FOR ENLARGED PROSTATE OUTPT TAMSULOSIN HCL 0.4MG CAP (Status = Active) TAKE ONE CAPSULE BY MOUTH AT BEDTIME FOR ENLARGED PROSTATE Rx# [id number] Last Released: 11/14/23 Qty/Days Supply: Rx Expiration Date: 11/06/24 Refills Remainin Indication: FOR ENLARGED PROSTATE Non-VA TICAGRELOR 90MG TAB TAKE ONE TABLET BY MOUTH TWICE DAILY Medication prescribed by Non-VA provider. Indication: TO PREVENT BLOOD CLOTS OUTPT TICAGRELOR 90MG TAB (Status = Active) TAKE ONE TABLET BY MOUTH TWICE DAILY Rx# [id number] Last Released: 10/19/23 Qty/Days Supply: Rx Expiration Date: 07/17/24 Refills Remainin SUPPLIES OUTPT TABLET CUTTER (PILL SPLITTER) (Status = Active) USE CUTTER DIRECTED BY PROVIDER TO SPLIT TABLETS Rx# [id number] Last Released: 10/12/23 Qty/Days Supply: Rx Expiration Date: 01/08/24 Refills Remainin Indication: SPLIT TABLET /es/ JOE OLIVEROS DNP, CAKE FORMER-C NURSE PRACTITIONER Signed: 12/04/2023 15:02 JOE OLIVEROS CNT [facility]
--- OUTSIDE RECORDS SUMMARY | 2024-02-19 19:07 | XMS_ITS | Encounter Summary ---
Author Name [facility] [place] Organization [facility] [place] Address [address] [place] [address] Care Team Providers Care Pattern Marking Supervisor Name Role Phone MARILIN KAPLAN Primary [...] PRESCRIPT ION [id number] 1 Mar 12, 2019 [id number] [phone] CREAMDina KOHLER PATIENT [facility] STATE [facility]ENC Y Jan 23, 2014 [id number] [phone] CREAMER,Dina KATY PATIENT MEDICARE (WNR) MEDICARE () PART A Nov 10, 2014 PART A [id number] CREAMER,D KATY PATIENT MEDICARE (WNR) MEDICARE () PART B Nov 10, 2014 PART B [id number] CREAMER,Dina KATY PATIENT MEDICARE (WNR) MEDICARE () PART A Nov 10, 2014 PART A [id number] CREAMER,D KATY PATIENT MEDICARE (WNR) MEDICARE (M) PART B Nov 10, 2014 PART B [id number] CREAMER,D KATY PATIENT MEDICARE (WNR) MEDICARE (M) PART A Nov 10, 2014 PART A [id number] CREAMER,D KATY PATIENT MEDICARE (WNR) MEDICARE (M) PART B Nov 10, 2014 PART B [id number] CREAMER,D KATY PATIENT MEDICARE (WNR) MEDICARE (M) PART B Nov 10, 2014 PART B CREAMER,D KATY PATIENT MEDICARE PART D (WNR) MEDICARE (M) PART D Nov 10, 2017 PART D [id number] CREAMER,D KATY PATIENT MEDICARE PART D (WNR) MEDICARE (M) PART D Nov 10, 2017 PART D [id number] [phone] CREAMER,D KATY PATIENT FOR LIFE TFL* Mar 12, 2023 [id number] [phone] CREAMER,D KATY PATIENT [facility] POINT OF SERVICE US FAMIL Y HEALT H Mar 12, 2021 [id number] [phone] CREAMER,D KATY PATIENT [facility] E Mar 12, 2019 [id number] CREAMER,D K[facility] Mar 12, 2019 [facility] [id number] CREAMER,D KATY PATIENT Selected Encounter This section includes the information on record at [place] for the Encounter. Date/Time Encounter Type Encounter Description Reason Pro vider Source Nov 06, 2023 10:48 AM Outpatient Encounter ADMIN PAT ACTIVTIES (MASNONCT) [...] 20 appointments. The data comes from all [facility]. Appointment Date/Time Appointment Type Appointme nt Facility Name Dec 04, 2023 02:30 PM [facility]UL[facility] Dec 18, 2023 01:30 PM AMBULATORY - PSYCHIATRY [facility] Dec 19, 2023 11:30 AM AMBULATORY - MEDICINE [facility] NTRL WSTRN [facility] Jan 14, 2024 09:30 AM AMBULATORY - MEDICINE [facility] NTR WSN [facility] Feb 12, 2024 01:00 PM AMBULATORY - PSYCHIATRY [facility] Mar 11, 2024 08:00 AM [facility] Apr 22, 2024 01:00 PM AMBULATORY - PSYCHIATRY [facility] Apr 29, 2024 11:30 AM AMBULATORY - MEDICINE [facility] Active, Pending, and Scheduled Orders This section includes a listing of several types of active, pending, and scheduled orders, including clinic medications orders, diagnostic test orders, procedure orders and consult orders; where the start date of the order is 45 days before the date of the Encounter or 45 days after the date of theEncounter. The data comes from all [facility]. Test Date/Time Test Type Test Details Facility Name Nov 11, 2023 12:00 AM Laboratory - Chemi stry Order LIPID PANEL FASTING BLOOD (SST-SERUM) [facility] Nov 19, 2023 09:45 AM Consult Order COMMUNITY CARE-CARDIOLOGY Cons Percolator Operator's Choice [place] Social History: Smoking Status (Most current) and Tobacco Use (All prior to encounter date) This section includes the most current, and the historical, smoking and tobacco- related health factors from the [place] facility where the Encounter took place. Current Smoking Status This section includes the most current smoking, or tobacco-related health factor, from the [place] facility where the Encounter took place. Date/Time Current Smoking Status Comment Laury viveros Nov 10, 2022 01:30 PM ID-TOBACCO NEVER USED [facility] Tobacco Use History This section includes a history of the smoking, or tobacco-related health factors, that were collected on or before the date of the Encounter. The data comes from the ID facility where the Encounter took place. Date/Time Smoking Status/Tobacco Use Comment F acility Oct 14, 2021 10:18 AM VA-TOBACCO NEVER USED [place] CNTRL [place] [facility] Feb 11, 2020 04:16 PM VA-TOBACCO NEVER USED ID CNTRL [place] [facility] Jan 15, 2018 02:24 PM LIFETIME NON-SMOKER [facility] Advance Directives: All historical and current Section Date Range: From patient's date of to the date document was created. This section includes ALL of a patient's completed or amended [place] Advance and Rescinded Directives. The entries below indicate that a directive exists for the patient, but an actual copy is not included with this document. The data comes from all [place] facilities. Date Advance Directives Provider Source Dec 14, 2020 ADVANCE DIRECTIVE BERTACARLOSEvangelinaSPENCER ID [facility] Encounter Notes: All associated encounter notes This section contains the clinical notes associated to the Encounter. Date/Time Encounter Note(s) Provider Source Nov 06, 2023 10:48 AM ADMINISTRATIVE NOTE: LOCAL TITLE: CCC: SCHEDULING ADMINISTRATION STANDARD TITLE: ADMINISTRATIVE NOTE DATE OF NOTE: NOV 06, 2023@10:48:19 ENTRY DATE: NOV 06, 2023@10:48:19 AUTHOR: RITA GIRARD EXP COSIGNER: URGENCY: STATUS: COMPLETED Patient Demographics Patient Name: YESENIA WOODS Patient Primary Phone: [phone] Patient Primary Address: [address] [place] [address] Patient : 1960 Patient Age: 63 Caller/Recipient Relation to Patient: Self Administrative Administrative Note Reason: Medication Renewal [place] Medications Refill/Renewal Request: METOPROLOL SUCCINATE 25MG SA TAB TO BE MAILED IMPORTANT: This note was created by [facility] Clinical Contact Center staff. Please do not alert the staff member by adding them as a signer for future communications. Alerts are not monitored by this user. /ho/ RITA GIRARD Signed: 11/06/2023 10:48 Receipt Acknowledged By: 11/06/2023 16:21 /ho/ CAMILLE ALICEA, CHEMIST NURSE PRACTITIONER for MARILIN KAPLAN 11/06/2023 10:59 /es/ GAURANG VILLALBA RN REGISTERED NURSE [facility]ARD [facility]
--- OUTSIDE RECORDS SUMMARY | 2024-02-19 19:07 | XMS_ITS | Encounter Summary ---
Author Name [facility] [place] Address [address] [place] [address] Care Team Providers Care Home Visitor Name Role Phone MARILIN KAPLAN Primary Care [...] NELIA SUTTON [id number] 1 Mar 12, 2019 [id number] [phone] CREAMER,Dina KATY PATIENT [facility] Jan 23, 2014 [id number] [phone] CREAMER,D KATY PATIENT MEDICARE ([facility]) MEDICARE () PART A Nov 10, 2014 PART A [id number] CREAMER,D KATY PATIENT MEDICARE ([facility]) MEDICARE () PART B Nov 10, 2014 PART B [id number] CREAMER,D KATY PATIENT MEDICARE ([facility]) MEDICARE () PART A Nov 10, 2014 PART A [id number] CREAMER,D KATY PATIENT MEDICARE (WNR) MEDICARE (M) PART B Nov 10, 2014 PART B [id number] [phone] CREAMER,D KATY PATIENT MEDICARE (WNR) MEDICARE (M) PART B Nov 10, 2014 PART B [id number] CREAMER,D KATY PATIENT MEDICARE (WNR) MEDICARE (M) PART A Nov 10, 2014 PART A [id number] CREAMER,D KATY PATIENT MEDICARE (WNR) MEDICARE (M) PART B Nov 10, 2014 PART B [id number] CREAMER,D KATY PATIENT MEDICARE PART D (WNR) MEDICARE (M) PART D Nov 10, 2017 PART D [id number] [phone] CREAMER,D KATY PATIENT MEDICARE PART D (WNR) MEDICARE (M) PART D Nov 10, 2017 PART D [id number] [phone] CREAMERDina PATIENT FOR LIFE TFL* Mar 12, 2023 [id number] CREAMDina KOHLER PATIENT [facility] POINT OF SERVICE US FAMIL Y HEALT H Mar 12, 2021 [id number] [phone] CREAMDina KOHLER PATIENT [facility] E Mar 12, 2019 [id number] CREAMDina KOHLER PATIENT [facility] Mar 12, 2019 [facility] [id number] CREAMDina KOHLER PATIENT Selected Encounter This section includes the information on record at [place] for the Encounter. Date/Time Encounter Type Encounter Description Reason Pro vider Source IHE Encounter Template Text not used by [place] Advance Directives: All historical and current Section [...] Dec 14, 2020 ADVANCE DIRECTIVE MARISOL HAMPTON CNTRL WSTRA[facility]
--- OUTSIDE RECORDS SUMMARY | 2024-02-19 19:08 | XMS_ITS | Encounter Summary ---
Author Name Department [place] Organization [place] Address [address] [place] [address] Care Team Providers Care Hot Mill Roller Name Role Phone MARILIN KAPLAN Primary Care [...] PORRAST ION [id number] 1 Mar 12, 2019 [id number] [id number] Dina WOODS PATIENT [facility] STATE AGENC Y Jan 23, 2014 [id number] [id number] CREAMDina KOHLER PATIENT MEDICARE (WNR) MEDICARE (M) PART A Nov 10, 2014 PART A [id number] CREAMDina KOHLER KATY PATIENT MEDICARE (WNR) MEDICARE (M) PART B Nov 10, 2014 PART B [id number] [phone] CREAMDina KOHLER PATIENT MEDICARE (WNR) MEDICARE (M) PART A Nov 10, 2014 PART A [id number] CREAMER,D KATY PATIENT MEDICARE (WNR) MEDICARE (M) PART B Nov 10, 2014 PART B [id number] CREAMER,D KATY PATIENT MEDICARE (WNR) MEDICARE (M) PART A Nov 10, 2014 PART A [id number] CREAMER,D KATY PATIENT MEDICARE (WNR) MEDICARE (M) PART B Nov 10, 2014 PART B [id number] CREAMER,D KATY PATIENT MEDICARE (WNR) MEDICARE (M) PART B Nov 10, 2014 PART B CREAMER,D KATY PATIENT MEDICARE PART D (WNR) MEDICARE (M) PART D Nov 10, 2017 PART D [id number] CREAMER,D KATY PATIENT MEDICARE PART D (WNR) MEDICARE (M) PART D Nov 10, 2017 PART D [id number] CREAMER,D KATY PATIENT FOR LIFE TFL* Mar 12, 2023 [id number] CREAMER,D KATY PATIENT [facility] POINT OF SERVICE US FAMIL Y HEALT H Mar 12, 2021 [id number] [phone] CREAMER,D KATY PATIENT [facility] E Mar 12, 2019 [id number] CREAMER,D KATY [facility]IENT [facility] Mar 12, 2019 [facility] [id number] [phone] CREAMER,D KATY PATIENT Selected Encounter This section includes the information on record at [place] for the Encounter. Date/Time Encounter Type Encounter Description Reason Pro vider Source Dec 13, 2023 11:28 AM Outpatient Encounter TELEPHONE TRIAGE IHE Encounter Template Text not used by [...] 20 appointments. The data comes from all [facility]. Appointment Date/Time Appointment Type Appointme nt Facility Name Dec 18, 2023 01:30 PM AMBULATORY - PSYCHIATRY [facility] Dec 19, 2023 11:30 AM [facility] Jan 14, 2024 09:30 AM [facility] Feb 12, 2024 01:00 PM AMBULATORY - PSYCHIATRY [facility] Mar 11, 2024 08:00 AM [facility]UL[facility] Apr 22, 2024 01:00 PM AMBULATORY - PSYCHIATRY [facility] Apr 29, 2024 11:30 AM [...] of theEncounter. The data comes from all [facility]. Test Date/Time Test Type Test Details Facility Name Nov 11, 2023 12:00 AM Laboratory - Chemi str Order LIPID PANEL FASTING BLOOD (SST-SERUM) [facility] Nov 19, 2023 09:45 AM Consult Order COMMUNITY CARE-CARDIOLOGY Cons Kier Tender's Choice [place] Social History: Smoking Status (Most current) and Tobacco Use (All prior to encounter date) This section includes the most current, and the historical, smoking and tobacco- related health factors from the [place] facility where the Encounter took place. Current Smoking Status This section includes the most current smoking, or tobacco-related health factor, from the [place] facility where the Encounter took place. Date/Time Current Smoking Status Comment Facil ity Nov 10, 2022 01:30 PM VA-TOBACCO NEVER USED [facility] Tobacco Use History This section includes a history of the smoking, or tobacco-related health factors, that were collected on or before the date of the Encounter. The data comes from the [place] facility where the Encounter took place. Date/Time Smoking Status/Tobacco Use Comment F acility Oct 14, 2021 10:18 AM VA-TOBACCO NEVER USED [place]TRL [place] [facility] Feb 11, 2020 04:16 PM VA-TOBACCO NEVER USED [place] CNTRL [place] [facility] Jan 15, 2018 02:24 PM LIFETIME NON-SMOKER [place] [facility] Advance Directives: All historical and current Section Date Range: From patient's date of to the date document was created. This section includes ALL of a patient's completed or amended [place] Advance and Rescinded Directives. The entries below indicate that a directive exists for the patient, but an actual copy is not included with this document. The data comes from all [place] facilities. Date Advance Directives Provider Source Dec 14, 2020 ADVANCE DIRECTIVE BERTANOHEMISPENCER [place] CNTR [facility] Encounter Notes: All associated encounter notes This section contains the clinical notes associated to the Encounter. Date/Time Encounter Note(s) Provider Source Dec 13, 2023 11:28 AM RN PROGRESS NOTE: LOCAL TITLE: CCC: CLINICAL TRIAGE STANDARD TITLE: RN PROGRESS NOTE DATE OF NOTE: DEC 13, 2023@11:28:22 ENTRY DATE: DEC 13, 2023@11:28:23 AUTHOR: ALECIA ANTOINE COSIGNER: URGENCY: STATUS: COMPLETED CCC: CLINICAL TRIAGE Has ADDENDA Patient Demographics Patient Name: YESENIA WOODS Patient Primary Address: [address] [place] [address] Patient Primary Phone: [phone] Patient : 1960 Patient Age: 63 Caller/Recipient Relation to Patient: Self Emergency Contact: STUART WOODS Nursing Plan and Disposition Other course(s) of action Generated msg to PACT/Provider Nurse Summary Nurse Summary: [place] states that he has had pain in his tooth for the last two days. This is the same tooth that the [place] dentist had put a crown on ( few years ago). [place] would like assistance from PACT in getting an appointment with [place] dental. He would also like to get something for pain. PACT please follow up with . understands that the Triage Line is staffed to 24/7 should any need arise. [place] stated no additional concerns to address at this time. Clinical Contact Center Codes Clinic/Location: V1 CWM PHONE CCC RN IMPORTANT: This note was created by [facility] Clinical Contact Center staff. Please do not alert the staff member by adding them as a signer for future communications. Alerts are not monitored by this user. /gunnar ANTOINE Signed: 12/13/2023 11:28 Receipt Acknowledged By: 12/19/2023 10:22 /es/ ALEXEI GUTIERREZ LPN LPN 12/17/2023 15:02 /ho/ GAURANG VILLALBA RN REGISTERED NURSE 12/17/2023 ADDENDUM STATUS: COMPLETED Spoke with . He states he is seeing a dentist at [facility] on 12/19/23. [facility] Dental Consult in place. /ho/ GAURNAG VILLALBA RN REGISTERED NURSE Signed: 12/17/2023 15:02 AELCIA ANTOINE [place] CNTRL WSTRN [facility]
--- OUTSIDE RECORDS SUMMARY | 2024-02-19 19:08 | XMS_ITS | Encounter Summary ---
Author Name [place] Address [address] [place] [address] Care Team Providers Care Fios Line Installer Name Role Phone MARILIN KAPLAN Primary [...] PRESCRIPT ION [id number] 1 Mar 12, 2019 [id number] [phone] CREAMDina KOHLER PATIENT [facility] STATE AGENC Y Jan 23, 2014 [id number] [id number] CREAMER,Dina KATY PATIENT MEDICARE (WNR) MEDICARE () PART A Nov 10, 2014 PART A [id number] CREAMER,D KATY PATIENT MEDICARE (WNR) MEDICARE () PART B Nov 10, 2014 PART B [id number] CREAMER,Dina KATY PATIENT MEDICARE (WNR) MEDICARE () PART A Nov 10, 2014 PART A [id number] CREAMER,D KATY PATIENT MEDICARE (WNR) MEDICARE (M) PART B Nov 10, 2014 PART B [id number] CREAMER,D KATY PATIENT MEDICARE (WNR) MEDICARE (M) PART A Nov 10, 2014 PART A [id number] CREAMER,D KATY PATIENT MEDICARE (WNR) MEDICARE (M) PART B Nov 10, 2014 PART B [id number] [phone] CREAMER,D KATY PATIENT MEDICARE (WNR) MEDICARE (M) PART B Nov 10, 2014 PART B [id number] CREAMER,D KATY PATIENT MEDICARE PART D (WNR) MEDICARE (M) PART D Nov 10, 2017 PART D [id number] CREAMER,D KATY PATIENT MEDICARE PART D (WNR) MEDICARE (M) PART D Nov 10, 2017 PART D [id number] CREAMER,D KATY PATIENT FOR LIFE TFL* Mar 12, 2023 [id number] [phone] CREAMER,D KATY PATIENT [facility] POINT OF SERVICE US FAMIL Y HEALT H Mar 12, 2021 [id number] [phone] CREAMER,D KATY PATIENT [facility] REYES E Mar 12, 2019 [id number] CREAMER,D KATY PATIENT [facility] Mar 12, 2019 [facility] [id number] CREAMER,D KATY PATIENT Selected Encounter This section includes the information on record at [place] for the Encounter. Date/Time Encounter Type Encounter Description Reason Pro vider Source Dec 07, 2023 02:45 PM Outpatient Encounter ADMIN PAT ACTIVTIES (MASNONCT) [...] 20 appointments. The data comes from all [facility]. Appointment Date/Time Appointment Type Appointme nt Facility Name Dec 18, 2023 01:30 PM AMBULATORY - PSYCHIATRY [facility] Dec 19, 2023 11:30 AM [facility] Jan 14, 2024 09:30 AM AMBULATORY - MEDICINE [facility] NTR WSN [facility] Feb 12, 2024 01:00 PM AMBULATORY - PSYCHIATRY [facility] Mar 11, 2024 08:00 AM AMBULATORY - MEDICINE [facility] Apr 22, 2024 01:00 PM AMBULATORY - PSYCHIATRY [facility] Apr 29, 2024 11:30 AM AMBULATORY - MEDICINE [facility] Active, Pending, and Scheduled Orders This section includes a listing of several types of active, pending, and scheduled orders, including clinic medications orders, diagnostic test orders, procedure orders and consult orders; where the start date of the order is 45 days before the date of the Encounter or 45 days after the date of theEncounter. The data comes from all [facility]. Test Date/Time Test Type Test Details Facility Name Nov 11, 2023 12:00 AM Laboratory - Chemi stry Order LIPID PANEL FASTING BLOOD (SST-SERUM) [facility] Nov 19, 2023 09:45 AM Consult Order COMMUNITY CARE-CARDIOLOGY Cons Web User Experience Strategist's Choice [place] Social History: Smoking Status (Most current) and Tobacco Use (All prior to encounter date) This section includes the most current, and the historical, smoking and tobacco- related health factors from the [place] facility where the Encounter took place. Current Smoking Status This section includes the most current smoking, or tobacco-related health factor, from the [place] facility where the Encounter took place. Date/Time Current Smoking Status Comment Laury viveros Nov 10, 2022 01:30 PM [place]-TOBACCO NEVER USED [facility] Tobacco Use History This section includes a history of the smoking, or tobacco-related health factors, that were collected on or before the date of the Encounter. The data comes from the [place] facility where the Encounter took place. Date/Time Smoking Status/Tobacco Use Comment F acility Oct 14, 2021 10:18 AM [facility]ACCO [facility] Feb 11, 2020 04:16 PM VA-TOBACCO NEVER USED [facility] Jan 15, 2018 02:24 PM LIFETIME NON-SMOKER [facility] Advance Directives: All historical and current Section Date Range: From patient's date of to the date document was created. This section includes ALL of a patient's completed or amended [place] Advance and Rescinded Directives. The entries below indicate that a directive exists for the patient, but an actual copy is not included with this document. The data comes from all [place] facilities. Date Advance Directives Provider Source Dec 14, 2020 ADVANCE DIRECTIVE MARISOL [facility] Encounter Notes: All associated encounter notes This section contains the clinical notes associated to the Encounter. Date/Time Encounter Note(s) Provider Source Dec 07, 2023 02:45 PM PHARMACY NOTE: LOCAL TITLE: PHARMACY CUSTOMER CARE MEDICATION RENEWAL STANDARD TITLE: PHARMACY NOTE DATE OF NOTE: DEC 07, 2023@14:45 ENTRY DATE: DEC 07, 2023@14:45:49 AUTHOR: KATEY MONTEMAYOR COSIGNER: URGENCY: STATUS: COMPLETED Date: Nov Division: [place] Pt referred by Pharmacy Call Center for medication renewal: Non-controlled/maintenan ce medication Medications requested: [id number] FLUTICAS 250/SALMETEROL 50 INHL DISK 60 [id number] ALBUTEROL 100/IPRATRO 20MCG 120D PO INHL [id number] SILDENAFIL CITRATE 100MG TAB To be mailed . Please review and renew if appropriate. *This note was generated by [facility] Pharm[facility] Customer Care. If you have any questions or need assistance, do not contact this author. Please refer all questions to your local, on-site pharmacy departments. /gunnar MONTEMAYOR CPhT [place], [place]/Pharmacy Customer Care Signed: 12/07/2023 14:46 Receipt Acknowledged By: 12/09/2023 08:25 /ho/ ESTEFANY LOBO NP NURSE PRACTITIONER for MARILIN KAPLAN 12/11/2023 15:40 /es/ GAURANG VILLALBA RN REGISTERED NURSE KATEY [facility]ONTEMAYORRDECATUR [facility]IRANDA CAT
--- OUTSIDE RECORDS SUMMARY | 2024-02-19 19:09 | XMS_ITS | Encounter Summary ---
Author Name [facility] [place] Address [address] [place] [address] Care Team Providers Care Box Puller Name Role Phone MARILIN KAPLAN Primary Care [...] PRESCRIPT ION [id number] 1 Mar 12, 2019 [id number] CREAMDina KOHLER PATIENT [facility] Jan 23, 2014 [id number] [phone] CREAMER,Dina KATY PATIENT MEDICARE (WNR) MEDICARE () PART A Nov 10, 2014 PART A [id number] CREAMER,D KATY PATIENT MEDICARE (WNR) MEDICARE () PART B Nov 10, 2014 PART B [id number] CREAMER,Dina KATY PATIENT MEDICARE (WNR) MEDICARE () PART B Nov 10, 2014 PART B [id number] CREAMER,D KATY PATIENT MEDICARE (WNR) MEDICARE (M) PART A Nov 10, 2014 PART A [id number] [phone] CREAMER,D KATY PATIENT MEDICARE (WNR) MEDICARE (M) PART A Nov 10, 2014 PART A [id number] [phone] CREAMER,D KATY PATIENT MEDICARE (WNR) MEDICARE (M) PART B Nov 10, 2014 PART B [id number] CREAMER,D KATY PATIENT MEDICARE (WNR) MEDICARE (M) PART B Nov 10, 2014 PART B [id number] CREAMER,D KATY PATIENT MEDICARE PART D (WNR) MEDICARE (M) PART D Nov 10, 2017 PART D [id number] CREAMER,D KATY PATIENT MEDICARE PART D (WNR) MEDICARE (M) PART D Nov 10, 2017 PART D [id number] [phone] CREAMER,D KATY PATIENT FOR LIFE TFL* Mar 12, 2023 [id number] CREAMER,D KATY PATIENT [facility] POINT OF SERVICE US FAMIL Y HEALT H Mar 12, 2021 [id number] [phone] CREAMER,D KATY PATIENT [facility] RE[facility] E Mar 12, 2019 [id number] CREAMER,D KATY PATIENT [facility] Mar 12, 2019 [facility] [id number] [phone] CREAMER,D KATY PATIENT Selected Encounter This section includes the information on record at [place] for the Encounter. Date/Time Encounter Type Encounter Description Reason Pro vider Source Dec 13, 2023 04:26 PM Outpatient Encounter ADMIN PAT [...] 20 appointments. The data comes from all [facility]. Appointment Date/Time Appointment Type Appointme nt Facility Name Dec 18, 2023 01:30 PM AMBULATORY - PSYCHIATRY [facility] Dec 19, 2023 11:30 AM [facility] Jan 14, 2024 09:30 AM AMBULATORY - MEDICINE [facility] NTR WSN [facility] Feb 12, 2024 01:00 PM AMBULATORY - PSYCHIATRY [facility] Mar 11, 2024 08:00 AM [facility] Apr 22, 2024 01:00 PM AMBULATORY - PSYCHIATRY [facility] Apr 29, 2024 11:30 AM AMBULATORY - MEDICINE [facility] Active, Pending, and Scheduled Orders This section includes a listing of several types of active, pending, and scheduled orders, including clinic medications orders, diagnostic test orders, procedure orders and consult orders; where the start date of the order is 45 days before the date of the Encounter or 45 days after the date of theEncounter. The data comes from all [facility]. Test Date/Time Test Type Test Details Facility Name Nov 11, 2023 12:00 AM Laboratory - Chemi stry Order LIPID PANEL FASTING BLOOD (SST-SERUM) [facility] Nov 19, 2023 09:45 AM Consult Order COMMUNITY CARE-CARDIOLOGY Cons Sharepoint Web Developer's Choice [place] Social History: Smoking Status (Most current) and Tobacco Use (All prior to encounter date) This section includes the most current, and the historical, smoking and tobacco- related health factors from the [place] facility where the Encounter took place. Current Smoking Status This section includes the most current smoking, or tobacco-related health factor, from the [place] facility where the Encounter took place. Date/Time Current Smoking Status Comment Laury viveros Nov 10, 2022 01:30 PM [place]-TOBACCO NEVER USED [facility] Tobacco Use History This section includes a history of the smoking, or tobacco-related health factors, that were collected on or before the date of the Encounter. The data comes from the [place] facility where the Encounter took place. Date/Time Smoking Status/Tobacco Use Comment F acility Oct 14, 2021 10:18 AM VA-TOBACCO [facility] Feb 11, 2020 04:16 PM VA-TOBACCO NEVER USED [facility] Jan 15, 2018 02:24 PM LIFETIME [facility]-SMOKER [facility] Advance Directives: All historical and current Section Date Range: From patient's date of to the date document was created. This section includes ALL of a patient's completed or amended [place] Advance and Rescinded Directives. The entries below indicate that a directive exists for the patient, but an actual copy is not included with this document. The data comes from all [place] facilities. Date Advance Directives Provider Source Dec 14, 2020 ADVANCE DIRECTIVE MARISOL HAMPTON [facility] Encounter Notes: All associated encounter notes This section contains the clinical notes associated to the Encounter. Date/Time Encounter Note(s) Provider Source Dec 13, 2023 04:26 PM PHARMACY NOTE: LOCAL TITLE: V1 PHARMACY CUSTOMER CARE MEDICATION RENEWAL STANDARD TITLE: PHARMACY NOTE DATE OF NOTE: DEC 13, 2023@16:26 ENTRY DATE: DEC 13, 2023@16:26:45 AUTHOR: DURGA TREVIÑO EXP COSIGNER: URGENCY: STATUS: COMPLETED V1 PHARMACY CUSTOMER CARE MEDICATION RENEWAL Has ADDENDA Date: Dec Division: [facility] referred by Pharmacy Call Center for medication renewal: Non-controlled/maintenance medication Medications requested: [id number] CYCLOBENZAPRINE HCL 5MG TAB Defer to primary care provider To be mailed . Please review and renew if appropriate. *This note was generated by [facility]/[place] Pharmacy Customer Care. If you have any questions or need assistance, do not contact this author. Please refer all questions to your local, on-site pharmacy departments. /ho/ Jay Treviño (Alice) [facility] [place], [place]/Pharmacy Customer Care Signed: 12/13/2023 16:28 Receipt Acknowledged By: 12/18/2023 19:20 /ho/ CHARLEY ALICEA NP NURSE PRACTITIONER for MARILIN KAPLAN 12/17/2023 14:56 /ho/ GAURANG VILLALBA RN REGISTERED NURSE 12/14/2023 ADDENDUM STATUS: COMPLETED renewed. /es/ ESETFANY LOBO NP NURSE PRACTITIONER Signed: 12/14/2023 18:51 12/17/2023 ADDENDUM STATUS: COMPLETED Spoke with . He states he is seeing a dentist at [facility] on 12/19/23. CC Dental Consult in place. /es/ GAURANG VILLALBA RN REGISTERED NURSE Signed: 12/17/2023 15:02 DURGA TREVIÑO [facility]
--- OUTSIDE RECORDS SUMMARY | 2024-02-19 19:09 | XMS_ITS | Encounter Summary ---
Author Name [place] Address [address] [place] [address] Care Team Providers Care Bond Trader Name Role Phone MARILIN KAPLAN Primary Care [...] PRESCRIPT ION [id number] 1 Mar 12, 2019 [id number] [phone] Dina WOODSNIS PATIENT [facility] Jan 23, 2014 [id number] [phone] CREAMERDinaNIS PATIENT MEDICARE (WNR) MEDICARE (M) PART A Nov 10, 2014 PART A [id number] CREAMER,Dina KATY PATIENT MEDICARE (WNR) MEDICARE (M) PART B Nov 10, 2014 PART B [id number] [phone] CREAMERDina PATIENT MEDICARE (WNR) MEDICARE (M) PART A Nov 10, 2014 PART A [id number] CREAMER,D KATY PATIENT MEDICARE (WNR) MEDICARE (M) PART B Nov 10, 2014 PART B [id number] CREAMER,D KATY PATIENT MEDICARE (WNR) MEDICARE (M) PART A Nov 10, 2014 PART A [id number] [phone] CREAMER,D KATY PATIENT MEDICARE (WNR) MEDICARE (M) PART B Nov 10, 2014 PART B [id number] CREAMER,D KATY PATIENT MEDICARE (WNR) MEDICARE (M) PART B Nov 10, 2014 PART B CREAMER,D KATY PATIENT MEDICARE PART D (WNR) MEDICARE (M) PART D Nov 10, 2017 PART D [id number] CREAMER,D KATY PATIENT MEDICARE PART D (WNR) MEDICARE (M) PART D Nov 10, 2017 PART D [id number] CREAMER,D KATY PATIENT FOR LIFE TFL* Mar 12, 2023 [id number] CREAMER,D KATY PATIENT [facility] POINT OF SERVICE US FAMIL Y HEALT H Mar 12, 2021 [id number] [phone] CREAMER,D KATY [facility]IENT [facility] RE[facility] E Mar 12, 2019 [id number] CREAMER,D KAT[facility] Mar 12, 2019 [facility] [id number] CREAMER,D KATY PATIENT Selected Encounter This section includes the information on record at [place] for the Encounter. Date/Time Encounter Type Encounter Description Reason Pro vider Source Dec 14, 2023 10:06 AM Outpatient Encounter DENTAL IHE Encounter Template [...] 20 appointments. The data comes from all [facility]. Appointment Date/Time Appointment Type Appointme nt Facility Name Dec 18, 2023 01:30 PM AMBULATORY - PSYCHIATRY [facility] Dec 19, 2023 11:30 AM AMBULATORY - MEDICINE [facility] NTRL WSN [facility] Jan 14, 2024 09:30 AM AMBULATORY - MEDICINE [facility] NTRL [facility] Feb 12, 2024 01:00 PM AMBULATORY - PSYCHIATRY [facility] Mar 11, 2024 08:00 AM AMBULATORY - MEDICINE [facility] NTRL WSN [facility] Apr 22, 2024 01:00 PM AMBULATORY - PSYCHIATRY [facility] Apr 29, 2024 11:30 AM AMBULATORY - MEDICINE [facility] Active, Pending, and Scheduled Orders This section includes a listing of several types of active, pending, and scheduled orders, including clinic medications orders, diagnostic test orders, procedure orders and consult orders; where the start date of the order is 45 days before the date of the Encounter or 45 days after the date of theEncounter. The data comes from all [facility]. Test Date/Time Test Type Test Details Facility Name Nov 11, 2023 12:00 AM Laboratory - Chemi str Order LIPID PANEL FASTING BLOOD (SST-SERUM) [facility] Nov 19, 2023 09:45 AM Consult Order COMMUNITY CARE-CARDIOLOGY Cons Fish Boning Machine Feeder's Choice [place] Social History: Smoking Status (Most current) and [...] 10, 2022 01:30 PM VA-TOBACCO NEVER USED [facility] Tobacco Use History This section includes a history of the smoking, or tobacco-related health factors, that were collected on or before the date of the Encounter. The data comes from the [place] facility where the Encounter took place. Date/Time Smoking Status/Tobacco Use Comment F acility Oct 14, 2021 10:18 AM [facility] Feb 11, 2020 04:16 PM VA-TOBACCO NEVER USED [place] CN[place] [facility] Jan 15, 2018 02:24 PM LIFETIME NON-SMOKER [facility] Advance Directives: All historical and current [...] Provider Source Dec 14, 2020 ADVANCE DIRECTIVE BERTACARLOS-SP[facility] Encounter Notes: All associated encounter notes This section contains the clinical notes associated to the Encounter. Date/Time Encounter Note(s) Provider Source Dec 14, 2023 10:06 AM DENTISTRY TELEPHON E ENCOUNTER NOTE: LOCAL TITLE: TELEPHONE NOTE/DENTAL STANDARD TITLE: DENTISTRY TELEPHONE ENCOUNTER NOTE DATE OF NOTE: DEC 14, 2023@10:06 ENTRY DATE: DEC 14, 2023@10:07:01 AUTHOR: PIERRE MENDEZ EXP COSIGNER: URGENCY: STATUS: COMPLETED Patients appointment with dental on 02/19/2024 has been cancelled, pt is being referred to a community care dentist. rtc pid 03/08/2024 has been dispositioned. /ho/ PIERRE MENDEZ ADVANCED DESIGN ENGINEER Signed: 12/14/2023 10:07 PIERRE MENDEZ [facility]
--- OUTSIDE RECORDS SUMMARY | 2024-02-19 19:10 | XMS_ITS | Encounter Summary ---
Author Name [place] Address [address] [place] [address] Care Team Providers Care Needle Punch Machine Operator Helper Name Role Phone MARILIN KAPLAN Primary Care [...] PORRAST ION [id number] 1 Mar 12, 2019 [id number] [phone] Dina WOODS PATIENT [facility] Jan 23, 2014 [id number] [phone] CREAMDina KOHLER PATIENT MEDICARE (WNR) MEDICARE (M) PART A Nov 10, 2014 PART A [id number] CREAMJOSE F,Dina KATY PATIENT MEDICARE (WNR) MEDICARE (M) PART B Nov 10, 2014 PART B [id number] CREAMDina KOHLER PATIENT MEDICARE (WNR) MEDICARE (M) PART B Nov 10, 2014 PART B [id number] [phone] CREAMER,D KATY PATIENT MEDICARE (WNR) MEDICARE (M) PART A Nov 10, 2014 PART A [id number] CREAMER,D KATY PATIENT MEDICARE (WNR) MEDICARE (M) PART A Nov 10, 2014 PART A [id number] [phone] CREAMER,D KATY PATIENT MEDICARE (WNR) MEDICARE (M) PART B Nov 10, 2014 PART B [id number] CREAMER,D KATY PATIENT MEDICARE (WNR) MEDICARE (M) PART B Nov 10, 2014 PART B CREAMER,D KATY PATIENT MEDICARE PART D (WNR) MEDICARE (M) PART D Nov 10, 2017 PART D [id number] CREAMER,D KATY PATIENT MEDICARE PART D (WNR) MEDICARE (M) PART D Nov 10, 2017 PART D [id number] CREAMER,D KATY PATIENT FOR LIFE TFL* Mar 12, 2023 [id number] CREAMER,D KATY PATIENT [facility] POINT OF SERVICE US FAMIL Y HEALT H Mar 12, 2021 [id number] [phone] CREAMER,D KATY PATIENT [facility] BRARIELLE TEJEDAN E Mar 12, 2019 [id number] CREAMER,D KATY PATIENT [facility] Mar 12, 2019 [facility] [id number] [phone] CREAMER,D KATY PATIENT Selected Encounter This section includes the information on record at [place] for the Encounter. Date/Time Encounter Type Encounter Description Reason Pro vider Source Dec 19, 2023 12:00 AM Outpatient Encounter COMMUNITY CARE CONSULT IHE Encounter [...] 20 appointments. The data comes from all [facility]. Appointment Date/Time Appointment Type Appointme nt Facility Name Jan 14, 2024 09:30 AM AM[place]ULATORY - [place]ICINE [place] [facility] Feb 12, 2024 01:00 PM AMBULATORY - PSYCHIATRY [facility] Mar 11, 2024 08:00 AM AMBULATORY - MEDICINE [facility] [place] [facility] Apr 22, 2024 01:00 PM AMBULATORY - PSYCHIATRY [facility] Apr 29, 2024 11:30 AM AMBULATORY - MEDICINE [facility] Active, Pending, and Scheduled Orders This section includes a listing of several types of active, pending, and scheduled orders, including clinic medications orders, diagnostic test orders, procedure orders and consult orders; where the start date of the order is 45 days before the date of the Encounter or 45 days after the date of theEncounter. The data comes from all [facility]. Test Date/Time Test Type Test Details Facility Name Nov 11, 2023 12:00 AM Laboratory - Chemi stry Order LIPID PANEL FASTING BLOOD (SST-SERUM) [facility] Nov 19, 2023 09:45 AM Consult Order COMMUNITY CARE-CARDIOLOGY Cons Credit Card Analyst's Choice [place] Social History: Smoking Status (Most current) and Tobacco Use (All prior to encounter date) This section includes the most current, and the historical, smoking and tobacco- related health factors from the [place] facility where the Encounter took place. Current Smoking Status This section includes the most current smoking, or tobacco-related health factor, from the [place] facility where the Encounter took place. Date/Time Current Smoking Status Comment Facil itmindy Nov 10, 2022 01:30 PM VA-TOBACCO NEVER USED [place] CN[facility]L [facility] Tobacco Use History This section includes a history of the smoking, or tobacco-related health factors, that were collected on or before the date of the Encounter. The data comes from the [place] facility where the Encounter took place. Date/Time Smoking Status/Tobacco Use Comment F acility Oct 14, 2021 10:18 AM VA-TOBACCO NEVER USED [place] [facility] Feb 11, 2020 04:16 PM VA-TOBACCO NEVER USED [place] [place] [facility] Jan 15, 2018 02:24 PM LIFETIME NON-SMOKER [facility] Advance Directives: All historical and current Section Date Range: From patient's date of to the date document was created. This section includes ALL of a patient's completed or amended [place] Advance and Rescinded Directives. The entries below indicate that a directive exists for the patient, but an actual copy is not included with this document. The data comes from all [place] facilities. Date Advance Directives Provider Source Dec 14, 2020 ADVANCE DIRECTIVE MARISOL HAMPTON [facility] Encounter Notes: All associated encounter notes This section contains the clinical notes associated to the Encounter. Date/Time Encounter Note(s) Provider Source Dec 19, 2023 12:00 AM NONVA CONSULT: LOCAL TITLE: COMMUNITY CARE-CONSULT RESULT NOTE STANDARD TITLE: NONVA CONSULT DATE OF NOTE: DEC 19, 2023 ENTRY DATE: JAN 11, 2024@13:37:30 AUTHOR: ELSY IBARRA EXP COSIGNER: URGENCY: STATUS: COMPLETED VistA Imaging - Scanned Document SCANNED DOCUMENT SIGNATURE NOT REQUIRED Electronically Filed: 01/11/2024 by: ELSY SZYMANSKI [facility] Dec 19, 2023 12:00 AM NONVA CONSULT: LOCAL TITLE: COMMUNITY CARE-CONSULT RESULT NOTE STANDARD TITLE: NONVA CONSULT DATE OF NOTE: DEC 19, 2023 ENTRY DATE: JAN 11, 2024@09:13:32 AUTHOR: LEVI MOYA EXP COSIGNER: URGENCY: STATUS: COMPLETED VistA Imaging - Scanned Document SCANNED DOCUMENT SIGNATURE NOT REQUIRED Electronically Filed: 01/11/2024 by: LEVI MOYA BAKERY SALES CLERK LEVI MOYA [facility] Dec 19, 2023 12:00 AM NONVA CONSULT: LOCAL TITLE: COMMUNITY CARE-CONSULT RESULT NOTE STANDARD TITLE: NONVA CONSULT DATE OF NOTE: DEC 19, 2023 ENTRY DATE: JAN 16, 2024@10:07:48 AUTHOR: ELSY IBARRA EXP COSIGNER: URGENCY: STATUS: COMPLETED VistA Imaging - Scanned Document SCANNED DOCUMENT SIGNATURE NOT REQUIRED Electronically Filed: 01/16/2024 by: ELSY SZYMANSKIL WSTRN [facility]
--- OUTSIDE RECORDS SUMMARY | 2024-02-19 19:10 | XMS_ITS | Encounter Summary ---
Author Name [place] Address [address] [place] [address] Care Team Providers Care Medical Records Coordinator Name Role Phone MARILIN KAPLAN Primary Care [...] PRESCRIPT ION [id number] 1 Mar 12, 2019 [id number] CREAMDina KOHLER PATIENT [facility] STATE AGENC Y Jan 23, 2014 [id number] [id number] CREAMER,Dina KATY PATIENT MEDICARE (WNR) MEDICARE () PART A Nov 10, 2014 PART A [id number] CREAMER,D KATY PATIENT MEDICARE (WNR) MEDICARE () PART B Nov 10, 2014 PART B [id number] CREAMER,Dina KATY PATIENT MEDICARE (WNR) MEDICARE () PART A Nov 10, 2014 PART A [id number] CREAMER,D KATY PATIENT MEDICARE (WNR) MEDICARE (M) PART B Nov 10, 2014 PART B [id number] [phone] CREAMER,D KATY PATIENT MEDICARE (WNR) MEDICARE (M) PART B Nov 10, 2014 PART B CREAMER,D KATY PATIENT MEDICARE (WNR) MEDICARE (M) PART A Nov 10, 2014 PART A [id number] CREAMER,D KATY PATIENT MEDICARE (WNR) MEDICARE (M) PART B Nov 10, 2014 PART B [id number] CREAMER,D KATY PATIENT MEDICARE PART D (WNR) MEDICARE (M) PART D Nov 10, 2017 PART D [id number] CREAMER,D KATY PATIENT MEDICARE PART D (WNR) MEDICARE (M) PART D Nov 10, 2017 PART D [id number] CREAMER,D KATY PATIENT FOR LIFE TFL* Mar 12, 2023 [id number] [phone] CREAMER,D KATY PATIENT [facility] POINT OF SERVICE US FAMIL Y HEALT H Mar 12, 2021 [id number] [phone] CREAMER,D KATY PATIENT [facility] BRARI[facility]LE REYES E Mar 12, 2019 [id number] CREAMER,D KATY PATIENT [facility] Mar 12, 2019 [facility] [id number] CREAMER,D KATY PATIENT Selected Encounter This section includes the information on record at [place] for the Encounter. Date/Time Encounter Type Encounter Description Reason Pro vider Source Dec 25, 2023 10:00 PM Outpatient Encounter ADMIN PAT ACTIVTIES (MASNONCT) [...] 20 appointments. The data comes from all [facility]. Appointment Date/Time Appointment Type Appointme nt Facility Name Jan 14, 2024 09:30 AM AMBULATORY - MEDICINE [facility] NTRL WSTRN [facility] Feb 12, 2024 01:00 PM AMBULATORY - PSYCHIATRY [facility] Mar 11, 2024 08:00 AM AMBULATORY - MEDICINE [facility] Apr 22, 2024 01:00 PM AMBULATORY - PSYCHIATRY [facility] Apr 29, 2024 11:30 AM [facility] Active, Pending, and Scheduled Orders This section includes a listing of several types of active, pending, and scheduled orders, including clinic medications orders, diagnostic test orders, procedure orders and consult orders; where the start date of the order is 45 days before the date of the Encounter or 45 days after the date of theEncounter. The data comes from all [facility]. Test Date/Time Test Type Test Details Facility Name Nov 11, 2023 12:00 AM Laboratory - Chemi stry Order LIPID PANEL FASTING BLOOD (SST-SERUM) [facility] Nov 19, 2023 09:45 AM Consult Order COMMUNITY CARE-CARDIOLOGY Cons Manager Of Development's Choice [place] Social History: Smoking Status (Most current) and [...] 10, 2022 01:30 PM VA-TOBACCO NEVER USED [facility] Tobacco Use History This section includes a history of the smoking, or tobacco-related health factors, that were collected on or before the date of the Encounter. The data comes from the [place] facility where the Encounter took place. Date/Time Smoking Status/Tobacco Use Comment F acility Oct 14, 2021 10:18 AM [facility]CO [facility] Feb 11, 2020 04:16 PM VA-TOBACCO NEVER USED [facility] Jan 15, 2018 02:24 PM LIFETIME NON-SMOKER [facility] Advance Directives: All historical and current Section [...] Dec 14, 2020 ADVANCE DIRECTIVE MARISOL HAMPTON [facility] Encounter Notes: All associated encounter notes This section contains the clinical notes associated to the Encounter. Date/Time Encounter Note(s) Provider Source Dec 25, 2023 10:00 PM PHARMACY NOTE: LOCAL TITLE: PHARMACY CUSTOMER CARE MEDICATION RENEWAL STANDARD TITLE: PHARMACY NOTE DATE OF NOTE: DEC 25, 2023@22:00 ENTRY DATE: DEC 25, 2023@22:00:45 AUTHOR: WILL CUELLO EXP COSIGNER: URGENCY: STATUS: COMPLETED Date: Dec Division: [place] Pt referred by Pharmacy Call Center for medication renewal: Non-controlled/maintenan ce medication Medications requested: [id number] OMEPRAZOLE 20MG EC CAP Defer to primary care provider To be mailed . Please review and renew if appropriate. *This note was generated by [facility]/[place] Pharmacy Customer Care. If you have any questions or need assistance, do not contact this author. Please refer all questions to your local, on-site pharmacy departments. /ho/ WILL CUELLO CPhT Early Childhood Education Specialist, [place]/Pharmacy Customer Care Signed: 12/25/2023 22:01 Receipt Acknowledged By: 01/01/2024 08:35 /ho/ MARILIN KAPLAN MD PHYSICIAN 12/26/2023 16:25 /ho/ GAURANG VILLALBA RN REGISTERED NURSE WILL CUELLO [facility]
--- OUTSIDE RECORDS SUMMARY | 2024-02-19 19:10 | XMS_ITS ---
Author Name [place] Address [address] [place] [address] Care Team Providers Care Baggage Smasher Name Role Phone MARILIN KAPLAN Primary Care [...] PORRASIjeoma ION [id number] 1 Mar 12, 2019 [id number] [phone] Dina WOODS PATIENT [facility] Jan 23, 2014 [id number] [phone] CREAMDina KOHLER PATIENT MEDICARE (WNR) MEDICARE (M) PART A Nov 10, 2014 PART A [id number] CREAMJOSE F,Dina KATY PATIENT MEDICARE (WNR) MEDICARE (M) PART B Nov 10, 2014 PART B [id number] CREAMDina KOHLER PATIENT MEDICARE (WNR) MEDICARE (M) PART A Nov 10, 2014 PART A [id number] CREAMER,D KATY PATIENT MEDICARE (WNR) MEDICARE (M) PART B Nov 10, 2014 PART B [id number] CREAMER,D KATY PATIENT MEDICARE (WNR) MEDICARE (M) PART A Nov 10, 2014 PART A [id number] CREAMER,D KATY PATIENT MEDICARE (WNR) MEDICARE (M) PART B Nov 10, 2014 PART B CREAMER,D KATY PATIENT MEDICARE (WNR) MEDICARE (M) PART B Nov 10, 2014 PART B [id number] [id number] CREAMER,D KATY PATIENT MEDICARE PART D (WNR) MEDICARE (M) PART D Nov 10, 2017 PART D [id number] [phone] CREAMER,D KATY PATIENT MEDICARE PART D (WNR) MEDICARE (M) PART D Nov 10, 2017 PART D [id number] CREAMER,D KATY PATIENT FOR LIFE TFL* Mar 12, 2023 [id number] CREAMER,D KATY PATIENT [facility] POINT OF SERVICE US FAMIL Y HEALT H Mar 12, 2021 [id number] [phone] CREAMER,D KATY PATIENT [facility] BRARIELLE TEJEDAN E Mar 12, 2019 [id number] CREAMER,D KATY PATIENT [email or web address]P Mar 12, 2019 [facility] [place] [id number] CREAMER,D KATY PATIENT Selected Encounter This section includes the information on record at [place] for the Encounter. Date/Time Encounter Type Encounter Description Reason Pro vider Source Jan 14, 2024 12:00 AM Outpatient Encounter COMMUNITY CARE CONSULT [...] Appointment Type Appointme nt Facility Name Feb 12, 2024 01:00 PM AMBULATORY - PSYCHIATRY [facility] Mar 11, 2024 08:00 AM AMBULATORY [facility] Apr 22, 2024 01:00 PM AMBULATORY - PSYCHIATRY [facility] Apr 29, 2024 11:30 AM AMBULATORY - MEDICINE [facility] Social History: Smoking Status (Most current) [...] 2022 01:30 PM VA-TOBACCO NEVER USED [facility] Tobacco Use History This section includes a history of the smoking, or tobacco-related health factors, that were collected on or before the date of the Encounter. The data comes from the [place] facility where the Encounter took place. Date/Time Smoking Status/Tobacco Use Comment F acility Oct 14, 2021 10:18 AM [facility]CO [facility] Feb 11, 2020 04:16 PM [facility]ACCO [facility] Jan 15, 2018 02:24 PM LIFETIME NON-SMOKER [facility] Advance Directives: All historical [...] Dec 14, 2020 ADVANCE DIRECTIVE [facility] Encounter Notes: All associated encounter notes This section contains the clinical notes associated to the Encounter. Date/Time Encounter Note(s) Provider Source Jan 14, 2024 12:00 AM NONVA CONSULT: LOCAL TITLE: COMMUNITY CARE-CONSULT RESULT NOTE STANDARD TITLE: NONVA CONSULT DATE OF NOTE: JAN 14, 2024 ENTRY DATE: FEB 08, 2024@07:06:26 AUTHOR: KARLENE SANCHEZ COSIGNER: URGENCY: STATUS: COMPLETED VistA Imaging - Scanned Document SCANNED DOCUMENT SIGNATURE NOT REQUIRED Electronically Filed: 02/08/2024 by: KARLENE CIFUENTES CNTRL [facility]
--- OUTSIDE RECORDS SUMMARY | 2024-02-19 19:11 | XMS_ITS | Encounter Summary ---
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 Name Role Phone MARILIN KAPLAN Primary Care [...] PRESCRIPT ION [id number] 1 Mar 12, 2019 [id number] [phone] CREAMERDina KATY PATIENT [facility] Jan 23, 2014 [id number] [phone] CREAMER,D KATY PATIENT MEDICARE (WNR) MEDICARE (M) PART A Nov 10, 2014 PART A [id number] CREAMER,D KATY PATIENT MEDICARE (WNR) MEDICARE (M) PART B Nov 10, 2014 PART B [id number] CREAMER,D KATY PATIENT MEDICARE (WNR) MEDICARE (M) PART A Nov 10, 2014 PART A [id number] CREAMER,D KATY PATIENT MEDICARE (WNR) MEDICARE (M) PART B Nov 10, 2014 PART B [id number] CREAMER,D KATY PATIENT MEDICARE (WNR) MEDICARE (M) PART A Nov 10, 2014 PART A [id number] CREAMER,D KATY PATIENT MEDICARE (WNR) MEDICARE (M) PART B Nov 10, 2014 PART B [id number] CREAMER,D KATY PATIENT MEDICARE (WNR) MEDICARE (M) PART B Nov 10, 2014 PART B CREAMER,D KATY PATIENT MEDICARE PART D (WNR) MEDICARE (M) PART D Nov 10, 2017 PART D [id number] [phone] CREAMER,D KATY PATIENT MEDICARE PART D (WNR) MEDICARE (M) PART D Nov 10, 2017 PART D [id number] [phone] CREAMER,D KATY PATIENT FOR LIFE TFL* Mar 12, 2023 [id number] CREAMER,D KATY PATIENT [facility] POINT OF SERVICE US FAMIL Y HEALT H Mar 12, 2021 [id number] [phone] CREAMER,D KATY PATIENT [facility] RADHA REYES E Mar 12, 2019 [id number] CREAMER,D KATY PATIENT [facility] Mar 12, 2019 [facility] [id number] CREAMER,D KATY PATIENT Selected Encounter This section includes the information on record at [place] for the Encounter. Date/Time Encounter Type Encounter Description Reason Provider Source Feb 12, 2024 01:00 PM OFFICE O/P EST MOD 30 MIN [facility] - IND ICD-10-CM F32.9 Major depressive disorder, single episode, unspecified LANA CELAYA IHMouna Encounter Template Text not used by VA Assessments - Encounter Diagnoses This section includes the primary and secondary diagnoses documented for the Encounter. Date/Time Primary/Secondary Diagnosis Diagnosis Name Provider Source Feb 13, 2024 09:37 AM PRIMARY Major depressive disorder, single episode, unspecified ANA CRISTINA CELAYA [place] Plan of Treatment: Future Appointments (+ 6 months) and Future Tests (+/- 45 days) The Plan of Treatment section includes future care activities for the patient from all [place] treatmentfacilities. This section includes future appointments and future orders which are active, pending or scheduled. Future Appointments This section includes appointments that were scheduled to occur 6 months from the date of the Encounter, up to a maximum of 20 appointments. The data comes from all [place] treatment facilities. Appointment Date/Time Appointment Type Appointme nt Facility Name Mar 11, 2024 08:00 AM [facility] Apr 22, 2024 01:00 PM AMBULATORY - PSYCHIATRY [facility] Apr 29, 2024 11:30 AM AMBULATORY [...] theEncounter. The data comes from all [facility]. Test Date/Time Test Type Test Details Facility Name Mar 21, 2024 12:00 AM Laboratory - Chemi stry Order VITAMIN D (25-OH) BLOOD (SST-SERUM) [facility] Mar 21, 2024 12:00 AM Laboratory - Chemi stry Order MICROALBUMIN CREATININE RATIO PANEL URINE (RANDOM) [facility] Mar 21, 2024 12:00 AM Laboratory - Chemi stry Order BASIC METABOLIC PANEL (fasting) BLOOD (SST-SERUM) [facility] Mar 21, 2024 12:00 AM Laboratory - Chemi stry Order LIPID PANEL FASTING BLOOD (SST-SERUM) [facility] Mar 21, 2024 12:00 AM Laboratory - Chemi stry Order LIVER FUNCTION BLOOD (SST-SERUM) [facility] Mar 21, 2024 12:00 AM Laboratory - Chemi stry Order CBC AND DIFF (AUTO) BLOOD (LAV-BLOOD) [facility] Mar 21, 2024 12:00 AM Laboratory - Chemi stry Order HEMOGLOBIN A1C PANEL BLOOD (LAV-BLOOD) [facility] Mar 21, 2024 12:00 AM Laboratory - Chemi stry Order TSH BLOOD (SST-SERUM) [facility] Social History: Smoking Status (Most current) [...] place. Date/Time Current Smoking Status Comment Laury honeycuttmindy Dec 20, 2018 08:14 AM DE-TOBACCO NEVER USED [place] Tobacco Use History This section includes a history of the smoking, or tobacco-related health factors, that were collected on or before the date of the Encounter. The data comes from the [place] facility where the Encounter took place. Date/Time Smoking Status/Tobacco Use Comment F acility Jan 18, 2018 02:01 PM DE-TOBACCO NEVER USED [place] Apr 10, 2016 10:51 AM LIFETIME NON-TOBACCO USER [place] May 23, 2004 10:12 AM LIFETIME NON-SMOKER [place] May 23, 2004 10:12 AM LIFETIME NON-TOBACCO USER [place] Advance Directives: All historical and current Section [...] Provider Source Dec 14, 2020 ADVANCE DIRECTIVE CARLOS HAMPTONSPENCER DE [facility] Encounter Notes: All associated encounter notes This section contains the clinical notes associated to the Encounter. Date/Time Encounter Note(s) Provider Source Feb 12, 2024 09:26 AM PSYCHIATRY NOTE: LOCAL TITLE: PSYCHIATRY NOTE STANDARD TITLE: PSYCHIATRY NOTE DATE OF NOTE: FEB 12, 2024@09:26 ENTRY DATE: FEB 12, 2024@09:27:06 AUTHOR: PILLO AGARWAL COSIGNER: ANA CRISTINA CELAYA URGENCY: STATUS: COMPLETED PSYCHIATRY NOTE Has ADDENDA Time spent: 21-30 minutes The presents today for follow up. IDENTIFYING INFORMATION: Epifanio Woods is a 63-year-old male with a history of MDD, CHARAN, gambling disorder in remission, multiple TBIs, past episode of ischemic colitis, HLD, ED, POORNIMA not on CPAP, COPD, and multiple other medical conditions, who presents for psychopharmacologic follow-up. PATIENT REPORT: - Has been feeling lousy due to back pain - He sees his PCP tomorrow and will ask about it. - Mood-roe he feels the same, some grumpiness from pain - Endorses occasional periods of low mood but states but I just move on. - He has been trying to walk more in the house for heart health and he has been watching his diet - The walking has been helpful for his mood. - Sleep is lousy but I don't want to take any more pills. - He tries to go outside somewhere every day, like going to a cafe. This has also made me feel like a human being. - He always has to sit with his back against a wall. - He doesn't like big crowds but those are fine if he is positioned well. - Denies SI, HI, or AVH - He is going again to [place] later this winter. - He hopes to get his nasal airway surgically opened once his doctor allows him to come off blood thinners. He states this would be preferable to him over CPAP use. Mental Status Exam: 63-year-old male, appearing stated age, wearing casual clothes. Makes appropriate eye contact. Speech is clear and spontaneous. Mood is some depression and affect is non-mood congruent, euthymic, and with regular range and reactivity. Thought process is linear and goal directed. Thought content: denies SI/HI/AVH. Concentration and memory grossly intact. Insight fair and judgement intact. SUICIDE RISK ASSESSMENT: SUICIDE INQUIRY: IDEATION: Denies ideation. Do you currently have any homicidal ideation? No SUBSTANCE USE: Working on cutting down on highly processed foods. Alcohol use: <1 drink weekly Marijuana: tried it for medical purposes, did not like it and is not using it. Denies all other substance use. PSYCH MEDICATION HISTORY: Buspar 10mg BID-> successfully tapered off of it in 2023. 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 his is from the [facility]. 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 Lifelong nonsmoker. Less than 1 drink alcohol per month. Deployed in [place]. Had neck surgery and was med evac'ed for his injuries. Suffered 3+ concussions and has had cognitive deficits since. PATIENT ACTIVE PROBLEM LIST: Active problems - Computerized Problem List is the source for the followin. Obesity ([facility] [id number]) 2. CAD - Coronary Artery Disease ([facility] [id number]) 3. COPD - Chronic Obstructive Pulmonary Disease ([facility] [id number]) 4. Chronic constipation 5. Pain in right hip joint 6. GERD - Gastro-Esophageal Reflux Disease ([facility] [id number]) 7. Obstructive Sleep Apnea of Adult ([facility] [id number]) 8. Anxiety ([facility] [id number]) 9. Depression ([facility] [id number]) 10. Erosive esophagitis 11. Polyp of colon 12. Urolithiasis 13. Chronic neck pain 14. Indirect inguinal hernia 15. Generalized anxiety disorder 16. Essential hypertension 17. Colonoscopy normal 18. Ischemic colitis 19. Long-term current use of cannabis 20. Asthma 21. Shoulder region pain 22. Magnetic resonance imaging scan abnormal 23. Hyperlipidemia 24. Erectile dysfunction (SNOMED CT [id number]) 25. Neck pain 26. Elevated blood pressure reading without diagnosis of hypertension 27. Colorectal Cancer Screening Results Documented and Reviewed (PV) 28. Anisocoria * 29. Anisometropia 30. Concussion 31. Brief Loss of Consciousness with Loss of Consciousness less than 30 Minutes 32. Corneal scar 33. Sleep Apnea 34. Pathological gambling 35. Major depressive disorder 36. Dermatitis or Eczema 37. Hemorrhoid (SNOMED CT [id number]) 38. Cervical radiculopathy 39. Pain in joint involving shoulder region 40. Migraine, unspecified, without mention of Intractable Migraine 41. Low back pain 42. Hypercholesterolemia 43. Elevated Liver Function Tests 44. Impaired FASTING Glucose 45. Hemorrhoids 46. 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 Benign prostatic hypertrophy with outflow obstruction 49. HEARING LOSS 50. OBESITY ACTIVE OUTPATIENT MEDICATIONS (including Supplies): Active Outpatient Medications (including Supplies): ACYCLOVIR 5% OINT APPLY THIN LAYER TOPICALLY TWICE DAILY ACTIVE NEEDED FOR INFECTION ALBUTEROL 100/IPRATRO 20MCG 120D PO INHL INHALE 1 PUFF BY ACTIVE MOUTH FOUR TIMES A DAY ASPIRIN 81MG EC TAB TAKE ONE TABLET [...] 1 TO 2 TABLETS BY MOUTH ACTIVE (S) TWICE DAILY NEEDED [MUSCLE RELAXANT] EZETIMIBE 10MG TAB TAKE ONE TABLET BY MOUTH ONCE DAILY TO ACTIVE (S) LOWER CHOLESTEROL FLUTICAS 250/SALMETEROL 50 INHL DISK 60 INHALE 1 PUFF BY ACTIVE MOUTH TWICE DAILY - RINSE MOUTH AFTER USE KETOCONAZOLE 2% CREAM APPLY A THIN LAYER TOPICALLY TWICE ACTIVE DAILY TO FACE AND EARS FOR FOUR WEEKS THEN NEEDED LIDOCAINE 5% PATCH APPLY 3 PATCHES TOPICALLY [...] TABLET BY MOUTH ONCE ACTIVE (S) DAILY NEEDED TAKE 1 HOUR PRIOR TO SEXUAL ACTIVITY TAMSULOSIN HCL 0.4MG CAP TAKE ONE CAPSULE BY MOUTH AT ACTIVE BEDTIME FOR ENLARGED PROSTATE TERBINAFINE HCL 1% CREAM APPLY A THIN LAYER TOPICALLY ACTIVE TWICE DAILY FOR RINGWORM OF THE BODY APPLY UP TO 1-4 WEEKS UNTIL RASH RESOLVES TO ARMPIT TICAGRELOR 90MG TAB TAKE ONE TABLET BY MOUTH TWICE DAILY ACTIVE TRIAMCINOLONE ACETONIDE 0.1% CREAM APPLY A THIN LAYER ACTIVE TOPICALLY TWICE DAILY NEEDED FOR SKIN INFLAMMATION ON BACK Non-VA ASPIRIN 81MG CHEW TAB 81MG BY [...] the patient about their mental health condition. [place] repeated back the plan and education. FORMULATION: Epifanio Woods is a 63-year-old male with a history of MDD, CHARAN, gambling disorder in remission, multiple TBIs, past episode of ischemic colitis, HLD, ED, POORNIMA not on CPAP, COPD, NSTEMI s/p stent, and multiple other medical conditions, who presents for psychopharmacologic follow-up. Mr. Woods's depression has been under relatively good control. He suffered a heart attack in March 2023, and since then his anxiety has continued to slowly improve. Today (02/12/24), Epifanio continues to report an overall stable mood. He has been improving his exercise and diet routine and getting out of the house each day. We will not be making medication changes today. IMPRESSION (DSM-5):PTSD MDD, mild, recurrent CHARAN Gambling disorder in sustained remission PLAN: - Continue citalopram 20mg PO daily for MDD and PTSD - Continue therapy at [facility] (with Venu) The patient denied suicidal and violent ideation, [...] follows blood pressure, weights, lipids, glucose. FOLLOW-UP: On or around 04/22/24, [facility] REMINDERS: Medication Reconciliation: Outpatient: Has the patient been taking medications as documented in the EMLR? YES: The patient has been taking medications as documented in the EMLR. Essential Medication List for Review used to complete this medication reconciliation. INCLUDED IN THIS LIST: Alphabetical list of active outpatient prescriptions dispensed from this VA (local) and dispensed from another VA or DoD facility (remote) as well as [...] or non-VA provider. /ho/ PILLO AGARWAL MD Training Development Specialist Signed: 02/12/2024 16:11 /ho/ ANA CRISTINA CELAYA MD STAFF PSYCHIATRIST Cosigned: 02/13/2024 09:38 02/13/2024 ADDENDUM STATUS: COMPLETED case discussed w Dr Agarwal, and I interviewed pt for part of Dr Mikael Mccallum session w pt; agree w assessment and plan /ho/ ANA CRISTINA CELAYA MD STAFF PSYCHIATRIST Signed: 02/13/2024 09:38 PILLO AGARWAL
--- OUTSIDE RECORDS SUMMARY | 2024-02-19 19:12 | XMS_ITS | Encounter Summary ---
Author Name [facility] [place] Address [address] [place] [address] Care Team Providers Care Fence Maker Name Role Phone MARILIN KAPLAN Primary Care [...] PORRASIjeoma ION [id number] 1 Mar 12, 2019 [id number] [phone] Dina WOODS PATIENT [facility] STATE AGENC Y Jan 23, 2014 [id number] [phone] CREAMDina KOHLER PATIENT MEDICARE (WNR) MEDICARE (M) PART A Nov 10, 2014 PART A [id number] CREAMJOSE F,Dina KATY PATIENT MEDICARE (WNR) MEDICARE (M) PART B Nov 10, 2014 PART B [id number] [phone] CREAMDina KOHLER PATIENT MEDICARE (WNR) MEDICARE (M) PART A Nov 10, 2014 PART A [id number] CREAMER,D KATY PATIENT MEDICARE (WNR) MEDICARE (M) PART B Nov 10, 2014 PART B [id number] CREAMER,D KATY PATIENT MEDICARE (WNR) MEDICARE (M) PART A Nov 10, 2014 PART A [id number] CREAMER,D KATY PATIENT MEDICARE (WNR) MEDICARE (M) PART B Nov 10, 2014 PART B [id number] [phone] CREAMER,D KATY PATIENT MEDICARE (WNR) MEDICARE (M) PART B Nov 10, 2014 PART B CREAMER,D KATY PATIENT MEDICARE PART D (WNR) MEDICARE (M) PART D Nov 10, 2017 PART D [id number] [phone] CREAMER,D KATY PATIENT MEDICARE PART D (WNR) MEDICARE (M) PART D Nov 10, 2017 PART D [id number] CREAMER,D KATY PATIENT FOR LIFE TFL* Mar 12, 2023 [id number] CREAMER,D KATY PATIENT [facility] POINT OF SERVICE US FAMIL Y HEALT H Mar 12, 2021 [id number] [phone] CREAMER,D KATY PATIENT [facility] BRARIELLE TEJEDAN E Mar 12, 2019 [id number] CREAMER,D KATY PATIENT [facility] Mar 12, 2019 [facility] [id number] CREAMER,D KATY PATIENT Selected Encounter This section includes the information on record at [place] for the Encounter. Date/Time Encounter Type Encounter Description Reason Pro vider Source Jan 22, 2024 12:00 AM Outpatient Encounter COMMUNITY CARE [...] 12, 2024 01:00 PM AMBULATORY - PSYCHIATRY [facility] Mar 11, 2024 08:00 AM [facility] Apr 22, 2024 01:00 PM AMBULATORY - PSYCHIATRY [facility] Apr 29, 2024 11:30 AM AMBULATORY - MEDICINE [facility] Social History: Smoking Status (Most current) [...] 10, 2022 01:30 PM VA-TOBACCO NEVER USED [facility] Tobacco Use History This section includes a history of the smoking, or tobacco-related health factors, that were collected on or before the date of the Encounter. The data comes from the [place] facility where the Encounter took place. Date/Time Smoking Status/Tobacco Use Comment F acility Oct 14, 2021 10:18 AM [facility] Feb 11, 2020 04:16 PM VA-TOBACCO [facility] Jan 15, 2018 02:24 PM LIFETIME NON-SMOKER [facility] Advance Directives: All historical and current Section [...] Dec 14, 2020 ADVANCE DIRECTIVE [facility] Encounter Notes: All associated encounter notes This section contains the clinical notes associated to the Encounter. Date/Time Encounter Note(s) Provider Source Jan 22, 2024 12:00 AM NONVA CONSULT: LOCAL TITLE: COMMUNITY CARE-CONSULT RESULT NOTE STANDARD TITLE: NONVA CONSULT DATE OF NOTE: JAN 22, 2024 ENTRY DATE: FEB 19, 2024@07:34:05 AUTHOR: KARLENE SANCHEZ EXP COSIGNER: URGENCY: STATUS: COMPLETED VistA Imaging - Scanned Document SCANNED DOCUMENT SIGNATURE NOT REQUIRED Electronically Filed: 02/19/2024 by: KARLENE CIFUENTES CNTRL W[facility]N [facility]
== END 2024-02-13 16:37 | disposition home or self-care (01) ==
PROVIDERS: PCP Family Medicine; Visit Provider Internal Medicine
DX: J44.9 Chronic obstructive pulmonary disease, unspecified (principal); M54.50 Low back pain, unspecified; G89.29 Other chronic pain

== ENCOUNTER → 2024-02-13 12:38 | Outpatient (BNVA) | payer MEDICARE, OTHER, SELFPAY | PROVIDERS: PCP Family Medicine; Visit Provider Internal Medicine | DX: J44.9 Chronic obstructive pulmonary disease, unspecified (principal); M54.50 Low back pain, unspecified; G89.29 Other chronic pain | CPT/HCPCS: 96127; 99202 ==

== ENCOUNTER 2024-09-15 08:51 | Outpatient (AMB) | payer MEDICARE, OTHER, SELFPAY ==
--- OUTSIDE RECORDS SUMMARY | 2024-09-15 09:05 | XMS_ITS | Encounter Summary ---
Author Organization [facility], Address [address] [place] [address] Phone Care Team Providers Care Insurance Case Manager Name Role Phone Adia Pope MD Primary Care Provider [phone] Encounter Details Date Type Department Care Team (Late st Contact Info) Description 10/03/2022 Documentation Only [facility] [address] [place] [phone] Adia Pope MD [address] [address] Social History Tobacco Use Types Packs/Day Years Used Date Smoking Tobacco: Never Assessed Sex and Gender Information Value Date Recorded Sex Assigned at Not on file Legal Sex Male 11:21 AM EDT Gender Identity Not on file Sexual Orientation Not on file documented as of this encounter Plan of Treatment Upcoming Encounters Date Type Department Care Team (Late st Contact Info) Description 10/16/2024 1:30 PM EDT Office Visit [facility] [address] [place] [address] Roosevelt Appiah MD [address] [place] [address] Dr[address] [phone] documented as of this encounter Visit Diagnoses Not on filedocumented in this encounter Care Teams Insurance Case Manager Relationship Specialty Start Date End Date Adia Pope MD [address] [address] PCP - General Family Medicine 10/03/22 documented as of this encounter
--- NOTE | 2024-09-15 10:08 | A.OFFVIS_ITS ---
Intake Vital Signs 09/15/24 10:23 Height 6 ft Weight 245 lb BMI 33.2 BP 134/80 Blood Pressure Location Lt brachial Position Sitting Respiration 16 Pulse 80 Pulse Source Pulse Oximeter Temp 98.0 F Temp Source Oral Pulse Oximetry (%) 96 Oxygen Delivery Method Room Air Intake Visit Reasons: AWV Intake Note: Pt is here today for his AWV Allergies No Known Allergies Allergy (Verified 09/15/24 10:34) Medication List - Last Reconciled 09/17/24 by Millie Whitmore MD albuterol sulfate 90 mcg/actuation 2 puffs inhalation Q4-6H PRN alfuzosin ER 10 mg PO DAILY aspirin 81 mg PO DAILY cyclobenzaprine 5 mg PO BID ezetimibe 10 mg PO DAILY ipratropium-albuterol 18-103 mcg/actuation sprays inhalation lidocaine 5% 1 patch topical DAILY metoprolol succinate ER 25 mg PO DAILY omeprazole 20 mg PO DAILY sertraline 50 mg PO DAILY HPI AWV HPI Details AWV ? 64 year old male with history of COPD, dyslipidemia, heartburn symptoms taking omeprazole as needed, presents for his ? Annual Wellness Visit, initial visit.? Stable and controlled on current dose of metoprolol succinate ER, and states that his lipids have been well controlled. Patient goes also to the [place] where he [place] labs done, results unavailable to me at this time. Currently takes ezetimibe 10 mg daily. Fasting glucose done today came back in the prediabetic range at 108 mg/dL he does not go to any urologist, denies any difficulty , but diagnosed with BPH in the past,, PSA ordered today. He has decreased hearing, scheduled to have hearing test at the [place] His last colonoscopy was done in 2022 at [facility], was told that it was all within normal limits, repeat in 10 years. He gets all his vaccines at the [facility], states that he is up-to-date with everything. ? Medical / Social History Reviewed? Past Medical History ?Yes . ? [place] of Care / Care Team list updated ?Yes . ? Surgical/Hospitalization History ?Yes . ? Current Medications (including OTC and supplements) ?Yes . ? Family History ?Yes . ? Tobacco Control form ?Yes . ? AUDIT-C (Alcohol use) form ?Yes . ? Illicit drug use in Social History ?Yes . ? Current diagnosis of depression? ?Diagnosed with PTSD, [facility] ? Appropriate PHQ2/PHQ9 completed ?Yes . ? Data entered by ?Casino Change Attendant and reviewed by provider ? Fall Risk ? Fall History? Have you had any falls with injury in the past year? ?No . ? Have you had two or more falls in the past year? ?No . ? Fall Risk Assessment: ?No falls in the past year . ? HRA filled out by the patient, reviewed by Provider and scanned. ?? ?AWV ? Balance? Romberg ?negative . ? Tandem walk ?Yes . ? Walk and Turn ?Yes . ? Rise from sit to stand ?Yes . ?Vision? Corrective lens ?no ? Vision screen ? Up-to-date, currently sees Dr. Barowsky . Has beginning cataracts and is nearsighted ?Hearing? Whisper test ?failed ?Written Plan?Completed. See Patient Documents. Healthcare proxy and MOLST done? [facility] Medical History (Updated 09/15/24 @ 11:06 by Millie Whitmore MD) Chronic low back pain COPD (chronic obstructive pulmonary disease) Neck pain Low back pain Hx of traumatic brain injury Sleep apnea Anxiety and depression GERD (gastroesophageal reflux disease) COVID-19 vaccine series completed Asthma BPH (benign prostatic hyperplasia) Migraines HLD (hyperlipidemia) HTN (hypertension) Surgical History H/O neck surgery H/O right inguinal hernia repair Family History Maternal Uncle Prostate cancer Social History Housing: House Patient Tobacco Use Status: Never used Tobacco e-Cigarette/Vaping Use: Never Used service: Yes Current occupational status: retired Cognitive needs: No Hearing needs: No Vision needs: Yes Questionnaire Medicare Wellness Checkup What [age] What gender do you identify with?: male During the past 4 weeks, how much have you been bothered by emotional problems such as feeling anxious, depressed, irritable, sad or downhearted, and blue?: slightly During the past 4 weeks, has your physical & emotional health limited your social activities with family, friends, neighbors, or groups?: slightly During the past 4 weeks, how much bodily pain have you generally had?: severe pain During the past 4 weeks, was someone available to help you if you needed & wanted help?: yes, as much as I wanted During the past 4 weeks, what was the hardest physical activity you could do for at least 2 minutes?: light Can you get to places out of walking distance without help? (For eg., can you travel alone on buses, taxis or drive your car?): Yes Can you go shopping for groceries or clothes without someone's help?: Yes Can you prepare your own meals?: Yes Can you do your housework without help?: Yes Because of any health problems, do you need the help of another person with your personal care needs such as eating, bathing, dressing or getting around the house?: Yes Can you handle your own money without help?: Yes During the past 4 weeks, how would you rate your health in general?: poor During the past 4 weeks how have things been going for you?: pretty well Are you having difficulties driving your car?: no Do you always fasten your seat belt when you are in a car?: yes, usually During past 4 weeks, have you been bothered by the following: never: Problems using the telephone?, sometimes: Falling or dizzy when standing up, Trouble eating well? and Teeth or denture problems? and often: Sexual problems? and Tiredness or fatigue? Have you fallen 2 or more times in the past year?: No Are you afraid of falling?: No Are you a smoker?: no During the past 4 weeks, how many drinks of wine, beer, or other alcoholic beverages did you have?: no alcohol at all Do you exercise for about 20 minutes 3 or more times a week?: yes, all the time Have you been given information to help with the following?: yes: Hazards in your house that might hurt you? and yes: Keeping track of your medications? How often do you have trouble taking medicines the way you have been told to take them?: I always take medicine as prescribed How confident are you that you can control & manage most of your health problems?: very confident What is your race?: White Mini Mental State Exam (MMSE) Orientation What is the (year) (season) (date) (day) (month)?: year (2024), season (Summer), date (09/15/2024), day (Sunday) and month (September) Where are we (state) (county) (town or city) (hospital) (floor)?: state ([place]), county ([place]), town or city ([place]) and hospital/clinic ([facility]) Score Score: 9 Activity of Daily Living Bathing - sponge bath, tub bath or shower: receives no assistance (gets in/out by self, if usual bathing means Dressing - getting clothes from closets & drawers, including inner/outer garm ents & fasteners.: gets clothes & gets completely dressed without help Toileting - going to the 'toilet room' for urine/bowel elimination & cleaning self/arranging clothes: goes to toilet room, cleans self, arranges clothes without help Transfer: moves in & out of bed and chair without help (may use support object) Continence: controls urination/bowel movements completely by self Feeding: feeds self without help Total Score: 0 Information obtained from: patient Using telephone: independent Traveling: independent Shopping: independent Preparing meals: independent Housework: independent Taking medicine: independent Managing money: independent PHQ-9 Over the last 2 weeks, how often have you been bothered by any of the following problems? 1. Little interest or pleasure in doing things: several days 2. Feeling down, depressed, or hopeless: several days 3. Trouble falling or staying asleep, or sleeping too much: more than half the days 4. Feeling tired or having little energy: several days 5. Poor appetite or overeating: several days 6. Feeling bad about yourself - or that you are a failure or have let yourself or your family down: several days 7. Trouble concentrating on things, such as reading the newspaper or watching television: several days 8. Moving or speaking so slowly that other people could have noticed. Or the opposite - being so fidgety or restless that you have been moving around a lot more than usual: several days 9. Thoughts that you would be better off or of hurting yourself in some way: not at all Total score: 9 Depression Screening Interpretation: Positive (Has PTSD currently on sertraline followed at the [place] [facility]) Depression Screening Follow-up: Existing condition, In treatment and Community Mental Health Worker F/U Depression Screening Done: Yes 89832 - PHQ-9 Billing: Yes Source: Developed by Drs. Aravind Busby, Kelsi Hoang, [employer] and colleagues, with an educational kristen from [employer]. Review of Systems GI Details: Goes to [facility], now seeing Dr. Carlos, had colonoscopy done approximately 3 years ago with a polyp removed which was precancerous, repeat due again in 2026 Musc Details: Still having posterior neck pain radiating down left, has been referral to see Dr. Walters for further evaluation Physical Exam Vital Signs: Last Vital Signs Temp 98.0 F 09/15/24 10:23 Pulse 80 09/15/24 10:23 Resp 16 09/15/24 10:23 BP 134/80 09/15/24 10:23 Pulse Ox 96 09/15/24 10:23 Oxygen Delivery Method Room Air 09/15/24 10:23 BMI result Body Mass Index 33.2 Immunizations pneumoc 20-marcela conj-dip cr(PF) 0.5 mL IM syringe Performing Provider: Millie Whitmore MD Performing Location: [facility] Administered by: Sandra Snyder CMA on 09/15/24 11:08 Dose Route Admin Location Dispensed Lot Number Expiration Date [facility] [employer] Cutter 0.5 mL IM Left Deltoid 0.5 mL [id number] 09/08/25 1543-7055-61 [employer] Total Dispensed Waste 0.5 mL 0 % VIS Given Date VIS Provided VIS Publication Date 09/15/24 Single Vaccine 24 Eligibility Eligibility Date Funding Source Not [facility] Eligible 09/15/24 Private Assessment & Plan Assessment & Plan (1) Encounter for initial annual wellness visit (AWV) in Medicare patient: Code(s): Z00.00 - Encounter for general adult medical examination without abnormal findings Plan: Medical wellness checklist reviewed, discussed with patient and updated. Patient gets labs done [place], copy of results requested. Up-to-date with his colonoscopy. PSA level ordered. Prevnar 20 given today. Rest of his vaccines are up-to-date per [facility] (2) Immunity status testing: Code(s): Z01.84 - Encounter for antibody response examination Plan: Rubeola IgG ordered to check for any immunity against measles (3) Advanced directives, counseling/discussion: Code(s): Z71.89 - Other specified counseling Plan: Initiated the conversation about Advanced Directives. Advanced Directives help patients prepare for current and future decisions about their medical treatment and place of care. Discussed with patient that it is a process where a patients current condition and prognosis are reviewed, their wishes for information regarding their illness are elicited, and likely medical dilemmas are presented and options discussed. Healthcare proxy form and MOLST form completed . These forms can be amended as needed, reviewed yearly and make changes as needed (4) Need for pneumococcal 20-valent conjugate vaccination: Code(s): Z23 - Encounter for immunization Plan: Prevnar 20 given today (5) Anxiety and depression: Comment: ? PTSD-[place] war Code(s): F41.9 - Anxiety disorder, unspecified; F32.9 - Major depressive disorder, single episode, unspecified Plan: Has PTSD, currently being seen by psychiatrist at the [place], stable and controlled on sertraline (6) HLD (hyperlipidemia): Code(s): E78.5 - Hyperlipidemia, unspecified Plan: Fasting lipid panel ordered (7) BPH (benign prostatic hyperplasia): Code(s): N40.0 - Benign prostatic hyperplasia without lower urinary tract symptoms Plan: PSA level ordered (8) Neck pain: Code(s): M54.2 - Cervicalgia Plan: Takes cyclobenzaprine uses lidocaine patches Orders: Orders Glucose Fasting 09/16/24 Z12.5 - Encounter for screening for malignant neoplasm of prostate, Z13.1 - Encounter for screening for diabetes mellitus, Z13.220 - Encounter for screening for lipoid disorders Hemoglobin and Hematocrit 09/16/24 Z12.5 - Encounter for screening for malignant neoplasm of prostate, Z13.1 - Encounter for screening for diabetes mellitus, Z13.220 - Encounter for screening for lipoid disorders Lipid Panel 09/16/24 Z12.5 - Encounter for screening for malignant neoplasm of prostate, Z13.1 - Encounter for screening for diabetes mellitus, Z13.220 - Encounter for screening for lipoid disorders Alanine Aminotransferase 09/16/24 Z12.5 - Encounter for screening for malignant neoplasm of prostate, Z13.1 - Encounter for screening for diabetes mellitus, Z13.220 - Encounter for screening for lipoid disorders Rubeola IgG (Measles) 09/16/24 Z01.84 - Encounter for antibody response examination Aspartate Amino Transferase 09/16/24 Z12.5 - Encounter for screening for malignant neoplasm of prostate, Z13.1 - Encounter for screening for diabetes mellitus, Z13.220 - Encounter for screening for lipoid disorders PSA,Total (Free>4and<10) 09/16/24 Z12.5 - Encounter for screening for malignant neoplasm of prostate, Z13.1 - Encounter for screening for diabetes mellitus, Z13.220 - Encounter for screening for lipoid disorders Pneumococcal 20 Immunization 09/15/24 Z23 - Encounter for immunization Quality Reporting (2020) Depression/Bipolar (159/160/161/177) PHQ-9: Total score: 9 Coding Level of Care Code Medicare First (G0438) Diagnoses Encounter for initial annual wellness visit (AWV) in Medicare patient Z00.00 Immunity status testing Z01.84 Advanced directives, counseling/discussion Z71.89 Need for pneumococcal 20-valent conjugate vaccination Z23 Anxiety and depression F41.9; F32.9 HLD (hyperlipidemia) E78.5 BPH (benign prostatic hyperplasia) N40.0 Neck pain M54.2 CPT Codes Advance Care Planning - Time spent: 16-45 minutes ([id number]) Additional Codes PHQ-9 - 37815 - PHQ-9 Billing: Yes ([id number]) Advance Care Planning Advance Care Planning discussion: Completed/Scanned Date of discussion: 09/15/24 Who was present: Patient Forms completed: Health Care Proxy and MOLST Time spent: 16-45 minutes Actual minutes spent: 10
[2024-09-15 10:23] VITALS: BP 134/80; PULSE 80; RESP 16; TEMP 36.7; O2SAT 96; BMI 33.2
== END 2024-09-15 11:07 | disposition home or self-care (01) ==
LOC: HO.HMCC 08:52
PROVIDERS: PCP Internal Medicine; Visit Provider Internal Medicine
DX: Z23 Encounter for immunization (principal)

== ENCOUNTER → 2024-09-15 08:51 | Outpatient (BNVA) | payer MEDICARE, OTHER, SELFPAY | PROVIDERS: PCP Internal Medicine; Visit Provider Internal Medicine | DX: Z00.00 Encounter for general adult medical examination without abnormal findings (principal); Z23 Encounter for immunization; F41.9 Anxiety disorder, unspecified; F32.9 Major depressive disorder, single episode, unspecified; E78.5 Hyperlipidemia, unspecified; N40.0 Benign prostatic hyperplasia without lower urinary tract symptoms; M54.2 Cervicalgia; Z71.89 Other specified counseling | CPT/HCPCS: 90471; 90677; 96127 ==

== ENCOUNTER 2024-09-16 10:48 | Outpatient (REF) | payer MEDICARE, OTHER, SELFPAY ==
--- OUTSIDE RECORDS SUMMARY | 2024-09-03 11:33 | XMS_ITS ---
Author Name [facility] Organization [facility] [place] Address [address] [place] [address] Care Team Providers Care Valve Steamer Name Role Phone MARILIN KAPLAN Primary Care [...] Valentine's Name Patient's Relationship to Policy [facility] ORGANIZAT [facility] Jan 23, 2014 [id number] CREAMER,Dina BURNS PATIENT [employer] (WNR) MEDICARE ADVANTAGE [facility] ([facility]) Nov 10, 2017 [id number] [phone] CREAMER,Dina KATY PATIENT MEDICARE ([facility]) MEDICARE (M) PART A Nov 10, 2014 PART A [id number] [phone] CREAMER,D KATY PATIENT MEDICARE ([facility]) MEDICARE (M) PART A Nov 10, 2014 PART A [id number] CREAMER,Dina KATY PATIENT MEDICARE (WNR) MEDICARE (M) PART B Nov 10, 2014 PART B [id number] CREAMERDina PATIENT MEDICARE (WNR) MEDICARE (M) PART B Nov 10, 2014 PART B CREAMERDina PATIENT MEDICARE (WNR) MEDICARE (M) PART B Nov 10, 2014 PART B [id number] [phone] CREAMERDina PATIENT MEDICARE PART D (WNR) MEDICARE (M) PART D Nov 10, 2017 PART D [id number] CREAMDina KOHLER PATIENT FOR LIFE TFL* Mar 12, 2023 [id number] CREAMDina KOHLER PATIENT -FO R-LIFE PRIME Mar 12, 2023 DIRECT CARE ONLY [id number] CREAMDina KOHLER PATIENT [facility] US [facility] Y [facility] H Mar 12, 2021 [id number] Dina WOODS PATIENT COUNT INCLUDES THE [facility] USP Mar 12, 2019 [facility] [id number] Dina WOODS PATIENT COUNT INCLUDES THE [facility] RADHA REYES E Mar 12, 2019 [id number] Dina WOODS PATIENT Selected Encounter This section includes the information on record at [place] for the Encounter. Date/Time Encounter Type Encounter Description Reason Pro vider Source Sep 03, 2024 03:33 PM Outpatient Encounter ADMIN PAT ACTIVTIES (MASNONCT) IHE Encounter Template Text not used by [place] Plan of Treatment: Future Appointments (+ 6 months) and Future Tests (+/- 45 days) The Plan of Treatment section includes future care activities for the patient from all [place] treatmentfacilities. This section includes future appointments and future orders which are active, pending or scheduled. Future Appointments This section includes appointments that were scheduled to occur 6 months from the date of the Encounter, up to a maximum of 20 appointments. The data comes from all [place] treatment facilities. Appointment Date/Time Appointment Type Appointme nt Facility Name Sep 23, 2024 01:00 PM AMBULATORY - PSYCHIATRY SP [facility] Oct 09, 2024 02:00 PM [facility] Oct 21, 2024 02:00 PM [facility]IC[facility] [place] [facility] Nov 21, 2024 01:20 PM [facility]ULATORY [facility] MEDICINE [facility] [place] [facility] Nov 25, 2024 02:30 PM AMBULATORY - MEDICINE [facility] [place] [facility] Active, Pending, and Scheduled Orders This section includes a listing of several types of active, pending, and scheduled orders, including clinic medications orders, diagnostic test orders, procedure orders and consult orders; where the start date of the order is 45 days before the date of the Encounter or 45 days after the date of theEncounter. The data comes from all [place] treatment facilities. Test Date/Time Test Type Test Details Facility Name July 24, 2024 10:45 AM Consult Order COMMUNITY CARE-CARDIOLOGY Cons Development Mgr's [facility] July 31, 2024 01:42 PM Consult Order COMMUNITY CARE-PULMONARY Cons Development [facility] Social History: Smoking Status (Most current) and Tobacco Use (All prior to encounter date) This section includes the most current, and the historical, smoking and tobacco- related health factors from the [place] facility where the Encounter took place. Current Smoking Status This section includes the most current smoking, or tobacco-related health factor, from the [place] facility where the Encounter took place. Date/Time Current Smoking Status Comment Laury ity Nov 10, 2022 01:30 PM VA[facility]TO[facility]ACCO [facility] Tobacco Use History This section includes a history of the smoking, or tobacco-related health factors, that were collected on or before the date of the Encounter. The data comes from the PR facility where the Encounter took place. Date/Time Smoking Status/Tobacco Use Comment F acility Oct 14, 2021 10:18 AM VA-TOBACCO NEVER USED [facility] [place] [facility] Feb 11, 2020 04:16 PM VA-TOBACCO NEVER USED [facility] [place] [facility] Jan 15, 2018 02:24 PM LIFETIME NON-SMOKER [facility] [place] [facility] Advance Directives: All historical and current Section Date Range: From patient's date of to the date document was created. This section includes ALL of a patient's completed or amended [place] Advance and Rescinded Directives. The entries below indicate that a directive exists for the patient, but an actual copy is not included with this document. The data comes from all [place] facilities. Date Advance Directives Provider Source Dec 14, 2020 ADVANCE DIRECTIVE MARISOL HAMPTON [facility] Encounter Notes: All associated encounter notes This section contains the clinical notes associated to the Encounter. Date/Time Encounter Note(s) Provider Source Sep 03, 2024 03:33 PM PHARMACY NOTE: LOCAL TITLE: V1 PHARMACY CUSTOMER CARE MEDICATION RENEWAL STANDARD TITLE: PHARMACY NOTE DATE OF NOTE: SEP 03, 2024@15:33 ENTRY DATE: SEP 03, 2024@15:33:24 AUTHOR: KENNA GREENFIELD COSIGNER: URGENCY: STATUS: COMPLETED Date: Aug Division: [facility] referred by Pharmacy Call Center for medication renewal: Non-controlled/maintenance medication Medications requested: [id number] CARBOXYMETHYLCELLULOSE NA 0.5% OPH SOLN Defer to specialty clinic To be mailed . Please review and renew if appropriate. *This note was generated by [facility] Pharmacy Customer Care. If you have any questions or need assistance, do not contact this author. Please refer all questions to your local, on-site pharmacy departments. /ho/ KENNA GREENFIELD CPhT [employer], [place]/Pharmacy Customer Care Signed: 09/03/2024 15:33 Receipt Acknowledged By: 09/08/2024 07:52 /ho/ CAMILLE MUNOZ OD STAFF INSULATION WORKER KENNA GREENFIELD [facility]
--- OUTSIDE RECORDS SUMMARY | 2024-09-10 23:59 | XMS_ITS | Continuity of Care Document ---
Author Organization [facility] Address [address] [place] [address]- Care Team Providers Care Learning Disabled Teacher Name Role Phone Olga Magana MD Primary Care Physician Encounter [facility] Date(s): 08/11/24 - 09/10/[address] [address] Encounter Type: Triage Allergies, Adverse Reactions, Alerts No Known Allergies Medications Airsupra 90 mcg-80 mcg/inh inhalation aerosol See Instructions, PRN as needed, Use 2 inhalations by mouth every 4-6 hours as needed for shortnessof breath/wheezing, do not exceed 12 inhalations in 24 hours, # 1 each, 5 Refills, Maintenance, 08/15/24 9:46:00 AM EDT, Aerosol, [facility], Partial fill upon patient request if the p rescription is for a schedule II opioid drug., Use 2 inhalations by mouth every 4-6 hours as neededfor shortness of breath/wheezing, do not exceed 12 inhalations in 24 hours,PRN:as needed, 183, cm, 08/15/24 9:21:00 EDT, Height, 114, kg, 09/26/22 0:02:00 EDT, Dry Weight Start Date: 08/15/24 Status: Ordered Quantity: 1.0 Unit: each Repeat number: 6 aspirin 81 mg oral delayed release tablet 81 mg, 1, tablet, By Mouth, Daily, # 90 tablet, Refills 3, Tot. Refills 3, Maintenance, 08/12/24 3:20:00 PM EDT, Route to Pharmacy Electronically, [facility], Partial fill upon patient request if the prescription is for a schedule II opioid drug., 183, cm, 04/21/24 14:57:00 EST, Height, 114, kg, 09/26/22 0:02:00 EDT, Dry Weight Start Date: 08/12/24 Status: Ordered Quantity: 90.0 Unit: tablet Repeat number: 4 Citalopram By Mouth, Daily, 0 Refills, Maintenance, 09/25/22 11:41:00 PM EDT, Partial fill upon patient requestif the prescription is for a schedule II opioid drug. Start Date: 09/25/22 Status: Ordered Repeat number: 1 ezetimibe 10 mg oral tablet 1 tablet = 10 mg, By Mouth, Daily, # 90 tablet, 3 Refills, Maintenance, 08/12/24 3:20:00 PM EDT, Tablet, [facility], Partial fill upon patient request if the prescription is for a schedule II opioid drug., 183, cm, 04/21/24 14:57:00 EST, Height, 114, kg, 09/26/22 0:02:00 EDT, Dry Weight Start Date: 08/12/24 Status: Ordered Quantity: 90.0 Unit: tablet Repeat number: 4 ipratropium nasal 21 mcg/inh spray 2 sprays = 42 mcg, Nares, Both, 3 times a day, # 30 mL, 6 Refills, Maintenance, 08/15/24 9:48:00 AM EDT, [place], [facility], Partial fill upon patient request if the prescription is for a schedule II opioid drug., 2 sprays Nares, Both 3 times a day, 183, cm, 08/15/24 9:21:00 EDT, Height, 114, kg, 09/26/22 0:02:00 EDT, Dry Weight Start Date: 08/15/24 Status: Ordered Quantity: 30.0 Unit: mL Repeat number: 7 metoprolol 25 mg oral tablet, extended release 25 mg, 1, tablet, By Mouth, Daily, # 30 tablet, Refills 3, Tot. Refills 3, Maintenance, 07/17/23 11:15:00 AM EDT, Route to Pharmacy Electronically, [facility], Partial fill upon patient request if the prescription is for a schedule II opioid drug., 183, cm, 07/16/23 10:41:00 EDT, Height, 114, kg, 09/26/22 0:02:00 EDT, Dry Weight Start Date: 07/17/23 Stop Date: 11/14/23 Status: Ordered Quantity: 30.0 Unit: tablet Repeat number: 4 MiraLax See Instructions, 0 Refills, Maintenance, 09/26/22 12:03:00 AM EDT, Partial fill upon patient request if the prescription is for a schedule II opioid drug. Start Date: 09/26/22 Status: Ordered Repeat number: 1 nitroglycerin 0.4 mg sublingual tablet 1 tablet = 0.4 mg, Sublingual, Every 5 minutes, PRN as needed for chest pain, not to exceed 3 doses/15 min--if pain persists, seek medical attention, # 25 tablet, 5 Refills, Maintenance, 08/11/24 2:43:00 PM EDT, Tablet, [facility], Partial fill upon patient request if the prescription is for a schedule II opioid drug., 183, cm, 04/21/24 14:57:00 EST, Height, 114, kg, 09/26/22 0:02:00 EDT, Dry Weight Start Date: 08/11/24 Status: Ordered Quantity: 25.0 Unit: tablet Repeat number: 6 Omeprazole By Mouth, Daily, 0 Refills, Maintenance, 09/25/22 11:41:00 PM EDT, Partial fill upon patient requestif the prescription is for a schedule II opioid drug. Start Date: 09/25/22 Status: Ordered Repeat number: 1 ProAir HFA Inhalation, 0 Refills, Maintenance, 09/26/22 12:02:00 AM EDT, Partial fill upon patient request if the prescription is for a schedule II opioid drug. Start Date: 09/26/22 Status: Ordered Repeat number: 1 rosuvastatin 40 mg oral tablet 1 tablet = 40 mg, By Mouth, Daily, # 90 tablet, 3 Refills, Maintenance, 08/12/24 3:20:00 PM EDT, Tablet, [facility], Partial fill upon patient request if the prescription is for a schedule II opioid drug., 183, cm, 04/21/24 14:57:00 EST, Height, 114, kg, 09/26/22 0:02:00 EDT, Dry Weight Start Date: 08/12/24 Status: Ordered Quantity: 90.0 Unit: tablet Repeat number: 4 Trelegy Ellipta 200 mcg-62.5 mcg-25 mcg/inh inhalation powder 1 puffs, Inhalation, Daily, at the same time every day, # 1 each, 11 Refills, Maintenance, 08/15/24 9:44:00 AM EDT, Powder, [facility], Partial fill upon patient request if the prescription is for a schedule II opioid drug., 1 puffs Inhalation Daily,Instr:at the same time every day,183, cm, 08/15/24 9:21:00 EDT, Height, 114, kg, 09/26/22 0:02:00 EDT, Dry Weight Start Date: 08/15/24 Status: Ordered Quantity: 1.0 Unit: each Repeat number: 12 Problem List Condition Confirmation Course Effective Dates Status Health St atus Informant Obese class I Confirmed Active Social History Social History Type Response Smoking Status Never (less than 100 in lifetime) entered on: 07/16/23 Sex Sex Representation Male (finding) Patient Care team information Care Team Personnel Name: Olga Magana MD Position: Reference Physician Member Role: PCP Address: [address] [place] [id number] Telecom: Name: Whitney Pineda Position: [facility] Outreach Member Role: Lifetime Consulting Physician Name: Roosveelt Appiah MD Position: [facility] Renal MD Member Role: Lifetime Consulting Physician Address: [address] [place], [place] [address] [place], [place] [address] Telecom: Care Team Related Persons Name: MALENA WOODS Insurance Providers Guarantor name: YESENIA WOODS Health Plan Information #: 1 Payer: [facility] Payer Identifier: NA Member Number: [id number] Group Number: [id number] Subscriber Identifier: [id number] Relationship to Subscriber: self Coverage Type: NA Coverage Verification Date: NA Telecom: NA Address: NA
--- OUTSIDE RECORDS SUMMARY | 2024-09-14 23:59 | XMS_ITS | Continuity of Care Document ---
Author Organization [facility] Address [address] [place] [address]- Care Team Providers Care Analytics Specialist Name Role Phone Olga Magana MD Primary Care Physician [phone] Encounter [facility] Date(s): 08/15/24 - 09/14/24 [facility] [address] [place], [place] [address] Encounter Type: Triage Allergies, Adverse Reactions, Alerts No Known Allergies Medications Airsupra 90 mcg-80 mcg/inh inhalation aerosol See Instructions, PRN as needed, Use 2 inhalations by mouth every 4-6 hours as needed for shortnessof breath/wheezing, do not exceed 12 inhalations in 24 hours, # 1 each, 5 Refills, Maintenance, 08/15/24 9:46:00 AM EDT, Aerosol, [facility], Partial fill upon patient request [...] 3:20:00 PM EDT, Route to Pharmacy Electronically, [facility], Partial fill upon patient request [...] Refills, Maintenance, 08/12/24 3:20:00 PM EDT, Tablet, [facility], Partial fill upon patient request [...] 6 Refills, Maintenance, 08/15/24 9:48:00 AM EDT, [place], [facility], Partial fill upon patient request [...] 11:15:00 AM EDT, Route to Pharmacy Electronically, [facility], Partial fill upon patient request [...] Refills, Maintenance, 08/11/24 2:43:00 PM EDT, Tablet, [facility], Partial fill upon patient request [...] Refills, Maintenance, 08/12/24 3:20:00 PM EDT, Tablet, [facility], Partial fill upon patient request [...] Refills, Maintenance, 08/15/24 9:44:00 AM EDT, Powder, [facility], Partial fill upon patient request [...] Position: Reference Physician Member Role: PCP Address: [address] [place] [id number] Telecom: Name: Whitney Pineda Position: [facility] Outreach Member Role: Lifetime Consulting Physician Name: Roosevelt Appiah MD Position: [facility] Renal MD Member Role: Lifetime Consulting Physician Address: [address] [place], [place] [address] [place], [place] [address] Telecom: Care Team Related Persons Name: MALENA WOODS Insurance Providers Guarantor name: YESENIA WOODS Health Plan Information #: 1 Payer: [facility] Payer Identifier: NA Member Number: [id number] Group Number: [id number] Subscriber Identifier: [id number] Relationship to Subscriber: self Coverage Type: NA Coverage Verification Date: NA Telecom: NA Address: NA
--- OUTSIDE RECORDS SUMMARY | 2024-09-16 11:51 | XMS_ITS | Encounter Summary ---
Author Organization [facility] Address [address] [place] [address] Phone Care Team Providers Care Pest Control Pilot Name Role Phone Adia Pope MD Primary Care Provider [phone] Encounter Details Date Type Department Care Team (Late st Contact Info) Description 01/25/2023 Documentation Only [facility] [address] [phone] Taya Steinberg MD Social History Tobacco Use Types Packs/Day Years [...] Visit [facility] [address] [place] [address] Roosevelt Appiah MD [address] [place] [address] Dr[address] [phone] documented as of this encounter Visit Diagnoses Not on filedocumented in this encounter Care Teams Pest Control Pilot Relationship Specialty Start Date End Date Adia Pope MD [address] [facility] [address] [place] [address] PCP - General Family Medicine 10/03/22 documented as of this encounter
[2024-09-16 14:21] LABS: Hematocrit 43.8 % (42.0-52.0); Hemoglobin 15.7 g/dl (14.0-18.0)
[2024-09-16 14:45] LABS: Alanine Aminotransferase 32 U/L (0-40); Aspartate Amino Transferase 30 U/L (5-37); Cholesterol 109 mg/dL (<200); HDL Cholesterol 36 mg/dL (>40); Triglycerides 131 mg/dL (<150)
[2024-09-16 15:00] LABS: PSA,Total (Free>4and<10) 1.35 ng/mL (0.00-4.00)
[2024-09-17 09:24] LABS: Rubeola IgG (Measles) 138.00 AU/mL
== END 2024-09-16 10:49 | disposition home or self-care (01) ==
LOC: HO.HMGCLDS 10:48
PROVIDERS: PCP Internal Medicine; Visit Provider Internal Medicine
DX: Z13.220 Encounter for screening for lipoid disorders (principal); Z13.1 Encounter for screening for diabetes mellitus; Z12.5 Encounter for screening for malignant neoplasm of prostate; Z01.84 Encounter for antibody response examination; Z13.0 Encounter for screening for diseases of the blood and blood-forming organs and certain disorders involving the immune mechanism
CPT/HCPCS: 36415; 80061; 82947; 84153; 84450; 84460; 85014; 85018; 86765

== ENCOUNTER 2024-09-19 13:25 | Outpatient (AMB) | payer MEDICARE, OTHER, SELFPAY ==
--- OUTSIDE RECORDS SUMMARY | 2024-09-19 13:29 | XMS_ITS | Encounter Summary ---
Author Organization [facility] Address [address] [place] [address] Phone Care Team Providers Care Glass Cylinder Flanger Name Role Phone Adia Pope MD Primary Care Provider [phone] Encounter Details Date Type Department Care Team (Late st Contact Info) Description 01/25/2023 Documentation Only [facility] [address] [place] [phone] Taya Steinberg MD Social History Tobacco Use [...] Visit [facility] [address] [place] [phone] Roosevelt Appiah MD [address] [place] [address] [address] [phone] documented as of this encounter Visit Diagnoses Not on filedocumented in this encounter Care Teams Glass Cylinder Flanger Relationship Specialty Start Date End Date Adia Pope MD [address] [facility] [address] [place] [address] PCP - General Family Medicine 10/03/22 documented as of this encounter
[2024-09-19 13:55] VITALS: BMI 32.5
--- NOTE | 2024-09-19 13:55 | HO.SPINEOV ---
Vital Signs 09/19/24 13:55 Height 6 ft Weight 240 lb BMI 32.5 Intake Visit Reasons: cervicalgia Intake Note: Mr. Beard is here today c/o neck pain and numbness that radiates down to the arms. Package Line Operator Required: No Allergies No Known Allergies Allergy (Verified 09/19/24 13:56) Physical Exam Vital Signs: BMI result Body Mass Index 32.5 Assessment & Plan Assessment & Plan (1) Cervical radiculopathy: Code(s): M54.12 - Radiculopathy, cervical region Category: Medical Plan Dear Layo, Thank you for referring Mr Beard to our office today. 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 He underwent a 9 hour surgery that the doctor told him he spent picking out bone pieces office spinal cord. Amazingly, he recovered and ultimately had return of most function of his arms and legs, but has always been left with nagging neck pain. This was fairly well managed with things like physical therapy, massage therapy, medications like muscle relaxers and anti-inflammatories. About 4 months ago so, he was turning his head to the left when he was driving and felt something pop and thought it might be the plate in his neck shifting. The pain intensified and started shooting into his subscapular area down into his left arm in his hand. He describes it as being the back of his hand. He has residual numbness in his thumb and index finger from his original injury and that is unchanged. The pain has intensified quite a bit he is having a hard time simply just getting along with daily activities. He underwent a cervical MRI done at [facility] showing adjacent segment disease to his C5-6 anterior cervical fusion. He has a severe left C6-7 foraminal narrowing. He underwent an injection at your office and unfortunately like the 1 he did a few years ago it did not work. That is when he was sent to us for an evaluation to see if surgery would be possible to fix it. 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 This took place in [place] and he ultimately underwent a interventional stenting and has been fine ever since. He is followed by a electronic security technician at [facility] and has routine checkups. He does not have any chest pain shortness of breath dizziness etc.. He also has a history of hypertension, asthma. He was told once he has COPD but he sees a certified orthotist/pedorthist and he has never smoked and was told he just has asthma. He takes an inhaler daily and a PRN rescue but rarely needs it. History of BPH, shoulder injury, anterior cervical fusion, hernia surgery right elbow surgery and TURP. He has not report any issues with his liver, kidneys, bleeding disorders, blood clots, cancer, infections etc.. Social hx: He has never smoked, occasionally drinks. He did try marijuana few times to try to deal with his pain but he did not like how it made him feel. Medications: Alfuzosin, albuterol, baby aspirin, cyclobenzaprine, Zetia, I ipratropium inhaler, metoprolol, omeprazole, sertraline Allergies: None Physical exam: He is a well healed surgical incision on his anterior neck on the right side, strength grossly full bilateral upper and lower extremities, he has a resting flexed posture of his neck with difficulty looking up with range of motion. Also limited looking to the left. Reflexes are normal without Diallo's or clonus. Imaging review: Cervical MRI done at [facility] shows anterior cervical fusion C5-6 with what looks like bony anterior osteophytes at C4-5 and C6-7. I can not tell if these levels are fused already or not. He has some mild foraminal stenosis at C4-5, but has severe foraminal stenosis at C6-7 on the left. No cord impingement. 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 He was told that the doctor spent 9 hours picking up bone fragments. This sounds a little more like he had some kind of traumatic subluxation. His issue currently is not just a chronic neck pain he has been dealing with since that time but over the last 4 months a severe left upper extremity radiculopathy which I believe is explained by the left C6-7 nerve impingement seen on his MRI. Typically this is something Dr. Walters would offer C6-7 anterior cervical fusion. I would like to clarify a few details that will assist in helping us with surgical approach. Specifically I would like to get a set of cervical x-rays with flexion-extension views, as well as a noncontrast cervical CT to better evaluate in the setting of previous trauma and fractures. It looks to me like there is partial auto fusion of C6-7, and this may be related to the original injury so if the impingement can not be decompressed from the front secondary to auto fusion we may need to do posterior cervical foraminotomy as an alternative. Once these tests are completed, I will call him and we can discuss the final surgical plan after review with Dr. Walters. Thank you for allowing us to care for your patient. The total time spent with this visit with this patient was 45 minutes reviewing history, physical exam, cervical imaging review, and implementation of treatment plan or further diagnostic testing Michael Walters MD,PhD [facility] Orders: Orders XR cervical spine 4V Today M54.12 - Radiculopathy, cervical region CT cervical spine wo IV con Today M54.12 - Radiculopathy, cervical region Coding Level of Care Code New Pt Level 4 (26442) Diagnoses Cervical radiculopathy M54.12
== END 2024-09-19 15:14 | disposition home or self-care (01) ==
LOC: HO.HNS 13:26
PROVIDERS: PCP Internal Medicine; Visit Provider Physician Assistant
DX: M54.12 Radiculopathy, cervical region (principal)
CPT/HCPCS: 99204

== ENCOUNTER 2024-09-19 13:25 | Outpatient (REF) | payer MEDICARE, OTHER, SELFPAY ==
--- NOTE | ~2024-09-19 | XR_ITS ---
EXAMINATION: XR CERVICAL SPINE 4-5 VIEWS HISTORY: M54.12 - Radiculopathy, cervical region COMPARISON: There are no prior studies available for comparison. FINDINGS: AP, and neutral, flexion, and extension lateral views of the cervical spine are submitted. Osseous mineralization is normal. The patient is status post anterior fusion of C5 and C6 with plate and screws and an intervertebral graft. There is straightening of the normal cervical lordosis. The vertebral bodies maintain normal height. There is moderate degenerative disc disease with disc space narrowing and osteophyte formation. There is facet osteoarthritis. There is no significant motion with flexion or extension. There is no prevertebral soft tissue swelling. XR/XR cervical spine 4V IMPRESSION: Status post anterior fusion of C5 and C6. Straightening of the normal cervical lordosis. No abnormal motion with flexion or extension. Degenerative changes as described. Electronically signed by: Aravind Still MD 09/19/2024 02:55 PM EDT
== END 2024-09-19 13:26 | disposition home or self-care (01) ==
LOC: HO.HOSX 13:25
PROVIDERS: PCP Internal Medicine; Visit Provider Physician Assistant
DX: M54.12 Radiculopathy, cervical region (principal); Z98.1 Arthrodesis status
CPT/HCPCS: 72050; 99202

== ENCOUNTER → 2024-09-19 14:43 | Outpatient (BNV) | payer MEDICARE, OTHER, SELFPAY | PROVIDERS: PCP Internal Medicine; Visit Provider Radiology Diagnostic Radiology | DX: M54.12 Radiculopathy, cervical region (principal) | CPT/HCPCS: 72050 ==

== ENCOUNTER 2024-09-29 06:22 | Outpatient (REF) | payer MEDICARE, OTHER, SELFPAY ==
--- NOTE | ~2024-09-29 | CT_ITS ---
CLINICAL HISTORY: M54.12 - Radiculopathy, cervical region CT cervical spine without contrast Comparison: DX/SR - XR CERVICAL SPINE 4-5 VIEWS - 09/19/24 14:43 EDT Findings: Normal vertebral body alignment. Multilevel intervertebral disc space narrowing, osteophyte formation, and facet arthrosis and uncovertebral hypertrophy. Multilevel neural foraminal narrowing. No acute fractures or dislocations. ACDF hardware at C5-C6. No evidence of hardware complication. Nonspecific left mastoid effusion. Soft tissues of the neck are normal. No consolidation or effusion at the lung apices. IMPRESSION: 1. No acute osseous abnormality. 2. Nonspecific left mastoid effusion. This document has been electronically signed by: Hadley Cope DO on 09/29/2024 13:03:51
== END 2024-09-29 06:23 | disposition home or self-care (01) ==
LOC: HO.CT 06:22
PROVIDERS: PCP Internal Medicine; Visit Provider Physician Assistant
DX: M54.12 Radiculopathy, cervical region (principal)
CPT/HCPCS: 72125

== ENCOUNTER → 2024-09-29 06:24 | Outpatient (BNV) | payer MEDICARE, OTHER, SELFPAY | PROVIDERS: PCP Internal Medicine; Visit Provider Family Medicine | DX: M47.812 Spondylosis without myelopathy or radiculopathy, cervical region (principal) | CPT/HCPCS: 72125 ==

== ENCOUNTER → 2024-11-24 13:00 | Outpatient (BNV) | payer MEDICARE, OTHER, SELFPAY | PROVIDERS: PCP Internal Medicine; Visit Provider Internal Medicine | DX: R00.1 Bradycardia, unspecified (principal) | CPT/HCPCS: 93010 ==

== ENCOUNTER 2024-11-27 09:01 | Day surgery (SDC) | payer MEDICARE, OTHER, SELFPAY ==
--- NOTE | 2024-11-24 | ECG_ITS ---
Test Reason : PREOP Blood Pressure : */* mmHG Vent. Rate : 55 BPM Atrial Rate : 55 BPM P-R Int : 128 ms QRS Dur : 82 ms QT Int : 408 ms P-R-T Axes : 46 -40 -4 degrees QTcB Int : 390 ms Sinus bradycardia Possible Left atrial enlargement Left axis deviation Abnormal ECG No previous ECGs available Referred By: Rose Srivastava Electronically Signed By: SILVIA CONDON
[2024-11-24 12:15] VITALS: BP 146/72; PULSE 61; RESP 17; O2SAT 96; BMI 33.8
[2024-11-24 13:49] LABS: Hematocrit 44.9 % (42.0-52.0); Hemoglobin 15.7 g/dl (14.0-18.0); Mean Corpuscular HGB Conc 35.0 g/dl (31.0-36.0); Mean Corpuscular Hemoglobin 31.3 pg (27.0-33.0); Mean Corpuscular Volume 89.4 fL (80.0-98.0); NRBC Abs Auto 0.000 X10*3/uL (0.0-0.012); NRBC Pct Auto 0.0 /100WBC (0.0-0.2); Platelet Count 173 X10*3/uL (160-400); Red Blood Count 5.02 X10*6/uL (4.60-5.80); White Blood Count 6.8 X10*3/uL (4.8-10.8)
[2024-11-24 14:31] LABS: Anion Gap 11 (12-20); Blood Urea Nitrogen 12 mg/dL (9-16); Calcium 9.3 mg/dL (8.4-10.2); Carbon Dioxide 27 mmol/L (22-29); Chloride 106 mmol/L (96-108); Creatinine Clr Calc Pharmacy 101.3; Estimated Glomerular Filt Rate > 60; Potassium 4.0 mmol/L (3.3-5.1); Sodium 140 mmol/L (135-145)
[2024-11-27] VITALS (11 sets, daily range): BP systolic 103–142; BP diastolic 47–71; PULSE 79–93; RESP 14–19; TEMP 36.1–36.5; O2SAT 95–100
--- NOTE | ~2024-11-27 | FL_ITS ---
EXAMINATION: FL GUIDANCE ONLY HISTORY: C6-7 ACDF COMPARISON: Correlation is made with plain films of the cervical spine dated 09/19/2024. TECHNIQUE: Fluoroscopy time: 5.0 seconds. Cumulative Dose: 1.7522 mGy. DAP: 0.2406 mGym2 Images: 2. FINDINGS: Fluoroscopic spot films of the cervical spine demonstrate anterior cervical disc fusion at C6-7. FL/FL guidance in OR IMPRESSION: Fluoroscopy during procedure. Please see procedure report for additional information. Electronically signed by: Aravind Still MD 11/27/2024 12:33 PM EDT
--- NOTE | 2024-11-27 09:28 | MHC.SHP ---
Pre-Procedural Eval Section A - 24 Hr Update-Section A only Date of Service: 11/27/24 The patient is an INPATIENT: No Changes since office visit: No Cold of Flu in the past 2 weeks, No New Medical Problems, No Changes in Medication and No Patient answered all questions The patient has been examined within 24 hours of the surgical procedure. The History & Physical has been completed within 30 days and I have reviewed it.: No Section B - Complete if H&P > 30 days Chief Complaint: Radiculopathy, cervical region Allergies: Allergies Allergy/AdvReac Type Severity Reaction Status Date / Time mite-Dermatophagoides Allergy Unknown Verified 11/21/24 11:30 catina bryant (dust mite - [place]) Review of Systems Sugical H&P ROS: Negative: Constitution, Cardiovascular, Respiratory, Neurological, Psychiatric, Hem-Onc, Allergic/Immunologic, Gastrointestinal, Genitourinary, Musculoskeletal, Integumentary, Endocrine and Eyes/Ears/Nose/Throat Exam Surgical H&P Exam: Normal: HEENT, Normal: Heart, Normal: Lungs, Normal: Extremities, Normal: Abdomen, Normal: Skin and Normal: Neurological (awake alert oriented x 3 ) Plan Diagnosis/Plan: Unchanged anterior cervical diskectomy and fusion C6-7 Time Spent With Patient Time: Total time managing care of this patient today __3__ minutes.
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
[2024-11-27] MEDS: Lactated Ringers 1,000 ML 100 ML IVCONT (09:55)
--- NOTE | 2024-11-27 10:46 | PM.DS ---
DS: Providers Provider Date of Service: 11/27/24 Date of discharge: 11/27/24 Primary care physician: Millie Whitmore MD DS: Diagnosis Discharge Diagnosis (1) Neck pain: Status: Acute (2) Cervical radiculopathy: Status: Acute DS: Summary Time Attestation Discharge Coordination Time (in mins): 5 Quality: Safe Use of Opioids Does Pt have an Active Cancer Diagnosis on the Problem List?: No Quality: Stroke Does the patient have a stroke diagnosis?: No Physical Exam Vital Signs: Vital Signs: Last Vital Signs Temp 97.7 F 11/27/24 09:35 Pulse 79 11/27/24 09:35 Resp 16 11/27/24 09:35 BP 142/71 H 11/27/24 09:35 Pulse Ox 98 11/27/24 09:35 O2 Del Method Room Air 11/27/24 09:35 BMI result Body Mass Index 33.8 Discharge Plan Discharge Patient Disposition: Home, Self-Care Referrals: Millie Whitmore MD [Primary Care Provider, Internal Medicine] - 1 Week Discharge Medications: New docusate sodium [Colace] 100 mg capsule 100 mg PO BID Qty: 20 0RF oxycodone 5 mg tablet 5 mg PO Q4H PRN (Reason: pain) Qty: 20 0RF Rx Instructions: Partial Fill upon patient request. Continued lidocaine 5 % Adhesive Patch,Medicated 1 patch TOPICAL DAILY omeprazole 20 mg Capsule,Delayed Release(Dr/Ec) 20 mg PO DAILY albuterol sulfate 90 mcg/actuation Hfa Aerosol Inhaler 2 puff INHALATION Q4-6H PRN (Reason: Shortness Of Breath Or Wheezing) cyclobenzaprine 5 mg Tablet 10 mg PO TID PRN (Reason: Muscle Spasm) nitroglycerin 0.4 mg Tablet, Sublingual 0.4 mg SUBLINGUAL Q5M PRN (Reason: Chest Pain) Rx Instructions: do not exceed 3 doses per episode rosuvastatin 40 mg Tablet 40 mg PO DAILY cetirizine 10 mg Tablet 10 mg PO DAILY PRN (Reason: Allergy Symptoms) carboxymethylcellulose sodium [Refresh Tears] 0.5 % Drops 1 drp OPHTHALMIC (EYE) BID PRN (Reason: Dry Eyes) ezetimibe 10 mg tablet 10 mg PO DAILY alfuzosin 10 mg tablet extended release 24 hr 10 mg PO QPM metoprolol succinate 25 mg tablet extended release 24 hr 25 mg PO DAILY sertraline 50 mg tablet 50 mg PO DAILY Held aspirin 81 mg tablet 81 mg PO DAILY Hold Instructions: Resume on 12/04/24. You may resume aspirin 7 days after surgery Discharge Orders: Discharge Order (Routine); Ordered 11/27/24 Ordered By: Michael Hasasn Diet: Advance to usual diet Activity on Discharge: As tolerated Activity Restrictions/Additional Instructions: After your spinal surgery we ask you to observe the following restrictions/guidelines: Activity: It is normal to feel some discomfort as you increase your activity, but that will improve with time. We ask you avoid heavy lifting or acitivities that cause pain. As a general rule, 8lbs is a safe limit for lifting right after surgery. Walk as much as you feel comfortable but not to exhaustion. You will feel extra tired the first few days after surgery. Stay well hydrated. It is OK to walk up and down stairs You may return to driving when you are off narcotics (such as vicodin, oxycodone, dilaudid, etc), and you are back to normal functional capacity. If you have any concerns please check with office before driving. Return to work is specific to each patient and each surgery, so please speak with your doctor/PA at first follow up. Please bring paperwork such as FMLA at that time if you need it filled out. Medications: You can resume aspirin 7 days after surgery For optimum pain control, it is best to start with a combination of 500 mg of Tylenol every 4 hours with 600 mg of Motrin every 8 hours, and use narcotics as needed in between for breakthrough pain. We will give you a short supply of narcotics after surgery (usually one weeks worth). If you need more please call the office but do not use more than prescribed. You will need to give our office 48 hours notice if you need narcotics refilled and we do not fill narcotics on weekends or evenings. If you are on a narcotic, it is a good idea to take a stool softener such as colace or senna to avoid constipation If you take blood thinner such as aspirin, Plavix, Coumadin, Effient, Eliquis etc for conditions such as Afib, DVT, Pulmonary embolus, coronary disease, stents etc please speak with your surgeon about specific details as to when you can resume these medications. Follow up: Please call the office, , after surgery to arrange a 3 week follow up for wound check. Wound Care: You may remove your dressing on the first day after surgery. ?You may ?leave open to air. Please do not remove the steri strips underneath. they will fall off on their own in one week. IT IS NORMAL FOR THE WOUND TO OOZE OR BE BLOODY FOR A FEW DAYS AFTER SURGERY. ?IF THIS HAPPENS JUST PLACE NEW DRESSING OVER IT TO AVOID STAINING CLOTHES. You may shower on post op day # 1 We ask that you do not let the water soak the wound. If it does get wet, just towel dry lightly. Please do not scrub your incision or place any type of chemical/ointment on the wound. No tub baths, pools or jacuzzis for one month. If you have any leaking or redness from your wound, or fevers, please call office Print Language: Turkmen
--- NOTE | 2024-11-27 11:59 | W.PM.OPN ---
Operative Note Operative Note Date of Service: 11/27/24 Narrative: Preoperative Diagnosis: Adjacent degenerative disc disease, Cervical radiculopathy, left side Procedure: C6-7 Anterior discectomy, arthrodesis and implantation cage ; C6-7 anterior instrumentation ; local autograft; microscope Informed Consent was obtained for this operation. I have explained the nature, purpose and benefits of the operation. I have discussed the risks and benefit of the operation including possible complications or adverse events with patient/family. Alternative(s) were discussed with the patient with their relative benefits and risks as well as the consequences of not accepting the operation were included in obtaining consent. Surgeon: BRIAN OSCAR MD, PHD Procedure Assisted By: estephania Miner Description of Procedure: This patient had an anterior diskectomy and fusion done C5-6 20 years ago. He developed severe left arm pain. Imaging reviews adjacent degenerative disc disease C6-7 with compression of the left C7 nerve root. The patient was offered an anterior diskectomy and fusion of this level. The procedure complications were explained. The patient was consented. The patient was brought to the operating room and endotracheally intubated. The patient was put in supine position with slight extension of the neck. Prep and drape was done followed by timeout. A mid cervical incision was made followed by opening of the platysma. The prevertebral fascia was reached following the natural planes while the physician apartment assistant manager provided manual retraction. The prevertebral fascia was opened to expose the disc space. The C5-6 plate was partially exposed. A spinal needle was placed in the disk space to confirm the correct level with xray. The longus colli muscles were released bilaterally and a self retaining retractor was inserted. A large anterior osteophyte covering the C6-7 disc space was removed and saved for autograft. Two [place] pins were placed in the C6 and C7 vertebral bodies and distraction was give over the interspace. The discectomy was completed toward the posterior annulus of the disc. The microscope was brought in. The remainder of the discectomy was completed. The posterior ligament was opened and resected to expose the underlying dura. Large osteophytes were resected from the body of C6 and C7 to decompress the underlying spinal cord and saved for autograft. Bilateral foraminotomies were done. The C7 nerve root was completely free after the foraminotomy. The endplates were prepared after which a 6 mm cage filled with autograft was inserted into the disc space. A separate attached plate was locked down with 2 x 14 mm screws as anterior instrumentation. Final x-rays in AP and lateral projection showed a satisfactory position of the implant. The physician apartment assistant manager took over. The [place] pin was removed. Hemostasis was done. He closed the incision in 2 layers with a 3-0 Vicryl. Steri-Strips used to approximate incision. An OpSite with Tegaderm was used to cover the incision. All sponge and needle counts were correct. Patient was extubated and transported in stable is to recovery room. Anesthesia: General Estimated Blood Loss (ml): 15 Duration of Surgery: 60 Postoperative Plan: Discharge home Complications: None
== END 2024-11-27 14:10 | disposition home or self-care (01) ==
PROVIDERS: Nurse Practitioner; PCP Internal Medicine; Visit Provider Neurological Surgery
PROC: (CPT 22551; principal; 2024-11-27 10:30)
DX: M50.323 Other cervical disc degeneration at C6-C7 level (principal); M54.12 Radiculopathy, cervical region; I10 Essential (primary) hypertension; I25.2 Old myocardial infarction; I25.10 Atherosclerotic heart disease of native coronary artery without angina pectoris; Z95.5 Presence of coronary angioplasty implant and graft; Z87.820 Personal history of traumatic brain injury; J45.909 Unspecified asthma, uncomplicated; R73.01 Impaired fasting glucose; Z98.1 Arthrodesis status; Z79.82 Long term (current) use of aspirin; Z79.899 Other long term (current) drug therapy
CPT/HCPCS: 22551; 22853; 20936; 22845; 36415; 80048; 85027; 93005; C1713; C1889; J0131; J0690; J2003; J2250; J2371; J2704; J3010

== ENCOUNTER → 2024-11-27 09:01 | Outpatient (BNV) | payer MEDICARE, OTHER, SELFPAY | PROVIDERS: PCP Internal Medicine; Visit Provider Neurological Surgery | DX: M54.2 Cervicalgia (principal); M54.12 Radiculopathy, cervical region | CPT/HCPCS: 20936; 22551; 22845; 22853; 99499 ==

== ENCOUNTER 2024-12-18 09:27 | Outpatient (AMB) | payer MEDICARE, OTHER, SELFPAY ==
--- NOTE | 2024-12-18 09:50 | HO.SPINEOV ---
Intake Visit Reasons: 1st post op Intake Note: Mr. Beard is here today for his 1st post op. 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 Beard is a pleasant 64-year-old male who comes in today for his 1st postoperative appointment after having a C6-[address] Walters a few weeks ago. He reports that overall he has been healing well since his surgery, but still has some flare-ups of posterior neck pain. In addition to this he still has some weakness/numbness in his bilateral triceps, and some numbness in his left 1st 3 phalanges. We did discuss how some of his numbness/tingling/weakness may be a result of permanent nerve damage from his prior traumatic injury. He asked several questions regarding the postoperative healing course, all of which I answered to the best of my ability. In addition, he also reported that he has had elevated temperature recorded at home on thermometer of 101, alongside some chills and general malaise. He raise some concerns regarding the incision site being slightly swollen. No new neurological deficits. The patient ambulates well and rises from a seated position without difficulty. His anterior incision site is closed, well healing, with no signs of drainage. Given this there is slight erythema to the incision site which notably sits directly on his shirt / sweater collar line. We discussed the likelihood of potential superficial skin irritation versus infectious underlying cause for the redness near his incision site. I believe his incision is likely irritated because it is sitting directly on the collar line in sweater/shirt. Given this he also has some constitutional symptoms at home. We discussed a short course of doxycycline as a preventative measure against superficial skin infection and given where the incisions lying on his body in relationship to his clothes. He would like to proceed with an Rx of Doxycycline 100mg bid x 5 days. I would like to see Mr. Beard back in 6 weeks for his 2nd postoperative visit with a set of x-rays. Wilver Walters MD,PhD [facility] Medications: New doxycycline hyclate 100 mg PO BID 10 tabs 0RF Infection prophylaxis 5 days Coding Level of Care Code Global (46763) Diagnoses S/P cervical spinal fusion Z98.1
== END 2024-12-18 11:00 | disposition home or self-care (01) ==
LOC: HO.HNS 09:28
PROVIDERS: PCP Internal Medicine; Visit Provider Physician Assistant
DX: Z98.1 Arthrodesis status (principal)
CPT/HCPCS: 99024

== ENCOUNTER → 2024-12-18 09:27 | Outpatient (BNVA) | payer MEDICARE, OTHER, SELFPAY | PROVIDERS: PCP Internal Medicine; Visit Provider Physician Assistant | DX: M54.2 Cervicalgia (principal); Z98.1 Arthrodesis status; Z47.89 Encounter for other orthopedic aftercare | CPT/HCPCS: 99212 ==

== ENCOUNTER 2025-01-29 09:31 | Outpatient (REF) | payer MEDICARE, OTHER, SELFPAY ==
--- NOTE | ~2025-01-29 | XR_ITS ---
EXAMINATION: XR CERVICAL SPINE CLINICAL INFORMATION: M54.2 - Cervicalgia COMPARISON: September 19, 2024 TECHNIQUE: Lateral views in neutral, flexion and extension position. AP view. FINDINGS: Craniocervical junction is intact. Syndesmophyte formation with preservation of the intervertebral disc height at C4-5. Intact metallic plate placed anteriorly and anchor with screws at C5-6. Intervertebral body disc spacer placement C6-7. 1 mm anterolisthesis in neutral position at C4-5 without motion during flexion and or extension position. 1 mm anterolisthesis at the C5-6 arthrodesis without motion during flexion and/or extension position. Facet joint hypertrophy at C3-4, C4-5 and C5-6 level. No lytic or blastic lesions. Calcification in the nuchal ligament at C5 level. XR/XR cervical spine 4V IMPRESSION: No instability. Electronically signed by: Mateus Menendez MD 01/29/2025 11:05 AM [place]
--- OUTSIDE RECORDS SUMMARY | 2025-01-30 10:05 | XMS_ITS | Encounter Summary ---
Author Organization [facility] [place], Address [address] [place] [address] Phone Care Team Providers Care Fire Equipment Inspector Helper Name Role Phone Cheyenne Whitmore MD Primary Care Provider +1- [phone] Encounter Details Date Type Department Care Team (Late st Contact Info) Description 10/03/2022 Documentation Only [facility] [address] [place] [address] Adia Pope MD [address] [place] [address] Social History Tobacco Use Types Packs/Day Years [...] Visit [facility] [address] [place] [address] Roosevelt Appiah MD [address] [place] [address] [address] [phone] documented as of this encounter Visit Diagnoses Not on filedocumented in this encounter Care Teams Fire Equipment Inspector Helper Relationship Specialty Start Date End Date Cheyenne Whitmore MD [address] [facility] [facility] [place] [address] PCP - General Internal Medicine 10/16/24 documented as of this encounter
--- OUTSIDE RECORDS SUMMARY | 2025-01-30 10:05 | XMS_ITS | Encounter Summary ---
Author Organization [facility] [place], Address [address] [place] [address] Phone Care Team Providers Care Media Center Director School Name Role Phone Cheyenne Whitmore MD Primary Care Provider +1- [phone] Encounter Details Date Type Department Care Team (Late st Contact Info) Description 10/16/2024 Documentation Only [facility] [address] [place] [address] Whitney Pineda [address] [place] [address] Social History Tobacco Use Types Packs/Day [...] [facility] [address] [place] [address] Roosevelt Appiah MD [address] [place] [address] [address] Á[place] [address] documented as of this encounter Visit Diagnoses Not on filedocumented in this encounter Care Teams Media Center Director School Relationship Specialty Start Date End Date Cheyenne Whitmore MD [address] [place] [address] PCP - General Internal Medicine 10/16/24 documented as of this encounter
--- OUTSIDE RECORDS SUMMARY | 2025-01-30 10:05 | XMS_ITS | Encounter Summary ---
Author Organization [facility] Address [address] [place] [address] Phone Care Team Providers Care Stacker Attendant Name Role Phone Cheyenne Whitmore MD Primary Care Provider +1- [phone] Encounter Details Date Type Department Care Team (Late st Contact Info) Description 08/02/2023 Documentation Only [facility] [address] [place] [address] Whitney Pineda [address] [place] [address] Social History Tobacco [...] [facility] [address] [place] [address] Roosevelt Appiah MD [address] [place] [address] [address] [address] documented as of this encounter Visit Diagnoses Not on filedocumented in this encounter Care Teams Stacker Attendant Relationship Specialty Start Date End Date Cheyenne Whitmore MD [address] [place] [address] PCP - General Internal Medicine 10/16/24 documented as of this encounter
--- OUTSIDE RECORDS SUMMARY | 2025-01-30 10:05 | XMS_ITS | Clinical Summary ---
Author Organization [facility], Address [address] [place] [address] [place] [address] Phone Care Team Providers Care Herb Digger Name Role Phone Cheyenne Whitmore MD Primary Care Provider +1- [phone] Allergies Active Allergy Reactions Criticality Noted Date [...] [facility] [address] [place] [address] Whitney Pineda from Last 3 Months [...] Visit [facility] [place], [address] [place] [address] Roosevelt Appiah MD [address] [place] [address] [address] [place] [address] Health Maintenance Due Date Last Done Comments [...] None seen 0 - 5 /hpf [facility] RBC, Urine None seen 0 - 2 /hpf [facility] Squamous Epithelial, Urine None seen 0 - 10 /hpf [facility] Casts None seen None seen /lpf [facility] Mucous Threads Present Not Estab. [facility] Bacteria, Urine None seen None seen/Few [facility] 11/03/2024 9:52 AM EDT 11/03/2024 Roosevelt Appiah MD LAB MICROBIOLOGY - GENERAL OR DERABLES Final Result Performing Organization Address City/[facility]/ZIP Co de Phone Number [facility] [address] [place] [address] * Protein, Total, Random Urine w/Creatinine (Protein/Creat Ratio) (11/03/2024 9:52 AM EDT) Creatinine, Ur 231.9 Not Estab. mg/dL [facility] Protein, Ur 13.5 Not Estab. mg/dL [facility] Urine Protein/Creatin ine Ratio 58 0 - 200 mg/g creat [facility] Urine Urine specimen obtained by clean catch procedure / Unknown 11/03/2024 9:52 AM EDT 11/03/2024 Roosevelt Appiah MD LAB URINE ORDERABLES Final Re sult Performing Organization Address City/[facility]/ZIP Co de Phone Number [facility] [address] [place] [address] * Urine Albumin / Creatinine Ratio (11/03/2024 9:52 AM EDT) Albumin, Urine 7.4 Not Estab. ug/mL [facility] Albumin/Creatin ine Ratio 3 0 - 29 mg/g creat [facility] Comment: Normal: 0 - 29 Moderately increased: 30 - 300 Severely increased: >300 Urine Urine specimen obtained by clean catch procedure / Unknown 11/03/2024 9:52 AM EDT 11/03/2024 Roosevelt Appiah MD LAB URINE ORDERABLES Final Re sult Performing Organization Address City/[facility] Co de Phone Number [facility] [address] [place] [address] * Vitamin D 25 Hydroxy (11/03/2024 9:52 AM EDT) Vitamin D, 25-OH, Total 56.6 30.0 - 100.0 ng/mL [facility] Comment: Vitamin D deficiency has been defined by the [place] of Medicine and an Endocrine Society practice guideline as a level of serum 25-OH vitamin D less than 20 ng/mL (1,2). The Endocrine Society went on to further define vitamin D insufficiency as a level between 21 and 29 ng/mL (2). 1. IOM ([place] of Medicine). 2010. Dietary reference intakes for calcium and D. [place]: The National Academies Press. 2. Carolin MF, Bri MOYER, Cristin RICHARDSON, et al. Evaluation, treatment, and prevention of vitamin D deficiency: an Endocrine Society clinical practice guideline. JCEM. 2010; 96(7):1911-30. Blood Venous blood / Unknown 11/03/2024 9:52 AM EDT 11/03/2024 Roosevelt Appiah MD LAB BLOOD ORDERABLES Final Re sult Performing Organization Address City/[facility]/ZIP Co de Phone Number [facility] [address] [place] [address] * Urinalysis with microscopic (11/03/2024 9:52 AM EDT) Specific [place], Urine 1.019 1.005 - 1.030 [facility] pH Urine 5.5 5.0 - 7.5 [facility] [phone] Color, Urine Yellow Yellow [facility] Appearance Urine Clear Clear [facility] WBC Esterase Urine Negative Negative [facility] Protein, Ur Negative Negative/Tra ce [facility] [phone] Glucose, Ur Negative Negative [facility] Ketones, Urine Negative Negative [facility] Blood Urine Negative Negative [facility] Bilirubin Urine Negative Negative [facility] Urobilinogen Urine 0.2 0.2 - 1.0 mg/dL [facility] Nitrite, Urine Negative Negative [facility] Microscopic Examination Comment [facility] [phone] Comment:Microscopic follows if indicated. Other Microsc. Observations See below: [facility] Comment:Microscopic was ross cated and was performed. Urine Urine specimen obtained by clean catch procedure / Unknown 11/03/2024 9:52 AM EDT 11/03/2024 us Rooesvelt Appiah MD LAB URINE ORDERABLES Final Re sult [facility] [address] [place] [address] * CBC and Differential (11/03/2024 9:52 AM EDT) WBC 6.2 3.4 - 10.8 x10E3/uL [facility] RBC 4.99 4.14 - 5.80 x10E6/uL [facility] Hemoglobin 15.7 13.0 - 17.7 g/dL [facility] Hematocrit 47.5 37.5 - 51.0 % [facility] MCV 95 79 - 97 fL [facility] MCH 31.5 26.6 - 33.0 pg [facility] MCHC 33.1 31.5 - 35.7 g/dL [facility] RDW 12.8 11.6 - 15.4 % [facility] Platelets 178 150 - 450 x10E3/uL [facility] Neutrophils Relative 64 Not Estab. % [facility] Lymphocytes Relative 24 Not Estab. % [facility] Monocytes 10 Not Estab. % [facility] Eosinophils Relative 2 Not Estab. % [facility] Basophils Relative 0 Not Estab. % [facility] Neutrophils Absolute 4.0 1.4 - 7.0 x10E3/uL [facility] Lymphocytes Absolute 1.5 0.7 - 3.1 x10E3/uL [facility] Monocytes Absolute 0.6 0.1 - 0.9 x10E3/uL [facility] Eosinophils Absolute 0.1 0.0 - 0.4 x10E3/uL [facility] Basophils Absolute 0.0 0.0 - 0.2 x10E3/uL [facility] Immature Granulocytes 0 Not Estab. % [facility] Immature Grans (Absolute) 0.0 0.0 - 0.1 x10E3/uL [facility] Blood Venous blood / Unknown 11/03/2024 9:52 AM EDT 11/03/2024 Roosevelt Appiah MD LAB BLOOD ORDERABLES Final [facility]ult [facility] [address] [place] [address] * PTH, Intact (11/03/2024 9:52 AM EDT) Pathologist [facility] PTH 26 15 - 65 pg/mL [facility] Blood Venous blood / Unknown 11/03/2024 9:52 AM EDT 11/03/2024 Roosevelt Appiah MD LAB BLOOD ORDERABLES Final Re sult Performing Organization Address City/[facility]/ZIP Co de Phone Number [facility] [address] [place] [address] * Renal Function Panel (11/03/2024 9:52 AM EDT) Pathologist [facility] Glucose 99 70 - 99 mg/dL [facility] BUN 10 8 - 27 mg/dL [facility] Creatinine 0.99 0.76 - 1.27 mg/dL [facility] eGFR CKD-EPI CR 2020 84 >59 mL/min/1.7 3 [facility] BUN/Creatinine Ratio 10 10 - 24 [facility] Sodium 138 134 - 144 mmol/L [facility] Potassium 4.0 3.5 - 5.2 mmol/L [facility] Chloride 101 96 - 106 mmol/L [facility] Bicarbonate (CO2) 21 20 - 29 mmol/L [facility] Calcium 9.4 8.6 - 10.2 mg/dL [facility] Albumin 4.4 3.9 - 4.9 g/dL [facility] Phosphorus 3.0 2.8 - 4.1 mg/dL [facility] Blood Venous blood / Unknown 11/03/2024 9:52 AM EDT 11/03/2024 us Roosevelt Appiah MD LAB BLOOD ORDERABLES Final Re sult [facility] [address] [place] [address] from Last 3 Months Insurance Medicare [facility] Care Teams Herb Digger Relationship Specialty Start Date End Date Cheyenne Whitmore MD [address] [facility] [place] [address] PCP - General Internal Medicine 10/16/24
--- OUTSIDE RECORDS SUMMARY | 2025-01-30 10:05 | XMS_ITS | Clinical Summary ---
Author Organization [facility] Address [address] [place], [place] [id number] Phone Care Team Providers Care Network Security Officer Name Role Phone Unknown, Unknown Primary Care [...] this topic Medical Devices Implanted Type Area Analysis Reporting Developer Device Identifier Shelf Expiration Date Model / [...] MD, MPH - 01/16/2023 12:25 PM EST [facility] Patient Name: Epifanio Beard Attending MD:: JACOB MANZO MD, Procedure Date: 01/16/2023 12:25 PM Date of : 1960 Age: 62 Admit Type: Outpatient Gender: Male Room: [place] [address] Referring MD: Nahomy Boss Exam Type: Colonoscopy [...] monitored continuously. The Olympus adult variable colonoscope [id number] #1 was introduced through the anus and advanced to the terminal ileum. The colonoscopy was performedwithout difficulty. The patient tolerated the procedurewell. The quality of the bowel preparation was evaluated using the BBPS ([place] Bowel Preparation Scale)with scores of: Right Colon [...] 12:25 PM Procedure Code(s): --- Professional --- 73067, Colonoscopy, flexible; with removal of tumor(s), polyp(s), or other lesion(s) by snare technique 57912, 59, Colonoscopy, flexible; with biopsy, single or multiple --- Technical --- 23589, Colonoscopy, flexible; with removal of tumor(s), polyp(s), or other lesion(s) by snare technique [id number], 59, Colonoscopy, flexible; with biopsy, single or [...] andrectum K59.00, Constipation, unspecified CPT copyright 2021 [employer]. All rights reserved. The codes documented in this report are preliminary and upon journeyman power plant operator reviewmay be revised to meet current compliance requirements. Procedure Date: 01/16/2023 12:25:[address] [place] [address] us Nahomy Boss MD GI PROCEDURE ORDERABLES Elle l Result * (ABNORMAL) Lipid panel (07/28/2021 2:44 PM EDT) HDL 36 mg/dL [facility] Comment: Interpretation <40 mg/dL: Low HDL cholesterol (major risk factor for CHD) Greater than or equal to 60 mg/dL: High HDL cholesterol ( negative risk factor for CHD) HDL - cholesterol is affected by a number of factors, e.g. smoking, excerise, hormones, sex and age. CHOLESTEROL 269(H) 0 - 240 mg/dL [facility] TRIGLYCERIDES 241(H) 30 - 160 mg/dL [facility] LDL 185(H) 50 - 129 mg/dL [facility] Comment: LDL levels in terms of risk for coronary heart disease: <100 mg/dL: Optimal 100-129 mg/dL: Near or above optimal 130-159 mg/dL: Borderline high 160-189 mg/dL: High >190 mg/dL: Very High CARDIAC RISK RATIO 7.5(H) 3.4 - 5.0 [facility] Blood 07/28/2021 2:44 PM EDT 07/28/2021 2:52 PM EDT us Adia Pope MD LAB BLOOD BKR ORDERABLES Final R esult [facility] [address] [place], [place] [id number] from Last 3 Months or Most Recently Relevant to Health Maintenance Insurance MEDICARE PART A & B [employer] MEDICARE SUPPLEMENT MEDICARE PART A & B [employer] MEDICARE SUPPLEMENT MEDICARE PART A & B [facility] [employer] [facility] MEDICARE SUPPLEMENT MEDICARE PART A & B [employer] MEDICARE SUPPLEMENT MEDICARE PART A & B [employer] MEDICARE SUPPLEMENT MEDICARE PART A & B FOR [employer] MEDICARE SUPPLEMENT Care Teams Network Security Officer Relationship Specialty Start Date End Date Unknown, Unknown, PCP - General 08/30/23 Additional Source Comments The information contained in this document represents components of the legal health record. It is not the complete legal health record.[facility]
--- OUTSIDE RECORDS SUMMARY | 2025-01-30 10:05 | XMS_ITS | Encounter Summary ---
Author Organization [facility] Address [address] [place] [address] Phone Care Team Providers Care Business Banker Name Role Phone Cheyenne Whitmore MD Primary Care Provider +1- [phone] Encounter Details Date Type Department Care Team (Late st Contact Info) Description 08/02/2023 Documentation Only [facility] [address] [place] [address] Whitney Pineda [address] [place] [address] Social History Tobacco Use Types [...] Visit [facility] [address] [place] [address] Roosevelt Appiah MD [address] [place] [address] [address] [address] documented as of this encounter Visit Diagnoses Not on filedocumented in this encounter Care Teams Business Banker Relationship Specialty Start Date End Date Cheyenne [place] MD [address] [facility] [place] [facility] [place] [address] PCP - General Internal Medicine 10/16/24 documented as of this encounter
--- OUTSIDE RECORDS SUMMARY | 2025-01-30 10:05 | XMS_ITS | Encounter Summary ---
Author Organization [facility] Address [address] [place] [address] Phone Care Team Providers Care Taper And Floater Name Role Phone Cheyenne Whitmore MD Primary Care Provider +1- [phone] Encounter Details Date Type Department Care Team (Late st Contact Info) Description 01/25/2023 Documentation Only [facility] [address] [place] [address] Taya Steinberg MD Social History Tobacco Use [...] Visit [facility] [address] [place] [address] Roosevelt Appiah MD [address] [place] [address] [address] [address] documented as of this encounter Visit Diagnoses Not on filedocumented in this encounter Care Teams Taper And Floater Relationship Specialty Start Date End Date Cheyenne Whitmore MD [address] [place] [address] PCP - General Internal Medicine 10/16/24 documented as of this encounter
--- OUTSIDE RECORDS SUMMARY | 2025-01-30 10:05 | XMS_ITS | Encounter Summary ---
Author Organization [facility], Address [address] [place] [address] Phone Care Team Providers Care Database Marketing Analyst Name Role Phone Cheyenne Whitmore MD Primary Care Provider +1- [phone] Encounter Details Date Type Department Care Team (Late st Contact Info) Description 01/25/2023 Documentation Only [facility] [address] [place] [address] Roosevelt Appiah MD [address] [facility] [address] [address] Social History Tobacco Use Types [...] Visit [facility] [address] [place] [address] Roosevelt Appiah MD [address] [facility] [address] [address] documented as of this encounter Visit Diagnoses Not on filedocumented in this encounter Care Teams Database Marketing Analyst Relationship Specialty Start Date End Date Cheyenne Whitmore MD [address] [facility] [place] [address] PCP - General Internal Medicine 10/16/24 documented as of this encounter
--- OUTSIDE RECORDS SUMMARY | 2025-01-30 10:05 | XMS_ITS | Encounter Summary ---
Author Organization [facility] [place], Address [address] [place] [address] Phone Care Team Providers Care Platen Grinder Name Role Phone Cheyenne Whitmore MD Primary Care Provider +1- [phone] Encounter Details Date Type Department Care Team (Late st Contact Info) Description 01/30/2023 Documentation Only [facility] [address] [place] [address] Leonardo GonzalezVOLGA, [place] [address] [place] [address] Social History Tobacco Use Types [...] Visit [facility] [address] [place] [address] Roosevelt Appiah MD [address] [place] [address] Dr. Á[place] [address] documented as of this encounter Visit Diagnoses Not on filedocumented in this encounter Care Teams Platen Grinder Relationship Specialty Start Date End Date Cheyenne [place] MD [address] [facility] [place] [address] [place] [address] PCP - General Internal Medicine 10/16/24 documented as of this encounter
--- OUTSIDE RECORDS SUMMARY | 2025-01-30 10:05 | XMS_ITS | Encounter Summary ---
Author Organization [facility] [place], Address [address] [place] [address] Phone Care Team Providers Care Pulmonology Physician Name Role Phone Cheyenne Whitmore MD Primary Care Provider +1- [phone] Encounter Details Date Type Department Care Team (Late st Contact Info) Description 10/03/2022 Documentation Only [facility] [address] [place] [address] Adia Pope MD [address] [place] [address] Social History Tobacco Use Types Packs/Day Years [...] Visit [facility] [address] [place] [address] Roosevelt Appiah MD [address] [place] [address] [address] [address] documented as of this encounter Visit Diagnoses Not on filedocumented in this encounter Care Teams Pulmonology Physician Relationship Specialty Start Date End Date Cheyenne Whitmore MD [address] [facility] [place] [address] PCP - General Internal Medicine 10/16/24 documented as of this encounter
--- OUTSIDE RECORDS SUMMARY | 2025-01-30 10:05 | XMS_ITS | Encounter Summary ---
Author Organization [facility] Address [address] [place] [address] Phone Care Team Providers Care Gold Buyer Name Role Phone Cheyenne Whitmore MD Primary Care Provider +1- [phone] Encounter Details Date Type Department Care Team (Late st Contact Info) Description 08/14/2023 Documentation Only [facility] [address] [place] [address] Whitney Pineda [address] [place] [address] Social History Tobacco Use Types [...] Visit [facility] [address] [place] [address] Roosevelt Appiah MD [address] [place] [address] [address] [address] documented as of this encounter Visit Diagnoses Not on filedocumented in this encounter Care Teams Gold Buyer Relationship Specialty Start Date End Date Cheyenne [place] MD [address] [facility] [place] [address] PCP - General Internal Medicine 10/16/24 documented as of this encounter
--- OUTSIDE RECORDS SUMMARY | 2025-01-30 10:05 | XMS_ITS | Encounter Summary ---
Author Organization [facility] Address [address] [place] [address] Phone Care Team Providers Care Wind Operations Supervisor Name Role Phone Adia Pope MD Primary Care Provider [phone] Unknown, Unknown Primary Care Provider Lexi peck Encounter Details Date Type Department Care Team (Late st Contact Info) Description 09/19/2022 Transcribe Orders [facility] Phleb [address] [address] Fern Tompkins PA [address] [place] [id number] [email or web address] Constipation, unspecified constipation type (Primary Dx); Hemorrhoids [...] C-Reactive Protein (09/19/2022 11:28 AM EDT) Pathologist [facility] C REACTIVE PROTEIN 5.0(H) 0.0 - 4.0 mg/L [facility] Blood 09/19/2022 11:2 8 AM EDT 09/19/2022 11:35 AM EDT Fern KAUR LAB BLOOD BKR ORDERABLES Final Result [address] [address] * (ABNORMAL) Comprehensive metabolic panel (09/19/2022 11:28 AM EDT) [facility] SODIUM 138 133 - 146 mmol/L [facility] POTASSIUM 3.8 3.3 - 5.1 mmol/L [facility] CHLORIDE 102 96 - 108 mmol/L [facility] CO2 26 21 - 35 mmol/L [facility] BUN 12 6 - 19 mg/dL [facility] CREATININE 0.90 0.5 - 1.5 mg/dL [facility] GLUCOSE 106(H) 70 - 99 mg/dL [facility] ALBUMIN 4.6 3.9 - 4.8 g/dL [facility] TOTAL PROTEIN 7.8 6.5 - 8.0 g/dL [facility] CALCIUM 9.2 8.4 - 10.3 mg/dL [facility] ALKALINE PHOSPHATASE 52 39 - 117 U/L [facility] TOTAL BILIRUBIN 0.5 0.0 - 1.2 mg/dL [facility] AST 32 0 - 37 U/L [facility] ALT 39 0 - 40 U/L [facility] GLOBULIN 3.2 1 - 4.8 g/dL [facility] EGFR 95 >59 mL/min/1.7 3m2 [facility] Comment:Estimated glomerular filtration rate calculated using the CKD-EPI refit equation. ANION GAP 14 10 - 20 mmol/L [facility] Blood 09/19/2022 11:2 8 AM EDT 09/19/2022 11:35 AM EDT Fern KAUR LAB BLOOD BKR ORDERABLES Final Result [facility] [address] [place], [place] [id number] * (ABNORMAL) CBC and differential (09/19/2022 11:28 AM EDT) WBC 4.71 4.00 - 11.00 K/uL [facility] RBC 5.09 3.90 - 5.69 M/uL [facility] HGB 16.0 12.4 - 17.3 g/dL [facility] HCT 47.2 37.0 - 51.0 % [facility] PLT 175 140 - 430 K/uL [facility] MCV 92.7 78.0 - 97.0 fL [facility] MCH 31.4 25.0 - 33.0 pg [facility] MCHC 33.9 32.0 - 36.0 g/dL [facility] RDW 12.0 11.0 - 15.0 % [facility] MPV 11.2 8.4 - 12.8 fl [facility] DIFF METHOD Auto [facility] NEUTS 63.1 43.0 - 75.0 % [facility] LYMPHS 23.6 18.2 - 47.4 % [facility] MONOS 11.5(H) 4.00 - 11.00 % [facility] EOS 0.8 0.0 - 8.0 % [facility] BASOS 0.6 0.0 - 2.0 % [facility] Granulocytes, immature (%) 0.4 0.0 - 0.9 % [facility] ABSOLUTE NEUTS 2.97 1.80 - 7.70 K/uL [facility] ABSOLUTE LYMPHS 1.11 1.00 - 3.10 K/uL [facility] ABSOLUTE MONOS 0.54 0.20 - 0.80 K/uL [facility] ABSOLUTE EOS 0.04 0.00 - 0.80 K/uL [facility] ABSOLUTE BASOS 0.03 0.00 - 0.09 K/uL [facility] Granulocytes, immature 0.02 0.00 - 0.05 K/uL [facility] Blood 09/19/2022 11:2 8 AM EDT 09/19/2022 11:35 AM EDT Fern KAUR LAB BLOOD BKR ORDERABLES Final Result Performing Organization Address City/[facility]/ZIP Co de Phone Number [address] [address] * Immunoglobulin A (09/19/2022 11:28 AM EDT) IgA 203 70 - 400 mg/dL [facility] Blood 09/19/2022 11:2 8 AM EDT 09/19/2022 11:35 AM EDT Fern KAUR LAB BLOOD BKR ORDERABLES Final Result Performing Organization Address City/[facility] Co de Phone Number [address] [address] * Tissue transglutaminase IgA (09/19/2022 11:28 AM EDT) TTG IGA ANTIBODY 2.3 <4.0 (Negative) U/mL [facility] Blood 09/19/2022 11:2 8 AM EDT 09/19/2022 11:35 AM EDT Fern KAUR LAB BLOOD BKR ORDERABLES Final Result [facility] [address] [place] [address] documented in this encounter Visit Diagnoses Diagnosis Constipation, unspecified constipation type- Primary Hemorrhoids without complication Unspecified hemorrhoids without mention of complication Change in bowel habits Other symptoms involving digestive system Melena Blood in stool documented in this encounter Additional Health Concerns Assessment Noted Time PHQ-2 Depression Total Score: 2 06/24/19 21 11:33 AM EDT documented as of this encounter Care Teams Wind Operations Supervisor Relationship Specialty Start Date End Date Adia Pope MD [address] [place] [address] [email or web address] PCP - General Family Medicine 06/16/20 08/29/23 Unknown, Kayden, PCP - General 08/30/23 documented as of this encounter Additional Source Comments The information contained in this document represents components of the legal health record. It is not the complete legal health record.[facility]
--- OUTSIDE RECORDS SUMMARY | 2025-01-30 10:05 | XMS_ITS | Encounter Summary ---
Author Organization [facility] [place], Address [address] [place] [address] Phone Care Team Providers Care Surveillance Technician Name Role Phone Cheyenne Whitmore MD Primary Care Provider +1- [phone] Encounter Details Date Type Department Care Team (Late st Contact Info) Description 10/16/2024 Documentation Only [facility] [address] [place] [address] Whitney Pineda [address] [place] [address] Social History Tobacco Use Types Packs/Day [...] [facility] [address] [place] [address] Roosevelt Appiah MD [address] [place] [address] [address] [address] documented as of this encounter Visit Diagnoses Not on filedocumented in this encounter Care Teams Surveillance Technician Relationship Specialty Start Date End Date Cheyenne Whitmore MD [address] [place] [address] PCP - General Internal Medicine 10/16/24 documented as of this encounter
--- OUTSIDE RECORDS SUMMARY | 2025-01-30 10:05 | XMS_ITS | Encounter Summary ---
Author Organization [facility] [place], Address [address] [place] [address] Phone Care Team Providers Care Mobile Sales Assistant Name Role Phone Cheyenne Whitmore MD Primary Care Provider [phone]- [phone] Encounter Details Date Type Department Care Team (Late st Contact Info) Description 10/03/2022 Documentation Only [facility] [address] [place] [address] Adia Pope MD [address] [place] [address] Social History Tobacco Use Types Packs/Day Years [...] Visit [facility] [address] [place] [address] Roosevelt Appiah MD [address] [place] [address] [address] [phone] documented as of this encounter Visit Diagnoses Not on filedocumented in this encounter Care Teams Mobile Sales Assistant Relationship Specialty Start Date End Date Cheyenne Whitmore MD [address] [facility] [place] [address] PCP - General Internal Medicine 10/16/24 documented as of this encounter
--- OUTSIDE RECORDS SUMMARY | 2025-01-30 10:05 | XMS_ITS | Encounter Summary ---
Author Organization [facility] [place], Address [address] [place] [address] Phone Care Team Providers Care Document Specialist Name Role Phone Cheyenne Whitmore MD Primary Care Provider +1- [phone] Encounter Details Date Type Department Care Team (Late st Contact Info) Description 10/16/2024 Documentation Only [facility] [address] [place] [address] Whitney Pineda [address] [place] [address] Social History Tobacco Use Types Packs/Day [...] Visit [facility] [address] [place] [address] Roosevelt Appiah MD [address] [place] [address] Dr. Á[place] [address] documented as of this encounter Visit Diagnoses Not on filedocumented in this encounter Care Teams Document Specialist Relationship Specialty Start Date End Date Cheyenne Whitmore MD [address] [place] [address] PCP - General Internal Medicine 10/16/24 documented as of this encounter
--- OUTSIDE RECORDS SUMMARY | 2025-01-30 10:05 | XMS_ITS | Encounter Summary ---
Author Organization [facility] Address [address] [place] [address] Phone Care Team Providers Care Internal Control Consultant Name Role Phone Cheyenne Whitmore MD Primary Care Provider +1- [phone] Encounter Details Date Type Department Care Team (Late st Contact Info) Description 08/02/2023 Documentation Only [facility] [address] [place] [address] Whitney Pineda [address] [place] [address] Social History Tobacco Use Types [...] [facility] [address] [place] [address] Roosevelt Appiah MD [address] [place] [address] [address] [phone] documented as of this encounter Visit Diagnoses Not on filedocumented in this encounter Care Teams Internal Control Consultant Relationship Specialty Start Date End Date Cheyenne Whitmore MD [address] [facility] [place] [address] PCP - General Internal Medicine 10/16/24 documented as of this encounter
--- OUTSIDE RECORDS SUMMARY | 2025-01-30 10:05 | XMS_ITS | Encounter Summary ---
Author Organization [facility] Address [address] [place] [address] Phone Care Team Providers Care Senior Loan Officer Name Role Phone Adia Pope MD Primary Care Provider [phone] Unknown, Unknown Primary Care Provider Lexi peck Encounter Details Date Type Department Care Team (Late st Contact Info) Description 03/20/2023 Procedure Pass [facility] Endoscopy Admitting Dept Virtual Department [address] [place] [address] Social History Tobacco Use Types Packs/Day Years [...] documented as of this encounter Care Teams Senior Loan Officer Relationship Specialty Start Date End Date Adia Pope MD [address] [place] [address] [email or web address] PCP - General Family Medicine 06/16/20 08/29/23 Unknown, Unknown, PCP - General 08/30/23 documented as of this encounter Additional Source Comments The information contained in this document represents components of the legal health record. It is not the complete legal health record.[facility]
--- OUTSIDE RECORDS SUMMARY | 2025-01-30 10:05 | XMS_ITS | Encounter Summary ---
Author Organization [facility] [place], Address [address] [place] [address] Phone Care Team Providers Care Mercerizer Name Role Phone Cheyenne Whitmore MD Primary Care Provider +1- [phone] Encounter Details Date Type Department Care Team (Late st Contact Info) Description 01/25/2023 Documentation Only [facility] [address] [place] [address] Roosevelt Appiah MD [address] [facility] [address] [address] Social History Tobacco Use Types [...] [facility] [address] [place] [address] Roosevelt Appiah MD [address] [facility] [address] [address] documented as of this encounter Visit Diagnoses Not on filedocumented in this encounter Care Teams Mercerizer Relationship Specialty Start Date End Date Cheyenne Whitmore MD [address] [facility] [place] [address] PCP - General Internal Medicine 10/16/24 documented as of this encounter
--- OUTSIDE RECORDS SUMMARY | 2025-01-30 10:05 | XMS_ITS | Encounter Summary ---
Author Organization [facility] Address [address] [place] [address] Phone Care Team Providers Care Ballet Soloist Name Role Phone Cheyenne Whitmore MD Primary Care Provider [phone]- [phone] Encounter Details Date Type Department Care Team (Late st Contact Info) Description 10/08/2023 Documentation Only [facility] [address] [place] [address] Whitney Pineda [address] [place] [address] Social History Tobacco Use Types [...] [facility] [address] [place] [phone] Roosevelt Appiah MD [address] [place] [address] [address] [phone] documented as of this encounter Visit Diagnoses Not on filedocumented in this encounter Care Teams Ballet Soloist Relationship Specialty Start Date End Date Cheyenne Whitmore MD [address] [facility] [place] [address] PCP - General Internal Medicine 10/16/24 documented as of this encounter
--- OUTSIDE RECORDS SUMMARY | 2025-01-30 10:05 | XMS_ITS | Encounter Summary ---
Author Organization [facility] [place], Address [address] [place] [address] Phone Care Team Providers Care Sonar Subsystem Equipment Operator Name Role Phone Cheyenne Whitmore MD Primary Care Provider [phone]- [phone] Encounter Details Date Type Department Care Team (Late st Contact Info) Description 10/03/2022 Documentation Only [facility] [address] [place] [address] Adia Pope MD [address] [place] [address] Social History Tobacco Use Types Packs/Day Years [...] [facility] [address] [place] [address] Roosevelt Appiah MD [address] [place] [address] [address] [phone] documented as of this encounter Visit Diagnoses Not on filedocumented in this encounter Care Teams Sonar Subsystem Equipment Operator Relationship Specialty Start Date End Date Cheyenne Whitmore MD [address] [facility] [facility] [address] PCP - General Internal Medicine 10/16/24 documented as of this encounter
--- OUTSIDE RECORDS SUMMARY | 2025-01-30 10:06 | XMS_ITS | Encounter Summary ---
Author Organization [facility] Address [address] [place] [address] Phone Care Team Providers Care Saddle Cutter Name Role Phone Adia Pope MD Primary Care Provider [phone] Unknown, Unknown Primary Care Provider Lexi peck [...] CONTRAST Jelly Manzo MD Phone: tel: fax: [email or web address]:[email or web address] Referral ID Status Reason Start Date Expiration Date Visits Re quested Visits Authorized [id number] Closed 02/28/2023 03/18/2023 1 1 Encounter Details Date Type Department Care Team (Latest Contact Info) Description 01/17/2023 Transcribe Orders Virtual Department [address] [place] [address] Jelly Manzo MD [address] [place] [address] [email or web address] Constipation, unspecified constipation type (Primary Dx); Gastroesophageal [...] gynecomastia (left side may be above the [id number]). Changes of prior bilateral inguinal hernia repair. [...] gynecomastia (left side may be above the [id number]).Changes of prior bilateral inguinal hernia repair. IMPRESSION: [...] documented as of this encounter Care Teams Saddle Cutter Relationship Specialty Start Date End Date Adia Pope MD [address] [place] [address] [email or web address] PCP - General Family Medicine 06/16/20 08/29/23 Unknown, Kayden, PCP - General 08/30/23 documented as of this encounter Additional Source Comments The information contained in this document represents components of the legal health record. It is not the complete legal health record.[facility]
--- OUTSIDE RECORDS SUMMARY | 2025-01-30 10:06 | XMS_ITS | Encounter Summary ---
Author Organization [facility] Address [address] [place] [address] Phone Care Team Providers Care Manager Environmental Name Role Phone Adia Pope MD Primary Care Provider [phone] Unknown, Unknown Primary Care Provider Lexi peck Encounter Details Date Type Department Care Team (Late st Contact Info) Description 01/16/2023 Procedure Pass [facility] Endoscopy Admitting Dept Virtual Department [address] [place] [address] Social History Tobacco Use Types Packs/Day Years [...] documented as of this encounter Care Teams Manager Environmental Relationship Specialty Start Date End Date Adia Pope MD [address] [place] [address] [email or web address] PCP - General Family Medicine 06/16/20 08/29/23 Unknown, Unknown, PCP - General 08/30/23 documented as of this encounter Additional Source Comments The information contained in this document represents components of the legal health record. It is not the complete legal health record.[facility]
--- OUTSIDE RECORDS SUMMARY | 2025-01-30 10:06 | XMS_ITS | Encounter Summary ---
Author Organization [facility] [place], Address [address] [place] [address] Phone Care Team Providers Care Cordwood Cutter Name Role Phone Cheyenne Whitmore MD Primary Care Provider [phone]- [phone] Encounter Details Date Type Department Care Team (Late st Contact Info) Description 11/24/2022 Documentation Only [facility] [address] [place] [address] Leonardo GonzalezGWYNN, [place] [address] [place] [address] Social History Tobacco Use Types [...] Visit [facility] [address] [place] [phone] Roosevelt Appiah MD [address] [place] [address] [address] [phone] documented as of this encounter Visit Diagnoses Not on filedocumented in this encounter Care Teams Cordwood Cutter Relationship Specialty Start Date End Date Cheyenne Whitmore MD [address] [facility] [place] [place] [address] [place] [address] PCP - General Internal Medicine 10/16/24 documented as of this encounter
--- OUTSIDE RECORDS SUMMARY | 2025-01-30 10:06 | XMS_ITS | Encounter Summary ---
Author Organization [facility] Address [address] [place] [address] Phone Care Team Providers Care Fine Hairer Name Role Phone Cheyenne Whitmore MD Primary Care Provider +1- [phone] Encounter Details Date Type Department Care Team (Late st Contact Info) Description 10/29/2024 Documentation Only [facility] [address] [place] [address] Whitney Pineda [address] [place] [address] Social History Tobacco Use Types [...] [facility] [address] [place] [address] Roosevelt Appiah MD [address] [place] [address] Dr. Á[place] [phone] documented as of this encounter Visit Diagnoses Not on filedocumented in this encounter Care Teams Fine Hairer Relationship Specialty Start Date End Date Cheyenne Whitmore MD [address] [place] [address] PCP - General Internal Medicine 10/16/24 documented as of this encounter
--- OUTSIDE RECORDS SUMMARY | 2025-01-30 10:06 | XMS_ITS | Encounter Summary ---
Author Organization [facility] [place], Address [address] [place] [address] Phone Care Team Providers Care Pediatric Speech Language Pathologist Name Role Phone Cheyenne Whitmore MD Primary Care Provider [phone]- [phone] Encounter Details Date Type Department Care Team (Late st Contact Info) Description 10/16/2024 Documentation Only [facility] [address] [place] [address] Whitney Pineda [address] [place] [address] Social History Tobacco Use Types Packs/Day [...] Visit [facility] [address] [place] [address] Roosevelt Appiah MD [address] [place] [address] [address] Á[place] [address] documented as of this encounter Visit Diagnoses Not on filedocumented in this encounter Care Teams Pediatric Speech Language Pathologist Relationship Specialty Start Date End Date Cheyenne Whitmore MD [address] [place] [address] PCP - General Internal Medicine 10/16/24 documented as of this encounter
--- OUTSIDE RECORDS SUMMARY | 2025-01-30 10:06 | XMS_ITS | Encounter Summary ---
Author Organization [facility] [place], Address [address] [place] [address] Phone Care Team Providers Care Sanitation Truck Driver Name Role Phone Cheyenne Whitmore MD Primary Care Provider [phone]- [phone] Encounter Details Date Type Department Care Team (Late st Contact Info) Description 10/03/2022 Documentation Only [facility] [address] [place] [address] Adia Pope MD [address] [place] [address] Social History Tobacco Use Types Packs/Day Years [...] Visit [facility] [address] [place] [address] Roosevelt Appiah MD [address] [place] [address] Dr. Á[place] [phone] documented as of this encounter Visit Diagnoses Not on filedocumented in this encounter Care Teams Sanitation Truck Driver Relationship Specialty Start Date End Date Cheyenne Whitmore MD [address] [facility] [place] [address] PCP - General Internal Medicine 10/16/24 documented as of this encounter
--- OUTSIDE RECORDS SUMMARY | 2025-01-30 10:06 | XMS_ITS | Encounter Summary ---
Author Organization [facility] [place], Address [address] [place] [address] Phone Care Team Providers Care Network Administrator Name Role Phone Cheyenne Whitmore MD Primary Care Provider +1- [phone] Encounter Details Date Type Department Care Team (Late st Contact Info) Description 10/03/2022 Documentation Only [facility] [address] [place] [address] Adia Pope MD [address] [place] [address] Social History Tobacco Use Types Packs/Day Years [...] Visit [facility] [address] [place] [address] Roosevelt Appiah MD [address] [place] [address] [address] [phone] documented as of this encounter Visit Diagnoses Not on filedocumented in this encounter Care Teams Network Administrator Relationship Specialty Start Date End Date Cheyenne Whitmore MD [address] [facility] [place] [address] PCP - General Internal Medicine 10/16/24 documented as of this encounter
--- OUTSIDE RECORDS SUMMARY | 2025-01-30 10:06 | XMS_ITS | Encounter Summary ---
Author Organization [facility] Address [address] [place] [address] Phone Care Team Providers Care Grant Writer Name Role Phone Adia Pope MD Primary Care Provider [phone] Unknown, Unknown Primary Care Provider Lexi peck Encounter Details Date Type Department Care Team (Late st Contact Info) Description 01/17/2023 Procedure Pass [facility], Ct Scan - [address] [address] Social History Tobacco Use Types Packs/Day Years [...] documented as of this encounter Care Teams Grant Writer Relationship Specialty Start Date End Date Adia Pope MD [address] [place] [address] [email or web address] PCP - General Family Medicine 06/16/20 08/29/23 Unknown, Unknown, PCP - General 08/30/23 documented as of this encounter Additional Source Comments The information contained in this document represents components of the legal health record. It is not the complete legal health record.[facility]
--- OUTSIDE RECORDS SUMMARY | 2025-01-30 10:06 | XMS_ITS | Encounter Summary ---
Author Organization [facility] Address [address] [place] [address] Phone Care Team Providers Care Inpatient Nursing Aide Name Role Phone Cheyenne Whitmore MD Primary Care Provider +1- [phone] Encounter Details Date Type Department Care Team (Late st Contact Info) Description 10/29/2024 Documentation Only [facility] [address] [place] [address] Whitney Pineda [address] [place] [address] Social History Tobacco Use Types [...] [facility] [address] [place] [address] Roosevelt Appiah MD [address] [place] [address] Dr. Á[place] [phone] documented as of this encounter Visit Diagnoses Not on filedocumented in this encounter Care Teams Inpatient Nursing Aide Relationship Specialty Start Date End Date Cheeynne Whitmore MD [address] [place] [address] PCP - General Internal Medicine 10/16/24 documented as of this encounter
--- OUTSIDE RECORDS SUMMARY | 2025-01-30 10:06 | XMS_ITS | Encounter Summary ---
Author Organization [facility] [place], Address [address] [place] [address] Phone Care Team Providers Care Boxing Instructor Name Role Phone Cheyenne Whitmore MD Primary Care Provider [phone]- [phone] Encounter Details Date Type Department Care Team (Late st Contact Info) Description 10/16/2024 Documentation Only [facility] [address] [place] [address] Whitney Pineda [address] [place] [address] Social History Tobacco Use Types Packs/Day [...] Visit [facility] [address] [place] [address] Roosevelt Appiah MD [address] [place] [address] Dr[address] [address] documented as of this encounter Visit Diagnoses Not on filedocumented in this encounter Care Teams Boxing Instructor Relationship Specialty Start Date End Date Cheyenne Whitmore MD [address] [place] [address] PCP - General Internal Medicine 10/16/24 documented as of this encounter
--- OUTSIDE RECORDS SUMMARY | 2025-01-30 10:06 | XMS_ITS | Encounter Summary ---
Author Organization [facility] [place], Address [address] [place] [address] Phone Care Team Providers Care Shot Grinder Operator Name Role Phone Cheyenne Whitmore MD Primary Care Provider [phone]- [phone] Encounter Details Date Type Department Care Team (Late st Contact Info) Description 10/11/2022 Documentation Only [facility] [address] [place] [address] Adia Pope MD [address] [place] [address] Social History Tobacco Use Types Packs/Day Years [...] Visit [facility] [address] [place] [address] Roosevelt Appiah MD [address] [place] [address] [address] Á[place] [phone] documented as of this encounter Visit Diagnoses Not on filedocumented in this encounter Care Teams Shot Grinder Operator Relationship Specialty Start Date End Date Cheyenne Whitmore MD [address] [employer] [facility] [employer] [facility] [place] [address] [place] [address] PCP - General Internal Medicine 10/16/24 documented as of this encounter
--- OUTSIDE RECORDS SUMMARY | 2025-01-30 10:06 | XMS_ITS | Encounter Summary ---
Author Organization [facility] Address [address] [place] [address] Phone Care Team Providers Care Assistant Professor Of Criminal Justice Name Role Phone Cheyenne Whitmore MD Primary Care Provider +1- [phone] Encounter Details Date Type Department Care Team (Late st Contact Info) Description 11/12/2024 Documentation Only [facility] [address] [place] [address] Whitney Pineda [address] [place] [address] Social History Tobacco Use Types [...] [facility] [address] [place] [address] Roosevelt Appiah MD [address] [place] [address] [address] [phone] documented as of this encounter Visit Diagnoses Not on filedocumented in this encounter Care Teams Assistant Professor Of Criminal Justice Relationship Specialty Start Date End Date Cheyenne Whitmore MD [address] [facility] [place] [address] PCP - General Internal Medicine 10/16/24 documented as of this encounter
--- OUTSIDE RECORDS SUMMARY | 2025-01-30 10:06 | XMS_ITS | Encounter Summary ---
Author Organization [facility] Address [address] [place] [address] Phone Care Team Providers Care Test Engineering Manager Name Role Phone Cheyenne Whitmore MD Primary Care Provider [phone]- [phone] Encounter Details Date Type Department Care Team (Late st Contact Info) Description 10/17/2024 Documentation Only [facility] [address] [place] [address] Whitney Pineda [address] [place] [address] Social History Tobacco Use Types [...] [facility] [address] [place] [address] Roosevelt Appiah MD [address] [place] [address] [address] [phone] documented as of this encounter Visit Diagnoses Not on filedocumented in this encounter Care Teams Test Engineering Manager Relationship Specialty Start Date End Date Cheyenne Whitmore MD [address] [facility] [place] [address] PCP - General Internal Medicine 10/16/24 documented as of this encounter
== END 2025-01-29 09:32 | disposition home or self-care (01) ==
LOC: HO.HOSX 09:31
PROVIDERS: Visit Provider Physician Assistant
DX: M54.2 Cervicalgia (principal); Z98.1 Arthrodesis status
CPT/HCPCS: 72050; 99212

== ENCOUNTER → 2025-01-29 09:36 | Outpatient (BNV) | payer MEDICARE, OTHER, SELFPAY | PROVIDERS: Visit Provider Radiology Diagnostic Radiology | DX: M54.2 Cervicalgia (principal) | CPT/HCPCS: 72050 ==

== ENCOUNTER 2025-01-29 09:45 | Outpatient (AMB) | payer MEDICARE, OTHER, SELFPAY ==
--- NOTE | 2025-01-29 09:48 | HO.SPINEOV ---
Intake Visit Reasons: 2nd post op with Xrays Intake Note: Mr. Beard is here today for his 2nd post op with x-rays. 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 Walters 11/27/2024. During his last visit he continued to report some posterior neck pain and weakness/numbness in his bilateral triceps, and some numbness in his left 1st 3 phalanges. We discussed how this may be related to permanent nerve damage from his traumatic injury while serving our [place] in the [employer]. Today, he reports that his pain overall continues to improve gradually. He still has the similar weakness and numbness that he described during his last visit. We reviewed his x-ray imaging which is taking during this visit today shows stable placement of his surgical construct. I recommended the possibility of physical therapy, and he reports [facility] because he does not like the [facility] that [facility] provides. No new neurological deficits. The patient ambulates well without any assistive devices. His anterior incision site is closed and well healed. There is no need for continued routine follow up with Epifanio, he will call the clinic to let us know he is able to go to occupational therapy here at [facility]. Wilver Walters MD,PhD [facility] Orders: Orders XR cervical spine 4V Today M54.2 - Cervicalgia Coding Level of Care Code Global (07270) Diagnoses S/P cervical spinal fusion Z98.1
--- OUTSIDE RECORDS SUMMARY | 2025-01-29 13:52 | XMS_ITS | Encounter Summary ---
Author Organization [facility] Address [address] [place] [address] Phone Care Team Providers Care Commutator Undercutter Name Role Phone Cheyenne Whitmore MD Primary Care Provider [phone] Encounter Details Date Type Department Care Team (Late st Contact Info) Description 01/25/2023 Documentation Only [facility] [address] [place] [phone] Taya Steinberg MD Social History Tobacco Use [...] Care Team (Late st Contact Info) Description 10/15/2025 2:00 PM EDT Office Visit [facility] [address] [place] [phone] Roosevelt Appiah MD [address] [place] [address] [address] [phone] documented as of this encounter Visit Diagnoses Not on filedocumented in this encounter Care Teams Commutator Undercutter Relationship Specialty Start Date End Date Cheyenne Whitmore MD [address] [facility] [place] [address] PCP - General Internal Medicine 10/16/24 documented as of this encounter
--- OUTSIDE RECORDS SUMMARY | 2025-01-29 13:52 | XMS_ITS | Encounter Summary ---
Author Organization [facility] Address [address] [place] [phone] Phone Care Team Providers Care Enrichment Director Name Role Phone Adia Pope MD Primary Care Provider [phone] Unknown, Unknown Primary Care Provider Lexi peck Encounter Details Date Type Department Care Team (Late st Contact Info) Description 09/19/2022 Transcribe Orders [facility] [address] [address] Fern Tompkins PA [address] [place] [phone] [email or web address] Constipation, unspecified constipation type (Primary Dx); Hemorrhoids without complication; Change in bowel habits; Melena Social History Tobacco Use Types Packs/Day Years Used Date Smoking Tobacco: Never Smokeless Tobacco: Never Alcohol Use Standard Drinks/Week Comments Yes 0 (1 standard drink = 0.6 oz pur e alcohol) Child or Family Care Answer Date Record ed Do you have problems with on e of the following making it difficult for you to work, study, or receive health care? No 06/23/2020 Education Answer Date Recorded Are you interested in more education? Not on kailyn e 07/07/2022 Are you concerned about learning? Not on file 07/07/2022 No 07/07/2022 No 07/07/2022 Food Answer Date Recorded Within the past 6 months we worried whether our food would run out before we got money to buy more. Never True 06/23/2020 Within the past 6 months the food we bought just didn't last and we didn't have enough money to get more. Never True Paying for Meds Answer Date Recorded Do you have trouble paying for medicines? No 06/23/2020 Paying Utility Bills Answer Date Record ed Do you have trouble paying your heating or elect ricity bill? No 06/23/2020 Transportation Answer Date Recorded Has the lack of transportati on kept you from medical appointments or from getting medications? No 06/23/2020 Digital Access Answer Date Recorded No 08/07/2022 No 08/07/2022 Reliable internet access at home? Not on file 08/07/2022 Device with a working camera? Not on file Sex and Gender Information Value Date Recorded Sex Assigned at Male 06/23/2020 11:28 AM EDT Legal Sex Male 9:51 PM EDT Gender Identity Male 06/23/2020 11:28 AM EDT Sexual Orientation Straight 06/23/2020 11 :28 AM EDT documented as of this encounter Plan of Treatment Not on file documented as of this encounter Results * (ABNORMAL) C-Reactive Protein (09/19/2022 11:28 AM EDT) Pathologist [facility] C REACTIVE PROTEIN 5.0(H) 0.0 - 4.0 mg/L [facility] Blood 09/19/2022 11:2 8 AM EDT 09/19/2022 11:35 AM EDT Fern [facility] LAB BLOOD BKR ORDERABLES Final Result [address] [address] * (ABNORMAL) Comprehensive metabolic panel (09/19/2022 11:28 AM EDT) [facility] SODIUM 138 133 - 146 mmol/L [facility] POTASSIUM 3.8 3.3 - 5.1 mmol/L [facility] CHLORIDE 102 96 - 108 mmol/L [facility] CO2 26 21 - 35 mmol/L [facility] BUN 12 6 - 19 mg/dL [facility] CREATININE 0.90 0.5 - 1.5 mg/dL [facility] GLUCOSE 106(H) 70 - 99 mg/dL [facility] ALBUMIN 4.6 3.9 - 4.8 g/dL [facility] TOTAL PROTEIN 7.8 6.5 - 8.0 g/dL [facility] CALCIUM 9.2 8.4 - 10.3 mg/dL [facility] ALKALINE PHOSPHATASE 52 39 - 117 U/L [facility] TOTAL BILIRUBIN 0.5 0.0 - 1.2 mg/dL [facility] AST 32 0 - 37 U/L [facility] ALT 39 0 - 40 U/L [facility] GLOBULIN 3.2 1 - 4.8 g/dL [facility] EGFR 95 >59 mL/min/1.7 3m2 [facility] Comment:Estimated glomerular filtration rate calculated using the CKD-EPI refit equation. ANION GAP 14 10 - 20 mmol/L [facility] Blood 09/19/2022 11:2 8 AM EDT 09/19/2022 11:35 AM EDT Fern [facility] BLOOD BKR ORDERABLES Final Result [facility] [address], [place] [id number] * (ABNORMAL) CBC and differential (09/19/2022 11:28 AM EDT) WBC 4.71 4.00 - 11.00 K/uL [facility] RBC 5.09 3.90 - 5.69 M/uL [facility] HGB 16.0 12.4 - 17.3 g/dL [facility] HCT 47.2 37.0 - 51.0 % [facility] PLT 175 140 - 430 K/uL [facility] MCV 92.7 78.0 - 97.0 fL [facility] MCH 31.4 25.0 - 33.0 pg [facility] MCHC 33.9 32.0 - 36.0 g/dL [facility] RDW 12.0 11.0 - 15.0 % [facility] MPV 11.2 8.4 - 12.8 fl [facility] DIFF METHOD Auto [facility] NEUTS 63.1 43.0 - 75.0 % [facility] LYMPHS 23.6 18.2 - 47.4 % [facility] MONOS 11.5(H) 4.00 - 11.00 % [facility] EOS 0.8 0.0 - 8.0 % [facility] BASOS 0.6 0.0 - 2.0 % [facility] Granulocytes, immature (%) 0.4 0.0 - 0.9 % [facility] ABSOLUTE NEUTS 2.97 1.80 - 7.70 K/uL [facility] ABSOLUTE LYMPHS 1.11 1.00 - 3.10 K/uL [facility] ABSOLUTE MONOS 0.54 0.20 - 0.80 K/uL [facility] ABSOLUTE EOS 0.04 0.00 - 0.80 K/uL [facility] ABSOLUTE BASOS 0.03 0.00 - 0.09 K/uL [facility] Granulocytes, immature 0.02 0.00 - 0.05 K/uL [facility] Blood 09/19/2022 11:2 8 AM EDT 09/19/2022 11:35 AM EDT Fern [facility] LAB BLOOD BKR ORDERABLES Final Result Performing Organization Address City/[facility]/ZIP Co de Phone Number [address] [address] * Immunoglobulin A (09/19/2022 11:28 AM EDT) IgA 203 70 - 400 mg/dL [facility] Blood 09/19/2022 11:2 8 AM EDT 09/19/2022 11:35 AM EDT Fern [facility] LAB BLOOD BKR ORDERABLES Final Result Performing Organization Address City/[facility] Co de Phone Number [address] [phone] * Tissue transglutaminase IgA (09/19/2022 11:28 AM EDT) TTG IGA ANTIBODY 2.3 <4.0 (Negative) U/mL [facility] [place] Blood 09/19/2022 11:2 8 AM EDT 09/19/2022 11:35 AM EDT Fern [facility] LAB BLOOD BKR ORDERABLES Final Result [facility] [address] [place] [address] documented in this encounter Visit Diagnoses Diagnosis Constipation, unspecified constipation type- Primary Hemorrhoids without complication Unspecified hemorrhoids without mention of complication Change in bowel habits Other symptoms involving digestive system Melena Blood in stool documented in this encounter Additional Health Concerns Assessment Noted Time PHQ-2 Depression Total Score: 2 06/24/19 21 11:33 AM EDT documented as of this encounter Care Teams Enrichment Director Relationship Specialty Start Date End Date Adia Pope MD [address] [place] [address] [email or web address] PCP - General Family Medicine 06/16/20 08/29/23 Unknown, Kayden, PCP - General 08/30/23 documented as of this encounter Additional Source Comments The information contained in this document represents components of the legal health record. It is not the complete legal health record.[facility]
--- OUTSIDE RECORDS SUMMARY | 2025-01-29 13:52 | XMS_ITS | Clinical Summary ---
Author Organization [facility] Address [address] [place], [place] [id number] Phone Care Team Providers Care Parts Consultant Name Role Phone Unknown, Unknown Primary Care Provider Lexi peck Allergies Active Allergy Reactions Criticality Noted Date Comments House Dust Sneezing 05/23/2004 Atorvastatin Hepatitis Medium 08/10/2021 Medications acyclovir (ZOVIRAX) 5 % ointment Apply topically 2 (two) times a day. Apply thin layer twice daily for infection. Active ipratropium/alb uterol sulfate (IPRATROPIUM-AL BUTEROL INHL) Inhale 1 puff into the lungs 4 (four) times a day. Inhale one puff four times a day. Active budesonide-form oterol (SYMBICORT) 160-4.5 mcg/actuation inhaler Inhale 2 puffs into the lungs 2 (two) times a day. Inhale 2 puffs by mouth twice daily- Rinse mouth after use. Active busPIRone (BUSPAR) 10 MG tablet Take 10 mg by mouth 2 (two) times a day. Take one tab by mouth twice daily. Active cetirizine (ZYRTEC) 10 MG tablet Take 10 mg by mouth daily. Take one tab by mouth daily as needed for allergies. Active citalopram (CELEXA) 20 MG tablet Take 20 mg by mouth nightly at bedtime as needed. Take one half tab by mouth at bedtime for depression and anxiety. Active cyclobenzaprine (FLEXERIL) 5 MG tablet Take 5 mg by mouth 2 (two) times a day as needed. Active lidocaine (LIDODERM) 5 % Place 1 patch onto the skin daily. Remove & Discard patch within 12 hours or as directed by MD Active melatonin 1 mg Tab Take 1 mg by mouth nightly at bedtime as needed. Active naproxen (NAPROSYN) 500 MG tablet Take 500 mg by mouth 2 (two) times a day with meals. As needed Active omeprazole (PRILOSEC) 20 MG tablet Take 20 mg by mouth 2 (two) times a day (once in the morning and once in the afternoon). Active sildenafiL (VIAGRA) 100 mg tablet Take 100 mg by mouth daily as needed for erectile dysfunction. Take one tab by mouth once daily as needed one hour before sexual activity. Active terazosin (HYTRIN) 5 MG capsule Take 5 mg by mouth nightly at bedtime. Active COMBIVENT RESPIMAT 20-100 mcg/actuation Mist 2 Active ezetimibe (ZETIA) 10 mg tablet Take 1 tablet (10 mg total) by mouth daily. 90 tablet 1 2 Active polyethylene glycol (MIRALAX) 17 gram/dose powder Take 17 g by mouth daily. 235 g 1 3 Active amLODIPine (NORVASC) 5 MG tablet Take 5 mg by mouth. 3 Active tamsulosin (FLOMAX) 0.4 mg Cap Take by mouth. 3 Active Active Problems Problem Noted Date Diagnosed Date Anxiety disorder 09/05/2022 BPH (benign prostatic hyperplasia) 09/05/2022 Chronic obstructive pulmonary disease 09/05/2022 Gastroesophageal reflux disease 09/05/2022 Hyperlipidemia 09/05/2022 Constipation 07/29/2021 Assessment & Plan (09/06/2022 10:07 AM EDT): Already exercising (could do more, but this is more than his baseline and he was not constipated before). Reports adequate fiber and fluid intake. Recommend daily use of Miralax and referred to GI for abrupt and long lasting change in bowel habits. Will likely need repeat colonoscopy. Assessment & Plan (07/29/2021 7:39 PM EDT): Keep fiber high, metamucil also good. Try not to strain or sit on toilet for extended periods of time. Lots of fluids, can take over the counter stool softener as needed Muscle strain of left upper back 09/22/2020 Assessment & Plan (09/22/2020 12:54 PM EDT): Reassurance offered that this is not cardiac in nature and patient should come back if he has any increasing sustained chest pain, chest pain at rest, numbness tingling, weakness in the extremity or at any other time if he is concerned. He understands and agrees this plan of care. Essential hypertension 06/24/2020 Assessment & Plan (06/24/2020 10:12 AM EDT): I really cannot make any dosing or medication adjustments without knowing specifically what he is on. Since [facility] can even call the pharmacy to find out what he is on. We will need to obtain medication list from him Class 1 obesity due to exces s calories without serious comorbidity in adult 06/24/2020 Assessment & Plan (07/29/2021 7:40 PM EDT): BMI is only one component of a health assessment, and it is an imperfect tool. Recommendations about body weight and obesity are influenced by dominant cultural and societal values, and often reflect biases of the provider. I encourage all patients, regardless of BMI, to eat a healthy diet and to get regular exercise. We monitor all patients for illnesses such as HTN, diabetes and high cholesterol. Assessment & Plan (06/24/2020 10:13 AM EDT): He is working on getting more active but this is been curtailed by his most recent inguinal hernia. Dysuria 06/24/2020 Assessment & Plan (06/24/2020 10:15 AM EDT): Urinalysis is normal today I do wonder about recurrence of prostatitis versus worsening BPH. We will get a PSA today and likely will need to see urology in the future. Resolved Problems Problem Noted Date Diagnosed Date Resolved Date Left inguinal hernia 06/24/2020 06/2 023 Assessment & Plan (06/24/2020 10:14 AM EDT): Referred for evaluation with general surgery. Until seen and cleared I would avoid heavy lifting and strenuous exercise. Immunizations Immunization Administration Dates Next Due COVID-19 (Pre-01/01) Moderna Vaccine, mRNA, PF 06/05/2020,05/08/2020 Hepatitis A, ped/adol, 2 dose 04/29/1997 INFLUENZA, SPLIT VIRUS, TRIV ALENT W/ PRESERVATIVE IM 12/08/2010,12/17/2008,01/08/2008,02/17,02/15/2001 Influenza Quadrivalent MDCK Preservative Free IM 12/09/2017 MMR 09/23/1981 Meningococcal MPSV4 05/09/2001 Pneumococcal polysaccharide PPSV23 12/17/2008, Polio - OPV 09/23/1981 Smallpox 02/26/2006 Td (adult),2 Lf Tetanus Toxo id, PF, Adsorbed 04/29/1997 Tdap 09/17/2007 Typhoid, ViCPs 04/29/2005,04/29/1997 Yellow Fever 04/29/1997 Social History Tobacco Use Types Packs/Day Years Used Date Smoking Tobacco: Never Smokeless Tobacco: Never Tobacco Cessation:Counseling Given: Not Answered Alcohol Use Standard Drinks/Week Comments Yes 0 (1 standard drink = 0.6 oz pur e alcohol) yearly x 12 Child or Family Care Answer Date Record [...] with a working camera? Not on file Intimate Partner Violence Answer Date R ecorded Denied Basic Needs Not on file 03/19/2023 In the past 12 months have y ou been in a relationship with a person who hurts, threatens, or tries to control you? No 03/19/2023 Worried food would run out Not on file 03/19 In the past 12 months have y ou been in a relationship with a person who hurts, threatens, or tries to control you? No 03/19/2023 Sex and Gender Information Value Date Recorded Sex Assigned at Male 06/23/2020 11:28 AM EDT Legal Sex Male 9:51 PM EDT Gender Identity Male 06/23/2020 11:28 AM EDT Sexual Orientation Straight 06/23/2020 11 :28 AM EDT Last Filed Vital Signs Vital Sign Reading Time Taken Comments Blood Pressure 147/92 03/20/2023 8:43 AM EST Pulse 71 03/20/2023 8:43 AM EST Temperature 36.1 C (97 F) 03/20/2023 8:27 AM EST Respiratory Rate 18 03/20/2023 8:43 AM EST Oxygen Saturation 96% 03/20/2023 8:43 AM EST Inhaled Oxygen Concentration - - Weight 110.7 kg (244 lb) 09/05/2022 10:41 AM EDT Height 182.9 cm (6') 01/15/2023 2:22 PM EST Body Mass Index 34.03 07/28/2021 1:45 PM EDT Plan of Treatment Health Maintenance Due Date Last Done Comments HEPATITIS C SCREENING 1976 COLOGUARD 2003 FIT TEST 2003 FOBT 2003 SIGMOIDOSCOPY 2003 VIRTUAL COLONOSCOPY 2003 RSV VACCINE (1 - Risk 50-74 years 1-dose series) 2008 ZOSTER VACCINES (1 of 2) 2008 PNEUMOCOCCAL VACCINES (50+ years) (2 of 2 - PCV) 12/17/2009 12/17/2008, 01/02/2003 Adult Td,Tdap Booster 09/16/2017 09/17/2007, 998 DEPRESSION SCREENING 06/23/2021 06/23/2020 BLOOD PRESSURE 03/07/2023 09/05/2022 INFLUENZA VACCINE (#1) 2024 , 01/02/2022, 12/08/2020, Additional history exists COVID-19 VACCINE ( season) 2024 01/02/2022, 02/01/2021, 06/05/2020, Additional history exists SCREENING FOR DIABETES 09/19/2025 09/19/2022 LIPID PANEL 07/28/2026 07/28/2021, 06/23/2020 COLONOSCOPY 01/17/2028 01/16/2023 COLORECTAL CANCER SCREENING 01/17/2028 HEPATITIS A VACCINES Aged Out 04/29/1997 No long er eligible based on patient's age to complete this topic MENINGOCOCCAL VACCINES (ACWY) Aged Out 05/09/2001 No longer eligible based on patient's age to complete this topic SMOKING STATUS SCREENING (Once After 26 Yrs) Completed 03/20/2023 HIB VACCINES Aged Out No longer eligi ble based on patient's age to complete this topic MENINGOCOCCAL VACCINES (B) Aged Out N o longer eligible based on patient's age to complete this topic Medical Devices Implanted Type Area Quality Rn Device Identifier Shelf Expiration Date Model / Serial / Lot Plate Plate Neck Procedures Procedure Name Priority Date/Time Associated Diagnosis Comments ENDOSCOPY, COLON 01/16/2023 12:2 5 PM EST LIPID PANEL Routine 07/28/2021 2:44 PM EDT Overweight from Last 3 Months or Most Recently Relevant to Health Maintenance Results * ENDOSCOPY, COLON (01/16/2023 12:25 PM EST) Narrative Transcriptions Jacob Manzo MD, MPH - 01/16/2023 12:25 PM EST [facility] Patient Name: Epifanio Beard Attending MD:: JACOB MANZO MD, Procedure Date: 01/16/2023 12:25 PM Date of : 1960 Age: 62 Admit Type: Outpatient Gender: Male Room: [place] [address] Referring MD: Nahomy Boss Exam Type: Colonoscopy Indications: Constipation Medications: Monitored Anesthesia Care Procedure: Informed consent was obtained from the patientafter discussion of the indications, limitations, alternatives, benefits, and risks of the procedure. Risks specifically discussed include but are not limited to medication reactions, missed lesions, bleeding, perforation, or the need for emergent surgery. Throughout the procedure, the patient's blood pressure, pulse, end-tidal CO2, and oxygensaturations were monitored continuously. The Olympus adult variable colonoscope [id number] #1 was introduced through the anus and advanced to the terminal ileum. The colonoscopy was performedwithout difficulty. The patient tolerated the procedurewell. The quality of the bowel preparation was evaluated using the BBPS ([place] Bowel Preparation Scale)with scores of: Right Colon = 3, Transverse Colon = 3and Left Colon = 3 (entire mucosa seen well with no residual staining, small fragments of stool oropaque liquid). The total BBPS score equals 9. Theterminal ileum, ileocecal valve, appendiceal orifice, and rectum were photographed. Complications: No immediate complications. Findings: The perianal and digital rectal examinations were normal. The terminal ileum appeared normal. A 6 mm polyp was found in the ascending colon. The polyp was sessile. The polyp was removed with acold snare. Resection and retrieval were complete. A 2 mm polyp was found in the transverse colon. The polyp was sessile. The polyp was removed with ajumbo cold forceps. Resection and retrieval werecomplete. A 6 mm polyp was found in the descending colon. The polyp was sessile. The polyp was removed with acold snare. Resection and retrieval were complete. Narrowed sigmoid. A localized area of mildly furrowed mucosa wasfound in the rectum. Biopsies were taken with a coldforceps for histology. Non-bleeding internal hemorrhoids were found during retroflexion. The hemorrhoids were medium-sized. Impression: - The examined portion of the ileum was normal. - One 6 mm polyp in the ascending colon, removedwith a cold snare. Resected and retrieved. - One 2 mm polyp in the transverse colon, removedwith a jumbo cold forceps. Resected and retrieved. - One 6 mm polyp in the descending colon, removedwith a cold snare. Resected and retrieved. - Narrowed sigmoid. - Furrowed mucosa in the rectum. Biopsied. - Non-bleeding internal hemorrhoids. Recommendation: - Await pathology results. - Start miralax daily and uptitrate as needed. - Recommend CT A/P with and without contrast torule out other etiologies of constipation. Dr Jacob Manzo JACOB MANZO MD 01/16/2023 1:42:39 PM This report has been signed electronically. Number of Addenda: 0 Note Initiated On: 01/16/2023 12:25 PM Procedure Code(s): --- Professional --- 12508, Colonoscopy, flexible; with removal of tumor(s), polyp(s), or other lesion(s) by snare technique 68065, 59, Colonoscopy, flexible; with biopsy, single or multiple --- Technical --- 80185, Colonoscopy, flexible; with removal of tumor(s), polyp(s), or other lesion(s) by snare technique [id number], 59, Colonoscopy, flexible; with biopsy, single or multiple Diagnosis Code(s): --- Professional --- K64.8, Other hemorrhoids D12.2, Benign neoplasm of ascending colon D12.3, Benign neoplasm of transverse colon (hepatic flexure or splenic flexure) D12.4, Benign neoplasm of descending colon K62.89, Other specified diseases of anus andrectum K59.00, Constipation, unspecified --- Technical --- K64.8, Other hemorrhoids D12.2, Benign neoplasm of ascending colon D12.3, Benign neoplasm of transverse colon (hepatic flexure or splenic flexure) D12.4, Benign neoplasm of descending colon K62.89, Other specified diseases of anus andrectum K59.00, Constipation, unspecified CPT copyright 2021 [employer] [place] [employer]. All rights reserved. The codes documented in this report are preliminary and upon open winder reviewmay be revised to meet current compliance requirements. Procedure Date: 01/16/2023 12:25:[address] [place] [address] [place] Nahomy Boss MD GI PROCEDURE ORDERABLES Elle l Result * (ABNORMAL) Lipid panel (07/28/2021 2:44 PM EDT) HDL 36 mg/dL [facility] Comment: Interpretation <40 mg/dL: Low HDL cholesterol (major risk factor for CHD) Greater than or equal to 60 mg/dL: High HDL cholesterol ( negative risk factor for CHD) HDL - cholesterol is affected by a number of factors, e.g. smoking, excerise, hormones, sex and age. CHOLESTEROL 269(H) 0 - 240 mg/dL [facility] TRIGLYCERIDES 241(H) 30 - 160 mg/dL [facility] LDL 185(H) 50 - 129 mg/dL [facility] Comment: LDL levels in terms of risk for coronary heart disease: <100 mg/dL: Optimal 100-129 mg/dL: Near or above optimal 130-159 mg/dL: Borderline high 160-189 mg/dL: High >190 mg/dL: Very High CARDIAC RISK RATIO 7.5(H) 3.4 - 5.0 C [facility] Blood 07/28/2021 2:44 PM EDT 07/28/2021 2:52 PM EDT us Adia Pope MD LAB BLOOD BKR ORDERABLES Final R esult [facility] [address] [place], [place] [id number] from Last 3 Months or Most Recently Relevant to Health Maintenance Insurance MEDICARE PART A & B [employer] [place]IC[place] [facility] [place] [facility] [address] [place] [phone] MEDICARE PART A & B [employer] MEDICARE SUPPLEMENT MEDICARE PART A & B [facility] [employer] [facility] MEDICARE [place]PP[place]MENT [facility] Address: [address] [phone] MEDICARE PART A & B [employer] MEDICARE [place]MENT [facility] Address: [address] [phone] MEDICARE PART A & B FOR [employer] MEDICARE [place] [facility] Address: [address] [phone] MEDICARE PART A & B [employer] MEDICARE SUPPLEMENT Care Teams Parts Consultant Relationship Specialty Start Date End Date Unknown, Unknown, PCP - General 08/30/23 Additional Source Comments The information contained in this document represents components of the legal health record. It is not the complete legal health record.[facility]
--- OUTSIDE RECORDS SUMMARY | 2025-01-29 13:52 | XMS_ITS | Encounter Summary ---
Author Organization [facility] Address [address] [place] [address] Phone Care Team Providers Care Cuff Stitcher Name Role Phone Cheyenne Whitmore MD Primary Care Provider [phone]- [phone] Encounter Details Date Type Department Care Team (Late st Contact Info) Description 08/02/2023 Documentation Only [facility] [address] [place] [address] Whitney Pineda [address] [place] [address] Social History Tobacco Use Types Packs/Day Years Used Date Smoking Tobacco: Never Smokeless Tobacco: Never Sex and Gender Information Value Date Recorded Sex Assigned at Not on file Legal Sex Male 11:21 AM EDT Gender Identity Not on file Sexual Orientation Not on file documented as of this encounter Plan of Treatment Upcoming Encounters Date Type Department Care Team (Late st Contact Info) Description 10/15/2025 2:00 PM EDT Office Visit [facility] [address] [place] [address] Roosevelt Appiah MD [address] [place] [address] [address] [phone] documented as of this encounter Visit Diagnoses Not on filedocumented in this encounter Care Teams Cuff Stitcher Relationship Specialty Start Date End Date Cheyenne Whitmore MD [address] [facility] [place] [address] PCP - General Internal Medicine 10/16/24 documented as of this encounter
--- OUTSIDE RECORDS SUMMARY | 2025-01-29 13:52 | XMS_ITS | Encounter Summary ---
Author Organization [facility] Address [address] [place] [address] Phone Care Team Providers Care Machine Tool Builder Name Role Phone Cheyenne Whitmore MD Primary Care Provider [phone]- [phone] Encounter Details Date Type Department Care Team (Late st Contact Info) Description 08/14/2023 Documentation Only [facility] [address] [place] [address] Whitney Pineda [address] [place] [address] Social History Tobacco Use Types [...] Visit [facility] [address] [place] [address] Roosevelt Appiah MD [address] [place] [address] [address] [phone] documented as of this encounter Visit Diagnoses Not on filedocumented in this encounter Care Teams Machine Tool Builder Relationship Specialty Start Date End Date Cheyenne Whitmore MD [address] [facility] [place] [place] [address] PCP - General Internal Medicine 10/16/24 documented as of this encounter
--- OUTSIDE RECORDS SUMMARY | 2025-01-29 13:53 | XMS_ITS | Encounter Summary ---
Author Organization [facility] Address [address] [place] [address] Phone Care Team Providers Care Inspector Cold Working Name Role Phone Adia Pope MD Primary Care Provider [phone] Unknown, Unknown Primary Care Provider Lexi peck Encounter Details Date Type Department Care Team (Late st Contact Info) Description 03/20/2023 Procedure Pass [facility] Endoscopy Admitting Dept Virtual Department [address] [place] [address] Social History Tobacco Use Types Packs/Day Years [...] on file documented as of this encounter Visit Diagnoses Not on filedocumented in this encounter Additional Health Concerns Assessment Noted Time PHQ-2 Depression Total Score: 2 06/24/19 21 11:33 AM EDT documented as of this encounter Care Teams Inspector Cold Working Relationship Specialty Start Date End Date Adia Pope MD [address] [place] [address] [email or web address] PCP - General Family Medicine 06/16/20 08/29/23 Unknown, Unknown, PCP - General 08/30/23 documented as of this encounter Additional Source Comments The information contained in this document represents components of the legal health record. It is not the complete legal health record.[facility]
--- OUTSIDE RECORDS SUMMARY | 2025-01-29 13:53 | XMS_ITS | Encounter Summary ---
Author Organization [facility] Address [address] [place] [address] Phone Care Team Providers Care Senior Linux Unix Administrator Name Role Phone Cheyenne Whitmore MD Primary Care Provider [phone]- [phone] Encounter Details Date Type Department Care Team (Late st Contact Info) Description 10/08/2023 Documentation Only [facility] [address] [place] [address] Whitney Pineda [address] [place] [address] Social History Tobacco Use Types Packs/Day Years Used Date Smoking Tobacco: Never Smokeless Tobacco: Never Sex and Gender Information Value Date Recorded Sex Assigned at Not on file Legal Sex Male 11:21 AM EDT Gender Identity Not on file Sexual Orientation Not on file documented as of this encounter Functional Status documented as of this encounter Plan of Treatment Upcoming Encounters Date Type Department Care Team (Late st Contact Info) Description 10/15/2025 2:00 PM EDT Office Visit [facility] [address] [place] [phone] Roosevelt Appiah MD [address] [place] [address] [address] [phone] documented as of this encounter Visit Diagnoses Not on filedocumented in this encounter Care Teams Senior Linux Unix Administrator Relationship Specialty Start Date End Date Cheyenne Whitmore MD [address] [facility] [place] [address] PCP - General Internal Medicine 10/16/24 documented as of this encounter
--- OUTSIDE RECORDS SUMMARY | 2025-01-29 13:53 | XMS_ITS | Encounter Summary ---
Author Organization [facility] Address [address] [place] [address] Phone Care Team Providers Care Procedures Tech Name Role Phone Cheyenne Whitmore MD Primary Care Provider [phone]- [phone] Encounter Details Date Type Department Care Team (Late st Contact Info) Description 08/02/2023 Documentation Only [facility] [address] [place] [address] Whitney Pineda [address] [place] [address] Social History Tobacco Use Types [...] Visit [facility] [address] [place] [address] Roosevelt Appiah MD [address] [place] [address] [address] [phone] documented as of this encounter Visit Diagnoses Not on filedocumented in this encounter Care Teams Procedures Tech Relationship Specialty Start Date End Date Cheyenne Whitmore MD [address] [place] [place] [place] [address] PCP - General Internal Medicine 10/16/24 documented as of this encounter
--- OUTSIDE RECORDS SUMMARY | 2025-01-29 13:53 | XMS_ITS | Encounter Summary ---
Author Organization [facility] [place] [facility] Address [address] [place] [address] Phone Care Team Providers Care Projects Manager Name Role Phone Cheyenne Whitmore MD Primary Care Provider [phone]- [phone] Encounter Details Date Type Department Care Team (Late st Contact Info) Description 01/30/2023 Documentation Only [facility] [address] [place] [address] [place]ardo Gonzalez[place], [place] [address] [place] [address] Social History Tobacco Use Types [...] Visit [facility] [address] [place] [phone] Roosevelt Appiah MD [address] [place] [address] [address] [phone] documented as of this encounter Visit Diagnoses Not on filedocumented in this encounter Care Teams Projects Manager Relationship Specialty Start Date End Date Cheyenne Whitmore MD [address] [facility] [place] [address] [place] [address] PCP - General Internal Medicine 10/16/24 documented as of this encounter
--- OUTSIDE RECORDS SUMMARY | 2025-01-29 13:53 | XMS_ITS | Encounter Summary ---
Author Organization [facility] Address [address] [place] [address] Phone Care Team Providers Care Outside Sales Professional Name Role Phone Cheyenne Whitmore MD Primary Care Provider +1- [phone] Encounter Details Date Type Department Care Team (Late st Contact Info) Description 01/25/2023 Documentation Only [facility] [address] [place] [address] Roosevelt Appiah MD [address] [facility] [address] [address] Social History Tobacco Use Types Packs/Day Years [...] Visit [facility] [address] [place] [address] Roosevelt Appiah MD [address] [facility] [address] [address] documented as of this encounter Visit Diagnoses Not on filedocumented in this encounter Care Teams Outside Sales Professional Relationship Specialty Start Date End Date Cheyenne Whitmore MD [address] [facility] [place] [address] PCP - General Internal Medicine 10/16/24 documented as of this encounter
--- OUTSIDE RECORDS SUMMARY | 2025-01-29 13:53 | XMS_ITS | Encounter Summary ---
Author Organization [facility] Address [address] [place] [address] Phone Care Team Providers Care Family Day Care Provider Name Role Phone Cheyenne Whitmore MD Primary Care Provider +1- [phone] Encounter Details Date Type Department Care Team (Late st Contact Info) Description 08/02/2023 Documentation Only [facility] [address] [place] [address] Whitney Pineda [address] [place] [address] Social History Tobacco Use Types [...] Visit [facility] [address] [place] [address] Roosevelt Appiah MD [address] [place] [address] [address] [address] documented as of this encounter Visit Diagnoses Not on filedocumented in this encounter Care Teams Family Day Care Provider Relationship Specialty Start Date End Date Cheyenne Whitmore MD [address] [facility] [place] [address] PCP - General Internal Medicine 10/16/24 documented as of this encounter
--- OUTSIDE RECORDS SUMMARY | 2025-01-29 13:53 | XMS_ITS | Encounter Summary ---
Author Organization [facility] Address [address] [place] [address] Phone Care Team Providers Care Psychiatric Aide Name Role Phone Cheyenne Whitmore MD Primary Care Provider +1- [phone] Encounter Details Date Type Department Care Team (Late st Contact Info) Description 01/25/2023 Documentation Only [facility] [address] [place] [address] Roosevelt Appiah MD [address] [facility] [address] [address] Social History Tobacco Use Types [...] Visit [facility] [address] [place] [address] Roosevelt Appiah MD [address] [facility] [address] [address] documented as of this encounter Visit Diagnoses Not on filedocumented in this encounter Care Teams Psychiatric Aide Relationship Specialty Start Date End Date Cheyenne Whitmore MD [address] [facility] [place] [address] PCP - General Internal Medicine 10/16/24 documented as of this encounter
--- OUTSIDE RECORDS SUMMARY | 2025-01-29 13:54 | XMS_ITS | Encounter Summary ---
Author Organization [facility] [place], Address [address] [place] [address] Phone Care Team Providers Care Asphalt Paving Machine Operator Name Role Phone Cheyenne Whitmore MD Primary Care Provider +1- [phone] Encounter Details Date Type Department Care Team (Late st Contact Info) Description 10/03/2022 Documentation Only [facility] [address] [place] [address] Adia Pope MD [address] [place] [address] Social History Tobacco Use Types Packs/Day Years [...] Visit [facility] [address] [place] [address] Roosevelt Appiah MD [address] [place] [address] [address] [address] documented as of this encounter Visit Diagnoses Not on filedocumented in this encounter Care Teams Asphalt Paving Machine Operator Relationship Specialty Start Date End Date Cheyenne Whitmore MD [address] [facility] [place] [address] PCP - General Internal Medicine 10/16/24 documented as of this encounter
--- OUTSIDE RECORDS SUMMARY | 2025-01-29 13:54 | XMS_ITS | Clinical Summary ---
Author Organization [facility], Address [address] [place] [address] [place] [address] Phone Care Team Providers Care Sequins Stringer Name Role Phone Cheyenne Whitmore MD Primary Care Provider +1- [phone] Allergies Active Allergy Reactions Criticality Noted Date Comments Atorvastatin Medium 08/10/2021 Other reaction(s): Hepatitis Dust Mite Extract Other (see comments) 05/24/19 05 Medications DULCOLAX 5 MG EC tablet TAKE 4 TABLETS BY MOUTH DAILY FOR 1 DAY 09/19/2022 Active busPIRone (BUSPAR) 10 MG tablet Take 10 mg by mouth in the morning and 10 mg in the evening. Active cetirizine (ZyrTEC) 10 MG tablet Take 10 mg by mouth in the morning. Active citalopram (CeleXA) 20 MG tablet Take 20 mg by mouth at night if needed Active cyclobenzaprine (FLEXERIL) 5 MG tablet Take 5 mg by mouth 2 (two) times a day if needed Active ezetimibe (ZETIA) 10 MG tablet Take 10 mg by mouth in the morning. 08/10/2021 Active ipratropium-albu terol (Combivent Respimat) 20-100 MCG/ACT inhaler 07/27/2021 Act som melatonin tablet Take 1 mg by mouth at night if needed Active ondansetron ODT (ZOFRAN-ODT) 4 MG dispersible tablet 10/04/2022 Active tamsulosin (FLOMAX) 0.4 MG 24 hr capsule Take by mouth 1 (one) time each day 09/26/2022 Active amLODIPine (NORVASC) 5 MG tablet Take 1 tablet (5 mg total) by mouth 1 (one) time each day 30 tablet 11 11/29/2022 Active Active Problems Problem Noted Date Diagnosed Date Nephrolithiasis 12/19/2022 Benign prostatic hyperplasia 09/05/202209/2022 Hyperlipidemia 09/05/2022 11/16/2022 Essential hypertension 06/24/2020 Renal stone Dysuria Encounters Date Type Department Care Team Description 11/12/2024 Documentation Only [facility] [address] [place] [address] Whitney Pineda 10/29/2024 Documentation Only [facility] [address] [place] [address] Whitney Pineda 10/29/2024 Documentation Only [facility] [address] [place] [address] Whitney Pineda from Last 3 Months Immunizations Immunization Administration Dates Next Due Hep A, 2 Dose 04/29/1997 Influenza, MDCK, PF, Quadrivalent 12/09/2017 Influenza, Unspecified 12/08/2010,2008,01/08/2008, 6,02/15/2001 MMR 09/23/1981 Meningococcal Polysaccharide 05/09/2001 Moderna SARS-COV-2 06/05/2020,05/08/2020 OPV 09/23/1981 Pneumococcal Polysaccharide 12/17/2008, 3 Smallpox 02/26/2006 Td 04/29/1997 Tdap 09/17/2007 Typhoid, Unspecified 04/29/2005,04/29/1997 Yellow Fever 04/29/1997 Social History Tobacco Use Types Packs/Day Years Used Date Smoking Tobacco: Never Smokeless Tobacco: Never Sex and Gender Information Value Date Recorded Sex Assigned at Not on file Legal Sex Male 11:21 AM EDT Gender Identity Not on file Sexual Orientation Not on file Last Filed Vital Signs Vital Sign Reading Time Taken Comments Blood Pressure 130/80 10/16/2024 2:00 PM EDT Pulse 59 10/09/2023 3:07 PM EDT Temperature - - Respiratory Rate - - Oxygen Saturation - - Inhaled Oxygen Concentration - - Weight - - Height - - Body Mass Index - - Plan of Treatment Upcoming Encounters Date Type Department Care Team (Late st Contact Info) Description 10/15/2025 2:00 PM EDT Office Visit [facility] [place], [address] [facility] [place] [address] Roosevelt Appiah MD [address] [facility] [address] [place] [address] Health Maintenance Due Date Last Done Comments Colorectal Cancer Screening: Annual FOBT 2007 Colorectal Cancer Screening: Colonoscopy 2007 Colorectal Cancer Screening: Sigmoidoscopy 2007 Pneumococcal Vaccine: 50+ Years (3 of 3 - PCV) 12/17/2009 12/17/2008, 01/02/2003 Influenza Vaccine (#1) 2024 8, 12/08/2010, 12/17/2008, Additional history exists Pneumococcal Vaccine: Peds (0 to 5 Years) and At-Risk Patients (6 to 49 Years) Discontinued 12/17/2008, 01/02/2003 Hepatitis B Vaccine Aged Out No longe r eligible based on patient's age to complete this topic Procedures Procedure Name Priority Date/Time Associated Diagnosis Comments PTH, INTACT Routine 11/03/2024 9:52 AM EDT Recurrent kidney stone VITAMIN D 25 HYDROXY Routine 11/03/2024 9:52 AM EDT Recurrent kidney stone URINE ALBUMIN / CREATININE RATIO Routine 11/03/2024 9:52 AM EDT Recurrent kidney stone PROTEIN / CREATININE RATIO, URINE Routine 11/03/2024 9:52 AM EDT Recurrent kidney stone URINALYSIS WITH MICROSCOPIC Routine 11/03/2024 9:52 AM EDT Recurrent kidney stone RENAL FUNCTION PANEL Routine 11/03/2024 9:52 AM EDT Recurrent kidney stone CBC AND DIFFERENTIAL Routine 11/03/2024 9:52 AM EDT Recurrent kidney stone MICROSCOPIC EXAMINATION - DO NOT USE Routine 11/03/2024 9:52 AM EDT from Last 3 Months Results * Microscopic Examination (11/03/2024 9:52 AM EDT) WBC, Urine None seen 0 - 5 /hpf [facility] RBC, Urine None seen 0 - 2 /hpf [facility] Squamous Epithelial, Urine None seen 0 - 10 /hpf [facility] Casts None seen None seen /lpf [facility] Mucous Threads Present Not Estab. [facility] Bacteria, Urine None seen None seen/Few [facility] 11/03/2024 9:52 AM EDT 11/03/2024 Roosevelt Appiah MD LAB MICROBIOLOGY - GENERAL OR DERABLES Final Result [facility] [address] [place] [address] * Protein, Total, Random Urine w/Creatinine (Protein/Creat Ratio) (11/03/2024 9:52 AM EDT) Creatinine, Ur 231.9 Not Estab. mg/dL [facility] Protein, Ur 13.5 Not Estab. mg/dL [facility] Urine Protein/Creatin ine Ratio 58 0 - 200 mg/g creat [facility] Urine Urine specimen obtained by clean catch procedure / Unknown 11/03/2024 9:52 AM EDT 11/03/2024 Roosevelt Appiah MD LAB URINE ORDERABLES Final Re sult [facility] [address] [place] [address] * Urine Albumin / Creatinine Ratio (11/03/2024 9:52 AM EDT) Albumin, Urine 7.4 Not Estab. ug/mL [facility] Albumin/Creatin ine Ratio 3 0 - 29 mg/g creat [facility] Comment: Normal: 0 - 29 Moderately increased: 30 - 300 Severely increased: >300 Urine Urine specimen obtained by clean catch procedure / Unknown 11/03/2024 9:52 AM EDT 11/03/2024 Roosevelt Appiah MD LAB URINE ORDERABLES Final Re sult [facility] [address] [place] [address] * Vitamin D 25 Hydroxy (11/03/2024 9:52 AM EDT) Vitamin D, 25-OH, Total 56.6 30.0 - 100.0 ng/mL [facility] Comment: Vitamin D deficiency has been defined by the [place] of [employer] and an Endocrine Society practice guideline as a level of serum 25-OH vitamin D less than 20 ng/mL (1,2). The Endocrine Society went on to further define vitamin D insufficiency as a level between 21 and 29 ng/mL (2). 1. IOM ([place] of [employer]). 2010. Dietary reference intakes for calcium and D. [place]: The National Academies Press. 2. Carolin MF, Bri NC, Cristin RICHARDSON, et al. Evaluation, treatment, and prevention of vitamin D deficiency: an Endocrine Society clinical practice guideline. JCEM. 2010; 96(7):1911-30. Blood Venous blood / Unknown 11/03/2024 9:52 AM EDT 11/03/2024 Roosevelt Appiah MD LAB BLOOD ORDERABLES Final Re sult [facility] [address] [place] [address] * Urinalysis with microscopic (11/03/2024 9:52 AM EDT) Specific [place], Urine 1.019 1.005 - 1.030 [facility] [phone] pH Urine 5.5 5.0 - 7.5 [facility] [phone] Color, Urine Yellow Yellow [facility] [phone] Appearance Urine Clear Clear [facility] WBC Esterase Urine Negative Negative [facility] Protein, Ur Negative Negative/Tra ce [facility] Glucose, Ur Negative Negative [facility] [phone] Ketones, Urine Negative Negative [facility] [phone] Blood Urine Negative Negative [facility] Bilirubin Urine Negative Negative [facility] [phone] Urobilinogen Urine 0.2 0.2 - 1.0 mg/dL [facility] Nitrite, Urine Negative Negative [facility] Microscopic Examination Comment [facility] Comment:Microscopic follows if indicated. Other Microsc. Observations See below: [facility] Comment:Microscopic was ross cated and was performed. Urine Urine specimen obtained by clean catch procedure / Unknown 11/03/2024 9:52 AM EDT 11/03/2024 us Roosevelt Appiah MD LAB URINE ORDERABLES Final Re sult [facility] [address] [place] [address] * CBC and Differential (11/03/2024 9:52 AM EDT) [facility] WBC 6.2 3.4 - 10.8 x10E3/uL [facility] RBC 4.99 4.14 - 5.80 x10E6/uL [facility] Hemoglobin 15.7 13.0 - 17.7 g/dL [facility] Hematocrit 47.5 37.5 - 51.0 % [facility] MCV 95 79 - 97 fL [facility] MCH 31.5 26.6 - 33.0 pg [facility] MCHC 33.1 31.5 - 35.7 g/dL [facility] RDW 12.8 11.6 - 15.4 % [facility] Platelets 178 150 - 450 x10E3/uL [facility] Neutrophils Relative 64 Not Estab. % [facility] Lymphocytes Relative 24 Not Estab. % [facility] Monocytes 10 Not Estab. % [facility] Eosinophils Relative 2 Not Estab. % [facility] Basophils Relative 0 Not Estab. % [facility] Neutrophils Absolute 4.0 1.4 - 7.0 x10E3/uL [facility] Lymphocytes Absolute 1.5 0.7 - 3.1 x10E3/uL [facility] Monocytes Absolute 0.6 0.1 - 0.9 x10E3/uL [facility] Eosinophils Absolute 0.1 0.0 - 0.4 x10E3/uL [facility] Basophils Absolute 0.0 0.0 - 0.2 x10E3/uL [facility] Immature Granulocytes 0 Not Estab. % [facility] Immature Grans (Absolute) 0.0 0.0 - 0.1 x10E3/uL [facility] Blood Venous blood / Unknown 11/03/2024 9:52 AM EDT 11/03/2024 Roosevelt Appiah MD LAB BLOOD ORDERABLES Final Re sult [facility] [address] [place] [address] * PTH, Intact (11/03/2024 9:52 AM EDT) PTH 26 15 - 65 pg/mL [facility] Blood Venous blood / Unknown 11/03/2024 9:52 AM EDT 11/03/2024 Roosevelt Appiah MD LAB BLOOD ORDERABLES Final Re sult Performing Organization Address City/[facility] Co de Phone Number [facility] [address] [place] [address] * Renal Function Panel (11/03/2024 9:52 AM EDT) Glucose 99 70 - 99 mg/dL [facility] BUN 10 8 - 27 mg/dL [facility] Creatinine 0.99 0.76 - 1.27 mg/dL [facility] eGFR CKD-EPI CR 2020 84 >59 mL/min/1.7 3 [facility] BUN/Creatinine Ratio 10 10 - 24 [facility] Sodium 138 134 - 144 mmol/L [facility] Potassium 4.0 3.5 - 5.2 mmol/L [facility] Chloride 101 96 - 106 mmol/L [facility] Bicarbonate (CO2) 21 20 - 29 mmol/L [facility] Calcium 9.4 8.6 - 10.2 mg/dL [facility] Albumin 4.4 3.9 - 4.9 g/dL [facility] Phosphorus 3.0 2.8 - 4.1 mg/dL [facility] Blood Venous blood / Unknown 11/03/2024 9:52 AM EDT 11/03/2024 us Roosevelt Appiah MD LAB BLOOD ORDERABLES Final Re sult [facility] [address] [place] [address] from Last 3 Months Insurance Medicare [facility] Care Teams Sequins Stringer Relationship Specialty Start Date End Date Cheyenne Whitmore MD [address] [place] [address] PCP - General Internal Medicine 10/16/24
--- OUTSIDE RECORDS SUMMARY | 2025-01-29 13:54 | XMS_ITS | Encounter Summary ---
Author Organization [facility] [place], Address [address] [place] [address] Phone Care Team Providers Care Gambling Box Person Name Role Phone Cheyenne Whitmore MD Primary Care Provider +1- [phone] Encounter Details Date Type Department Care Team (Late st Contact Info) Description 10/03/2022 Documentation Only [facility] [address] [place] [address] Adia Pope MD [address] [place] [address] Social History Tobacco Use Types Packs/Day Years [...] Visit [facility] [address] [place] [address] Roosevelt Appiah MD [address] [place] [address] [address] [address] documented as of this encounter Visit Diagnoses Not on filedocumented in this encounter Care Teams Gambling Box Person Relationship Specialty Start Date End Date Cheyenne Whitmore MD [address] [facility] [place] [address] PCP - General Internal Medicine 10/16/24 documented as of this encounter
--- OUTSIDE RECORDS SUMMARY | 2025-01-29 13:54 | XMS_ITS | Encounter Summary ---
Author Organization [facility] [place], Address [address] [place] [address] Phone Care Team Providers Care Ad Operations Specialist Name Role Phone Cheyenne Whitmore MD Primary Care Provider +1- [phone] Encounter Details Date Type Department Care Team (Late st Contact Info) Description 10/03/2022 Documentation Only [facility] [address] [place] [address] Adia Pope MD [address] [place] [address] Social History Tobacco Use Types Packs/Day Years [...] Visit [facility] [address] [place] [address] Roosevelt Appiah MD [address] [place] [address] [address] [address] documented as of this encounter Visit Diagnoses Not on filedocumented in this encounter Care Teams Ad Operations Specialist Relationship Specialty Start Date End Date Cheyenne Whitmore MD [address] [facility] [facility] [place] [address] PCP - General Internal Medicine 10/16/24 documented as of this encounter
--- OUTSIDE RECORDS SUMMARY | 2025-01-29 13:54 | XMS_ITS | Encounter Summary ---
Author Organization [facility] [place], Address [address] [place] [address] Phone Care Team Providers Care Link Cutter Name Role Phone Cheyenne Whitmore MD Primary Care Provider +1- [phone] Encounter Details Date Type Department Care Team (Late st Contact Info) Description 10/03/2022 Documentation Only [facility] [address] [place] [address] Adia Pope MD [address] [place] [address] Social History Tobacco Use Types Packs/Day Years [...] Visit [facility] [address] [place] [address] Roosevelt Appiah MD [address] [place] [address] [address] [phone] documented as of this encounter Visit Diagnoses Not on filedocumented in this encounter Care Teams Link Cutter Relationship Specialty Start Date End Date Cheyenne Whitmore MD [address] [facility] [facility] [place] [address] PCP - General Internal Medicine 10/16/24 documented as of this encounter
--- OUTSIDE RECORDS SUMMARY | 2025-01-29 13:55 | XMS_ITS | Encounter Summary ---
Author Organization [facility] [place], Address [address] [place] [address] Phone Care Team Providers Care Olive Grader Name Role Phone Cheyenne Whitmore MD Primary Care Provider +1- [phone] Encounter Details Date Type Department Care Team (Late st Contact Info) Description 10/16/2024 Documentation Only [facility] [address] [place] [address] Whitney Pineda [address] [place] [address] Social History Tobacco Use Types Packs/Day Years Used Date Smoking Tobacco: Never Smokeless Tobacco: Never Sex and Gender Information Value Date Recorded Sex Assigned at Not on file Legal Sex Male 11:21 AM EDT Gender Identity Not on file Sexual Orientation Not on file documented as of this encounter Functional Status * BP Answer Date of Assessment Author Kyree/Rose 10/16/2024 2:00 PM EDT Roosevelt Appiah MD * BP Answer Date of Assessment Author 130/80 10/16/2024 2:00 PM EDT Roosevelt Appiah MD documented as of this encounter Plan of Treatment Upcoming Encounters Date Type Department Care Team (Late st Contact Info) Description 10/15/2025 2:00 PM EDT Office Visit [facility] [address] [place] [address] Roosevelt Appiah MD [address] [place] [address] [address] [address] documented as of this encounter Visit Diagnoses Not on filedocumented in this encounter Care Teams Olive Grader Relationship Specialty Start Date End Date Cheyenne Whitmore MD [address] [place] [address] PCP - General Internal Medicine 10/16/24 documented as of this encounter
--- OUTSIDE RECORDS SUMMARY | 2025-01-29 13:55 | XMS_ITS | Encounter Summary ---
Author Organization [facility] Address [address] [place] [address] Phone Care Team Providers Care Mortgage Assistant Name Role Phone Cheyenne Whitmore MD Primary Care Provider +1- [phone] Encounter Details Date Type Department Care Team (Late st Contact Info) Description 10/17/2024 Documentation Only [facility] [address] [place] [address] Whitney Pineda [address] [place] [address] Social History Tobacco Use Types [...] Visit [facility] [address] [place] [address] Roosevelt Appiah MD [address] [place] [address] [address] [phone] documented as of this encounter Visit Diagnoses Not on filedocumented in this encounter Care Teams Mortgage Assistant Relationship Specialty Start Date End Date Cheyenne Whitmore MD [address] [facility] [place] [address] PCP - General Internal Medicine 10/16/24 documented as of this encounter
--- OUTSIDE RECORDS SUMMARY | 2025-01-29 13:55 | XMS_ITS | Encounter Summary ---
Author Organization [facility] [place], Address [address] [place] [address] Phone Care Team Providers Care Lottery Sales Clerk Name Role Phone Cheyenne Whitmore MD Primary Care Provider +1- [phone] Encounter Details Date Type Department Care Team (Late st Contact Info) Description 10/16/2024 Documentation Only [facility] [address] [place] [address] Whitney Pineda [address] [place] [address] Social History Tobacco Use Types Packs/Day [...] [facility] [address] [place] [address] Roosevelt Appiah MD [address] [place] [address] [address] [address] documented as of this encounter Visit Diagnoses Not on filedocumented in this encounter Care Teams Lottery Sales Clerk Relationship Specialty Start Date End Date Cheyenne Whitmore MD [address] [place] [address] PCP - General Internal Medicine 10/16/24 documented as of this encounter
--- OUTSIDE RECORDS SUMMARY | 2025-01-29 13:55 | XMS_ITS | Encounter Summary ---
Author Organization [facility] Address [address] [place] [address] Phone Care Team Providers Care Dixonac Operator Name Role Phone Cheyenne Whitmore MD Primary Care Provider +1- [phone] Encounter Details Date Type Department Care Team (Late st Contact Info) Description 11/12/2024 Documentation Only [facility] [address] [place] [address] Whitney Pineda [address] [place] [address] Social History Tobacco Use Types [...] Visit [facility] [address] [place] [address] Roosevelt Appiah MD [address] [place] [address] Dr[address] Á[place] [address] documented as of this encounter Visit Diagnoses Not on filedocumented in this encounter Care Teams Dixonac Operator Relationship Specialty Start Date End Date Cheyenne Whitmore MD [address] [facility] [place] [place] [address] PCP - General Internal Medicine 10/16/24 documented as of this encounter
--- OUTSIDE RECORDS SUMMARY | 2025-01-29 13:55 | XMS_ITS | Encounter Summary ---
Author Organization [facility] Address [address] [place] [address] Phone Care Team Providers Care Dependency Program Director Name Role Phone Cheyenne Whitmore MD Primary Care Provider +1- [phone] Encounter Details Date Type Department Care Team (Late st Contact Info) Description 10/29/2024 Documentation Only [facility] [address] [place] [address] Whitney Pineda [address] [place] [address] Social History Tobacco Use Types [...] Visit [facility] [address] [place] [address] Roosevelt Appiah MD [address] [place] [address] Dr[address] [phone] documented as of this encounter Visit Diagnoses Not on filedocumented in this encounter Care Teams Dependency Program Director Relationship Specialty Start Date End Date Cheyenne Whitmore MD [address] [facility] [place] [place] [address] PCP - General Internal Medicine 10/16/24 documented as of this encounter
--- OUTSIDE RECORDS SUMMARY | 2025-01-29 13:55 | XMS_ITS | Encounter Summary ---
Author Organization [facility] [place], Address [address] [place] [address] Phone Care Team Providers Care Neuroscience Specialist Name Role Phone Cheyenne Whitmore MD Primary Care Provider +1- [phone] Encounter Details Date Type Department Care Team (Late st Contact Info) Description 10/16/2024 Documentation Only [facility] [address] [place] [address] Whitney Pineda [address] [place] [address] Social History Tobacco Use Types Packs/Day [...] [facility] [address] [place] [address] Roosevelt Appiah MD [address] [place] [address] [address] [address] documented as of this encounter Visit Diagnoses Not on filedocumented in this encounter Care Teams Neuroscience Specialist Relationship Specialty Start Date End Date Cheyenne Whitmore MD [address] [place] [address] PCP - General Internal Medicine 10/16/24 documented as of this encounter
--- OUTSIDE RECORDS SUMMARY | 2025-01-29 13:55 | XMS_ITS | Encounter Summary ---
Author Organization [facility] Address [address] [place] [address] Phone Care Team Providers Care Paper Guillotine Operator Name Role Phone Cheyenne Whitmore MD Primary Care Provider +1- [phone] Encounter Details Date Type Department Care Team (Late st Contact Info) Description 10/29/2024 Documentation Only [facility] [address] [place] [address] Whitney Pineda [address] [place] [address] Social History Tobacco Use Types [...] Visit [facility] [address] [place] [address] Roosevelt Appiah MD [address] [place] [address] [address] [address] documented as of this encounter Visit Diagnoses Not on filedocumented in this encounter Care Teams Paper Guillotine Operator Relationship Specialty Start Date End Date Cheyenne Whitmore MD [address] [facility] [place] [place] [address] PCP - General Internal Medicine 10/16/24 documented as of this encounter
--- OUTSIDE RECORDS SUMMARY | 2025-01-29 13:55 | XMS_ITS | Encounter Summary ---
Author Organization [facility] [place], Address [address] [place] [address] Phone Care Team Providers Care Tassel Clipper Name Role Phone Cheyenne Whitmore MD Primary Care Provider +1- [phone] Encounter Details Date Type Department Care Team (Late st Contact Info) Description 10/16/2024 Documentation Only [facility] [address] [place] [address] Whitney Pineda [address] [place] [address] Social History Tobacco Use Types Packs/Day [...] Visit [facility] [address] [place] [address] Roosevelt Appiah MD [address] [place] [address] [address] [address] documented as of this encounter Visit Diagnoses Not on filedocumented in this encounter Care Teams Tassel Clipper Relationship Specialty Start Date End Date Cheyenne Whitmore MD [address] [place] [address] PCP - General Internal Medicine 10/16/24 documented as of this encounter
--- OUTSIDE RECORDS SUMMARY | 2025-01-29 13:55 | XMS_ITS | Encounter Summary ---
Author Organization [facility] [place], Address [address] [place] [address] Phone Care Team Providers Care Assignment Editor Name Role Phone Cheyenne Whitmore MD Primary Care Provider +1- [phone] Encounter Details Date Type Department Care Team (Late st Contact Info) Description 10/16/2024 Documentation Only [facility] [address] [place] [address] Whitney Pineda [address] [place] [address] Social History Tobacco Use Types Packs/Day [...] Visit [facility] [address] [place] [address] Roosevelt Appiah MD [address] [place] [address] [address] [address] documented as of this encounter Visit Diagnoses Not on filedocumented in this encounter Care Teams Assignment Editor Relationship Specialty Start Date End Date Cheyenne Whitmore MD [address] [place] [address] PCP - General Internal Medicine 10/16/24 documented as of this encounter
--- OUTSIDE RECORDS SUMMARY | 2025-01-29 13:56 | XMS_ITS | Encounter Summary ---
Author Organization [facility] [place], Address [address] [place] [address] Phone Care Team Providers Care Communications Scientist Name Role Phone Cheyenne Whitmore MD Primary Care Provider +1- [phone] Encounter Details Date Type Department Care Team (Late st Contact Info) Description 10/03/2022 Documentation Only [facility] [address] [place] [address] Adia Pope MD [address] [place] [address] Social History Tobacco Use Types Packs/Day Years [...] [facility] [address] [place] [address] Roosevelt Appiah MD [address] [place] [address] [address] [address] documented as of this encounter Visit Diagnoses Not on filedocumented in this encounter Care Teams Communications Scientist Relationship Specialty Start Date End Date Cheyenne Whitmore MD [address] [facility] [place] [address] PCP - General Internal Medicine 10/16/24 documented as of this encounter
--- OUTSIDE RECORDS SUMMARY | 2025-01-29 13:56 | XMS_ITS | Encounter Summary ---
Author Organization [facility] [place], Address [address] [place] [address] Phone Care Team Providers Care Wagon Driver Name Role Phone Cheyenne Whitmore MD Primary Care Provider +1- [phone] Encounter Details Date Type Department Care Team (Late st Contact Info) Description 10/03/2022 Documentation Only [facility] [address] [place] [address] Adia Pope MD [address] [place] [address] Social History Tobacco Use Types Packs/Day Years [...] Visit [facility] [address] [place] [place] [address] Roosevelt Appiah MD [address] [place] [address] [address] [phone] documented as of this encounter Visit Diagnoses Not on filedocumented in this encounter Care Teams Wagon Driver Relationship Specialty Start Date End Date Cheyenne Whitmore MD [address] [facility] [place] [address] PCP - General Internal Medicine 10/16/24 documented as of this encounter
--- OUTSIDE RECORDS SUMMARY | 2025-01-29 13:56 | XMS_ITS | Encounter Summary ---
Author Organization [facility] Address [address] [place] [address] Phone Care Team Providers Care Six Pack Loader Operator Name Role Phone Adia Pope MD Primary Care Provider [phone] Unknown, Unknown Primary Care Provider Lexi peck Encounter Details Date Type Department Care Team (Late st Contact Info) Description 01/17/2023 Procedure Pass [facility], Ct Scan - [address] [address] Social History Tobacco Use Types Packs/Day Years [...] documented as of this encounter Care Teams Six Pack Loader Operator Relationship Specialty Start Date End Date Adia Pope MD [address] [place] [address] [email or web address] PCP - General Family Medicine 06/16/20 08/29/23 Unknown, Unknown, PCP - General 08/30/23 documented as of this encounter Additional Source Comments The information contained in this document represents components of the legal health record. It is not the complete legal health record.[facility]
--- OUTSIDE RECORDS SUMMARY | 2025-01-29 13:56 | XMS_ITS | Encounter Summary ---
Author Organization [facility] [place], Address [address] [place] [address] Phone Care Team Providers Care Inspector Filter Tip Name Role Phone Cheyenne Whitmore MD Primary Care Provider +1- [phone] Encounter Details Date Type Department Care Team (Late st Contact Info) Description 10/11/2022 Documentation Only [facility] [address] [place] [address] Adia Pope MD [address] [place] [address] Social History Tobacco Use Types Packs/Day Years [...] Visit [facility] [address] [place] [address] Roosevelt Appiah MD [address] [place] [address] [address] [phone] documented as of this encounter Visit Diagnoses Not on filedocumented in this encounter Care Teams Inspector Filter Tip Relationship Specialty Start Date End Date Cheyenne Whitmore MD [address] [facility] [place] [place] [address] PCP - General Internal Medicine 10/16/24 documented as of this encounter
--- OUTSIDE RECORDS SUMMARY | 2025-01-29 13:56 | XMS_ITS | Encounter Summary ---
Author Organization [facility] [place], Address [address] [place] [address] Phone Care Team Providers Care Cook Mayonnaise Name Role Phone Cheyenne Whitmore MD Primary Care Provider +1- [phone] Encounter Details Date Type Department Care Team (Late st Contact Info) Description 11/24/2022 Documentation Only [facility] [address] [place] [address] Leonardo Gonzalez[place]LE[place], [place] [address] [place] [address] Social History Tobacco Use Types [...] Visit [facility] [address] [place] [phone] Roosevelt Appiah MD [address] [place] [address] [address] [phone] documented as of this encounter Visit Diagnoses Not on filedocumented in this encounter Care Teams Cook Mayonnaise Relationship Specialty Start Date End Date Cheyenne Whitmore MD [address] [facility] [place] [place] [address] PCP - General Internal Medicine 10/16/24 documented as of this encounter
--- OUTSIDE RECORDS SUMMARY | 2025-01-29 13:57 | XMS_ITS | Encounter Summary ---
Author Organization [facility] Address [address] [place] [address] Phone Care Team Providers Care Joinery Factory Worker Name Role Phone Adia Pope MD Primary Care Provider Unknown, Unknown Primary Care Provider Lexi peck Reason for Referral * MRI/CAT Scan - Closed Specialty Diagnoses / Procedures Referred By Contac t Referred To Contact Radiology Diagnoses Constipation, unspecified constipation type Gastroesophageal reflux disease, unspecified whether esophagitis present Procedures CT Abdomen/Pelvis CHG CT SCAN,ABDOMENT AND PELVIS,W CONTRAST CHG CT SCAN,ABDOMENT AND PELVIS,COMBO CHG CT SCAN,ABDOMENT AND PELVIS,W/O CONTRAST Jelly Manzo MD Phone: tel: fax: [email or web address]:[email or web address] Referral ID Status Reason Start Date Expiration Date Visits Re quested Visits Authorized [id number] Closed 02/28/2023 03/18/2023 1 1 Encounter Details Date Type Department Care Team (Latest Contact Info) Description 01/17/2023 Transcribe Orders Virtual Department [address] [place] [address] Jelly Manzo MD [address] [place] [address] [email or web address] Constipation, unspecified constipation type (Primary Dx); Gastroesophageal reflux disease, unspecified whether esophagitis present Social History Tobacco Use Types Packs/Day Years [...] documented as of this encounter Results * CT ABDOMEN/PELVIS WITH CONTRAST (02/28/2023 2:08 PM EST) Anatomical Region Laterality Modality Abdomen, Pelvis Computed Tomogra phy 03/02/2023 5:23 AM EST Impressions 03/02/2023 5:08 PM EST Impression: No CT findings of constipation or evidence of abdominopelvic malignancy. Hepatic steatosis. Cholelithiasis without evidence of acute cholecystitis. Nonobstructing bilateral nephrolithiasis. Narrative 03/02/2023 5:[address] ABDOMEN/PELVIS WITH CONTRAST Referring clinician's provided indication for this examination in Epic: Outside Radiology Order; CONSTIPATION TECHNIQUE: Multidetector-row CT of the abdomen and pelvis was performed after administration of intravenous contrast using tailored dose modulation techniques. Images were reconstructed in the axial, coronal, and sagittal planes. COMPARISON: None FINDINGS: Lower Chest: Mild aortic annular/coronary calcifications. Subsegmental atelectasis at the posterior lower lobes. Asymmetric elevation of right hemidiaphragm. Liver: Steatosis. No suspicious focal lesion. Biliary: No bile duct dilation. Noninflamed gallbladder containing cholelithiasis. Spleen: No splenomegaly or suspicious focal lesion. Pancreas: No mass or main duct dilation. Adrenal Glands: No nodule. Kidneys/Ureters: Left renal cortical cyst and additional bilateral subcentimeter cortical hypodensities which are too small to characterize. Bilateral nonobstructing nephrolithiasis measuring up to 4 mm. No ureteral stones. No hydronephrosis or solid renal mass. Pelvic Organs/Bladder: Age-appropriate. Bowel: No abnormal wall thickening or distension. Noninflamed colonic diverticula. Noninflamed appendix. Colorectal stool volume is within normal limits. Peritoneum/Retroperitoneum: No free fluid, free air, or mass. Lymph Nodes: No abnormally enlarged lymph nodes. Vessels: No aortic aneurysm. Atherosclerotic changes. Bones/Soft Tissues: No destructive osseous lesion. Apparently asymmetric mild right-sided gynecomastia (left side may be above the [id number]). Changes of prior bilateral inguinal hernia repair. Procedure Note Jerel Boyle MD - 03/02/2023 CT ABDOMEN/PELVIS WITH CONTRAST Referring clinician's provided indication for this examination in Epic:Outside Radiology Order; CONSTIPATION TECHNIQUE: Multidetector-row CT of the abdomen and pelvis was performedafter administration of intravenous contrast using tailored dosemodulation techniques. Images were reconstructed in the axial, coronal,and sagittal planes. COMPARISON: None FINDINGS: Lower Chest: Mild aortic annular/coronary calcifications. Subsegmentalatelectasis at the posterior lower lobes. Asymmetric elevation of righthemidiaphragm. Liver: Steatosis. No suspicious focal lesion. Biliary: No bile duct dilation. Noninflamed gallbladder containingcholelithiasis. Spleen: No splenomegaly or suspicious focal lesion. Pancreas: No mass or main duct dilation. Adrenal Glands: No nodule. Kidneys/Ureters: Left renal cortical cyst and additional bilateralsubcentimeter cortical hypodensities which are too small to characterize.Bilateral nonobstructing nephrolithiasis measuring up to 4 mm. No ureteralstones. No hydronephrosis or solid renal mass. Pelvic Organs/Bladder: Age-appropriate. Bowel: No abnormal wall thickening or distension. Noninflamed colonicdiverticula. Noninflamed appendix. Colorectal stool volume is withinnormal limits. Peritoneum/Retroperitoneum: No free fluid, free air, or mass. Lymph Nodes: No abnormally enlarged lymph nodes. Vessels: No aortic aneurysm. Atherosclerotic changes. Bones/Soft Tissues: No destructive osseous lesion. Apparently asymmetricmild right-sided gynecomastia (left side may be above the [id number]).Changes of prior bilateral inguinal hernia repair. IMPRESSION: Impression: No CT findings of constipation or evidence of abdominopelvic malignancy. Hepatic steatosis. Cholelithiasis without evidence of acute cholecystitis. Nonobstructing bilateral nephrolithiasis. Jelly Manzo MD IM CT ABD/PELVIS Final Res ult documented in this encounter Visit Diagnoses Diagnosis Constipation, unspecified constipation type- Primary Gastroesophageal reflux disease, unspecified whether esophagitis present Constipation, unspecified constipation type Gastroesophageal reflux disease, unspecified whether esophagitis present documented in this encounter Additional Health Concerns Assessment Noted Time PHQ-2 Depression Total Score: 2 06/24/19 21 11:33 AM EDT documented as of this encounter Care Teams Joinery Factory Worker Relationship Specialty Start Date End Date Adia Pope MD [address] [place] [address] PCP - General Family Medicine 06/16/20 08/29/23 Unknown, Kayden, PCP - General 08/30/23 documented as of this encounter Additional Source Comments The information contained in this document represents components of the legal health record. It is not the complete legal health record.[facility]
--- OUTSIDE RECORDS SUMMARY | 2025-01-29 13:57 | XMS_ITS | Encounter Summary ---
Author Organization [facility] Address [address] [place] [address] Phone Care Team Providers Care Cafeteria Cashier Name Role Phone Adia Pope MD Primary Care Provider Unknown, Unknown Primary Care Provider Lexi peck Encounter Details Date Type Department Care Team (Late st Contact Info) Description 01/16/2023 Procedure Pass [facility] Endoscopy Admitting Dept Virtual Department [address] [place] [address] Social History Tobacco Use Types Packs/Day Years [...] documented as of this encounter Care Teams Cafeteria Cashier Relationship Specialty Start Date End Date Adia Pope MD [address] [place] [address] [email or web address] PCP - General Family Medicine 06/16/20 08/29/23 Unknown, Unknown, PCP - General 08/30/23 documented as of this encounter Additional Source Comments The information contained in this document represents components of the legal health record. It is not the complete legal health record.[facility]
== END 2025-01-29 10:14 | disposition home or self-care (01) ==
LOC: HO.HNS 09:46
PROVIDERS: PCP Internal Medicine; Visit Provider Physician Assistant
DX: Z98.1 Arthrodesis status (principal)
CPT/HCPCS: 99024

== ENCOUNTER 2025-02-02 08:23 | Outpatient (AMB) | payer MEDICARE, OTHER, SELFPAY ==
[2025-02-02 08:24] VITALS: BP 158/76; PULSE 71; TEMP 36.6; O2SAT 97; BMI 33.9
--- NOTE | 2025-02-02 08:24 | AM.OFFWIN_ITS ---
Intake Vital Signs 02/02/25 08:24 Height 6 ft Weight 250 lb BMI 33.9 BP 158/76 H Blood Pressure Location Rt brachial Position Sitting Pulse 71 Pulse Source Pulse Oximeter Temp 98 F Temp Source Oral Pulse Oximetry (%) 97 Oxygen Delivery Method Room Air Intake Visit Reasons: EP-lt knee tick bite Intake Note: Patient presents c/o tick bite on left knee x1 1/2 weeks. Patient thinks he got the body off but the head is still attached. Patient Tobacco Use Status: Never used Tobacco Allergies mite-Dermatophagoides farinae, catina (dust mite - [place]) Allergy (Verified 02/02/25 08:27) Unknown HPI HPI Comments History of Present Illness Details 64-year-old male presents to the walk-in clinic for evaluation of a left lower leg wound from a tick bite 1.5 weeks ago. He states he removed the tick at that time but is concerned that the tick?s tail or mouthparts may still be embedded. Reports the area is red, but denies tenderness to palpation, discharge, fever, chills, malaise, joint pains, headache, or any other systemic symptoms. Came in at the urging of his son. No treatments applied aside from routine hygiene. 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 Chronic constipation Myocardial infarction (~04/2023) Calculus, kidney CAD (coronary artery disease) Anisometropia Chronic low back pain COPD (chronic obstructive pulmonary disease) Neck pain Low back pain Hx of traumatic brain injury Sleep apnea Anxiety and depression GERD (gastroesophageal reflux disease) COVID-19 vaccine series completed Asthma BPH (benign prostatic hyperplasia) Migraines HLD (hyperlipidemia) HTN (hypertension) Surgical History (Updated 12/18/24 @ 10:10 by VINCENT Martínez) Hx of elbow surgery Hx of left inguinal hernia repair History of esophagogastroduodenoscopy (EGD) H/O colonoscopy Hx of right coronary artery stent placement (~04/2023) H/O neck surgery H/O right inguinal hernia repair Family History Maternal Uncle Prostate cancer Social History Housing: House Are you a primary home care rn to a significant other at home: No Do you presently have visiting nurse or other home services: No Patient Tobacco Use Status: Never used Tobacco e-Cigarette/Vaping Use: Never Used service: Yes Current occupational status: retired Cognitive needs: No Hearing needs: No Vision needs: Yes Review of Systems Const All systems reviewed & are unremarkable except as noted in HPI and below Physical Exam Vital Signs: Last Vital Signs Temp 98 F 02/02/25 08:24 Pulse 71 02/02/25 08:24 BP 158/76 H 02/02/25 08:24 Pulse Ox 97 02/02/25 08:24 Oxygen Delivery Method Room Air 02/02/25 08:24 BMI result Body Mass Index 33.9 Const General: no acute distress Nutritional Appearance: overweight Orientation/consciousness: patient oriented x3 Skin Other: Left Leg : Small erythematous area at previous tick bite site. No fluctuance, no warmth, no streaking, no purulence, no open wound. No visible or palpable retained foreign body on inspection or palpation. No tenderness. Neuro General: patient oriented x3, gait normal and moves all extremities Psych Speech and movement: Normal speech and movement present Assessment & Plan Assessment & Plan (1) Tick bite: Code(s): W57.XXXA - Bitten or stung by nonvenomous insect and other nonvenomous arthropods, initial encounter Plan: Healing tick bite wound, left lower leg ? Appears uncomplicated at this time. No current findings to suggest retained mouth parts, cellulitis, abscess, or sys temic involvement. Low suspicion for Lyme disease ? No erythema migrans, systemic symptoms, or signs of early disseminated disease. Reassurance: No evidence of retained tick mouth parts or active infection. Wound care: Keep area clean and dry. Monitoring: Educated patient on signs/symptoms that warrant return: expanding redness, warmth, drainage, fever, rash resembling ?bull?s-eye,? joint pain, h eadaches, or new/worsening symptoms. Lyme prophylaxis: Not indicated based on time since bite (>72 hours) and absence of high-risk findings. Follow-up: Return PRN if symptoms develop. Coding Level of Care Code Est Pt Level 4 (77230) Diagnoses Tick bite W57.XXXA Time Spent (min) 20
--- OUTSIDE RECORDS SUMMARY | 2025-02-02 08:30 | XMS_ITS | Clinical Summary ---
Author Organization [facility] Address [address] [place], [place] [id number] Phone Care Team Providers Care University Intern Name Role Phone Unknown, Unknown Primary Care [...] this topic Medical Devices Implanted Type Area Spice Blender Device Identifier Shelf Expiration Date Model / [...] MD, MPH - 01/16/2023 12:25 PM EST [facility] Patient Name: Epifanio Beard Attending MD:: JACOB MANZO MD, Procedure Date: 01/16/2023 12:25 PM Date of : 1960 Age: 62 Admit Type: Outpatient Gender: Male Room: [place] [address] Referring MD: Nahomy Boss Exam Type: Colonoscopy [...] monitored continuously. The Olympus adult variable colonoscope [id number] #1 was introduced through the anus and advanced to the terminal ileum. The colonoscopy was performedwithout difficulty. The patient tolerated the procedurewell. The quality of the bowel preparation was evaluated using the BBPS ([place] Bowel Preparation Scale)with scores of: Right Colon [...] 12:25 PM Procedure Code(s): --- Professional --- 00077, Colonoscopy, flexible; with removal of tumor(s), polyp(s), or other lesion(s) by snare technique 83049, 59, Colonoscopy, flexible; with biopsy, single or multiple --- Technical --- 56192, Colonoscopy, flexible; with removal of tumor(s), polyp(s), or other lesion(s) by snare technique 01771, 59, Colonoscopy, flexible; with biopsy, single or [...] andrectum K59.00, Constipation, unspecified CPT copyright 2021 [employer]. All rights reserved. The codes documented in this report are preliminary and upon senior controls engineer reviewmay be revised to meet current compliance requirements. Procedure Date: 01/16/2023 12:25:[address] [place] [address] us Nahomy Boss MD GI PROCEDURE ORDERABLES Elle l Result * (ABNORMAL) Lipid panel (07/28/2021 2:44 PM EDT) HDL 36 mg/dL [facility] Comment: Interpretation <40 mg/dL: Low HDL cholesterol (major risk factor for CHD) Greater than or equal to 60 mg/dL: High HDL cholesterol ( negative risk factor for CHD) HDL - cholesterol is affected by a number of factors, e.g. smoking, excerise, hormones, sex and age. CHOLESTEROL 269(H) 0 - 240 mg/dL [facility] TRIGLYCERIDES 241(H) 30 - 160 mg/dL [facility] LDL 185(H) 50 - 129 mg/dL [facility] Comment: LDL levels in terms of risk for coronary heart disease: <100 mg/dL: Optimal 100-129 mg/dL: Near or above optimal 130-159 mg/dL: Borderline high 160-189 mg/dL: High >190 mg/dL: Very High CARDIAC RISK RATIO 7.5(H) 3.4 - 5.0 C [facility] Blood 07/28/2021 2:44 PM EDT 07/28/2021 2:52 PM EDT us Adia Pope MD LAB BLOOD BKR ORDERABLES Final R esult [facility] [address] [place], [place] [id number] from Last 3 Months or Most Recently Relevant to Health Maintenance Insurance MEDICARE PART A & B [employer] MEDICARE SUPPLEMENT [facility] Address: [facility] [address] [place] [phone] MEDICARE PART A & B [employer] MEDICARE SUPPLEMENT MEDICARE PART A & B [facility] [employer] [facility] MEDICARE SUPPLEMENT [facility] Address: [address] [address] MEDICARE PART A & B FOR LIFE MEDICARE SUPPLEMENT [facility] Address: [address] [address] MEDICARE PART A & B FOR LIFE MEDICARE SUPPLEMENT [facility] Address: [address] [address] MEDICARE PART A & B FOR LIFE MEDICARE SUPPLEMENT Care Teams University Intern Relationship Specialty Start Date End Date Unknown, Unknown, PCP - General 08/30/23 Additional Source Comments The information contained in this document represents components of the legal health record. It is not the complete legal health record.[facility]
--- OUTSIDE RECORDS SUMMARY | 2025-02-02 08:30 | XMS_ITS | Encounter Summary ---
Author Organization [facility] [place], Address [address] [place] [address] Phone Care Team Providers Care Russian History Professor Name Role Phone Cheyenne Whitmore MD Primary Care Provider +1- [phone] Encounter Details Date Type Department Care Team (Late st Contact Info) Description 10/03/2022 Documentation Only [facility] [address] [place] [address] Adia Pope MD [address] [place] [address] Social History Tobacco Use Types Packs/Day Years [...] [facility] [address] [place] [address] Roosevelt Appiah MD [address] [place] [address] Dr. Á[place] [phone] documented as of this encounter Visit Diagnoses Not on filedocumented in this encounter Care Teams Russian History Professor Relationship Specialty Start Date End Date Cheyenne Whitmore MD [address] [facility] [address] [place] [address] PCP - General Internal Medicine 10/16/24 documented as of this encounter
--- OUTSIDE RECORDS SUMMARY | 2025-02-02 08:30 | XMS_ITS | Encounter Summary ---
Author Organization [facility] [place], Address [address] [place] [address] Phone Care Team Providers Care Planner Scheduler Name Role Phone Cheyenne Whitmore MD Primary Care Provider +1- [phone] Encounter Details Date Type Department Care Team (Late st Contact Info) Description 10/03/2022 Documentation Only [facility] [address] [place] [address] Adia Pope MD [address] [place] [address] Social History Tobacco Use Types Packs/Day Years [...] Visit [facility] [address] [place] [address] Roosevelt Appiah MD [address] [place] [address] [address] Á[place] [phone] documented as of this encounter Visit Diagnoses Not on filedocumented in this encounter Care Teams Planner Scheduler Relationship Specialty Start Date End Date Cheyenne Whitmore MD [address] [facility] [place] [address] [place] [address] PCP - General Internal Medicine 10/16/24 documented as of this encounter
--- OUTSIDE RECORDS SUMMARY | 2025-02-02 08:30 | XMS_ITS | Encounter Summary ---
Author Organization [facility] Address [address] [place] [address] Phone Care Team Providers Care Laborer [place] Name Role Phone Cheyenne Whitmore MD Primary Care Provider +1- [phone] Encounter Details Date Type Department Care Team (Late st Contact Info) Description 08/02/2023 Documentation Only [facility] [address] [place] [address] Whitney Pineda [address] [place] [address] Social History Tobacco Use Types [...] [facility] [address] [place] [address] Roosevelt Appiah MD [address] [place] [address] Dr. Á[place] [phone] documented as of this encounter Visit Diagnoses Not on filedocumented in this encounter Care Teams Laborer [place] Relationship Specialty Start Date End Date Cheyenne Whitmore MD [address] [place] [address] PCP - General Internal Medicine 10/16/24 documented as of this encounter
--- OUTSIDE RECORDS SUMMARY | 2025-02-02 08:30 | XMS_ITS | Encounter Summary ---
Author Organization [facility] [place], Address [address] [place] [address] Phone Care Team Providers Care Maintenance Painter Apprentice Name Role Phone Cheyenne Whitmore MD Primary Care Provider +1- [phone] Encounter Details Date Type Department Care Team (Late st Contact Info) Description 10/16/2024 Documentation Only [facility] [address] [place] [address] Whitney Pineda [address] [place] [address] Social History Tobacco Use Types Packs/Day [...] Visit [facility] [address] [place] [address] Roosevelt Appiah MD [address] [place] [address] [address] [address] documented as of this encounter Visit Diagnoses Not on filedocumented in this encounter Care Teams Maintenance Painter Apprentice Relationship Specialty Start Date End Date Cheyenne Whitmore MD [address] [place] [address] PCP - General Internal Medicine 10/16/24 documented as of this encounter
--- OUTSIDE RECORDS SUMMARY | 2025-02-02 08:30 | XMS_ITS | Encounter Summary ---
Author Organization [facility] [place], Address [address] [place] [address] Phone Care Team Providers Care Assembler Final Name Role Phone Cheyenne Whitmore MD Primary Care Provider +1- [phone] Encounter Details Date Type Department Care Team (Late st Contact Info) Description 10/03/2022 Documentation Only [facility] [address] [place] [address] Adia Pope MD [address] [place] [address] Social History Tobacco Use Types Packs/Day Years [...] [facility] [address] [place] [address] Roosevelt Appiah MD [address] [place] [address] Dr. Á[place] [phone] documented as of this encounter Visit Diagnoses Not on filedocumented in this encounter Care Teams Assembler Final Relationship Specialty Start Date End Date Cheyenne Whitmore MD [address] [facility] [place] [place] [address] PCP - General Internal Medicine 10/16/24 documented as of this encounter
--- OUTSIDE RECORDS SUMMARY | 2025-02-02 08:30 | XMS_ITS | Encounter Summary ---
Author Organization [facility] Address [address] [place] [address] Phone Care Team Providers Care Editor Trade Journal Name Role Phone Cheyenne Whitmore MD Primary Care Provider +1- [phone] Encounter Details Date Type Department Care Team (Late st Contact Info) Description 10/08/2023 Documentation Only [facility] [address] [place] [address] Whitney Pineda [address] [place] [address] Social History Tobacco Use Types [...] [facility] [address] [place] [phone] Roosevelt Appiah MD [address] [place] [address] [address] [phone] documented as of this encounter Visit Diagnoses Not on filedocumented in this encounter Care Teams Editor Trade Journal Relationship Specialty Start Date End Date Cheyenne Whitmore MD [address] [facility] [place] [address] PCP - General Internal Medicine 10/16/24 documented as of this encounter
--- OUTSIDE RECORDS SUMMARY | 2025-02-02 08:30 | XMS_ITS | Encounter Summary ---
Author Organization [facility] [place], Address [address] [place] [address] Phone Care Team Providers Care Waste Chopper Name Role Phone Cheyenne Whitmore MD Primary Care Provider +1- [phone] Encounter Details Date Type Department Care Team (Late st Contact Info) Description 10/03/2022 Documentation Only [facility] [address] [place] [address] Adia Pope MD [address] [place] [address] Social History Tobacco Use Types Packs/Day Years [...] [facility] [address] [place] [address] Roosevelt Appiah MD [address] [place] [address] [address] Á[place] [phone] documented as of this encounter Visit Diagnoses Not on filedocumented in this encounter Care Teams Waste Chopper Relationship Specialty Start Date End Date Cheyenne Whitmore MD [address] [facility] [place] [address] [place] [address] PCP - General Internal Medicine 10/16/24 documented as of this encounter
--- OUTSIDE RECORDS SUMMARY | 2025-02-02 08:30 | XMS_ITS | Encounter Summary ---
Author Organization [facility] Address [address] [place] [address] Phone Care Team Providers Care Petroleum Products District Supervisor Name Role Phone Adia Pope MD Primary Care Provider [phone] Unknown, Unknown Primary Care Provider Lexi peck Encounter Details Date Type Department Care Team (Late st Contact Info) Description 03/20/2023 Procedure Pass [facility] Endoscopy Admitting Dept Virtual Department [address] [place] [address] Social History Tobacco Use Types Packs/Day Years [...] documented as of this encounter Care Teams Petroleum Products District Supervisor Relationship Specialty Start Date End Date Adia Pope MD [address] [place] [address] [email or web address] PCP - General Family Medicine 06/16/20 08/29/23 Unknown, Unknown, PCP - General 08/30/23 documented as of this encounter Additional Source Comments The information contained in this document represents components of the legal health record. It is not the complete legal health record.[facility]
--- OUTSIDE RECORDS SUMMARY | 2025-02-02 08:30 | XMS_ITS | Encounter Summary ---
Author Organization [facility] Address [address] [place] [address] Phone Care Team Providers Care Truck Washer Name Role Phone Cheyenne Whitmore MD Primary Care Provider [phone]- [phone] Encounter Details Date Type Department Care Team (Late st Contact Info) Description 10/29/2024 Documentation Only [facility] [address] [place] [address] Whitney Pineda [address] [place] [address] Social History Tobacco Use Types [...] [facility] [address] [place] [address] Roosevelt Appiah MD [address] [place] [address] [address] [address] documented as of this encounter Visit Diagnoses Not on filedocumented in this encounter Care Teams Truck Washer Relationship Specialty Start Date End Date Cheyenne Whitmore MD [address] [facility] [place] [address] PCP - General Internal Medicine 10/16/24 documented as of this encounter
--- OUTSIDE RECORDS SUMMARY | 2025-02-02 08:30 | XMS_ITS | Encounter Summary ---
Author Organization [facility] [place], Address [address] [place] [address] Phone Care Team Providers Care Computer Support Technician Name Role Phone Cheyenne Whitmore MD Primary Care Provider [phone]- [phone] Encounter Details Date Type Department Care Team (Late st Contact Info) Description 01/30/2023 Documentation Only [facility] [address] [place] [place] [address] [place]ardo [place], [place] [address] [place] [address] Social History Tobacco Use Types [...] [facility] [address] [place] [place] [address] Roosevelt Appiah MD [address] [place] [address] [address] [address] documented as of this encounter Visit Diagnoses Not on filedocumented in this encounter Care Teams Computer Support Technician Relationship Specialty Start Date End Date Cheyenne Whitmore MD [address] [facility] [place] [place] [address] PCP - General Internal Medicine 10/16/24 documented as of this encounter
--- OUTSIDE RECORDS SUMMARY | 2025-02-02 08:30 | XMS_ITS | Encounter Summary ---
Author Organization [facility] [place], Address [address] [place] [address] Phone Care Team Providers Care Rehabilitation Supervisor Name Role Phone Cheyenne Whitmore MD Primary Care Provider [phone]- [phone] Encounter Details Date Type Department Care Team (Late st Contact Info) Description 10/03/2022 Documentation Only [facility] [address] [place] [address] Adia Pope MD [address] [place] [address] Social History Tobacco Use Types Packs/Day Years [...] Visit [facility] [address] [place] [place] [address] Roosevelt Appiah MD [address] [place] [address] [address] [address] documented as of this encounter Visit Diagnoses Not on filedocumented in this encounter Care Teams Rehabilitation Supervisor Relationship Specialty Start Date End Date Cheyenne Whitmore MD [address] [facility] [place] [address] [place] [address] PCP - General Internal Medicine 10/16/24 documented as of this encounter
--- OUTSIDE RECORDS SUMMARY | 2025-02-02 08:30 | XMS_ITS | Encounter Summary ---
Author Organization [facility] [place], Address [address] [place] [address] Phone Care Team Providers Care Demonstrator Knitting Name Role Phone Cheyenne Whitmore MD Primary Care Provider +1- [phone] Encounter Details Date Type Department Care Team (Late st Contact Info) Description 01/25/2023 Documentation Only [facility] [address] [place] [address] Roosevelt Appiah MD [address] [facility] [address] [address] Social History Tobacco Use Types [...] [facility] [address] [place] [address] Roosevelt Appiah MD [address] [facility] [address] [address] documented as of this encounter Visit Diagnoses Not on filedocumented in this encounter Care Teams Demonstrator Knitting Relationship Specialty Start Date End Date Cheyenne Whitmore MD [address] [facility] [place] [address] PCP - General Internal Medicine 10/16/24 documented as of this encounter
--- OUTSIDE RECORDS SUMMARY | 2025-02-02 08:30 | XMS_ITS | Encounter Summary ---
Author Organization [facility] Address [address] [place] [address] Phone Care Team Providers Care Hvac Sales Engineer Name Role Phone Cheyenne Whitmore MD Primary Care Provider +1- [phone] Encounter Details Date Type Department Care Team (Late st Contact Info) Description 08/02/2023 Documentation Only [facility] [address] [place] [address] Whitney Pineda [address] [place] [address] Social History Tobacco Use Types [...] Visit [facility] [address] [place] [address] Roosevelt Appiah MD [address] [place] [address] [address] [address] documented as of this encounter Visit Diagnoses Not on filedocumented in this encounter Care Teams Hvac Sales Engineer Relationship Specialty Start Date End Date Cheyenne Whitmore MD [address] [facility] [place] [address] PCP - General Internal Medicine 10/16/24 documented as of this encounter
--- OUTSIDE RECORDS SUMMARY | 2025-02-02 08:30 | XMS_ITS | Encounter Summary ---
Author Organization [facility] Address [address] [place] [address] Phone Care Team Providers Care Stumper Feller Name Role Phone Adia Pope MD Primary Care Provider [phone] Unknown, Unknown Primary Care Provider Lexi peck Encounter Details Date Type Department Care Team (Late st Contact Info) Description 09/19/2022 Transcribe Orders [facility] Phleb [address] [address] Fern Tompkins PA [address] [place] [address] [email or web address] Constipation, unspecified constipation type (Primary Dx); Hemorrhoids [...] C-Reactive Protein (09/19/2022 11:28 AM EDT) Pathologist [facility] C REACTIVE PROTEIN 5.0(H) 0.0 - 4.0 mg/L [facility] Blood 09/19/2022 11:2 8 AM EDT 09/19/2022 11:35 AM EDT Fern KAUR LAB BLOOD BKR ORDERABLES Final Result [address] [address] * (ABNORMAL) Comprehensive metabolic panel (09/19/2022 11:28 AM EDT) [facility] SODIUM 138 133 - 146 mmol/L [facility] POTASSIUM 3.8 3.3 - 5.1 mmol/L [facility] CHLORIDE 102 96 - 108 mmol/L [facility] CO2 26 21 - 35 mmol/L [facility] BUN 12 6 - 19 mg/dL [facility] CREATININE 0.90 0.5 - 1.5 mg/dL [facility] GLUCOSE 106(H) 70 - 99 mg/dL [facility] ALBUMIN 4.6 3.9 - 4.8 g/dL [facility] TOTAL PROTEIN 7.8 6.5 - 8.0 g/dL [facility] CALCIUM 9.2 8.4 - 10.3 mg/dL [facility] ALKALINE PHOSPHATASE 52 39 - 117 U/L [facility] TOTAL BILIRUBIN 0.5 0.0 - 1.2 mg/dL [facility] AST 32 0 - 37 U/L [facility] ALT 39 0 - 40 U/L [facility] GLOBULIN 3.2 1 - 4.8 g/dL [facility] EGFR 95 >59 mL/min/1.7 3m2 [facility] Comment:Estimated glomerular filtration rate calculated using the CKD-EPI refit equation. ANION GAP 14 10 - 20 mmol/L [facility] Blood 09/19/2022 11:2 8 AM EDT 09/19/2022 11:35 AM EDT Fern KA[facility] LAB BLOOD BKR ORDERABLES Final Result [facility] [address] [place], [place] [id number] * (ABNORMAL) CBC and differential (09/19/2022 11:28 AM EDT) WBC 4.71 4.00 - 11.00 K/uL [facility] RBC 5.09 3.90 - 5.69 M/uL [facility] HGB 16.0 12.4 - 17.3 g/dL [facility] HCT 47.2 37.0 - 51.0 % [facility] PLT 175 140 - 430 K/uL [facility] MCV 92.7 78.0 - 97.0 fL [facility] MCH 31.4 25.0 - 33.0 pg [facility] MCHC 33.9 32.0 - 36.0 g/dL [facility] RDW 12.0 11.0 - 15.0 % [facility] MPV 11.2 8.4 - 12.8 fl [facility] DIFF METHOD Auto [facility] NEUTS 63.1 43.0 - 75.0 % [facility] LYMPHS 23.6 18.2 - 47.4 % [facility] MONOS 11.5(H) 4.00 - 11.00 % [facility] EOS 0.8 0.0 - 8.0 % [facility] BASOS 0.6 0.0 - 2.0 % [facility] Granulocytes, immature (%) 0.4 0.0 - 0.9 % [facility] ABSOLUTE NEUTS 2.97 1.80 - 7.70 K/uL [facility] ABSOLUTE LYMPHS 1.11 1.00 - 3.10 K/uL [facility] ABSOLUTE MONOS 0.54 0.20 - 0.80 K/uL [facility] ABSOLUTE EOS 0.04 0.00 - 0.80 K/uL [facility] ABSOLUTE BASOS 0.03 0.00 - 0.09 K/uL [facility] Granulocytes, immature 0.02 0.00 - 0.05 K/uL [facility] Blood 09/19/2022 11:2 8 AM EDT 09/19/2022 11:35 AM EDT Fern KAUR LAB BLOOD BKR ORDERABLES Final Result Performing Organization Address City/[facility]/ZIP Co de Phone Number [address] [address] * Immunoglobulin A (09/19/2022 11:28 AM EDT) IgA 203 70 - 400 mg/dL [facility] Blood 09/19/2022 11:2 8 AM EDT 09/19/2022 11:35 AM EDT Fern KAUR LAB BLOOD BKR ORDERABLES Final Result Performing Organization Address City/[facility] Co de Phone Number [address] [address] * Tissue transglutaminase IgA (09/19/2022 11:28 AM EDT) TTG IGA ANTIBODY 2.3 <4.0 (Negative) U/mL [facility] Blood 09/19/2022 11:2 8 AM EDT 09/19/2022 11:35 AM EDT Fern KAUR LAB BLOOD BKR ORDERABLES Final Result [facility] [address] [place] [address] documented in this encounter Visit Diagnoses Diagnosis Constipation, unspecified constipation type- Primary Hemorrhoids without complication Unspecified hemorrhoids without mention of complication Change in bowel habits Other symptoms involving digestive system Melena Blood in stool documented in this encounter Additional Health Concerns Assessment Noted Time PHQ-2 Depression Total Score: 2 06/24/19 21 11:33 AM EDT documented as of this encounter Care Teams Stumper Feller Relationship Specialty Start Date End Date Adia Pope MD [address] [place] [address] [email or web address] PCP - General Family Medicine 06/16/20 08/29/23 Unknown, Kayden, PCP - General 08/30/23 documented as of this encounter Additional Source Comments The information contained in this document represents components of the legal health record. It is not the complete legal health record.[facility]
--- OUTSIDE RECORDS SUMMARY | 2025-02-02 08:30 | XMS_ITS | Encounter Summary ---
Author Organization [facility] [place], Address [address] [place] [address] Phone Care Team Providers Care Country Sales Manager Name Role Phone Cheyenne Whitmore MD Primary Care Provider +1- [phone] Encounter Details Date Type Department Care Team (Late st Contact Info) Description 10/16/2024 Documentation Only [facility] [address] [place] [address] Whitney Pineda [address] [place] [address] Social History Tobacco Use Types Packs/Day [...] Visit [facility] [address] [place] [address] Roosevelt Appiah MD [address] [place] [address] [address] Á[place] [address] documented as of this encounter Visit Diagnoses Not on filedocumented in this encounter Care Teams Country Sales Manager Relationship Specialty Start Date End Date Cheyenne Whitmore MD [address] [place] [address] PCP - General Internal Medicine 10/16/24 documented as of this encounter
--- OUTSIDE RECORDS SUMMARY | 2025-02-02 08:30 | XMS_ITS | Clinical Summary ---
Author Organization [facility], Address [address] [place] [address] [place] [address] Phone Care Team Providers Care Newspaper Press Operator Apprentice Name Role Phone Cheyenne Whitmore MD Primary Care Provider +1- [phone] Allergies Active Allergy Reactions Criticality Noted Date [...] Only [facility] Of [address] [place] [address] Whitney Pineda from Last 3 Months [...] Visit [facility] [place], [address] [place] [address] Roosevelt Appiah MD [address] [place] [address] [address] [place] [address] Health Maintenance Due Date Last Done [...] None seen 0 - 5 /hpf [facility] RBC, Urine None seen 0 - 2 /hpf [facility] Squamous Epithelial, Urine None seen 0 - 10 /hpf [facility] Casts None seen None seen /lpf [facility] Mucous Threads Present Not Estab. [facility] Bacteria, Urine None seen None seen/Few [facility] 11/03/2024 9:52 AM EDT 11/03/2024 Roosevelt Appiah MD LAB MICROBIOLOGY - GENERAL OR DERABLES Final Result Performing Organization Address City/[facility]/ZIP Co de Phone Number [facility] [address] [place] [address] * Protein, Total, Random Urine w/Creatinine (Protein/Creat Ratio) (11/03/2024 9:52 AM EDT) Creatinine, Ur 231.9 Not Estab. mg/dL [facility] Protein, Ur 13.5 Not Estab. mg/dL [facility] Urine Protein/Creatin ine Ratio 58 0 - 200 mg/g creat [facility] Urine Urine specimen obtained by clean catch procedure / Unknown 11/03/2024 9:52 AM EDT 11/03/2024 Roosevelt Appiah MD LAB URINE ORDERABLES Final Re sult Performing Organization Address City/[facility]/ZIP Co de Phone Number [facility] [address] [place] [address] * Urine Albumin / Creatinine Ratio (11/03/2024 9:52 AM EDT) Albumin, Urine 7.4 Not Estab. ug/mL [facility] Albumin/Creatin ine Ratio 3 0 - 29 mg/g creat [facility] Comment: Normal: 0 - 29 Moderately increased: 30 - 300 Severely increased: >300 Urine Urine specimen obtained by clean catch procedure / Unknown 11/03/2024 9:52 AM EDT 11/03/2024 Roosevelt Appiah MD LAB URINE ORDERABLES Final Re sult Performing Organization Address City/[facility] Co de Phone Number [facility] [address] [place] [address] * Vitamin D 25 Hydroxy (11/03/2024 9:52 AM EDT) Vitamin D, 25-OH, Total 56.6 30.0 - 100.0 ng/mL [facility] Comment: Vitamin D deficiency has been defined by the [place] of Medicine and an Endocrine Society practice guideline as a level of serum 25-OH vitamin D less than 20 ng/mL (1,2). The Endocrine Society went on to further define vitamin D insufficiency as a level between 21 and 29 ng/mL (2). 1. IOM ([place] of Medicine). 2010. Dietary reference intakes for [...] ORDERABLES Final Re sult Performing Organization Address City/[facility]/ZIP Co de Phone Number [facility] [address] [place] [address] * Urinalysis with microscopic (11/03/2024 9:52 AM EDT) Specific [place], Urine 1.019 1.005 - 1.030 [facility] Urine 5.5 5.0 - 7.5 [facility] Color, Urine Yellow Yellow [facility] [phone] Appearance Urine Clear Clear [facility] [place] [facility] WBC Esterase Urine Negative Negative [facility] [phone] Protein, Ur Negative Negative/Tra ce [facility] Glucose, Ur Negative Negative [facility] Ketones, Urine Negative Negative [facility] [place] Blood Urine Negative Negative [facility] Bilirubin Urine Negative Negative [facility] [place] [phone] Urobilinogen Urine 0.2 0.2 - 1.0 mg/dL [facility] Nitrite, Urine Negative Negative [facility] Microscopic Examination Comment [facility] Comment:Microscopic follows if indicated. Other Microsc. Observations See below: [facility] Comment:Microscopic was ross cated and was performed. Urine Urine specimen obtained by clean catch procedure / Unknown 11/03/2024 9:52 AM EDT 11/03/2024 us Roosevelt Appiah MD LAB URINE ORDERABLES Final Re sult [facility] [address] [place] [address] * CBC and Differential (11/03/2024 9:52 AM EDT) WBC 6.2 3.4 - 10.8 x10E3/uL [facility] RBC 4.99 4.14 - 5.80 x10E6/uL [facility] Hemoglobin 15.7 13.0 - 17.7 g/dL [facility] Hematocrit 47.5 37.5 - 51.0 % [facility] MCV 95 79 - 97 fL [facility] MCH 31.5 26.6 - 33.0 pg [facility] MCHC 33.1 31.5 - 35.7 g/dL [facility] RDW 12.8 11.6 - 15.4 % [facility] Platelets 178 150 - 450 x10E3/uL [facility] Neutrophils Relative 64 Not Estab. % [facility] Lymphocytes Relative 24 Not Estab. % [facility] Monocytes 10 Not Estab. % [facility] Eosinophils Relative 2 Not Estab. % [facility] Basophils Relative 0 Not Estab. % [facility] Neutrophils Absolute 4.0 1.4 - 7.0 x10E3/uL [facility] Lymphocytes Absolute 1.5 0.7 - 3.1 x10E3/uL [facility] Monocytes Absolute 0.6 0.1 - 0.9 x10E3/uL [facility] Eosinophils Absolute 0.1 0.0 - 0.4 x10E3/uL [facility] Basophils Absolute 0.0 0.0 - 0.2 x10E3/uL [facility] Immature Granulocytes 0 Not Estab. % [facility] Immature Grans (Absolute) 0.0 0.0 - 0.1 x10E3/uL [facility] Blood Venous blood / Unknown 11/03/2024 9:52 AM EDT 11/03/2024 Roosevelt Appiah MD LAB BLOOD ORDERABLES Final Re sult [facility] [address] [place] [address] * PTH, Intact (11/03/2024 9:52 AM EDT) Pathologist [facility] PTH 26 15 - 65 pg/mL [facility] Blood Venous blood / Unknown 11/03/2024 9:52 AM EDT 11/03/2024 Roosevelt Appiah MD LAB BLOOD ORDERABLES Final Re sult Performing Organization Address City/[facility]/ZIP Co de Phone Number [facility] [address] [place] [address] * Renal Function Panel (11/03/2024 9:52 AM EDT) Pathologist [facility] Glucose 99 70 - 99 mg/dL [facility] BUN 10 8 - 27 mg/dL [facility] Creatinine 0.99 0.76 - 1.27 mg/dL [facility] eGFR CKD-EPI CR 2020 84 >59 mL/min/1.7 3 [facility] BUN/Creatinine Ratio 10 10 - 24 [facility] Sodium 138 134 - 144 mmol/L [facility] Potassium 4.0 3.5 - 5.2 mmol/L [facility] Chloride 101 96 - 106 mmol/L [facility] Bicarbonate (CO2) 21 20 - 29 mmol/L [facility] Calcium 9.4 8.6 - 10.2 mg/dL [facility] Albumin 4.4 3.9 - 4.9 g/dL [facility] Phosphorus 3.0 2.8 - 4.1 mg/dL [facility] Blood Venous blood / Unknown 11/03/2024 9:52 AM EDT 11/03/2024 us Roosevelt Appiah MD LAB BLOOD ORDERABLES Final Re sult [facility] [address] [place] [address] from Last 3 Months Insurance Medicare [facility] Care Teams Newspaper Press Operator Apprentice Relationship Specialty Start Date End Date Cheyenne Whitmore MD [address] [facility] [place] [address] PCP - General Internal Medicine 10/16/24
--- OUTSIDE RECORDS SUMMARY | 2025-02-02 08:30 | XMS_ITS | Encounter Summary ---
Author Organization [facility] [place], Address [address] [place] [address] Phone Care Team Providers Care Calender Roll Operator Name Role Phone Cheyenne Whitmore MD Primary Care Provider +1- [phone] Encounter Details Date Type Department Care Team (Late st Contact Info) Description 11/24/2022 Documentation Only [facility] [address] [place] [address] Leonardo [place], [place] [address] [place] [address] Social History Tobacco Use Types [...] Visit [facility] [address] [place] [address] Roosevelt Appiah MD [address] [place] [address] [address] [address] documented as of this encounter Visit Diagnoses Not on filedocumented in this encounter Care Teams Calender Roll Operator Relationship Specialty Start Date End Date Cheyenne Whitmore MD [address] [facility] [place] [address] [place] [address] PCP - General Internal Medicine 10/16/24 documented as of this encounter
--- OUTSIDE RECORDS SUMMARY | 2025-02-02 08:30 | XMS_ITS | Encounter Summary ---
Author Organization [facility] Address [address] [place] [address] Phone Care Team Providers Care Mold Injector Name Role Phone Cheyenne Whitmore MD Primary Care Provider +1- [phone] Encounter Details Date Type Department Care Team (Late st Contact Info) Description 08/02/2023 Documentation Only [facility] Of [address] [place] [address] Whitney Pineda [address] [place] [address] Social History Tobacco Use Types [...] Visit [facility] Of [address] [place] [address] Roosevelt Appiah MD [address] [place] [address] Dr. Á[place] [address] documented as of this encounter Visit Diagnoses Not on filedocumented in this encounter Care Teams Mold Injector Relationship Specialty Start Date End Date Cheyenne Whitmore MD [address] [facility] [place] [address] PCP - General Internal Medicine 10/16/24 documented as of this encounter
--- OUTSIDE RECORDS SUMMARY | 2025-02-02 08:30 | XMS_ITS | Encounter Summary ---
Author Organization [facility] [place], Address [address] [place] [address] Phone Care Team Providers Care Rip Saw Operator Name Role Phone Cheyenne Whitmore MD Primary Care Provider +1- [phone] Encounter Details Date Type Department Care Team (Late st Contact Info) Description 01/25/2023 Documentation Only [facility] [address] [place] [address] Roosevelt Appiah MD [address] [facility] [address] [address] Social History Tobacco Use Types [...] [facility] [address] [place] [address] Roosevelt Appiah MD [address] [facility] [address] [place] [address] documented as of this encounter Visit Diagnoses Not on filedocumented in this encounter Care Teams Rip Saw Operator Relationship Specialty Start Date End Date Cheyenne Whitmore MD [address] [facility] [place] [address] PCP - General Internal Medicine 10/16/24 documented as of this encounter
--- OUTSIDE RECORDS SUMMARY | 2025-02-02 08:30 | XMS_ITS | Encounter Summary ---
Author Organization [facility] Address [address] [place] [address] Phone Care Team Providers Care Candy Department Manager Name Role Phone Cheyenne Whitmore MD Primary Care Provider +1- [phone] Encounter Details Date Type Department Care Team (Late st Contact Info) Description 01/25/2023 Documentation Only [facility] [address] [place] [phone] Taya Steinberg MD Social History Tobacco Use [...] Visit [facility] [address] [place] [address] [place] Appiah MD [address] [place] [address] [address] [phone] documented as of this encounter Visit Diagnoses Not on filedocumented in this encounter Care Teams Candy Department Manager Relationship Specialty Start Date End Date Cheyenne Whitmore MD [address] [facility] [place] [place] [address] PCP - General Internal Medicine 10/16/24 documented as of this encounter
--- OUTSIDE RECORDS SUMMARY | 2025-02-02 08:30 | XMS_ITS | Encounter Summary ---
Author Organization [facility] [place], Address [address] [place] [address] Phone Care Team Providers Care Instructor Wastewater Treatment Plant Name Role Phone Cheyenne Whitmore MD Primary Care Provider +1- [phone] Encounter Details Date Type Department Care Team (Late st Contact Info) Description 10/16/2024 Documentation Only [facility] [address] [place] [address] Whitney Pineda [address] [place] [address] Social History Tobacco Use Types Packs/Day [...] [facility] [address] [place] [address] Roosevelt Appiah MD [address] [place] [address] [address] [address] documented as of this encounter Visit Diagnoses Not on filedocumented in this encounter Care Teams Instructor Wastewater Treatment Plant Relationship Specialty Start Date End Date Cheyenne Whitmore MD [address] [place] [address] PCP - General Internal Medicine 10/16/24 documented as of this encounter
--- OUTSIDE RECORDS SUMMARY | 2025-02-02 08:30 | XMS_ITS | Encounter Summary ---
Author Organization [facility] [place], Address [address] [place] [address] Phone Care Team Providers Care Pheresis Specialist Name Role Phone Cheyenne Whitmore MD Primary Care Provider +1- [phone] Encounter Details Date Type Department Care Team (Late st Contact Info) Description 10/16/2024 Documentation Only [facility] [address] [place] [address] Whitney Pineda [address] [place] [address] Social History Tobacco Use Types Packs/Day [...] [facility] [address] [place] [address] Roosevelt Appiah MD [address] [place] [address] [address] [address] documented as of this encounter Visit Diagnoses Not on filedocumented in this encounter Care Teams Pheresis Specialist Relationship Specialty Start Date End Date Cheyenne Whitmore MD [address] [place] [address] PCP - General Internal Medicine 10/16/24 documented as of this encounter
--- OUTSIDE RECORDS SUMMARY | 2025-02-02 08:30 | XMS_ITS | Encounter Summary ---
Author Organization [facility] [place], Address [address] [place] [address] Phone Care Team Providers Care Home Health Provider Name Role Phone Cheyenne Whitmore MD Primary Care Provider +1- [phone] Encounter Details Date Type Department Care Team (Late st Contact Info) Description 10/03/2022 Documentation Only [facility] [address] [place] [address] Adia Pope MD [address] [place] [address] Social History Tobacco Use Types Packs/Day Years [...] Visit [facility] [address] [place] [address] [place] Appiah MD [address] [place] [address] [address] [address] documented as of this encounter Visit Diagnoses Not on filedocumented in this encounter Care Teams Home Health Provider Relationship Specialty Start Date End Date Cheyenne Whitmore MD [address] [facility] [place] [place] [address] PCP - General Internal Medicine 10/16/24 documented as of this encounter
--- OUTSIDE RECORDS SUMMARY | 2025-02-02 08:30 | XMS_ITS | Encounter Summary ---
Author Organization [facility] [place], Address [address] [place] [address] Phone Care Team Providers Care Gas Golf Cart Repairer Name Role Phone Cheyenne Whitmore MD Primary Care Provider +1- [phone] Encounter Details Date Type Department Care Team (Late st Contact Info) Description 10/16/2024 Documentation Only [facility] [address] [place] [address] Whitney Pineda [address] [place] [address] Social History Tobacco Use Types Packs/Day [...] Visit [facility] [address] [place] [address] Roosevelt Appiah MD [address] [place] [address] Dr. [address] [address] documented as of this encounter Visit Diagnoses Not on filedocumented in this encounter Care Teams Gas Golf Cart Repairer Relationship Specialty Start Date End Date Cheyenne Whitmore MD [address] [place] [address] PCP - General Internal Medicine 10/16/24 documented as of this encounter
--- OUTSIDE RECORDS SUMMARY | 2025-02-02 08:30 | XMS_ITS | Encounter Summary ---
Author Organization [facility] Address [address] [place] [address] Phone Care Team Providers Care Cloth Piecer Name Role Phone Cheyenne Whitmore MD Primary Care Provider +1- [phone] Encounter Details Date Type Department Care Team (Late st Contact Info) Description 10/29/2024 Documentation Only [facility] [address] [place] [address] Whitney Pineda [address] [place] [address] Social History Tobacco Use Types [...] Visit [facility] [address] [place] [address] Roosevelt Appiah MD [address] [place] [address] [address] [address] documented as of this encounter Visit Diagnoses Not on filedocumented in this encounter Care Teams Cloth Piecer Relationship Specialty Start Date End Date Cheyenne Whitmore MD [address] [place] [place] [address] PCP - General Internal Medicine 10/16/24 documented as of this encounter
--- OUTSIDE RECORDS SUMMARY | 2025-02-02 08:30 | XMS_ITS | Encounter Summary ---
Author Organization [facility] [place], Address [address] [place] [address] Phone Care Team Providers Care Spring Tester Name Role Phone Cheyenne Whitmore MD Primary Care Provider +1- [phone] Encounter Details Date Type Department Care Team (Late st Contact Info) Description 10/11/2022 Documentation Only [facility] [address] [place] [address] Adia Pope MD [address] [place] [address] Social History Tobacco Use Types Packs/Day Years [...] [facility] [address] [place] [address] Roosevelt Appiah MD [address] [place] [address] [address] [address] documented as of this encounter Visit Diagnoses Not on filedocumented in this encounter Care Teams Spring Tester Relationship Specialty Start Date End Date Cheyenne Whitmore MD [address] [facility] [place] [address] [place] [address] PCP - General Internal Medicine 10/16/24 documented as of this encounter
--- OUTSIDE RECORDS SUMMARY | 2025-02-02 08:30 | XMS_ITS | Encounter Summary ---
Author Organization [facility] Address [address] [place] [address] Phone Care Team Providers Care Oleomargarine Maker Name Role Phone Cheyenne Whitmore MD Primary Care Provider +1- [phone] Encounter Details Date Type Department Care Team (Late st Contact Info) Description 08/14/2023 Documentation Only [facility] [address] [place] [address] Whitney Pineda [address] [place] [address] Social History Tobacco Use Types [...] [facility] [address] [place] [address] Roosevelt Appiah MD [address] [place] [address] [address] [address] documented as of this encounter Visit Diagnoses Not on filedocumented in this encounter Care Teams Oleomargarine Maker Relationship Specialty Start Date End Date Cheyenne Whitmore MD [address] [facility] [place] [address] PCP - General Internal Medicine 10/16/24 documented as of this encounter
--- OUTSIDE RECORDS SUMMARY | 2025-02-02 08:30 | XMS_ITS | Encounter Summary ---
Author Organization [facility] Address [address] [place] [address] Phone Care Team Providers Care Eeg Technician Name Role Phone Cheyenne Whitmore MD Primary Care Provider +1- [phone] Encounter Details Date Type Department Care Team (Late st Contact Info) Description 10/17/2024 Documentation Only [facility] [address] [place] [address] Whitney Pineda [address] [place] [address] Social History Tobacco Use Types [...] [facility] [address] [place] [address] Roosevelt Appiah MD [address] [place] [address] [address] [address] documented as of this encounter Visit Diagnoses Not on filedocumented in this encounter Care Teams Eeg Technician Relationship Specialty Start Date End Date Cheyenne Whitmore MD [address] [facility] [place] [address] PCP - General Internal Medicine 10/16/24 documented as of this encounter
--- OUTSIDE RECORDS SUMMARY | 2025-02-02 08:30 | XMS_ITS | Encounter Summary ---
Author Organization [facility] Address [address] [place] [address] Phone Care Team Providers Care Volunteer Services Coordinator Name Role Phone Cheyenne Whitmore MD Primary Care Provider +1- [phone] Encounter Details Date Type Department Care Team (Late st Contact Info) Description 11/12/2024 Documentation Only [facility] [address] [place] [address] Whitney Pineda [address] [place] [address] Social History Tobacco Use Types [...] Visit [facility] [address] [place] [address] [place] Appiah MD [address] [place] [address] Dr. Ángel [place] [address] documented as of this encounter Visit Diagnoses Not on filedocumented in this encounter Care Teams Volunteer Services Coordinator Relationship Specialty Start Date End Date Cheyenne Whitmore MD [address] [facility] [place] [address] PCP - General Internal Medicine 10/16/24 documented as of this encounter
--- OUTSIDE RECORDS SUMMARY | 2025-02-02 08:31 | XMS_ITS | Encounter Summary ---
Author Organization [facility] Address [address] [place] [address] Phone Care Team Providers Care Sourcing Associate Name Role Phone Adia Pope MD Primary Care Provider [phone] Unknown, Unknown Primary Care Provider Lexi peck Encounter Details Date Type Department Care Team (Late st Contact Info) Description 01/16/2023 Procedure Pass [facility] Endoscopy Admitting Dept Virtual Department [address] [place] [address] Social History Tobacco Use Types Packs/Day Years [...] documented as of this encounter Care Teams Sourcing Associate Relationship Specialty Start Date End Date Adia Pope MD [address] [place] [address] [email or web address] PCP - General Family Medicine 06/16/20 08/29/23 Unknown, Unknown, PCP - General 08/30/23 documented as of this encounter Additional Source Comments The information contained in this document represents components of the legal health record. It is not the complete legal health record.[facility]
--- OUTSIDE RECORDS SUMMARY | 2025-02-02 08:31 | XMS_ITS | Encounter Summary ---
Author Organization [facility] Address [address] [place] [address] Phone Care Team Providers Care Emergency Medical Service Manager Name Role Phone Adia Pope MD Primary Care Provider [phone] Unknown, Unknown Primary Care Provider Lexi peck Encounter Details Date Type Department Care Team (Late st Contact Info) Description 01/17/2023 Procedure Pass [facility], Ct Scan - [address] [place] [address] [address] Social History Tobacco Use Types Packs/Day Years [...] documented as of this encounter Care Teams Emergency Medical Service Manager Relationship Specialty Start Date End Date Adia Pope MD [address] [place] [address] [email or web address] PCP - General Family Medicine 06/16/20 08/29/23 Unknown, Unknown, PCP - General 08/30/23 documented as of this encounter Additional Source Comments The information contained in this document represents components of the legal health record. It is not the complete legal health record.[facility]
--- OUTSIDE RECORDS SUMMARY | 2025-02-02 08:31 | XMS_ITS | Encounter Summary ---
Author Organization [facility] Address [address] [place] [address] Phone Care Team Providers Care Central Supply Manager Name Role Phone Adia Pope MD Primary Care Provider [phone] Unknown, Unknown Primary Care Provider Lexi peck [...] CONTRAST Jelly Manzo MD Phone: tel: fax: mailto:[email or web address] Referral ID Status Reason Start Date Expiration Date Visits Re quested Visits Authorized [id number] Closed 02/28/2023 03/18/2023 1 1 Encounter Details Date Type Department Care Team (Latest Contact Info) Description 01/17/2023 Transcribe Orders Virtual Department [address] [place] [address] Jelly Manzo MD [address] [place] [address] [email or web address] Constipation, unspecified constipation type (Primary Dx); Gastroesophageal [...] gynecomastia (left side may be above the [id number]). Changes of prior bilateral inguinal hernia repair. [...] gynecomastia (left side may be above the [id number]).Changes of prior bilateral inguinal hernia repair. IMPRESSION: [...] documented as of this encounter Care Teams Central Supply Manager Relationship Specialty Start Date End Date Adia Pope MD [address] [place] [address] [email or web address] PCP - General Family Medicine 06/16/20 08/29/23 Unknown, [place], PCP - General 08/30/23 documented as of this encounter Additional Source Comments The information contained in this document represents components of the legal health record. It is not the complete legal health record.[facility]
== END 2025-02-02 09:09 | disposition home or self-care (01) ==
PROVIDERS: PCP Internal Medicine; Visit Provider Nurse Practitioner Family
DX: T63.481A Toxic effect of venom of other arthropod, accidental (unintentional), initial encounter (principal)

== ENCOUNTER → 2025-02-02 08:23 | Outpatient (BNVA) | payer MEDICARE, OTHER, SELFPAY | PROVIDERS: PCP Internal Medicine; Visit Provider Nurse Practitioner Family | DX: S80.862A Insect bite (nonvenomous), left lower leg, initial encounter (principal); W57.XXXA Bitten or stung by nonvenomous insect and other nonvenomous arthropods, initial encounter | CPT/HCPCS: 99212 ==